=== PATIENT | male | born 1965 | race Caucasian/White ===

== ENCOUNTER 2019-12-25 00:55 | Emergency (ER) | payer SELFPAY ==
--- NOTE | ~2019-12-25 | CT_ITS ---
EXAMINATION: CT chest abdomen pelvis w con DATE: 12/25/2019 01:32 INDICATION: Fall with shortness of breath and left flank pain TECHNIQUE: Computed tomography (CT) of the chest, abdomen, and pelvis was performed with 100 mL Omnip aque-350 intravenous contrast. Automated exposure control and iterative reconstruction technique were employed. The dose-length product was 640.22 mGy-cm. COMPARISON: None FINDINGS: CHEST CT: Fractures of the posterolateral left 10th and 11th ribs, the former with 1 rib widths displacement an d the latter nondisplaced. Chronic but likely still healing fractures with callus formation extending from anterior to posterior from the right eighth to the 12th ribs. Additional older healed right fir st rib fracture. Paraseptal emphysema at both lungs with most prominent bullous changes and parenchym al scarring at the bilateral apices. No pneumonia, pulmonary edema, pleural effusion or pneumothorax. Small calcified nodules in the right lower lobe consistent with old granulomatous disease. Heart siz e is normal. No pericardial effusion. Mildly prominent prevascular lymph node measuring up to 10 mm i n maximal short axis diameter. No other pathologically enlarged thoracic lymphadenopathy. ABDOMEN/PELVIS CT: Liver, gallbladder, spleen, pancreas and bilateral adrenal glands are normal. Bilateral subcentimeter low-attenuation renal cysts. 2 mm nonobstructing stone at a lower pole calyx of the left kidney. Nor mal appendix. Small contained gas and fluid collection in the left hemipelvis along a fistulous tract between the sigmoid colon and the ileum. There is some wall thickening and a few diverticula along t he adjacent sigmoid colon without adjacent inflammatory stranding to suggest acute diverticulitis. Bl adder is normal. No free intraperitoneal gas or fluid. No pathologically enlarged abdominal or pelvic lymphadenopathy. Severe disc height loss with degenerative endplate changes at L5-S1. No acute fract ures identified in the abdomen or pelvis. IMPRESSION: 1. Acute posterior left 10th and 11th rib fractures. No acute visceral organ injury in the chest, abd omen or pelvis. 2. Mild apical predominant paraseptal emphysema. 3. 2 mm nonobstructing left renal stone. 3. Sigmoid diverticulosis with ileocolic fistula likely sequela of prior diverticulitis. Reviewed, dictated and finalized at location A. IMPRESSION: 1. Acute posterior left 10th and 11th rib fractures. No acute visceral organ in jury in the chest, abdomen or pelvis. 2. Mild apical predominant paraseptal emphysema. 3. 2 mm nonobstructing left renal stone. 3. Sigmoid diverticulosis with ileocolic fistula likely sequela of prior divert iculitis.
--- NOTE | ~2019-12-25 | CT_ITS ---
EXAMINATION: CT brain wo con DATE: 12/25/2019 01:32 INDICATION: Intoxication with fall down stairs. TECHNIQUE: Computed tomography (CT) of the head was performed without intravenous contrast. Sagittal and coronal reconstructions were performed. The mA was adjusted according to patient size. Iterative reconstruction technique was employed. The dose-length product was 605.33 mGy-cm. COMPARISON: None FINDINGS: There is mild streak and motion artifact which mildly limits evaluation. No fracture. There are small old lacunar infarcts at the bilateral basal ganglia. No acute intracranial hemorrhage, acute infarct ion or abnormal extra axial fluid collection. Ventricles are normal and symmetric. No mass/mass effec t. The orbits, paranasal sinuses and mastoid air cells are normal. IMPRESSION: 1. No fracture or acute intracranial process. 2. Small old lacunar infarcts at the bilateral basal ganglia. Reviewed, dictated and finalized at location A.
[2019-12-25 00:56] VITALS: BP 167/118; PULSE 91; RESP 16; TEMP 36.4; O2SAT 97
--- NOTE | 2019-12-25 01:02 | ED.ABDPAIN ---
HPI - Abdominal Pain General Chief Complaint: Abdominal Pain Stated Complaint: L flank pain sp fall Source: RN notes reviewed History of Present Illness HPI narrative: Patient presents emergency department from home for left-sided pain. Patient states he fell down approximately 5 stairs approximately 4 hours ago. States severe pain in his left abdomen and lower chest with bruising noted over his left hip. He states that he does not believe he hit his head. Patient states he did drink 6 beers today. He denies shortness of breath nausea vomiting or any other symptoms. Related Data Allergies Allergy/AdvReac Type Severity Reaction Status Date / Time codeine Allergy Swelling Verified 12/25/19 01:02 Review of Systems Review of Systems: Narrative: Gen.: Denies fevers or chills Eyes: Denies eye pain or visual change ENT: Denies congestion Respiratory: Denies shortness of breath or cough CV: Denies chest pain or palpitations GI: Reports left-sided abdominal pain, denies nausea vomiting or diarrhea denies hematuria Musculoskeletal: Reports back pain Neuro: Denies numbness, tingling, weakness or focal weakness Skin: Denies rash Except as documented, all other systems reviewed and negative PMFSH Past Medical History Medical History (Updated 12/25/19 @ 03:43 by Jairon Varma DO) COPD (chronic obstructive pulmonary disease) Social History Social History (Updated 12/25/19 @ 01:03 by Jairon Varma DO) Smoking packs per day: 1 Smoking cigarettes per day: 20.0 Exam Narrative: Exam Narrative: APPEARANCE: Well appearing, no apparent distress, well-nourished. HEENT: normocephalic atraumtaic. TMs clear bilaterally. Oral mucosa moist. No facial tenderness EYES: PERRL NECK: Supple. No midline tenderness to palpation. Full range of motion without pain RESPIRATORY: No respiratory distress. Clear to auscultation bilaterally CARDIOVASCULAR: Regular rate and rhythm without murmurs rubs or gallops. ABDOMINAL: Soft, nondistended, tender palpation left upper quadrant left lower quadrant ecchymosis over the left lower abdomen and anterior pelvis MUSCULOSKELETAl: Moves all extremities. No tenderness to palpation of bilateral upper and lower extremities. No clubbing cyanosis or edema Back: No midline thoracic or lumbar tenderness to palpation tender palpation of left paravertebral muscles L2-5 Pelvis: Stable, nontender NEURO: Awake and alert ?3. Follows commands. Speech normal. No focal deficits. SKIN:: Warm, dry. Normal Color Course Course Emergency Course: I discussed with the patient the fistula. No history of diverticulitis or inflammatory bowel disease. He had had no bowel complaints prior to his fall this evening Called and discussed with Dr. shaffer the results. At this time recommends patient being started on Augmentin and Flagyl with follow-up as an outpatient Patient is ANO x3 able to get up and ambulate in the emergency department with no difficulty. Patient's brother is present and will be taking the patient home. Patient states he is ready for discharge. Discussed with patient the results of the work-up. I discussed CT scan showing fistula and need for follow-up and in agreement at this time Discussed with patient results of workup and diagnosis. Discussed need for follow-up with primary care, proper use of medication, and reasons to return to the emergency department. Patient understands and agrees to current treatment plan Vital Signs Vital signs: Vital Signs Temperature 97.5 F L 12/25/19 00:56 Pulse Rate 91 12/25/19 00:56 Respiratory Rate 16 12/25/19 00:56 Blood Pressure 167/118 H 12/25/19 00:56 Pulse Oximetry 97 12/25/19 00:56 Temperature 97.5 F L 12/25/19 00:56 Pulse Rate 92 12/25/19 02:50 Respiratory Rate 20 12/25/19 02:50 Blood Pressure 132/91 H 12/25/19 02:50 Pulse Oximetry 98 12/25/19 02:50 MDM - Abdominal Pain Lab Data Result diagrams: 12/25/19 01:04
[2019-12-25 01:12] LABS: Basophils Absolute Auto 0.1 K/mm3 (0.0-0.1); Eosinophils Absolute Auto 0.1 K/mm3 (0-0.3); Hematocrit 42.5 % (42.0-52.0); Hemoglobin 14.8 g/dL (14.0-18.0); Immature Granulocyte Absolute 0.01 K/mm3 (0.00-0.031); Immature Granulocyte Percent A 0.2 % (0-0.5); Lymphocytes Absolute Auto 1.74 K/mm3 (0.9-3.2); Lymphocytes Percent Auto 34.9 % (18.3-44.2); Mean Corpuscular HGB Conc 34.8 g/dl (32-36); Mean Corpuscular Hemoglobin 35.6 pg (26-34); Mean Corpuscular Volume 102.2 fl (80-100); Mean Platelet Volume 10.6 fl (7.4-10.4); Monocytes Absolute Auto 0.6 K/mm3 (0.1-0.6); Monocytes Percent Auto 11.2 % (2.6-8.5); Neutrophils Absolute Auto 2.5 K/mm3 (1.3-6.7); Neutrophils Percent Auto 50.7 % (45.5-73.1); Platelet Count Result 126 k/mm3 (150-375); Red Blood Count 4.16 M/mm3 (4.6-6.20); Red Cell Distribution Width 11.3 % (11.5-14.5)
[2019-12-25 01:20] LABS: INR 0.9; Partial Thromboplastin Time 27.9 SECONDS (22.3-36.8); Prothrombin Time 12.2 Seconds (11.1-14.7)
[2019-12-25 01:21] LABS: Estimated Glomerular Filt Rate 52
[2019-12-25 01:23] LABS: Alanine Aminotransferase 171 U/L (4-50); Albumin Level 4.7 g/dL (3.5-5.1); Alkaline Phosphatase 101 U/L (38-126); Aspartate Amino Transferase 221 U/L (17-59); Bilirubin,Total 0.4 mg/dL (0.2-1.3); Blood Urea Nitrogen 8 mg/dL (9-20); Calcium 9.1 mg/dL (8.4-10.2); Carbon Dioxide 30 mmol/L (22-30); Chloride 103 mmol/L (98-107); Estimated Glomerular Filt Rate > 60; Glucose 107 mg/dL (75-110); Potassium 4.4 mmol/L (3.4-5.0); Sodium 145 mmol/L (137-145)
[2019-12-25] MEDS: MORPHINE SULFATE 4 MG/ML INJ IV PUSH (01:35)
[2019-12-25 01:39] VITALS: BP 154/94; PULSE 110; RESP 20; O2SAT 100
[2019-12-25 01:45] LABS: Ethanol 495 mg/dL (<10)
[2019-12-25 02:50] VITALS: BP 132/91; PULSE 92; RESP 20; O2SAT 98
[2019-12-25] MEDS: AMOXICILLIN/CLAVULANATE K 875-125 MG TAB 1 TABLET PO (03:55)
[2019-12-25] MEDS: metroNIDAZOLE 250 MG TABLET 500 MG PO (03:55)
[2019-12-25 04:00] VITALS: BP 138/90; PULSE 80; RESP 20; O2SAT 98
== END 2019-12-25 04:04 | disposition home or self-care (01) ==
PROVIDERS: Emergency Provider Emergency Medicine
DX: S22.42XA Multiple fractures of ribs, left side, initial encounter for closed fracture (principal); K63.2 Fistula of intestine; F10.129 Alcohol abuse with intoxication, unspecified; Y90.0 Blood alcohol level of less than 20 mg/100 ml; F17.210 Nicotine dependence, cigarettes, uncomplicated; J44.9 Chronic obstructive pulmonary disease, unspecified; W10.9XXA Fall (on) (from) unspecified stairs and steps, initial encounter
CPT/HCPCS: 36415; 70450; 71260; 74177; 80053; 80307; 85025; 85055; 85610; 85730; 96365; 96375; 99284; A9270; J0131; J2270; Q9967

== ENCOUNTER 2020-10-21 16:08 | Inpatient (IN) | payer MEDICARE, MEDICAID, SELFPAY ==
--- NOTE | ~2020-10-21 | CT_ITS ---
EXAMINATION: CT abdomen pelvis wo con DATE: 10/21/2020 17:27 INDICATION: Left flank pain and left lower quadrant abdominal pain. TECHNIQUE: Computed tomography (CT) of the abdomen and pelvis was performed without intravenous contr ast. Automated exposure control and iterative reconstruction technique were employed. The dose-length product was 236.53 mGy-cm. COMPARISON: 12/25/2019 FINDINGS: Mild paraseptal emphysema at the right lung base. Heart size is normal. No pericardial or pleural eff usion. Diffuse hepatic steatosis. Gallbladder, spleen and bilateral adrenal glands are normal. Small calcification at the tail the pancreas could represent sequela of chronic pancreatitis. Right kidney and bilateral ureters are normal without evidence stones. There is a 3 mm nonobstructing stone at the lower pole of the left kidney. There are a few sigmoid diverticula. Again seen is a small amount of extraluminal gas along a tract of soft tissue density likely representing an enterocolic fistula exte nding between the proximal sigmoid colon and a loop of small bowel in the central abdomen. Bowels are otherwise unremarkable with no obstruction and with normal appendix. 7 mm diverticulum at the right posterior bladder.. No free intraperitoneal gas or fluid. No pathologically enlarged abdominal or pel mitchel lymphadenopathy. Severe lumbosacral spondylosis. Otherwise mild scattered degenerative skeletal c hanges. A few old left lower rib fractures. IMPRESSION: 1. 3 mm nonobstructing left renal stone. 2. Mild sigmoid diverticulosis with a small amount of gas along a chronic enterocolic fistula with li milli sequela of chronic diverticulitis. 3. Diffuse hepatic steatosis. Reviewed, dictated and finalized at location A. IMPRESSION: 1. 3 mm nonobstructing left renal stone. 2. Mild sigmoid diverticulosis with a small amount of gas along a chronic enter ocolic fistula with likely sequela of chronic diverticulitis. 3. Diffuse hepatic steatosis.
[2020-10-21 16:10] VITALS: BP 156/91; PULSE 78; RESP 18; TEMP 36.2; O2SAT 100
[2020-10-21 16:32] LABS: Basophils Absolute Auto 0.1 K/mm3 (0.0-0.1); Basophils Percent Auto 0.9 % (0.2-1.2); Eosinophils Percent Auto 0.4 % (0-4.4); Hematocrit 40.5 % (42.0-52.0); Hemoglobin 14.2 g/dL (14.0-18.0); Immature Granulocyte Absolute 0.02 K/mm3 (0.00-0.031); Immature Granulocyte Percent A 0.4 % (0-0.5); Immature Platelet Fraction Pct 8.2 % (0.9-11.2); Lymphocytes Absolute Auto 1.43 K/mm3 (0.9-3.2); Lymphocytes Percent Auto 25.3 % (18.3-44.2); Mean Corpuscular HGB Conc 35.1 g/dl (32-36); Mean Corpuscular Hemoglobin 37.3 pg (26-34); Mean Corpuscular Volume 106.3 fl (80-100); Mean Platelet Volume 10.3 fl (7.4-10.4); Monocytes Absolute Auto 0.8 K/mm3 (0.1-0.6); Monocytes Percent Auto 14.7 % (2.6-8.5); Neutrophils Absolute Auto 3.3 K/mm3 (1.3-6.7); Neutrophils Percent Auto 58.3 % (45.5-73.1); Platelet Count Result 135 k/mm3 (150-375); Red Blood Count 3.81 M/mm3 (4.6-6.20); Red Cell Distribution Width 11.3 % (11.5-14.5); White Blood Count 5.7 K/mm3 (4.5-10.0)
[2020-10-21 16:32] LABS: Add Urine Microscopic? NO; Appearance Urine Clear (Clear); Bilirubin Urine Negative (Negative); Blood Urine Negative (Negative); Color Urine Straw (Yellow); Glucose Urine UA Negative (Negative); Ketones Urine Negative (Negative); Leukocyte Esterase Ur Negative LEU/UL (Negative); Nitrate Urine Negative (Negative); Protein Urine Negative (Negative); Urobilinogen Urine Negative mg/dL (<2.0)
[2020-10-21 16:36] LABS: Specific Grav Ur 1.003 (1.001-1.035)
[2020-10-21 16:42] LABS: Alanine Aminotransferase 101 U/L (4-50); Albumin Level 4.5 g/dL (3.5-5.1); Alkaline Phosphatase 81 U/L (38-126); Anion Gap 9 mmol/L (8-16); Aspartate Amino Transferase 227 U/L (17-59); Bilirubin,Total 0.6 mg/dL (0.2-1.3); Blood Urea Nitrogen 4 mg/dL (9-20); Calcium 9.1 mg/dL (8.4-10.2); Carbon Dioxide 30 mmol/L (22-30); Chloride 101 mmol/L (98-107); Estimated CRCL calculation 99 ml/min; Estimated Glomerular Filt Rate > 60; Glucose 83 mg/dL (75-110); Lipase 180 U/L (23-300); Sodium 140 mmol/L (137-145)
[2020-10-21 17:29] LABS: Ethanol 298 mg/dL (<10)
[2020-10-21] MEDS: CIPROFLOXACIN 400 MG/D5W 200ML 200 ML 200 MG IVPB (19:39)
--- NOTE | 2020-10-21 19:44 | ED.ABDPAIN ---
HPI - Abdominal Pain General Chief Complaint: Abdominal Pain Stated Complaint: abd pain Time Seen by Provider: 10/21/20 16:52 Source: patient Mode of arrival: ambulatory Limitations: no limitations History of Present Illness HPI narrative: 55-year-old with a history of left inguinal hernia repaired several years ago here with complaints of left lower abdominal pain radiating to his back for last 3 days. He also states that he is feeling extremely weak and tired. He denies any fever or chills. No history of nausea or vomiting. Denies any blood in the stool. No previous history of diverticulitis or diverticulosis. MD elicited complaint: abdominal pain Pertinent past history: none Onset (ago): day(s) (3) Pain Consistency: constant Location: LLQ Severity: moderate Quality: aching Radiation: LLQ Migration to: L flank Exacerbating factors: nothing Relieving factors: nothing Associated symptoms: denies other symptoms Related Data Allergies Allergy/AdvReac Type Severity Reaction Status Date / Time codeine Allergy Swelling Verified 12/25/19 01:02 Review of Systems Review of Systems: All systems reviewed & are unremarkable except as noted in HPI and below Constitutional: Constitutional: Reports no additional constitutional complaints Eyes: Eyes: Reports no additional eye complaints ENT: Reports system reviewed and no additional complaints, except as documented Cardiovascular: Cardiovascular: Reports no additional cardiovascular complaints Respiratory: Respiratory: Reports no additional respiratory complaints Gastrointestinal: Gastrointestinal: Reports as per HPI Musculoskeletal: Musculoskeletal: Reports no additional musculoskeletal complaints Neurologic: Reports system reviewed and no additional complaints, except as documented Psychiatric: Psychiatric: Reports no additional psychiatric complaints [facility] Past Medical History Medical History COPD (chronic obstructive pulmonary disease) Social History Social History Smoking packs per day: 1 Smoking cigarettes per day: 20.0 Gender identity (if verbalized by the patient): Male Exam Narrative: Exam Narrative: GENERAL: Well-appearing, well-nourished, and in no acute distress. Strong smell of alcohol HEAD: Normocephalic, atraumatic. EYES: PERRLA and EOMI. NECK: Supple. CHEST: Clear to auscultation. No respiratory distress. HEART: Regular rate and rhythm. No murmur heard. Normal peripheral pulses. ABDOMEN: Soft, tender in the left lower quadrant area, nondistended, normal active bowel sounds. EXTREMITIES: Normal range of motion. No edema. SKIN: Warm, dry, no rash. NEURO: No focal deficits. Alert and oriented x3. PSYCH: Normal mood and affect. Course Course Emergency Course: Inform patient about his lab work, CT findings. I discussed with Dr. Artis recommended to admit patient under the hospitalist marilou Henriquez and Davey. We will see the patient in consult. Discussed with Nyasia agreed to admit the patient. Vital Signs Vital signs: Vital Signs Temperature 36.2 C L 10/21/20 16:10 Pulse Rate 78 10/21/20 16:10 Respiratory Rate 18 10/21/20 16:10 Blood Pressure 156/91 H 10/21/20 16:10 Pulse Oximetry 100 10/21/20 16:10 Temperature 36.2 C L 10/21/20 16:10 Pulse Rate 78 10/21/20 16:10 Respiratory Rate 18 10/21/20 16:10 Blood Pressure 156/91 H 10/21/20 16:10 Pulse Oximetry 100 10/21/20 16:10 MDM - Abdominal Pain Lab Data Result diagrams: 10/21/20 16:19 10/21/20 16:19 Labs: Lab Results 10/21/20 10/21/20 10/21/20 Range/Units 16:19 16:19 16:19 WBC 5.7 (4.5-10.0) K/mm3 RBC 3.81 L (4.6-6.20) M/mm3 Hgb 14.2 (14.0-18.0) g/dL Hct 40.5 L (42.0-52.0) % MCV 106.3 H (80-100) fl MCH 37.3 H (26-34) pg MCHC 35.1 (32-36) g/dl RDW 11.3 L (11.5-14.5) %
[2020-10-21] MEDS: metroNIDAZOLE 500 MG/ISO 100ML 500 MG/100 ML BAG 100 MG IVPB (20:35)
[2020-10-21 21:09] VITALS: BP 147/79; PULSE 74; RESP 18; O2SAT 96
[2020-10-21] MEDS: NICOTINE (*PBKC) 21 MG PATCH 1 PATCH TRANSDERM (21:10)
--- NOTE | 2020-10-21 21:10 | ADMGEN ---
This patient, Juan Jose Martinez, was admitted to Medical Room 253-01. Patient/family oriented to hospital policies and general routines including ID bracelet, bed and alarms, visiting hours, pain management, procedures, bathroom and other care routines, personal items, smoking policy, room service/diet, and visiting hours. Information on how to activate the Rapid Response Team has been discussed. Patient/Family are encouraged to report perceived risks to care and to ask questions if they do not understand what they are told or what they should do.
[2020-10-21] MEDS: SODIUM CHLORIDE 0.9% IV 1,000 ML 125 ML IV CONT (21:23)
[2020-10-21 21:39] VITALS: BP 161/88; PULSE 79; RESP 16; TEMP 36.1; O2SAT 100; BMI 20.2
[2020-10-22] VITALS (9 sets, daily range): BP systolic 139–169; BP diastolic 79–85; PULSE 59–84; RESP 16–18; TEMP 35.9–37.1; O2SAT 96–100
[2020-10-22] MEDS: metroNIDAZOLE 500 MG/ISO 100ML 500 MG/100 ML BAG 100 MG IVPB ×5 (00:55→23:33)
[2020-10-22] MEDS: MORPHINE SULFATE (*CRX) 4 MG/ML INJ IV PUSH ×4 (01:03→21:23)
--- NOTE | 2020-10-22 01:55 | PM.IMHP ---
H&P: HPI History of Present Illness Date/Time: 10/22/20 01:55 Chief Complaint: Left abdominal pain Narrative: 55-year-old male with past medical history of ulcers, COPD and chronic alcohol abuse who presented to the ER due to left lower abdominal pain. The patient had been evaluated in the ER December 2019 for similar symptoms. At that time he was noted to have 2 mm nonobstructing left renal stone, acute posterior rib fractures and sigmoid diverticulosis with ileal colic fistula likely sequelae of prior diverticulitis. He reported that he has had intermittent left lower abdominal pain since then. He was directed to follow-up with surgery as outpatient at that time and had been discharged on antibiotic therapy but he failed to follow-up with the surgeon. He reports that his pain is occasionally worse with eating. When his pain is worse he does not eat as much. At other times is appetite is fine. He reports several years of intermittently mucousy stools and intermittent blood-streaked stools. He has noticed some leakage of stool for quite some time. Leakage of stool has been ongoing even before his ER visit in December. He has never had a colonoscopy. He reports frequent symptoms of heartburn and reflux into his esophagus. He has frequent difficulty with swallowing meats. He reports that every morning when he wakes up he has severe nausea and will occasionally vomit. He denies any hematemesis or coffee-ground emesis he does have a distant history of gastric ulcers. He denies taking NSAIDs. He denies any fevers or chills. He reports that he came to the ER this time because his pain acutely worsened over the last 24 hours. He reports that his worst his pain is a 9/10 in intensity in after morphine his pain is down to a 4/10 in intensity. He reports that he has chronic pain in his leg and back due to prior trauma. He subsequently drinks at least 6 beers a day to help deal with his pain. He denies any history a of liver disease. However, his LFTs back in December were elevated similar to the levels today. He has chronic shortness of breath that is unchanged from baseline. He has not been having any cough congestion or recent ill contacts. He has and I albuterol inhaler and a albuterol nebulizer from [place] quite sometime ago that he still uses as needed for shortness of breath. He has not seen a primary care physician in at least several years. He has not received a COVID vaccine and is not interested in receiving a vaccine. Review of Systems Review of Systems: Narrative: 12 systems were reviewed with pertinent positives and negatives per HPI. Except as documented in the HPI, all other systems were reviewed and are negative. 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 Kidney stones Right inguinal hernia Patient refuses surgical correction Status post open reduction with internal fixation of fracture Stomach ulcer Surgical History Surgical History (Updated 10/22/20 @ 05:21 by Kusum Casillas DO) History of left inguinal hernia repair X2 History of pneumonectomy Left lower lobe pneumonectomy 2017 due to pneumothorax History of tonsillectomy and adenoidectomy Status post right foot surgery (~1990) For sequential surgeries for ORIF right foot due to trauma from alcohol use with the last surgical procedure also involving bone harvesting from his right hip Family History Family History Father Acute myocardial infarction Mother Breast cancer Cerebrovascular accident Social History Social History (Updated 10/22/20 @ 05:24 by Kusum Casillas DO) Social History: He lives in [place] with his of 1 year. 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 He has smoked up t
[2020-10-22] MEDS: FOLIC ACID 1 MG/0.2 ML INJ IV PUSH (02:19)
[2020-10-22] MEDS: THIAMINE HCL 200 MG/2 ML VIAL 100 MG IV PUSH (02:19)
[2020-10-22 05:20] LABS: Basophils Percent Auto 1.1 % (0.2-1.2); Eosinophils Absolute Auto 0.1 K/mm3 (0-0.3); Eosinophils Percent Auto 1.9 % (0-4.4); Hematocrit 37.9 % (42.0-52.0); Hemoglobin 13.2 g/dL (14.0-18.0); Immature Granulocyte Absolute 0.01 K/mm3 (0.00-0.031); Immature Granulocyte Percent A 0.3 % (0-0.5); Lymphocytes Absolute Auto 1.46 K/mm3 (0.9-3.2); Mean Corpuscular HGB Conc 34.8 g/dl (32-36); Mean Corpuscular Volume 106.2 fl (80-100); Mean Platelet Volume 10.5 fl (7.4-10.4); Monocytes Absolute Auto 0.5 K/mm3 (0.1-0.6); Monocytes Percent Auto 12.3 % (2.6-8.5); Neutrophils Absolute Auto 1.6 K/mm3 (1.3-6.7); Neutrophils Percent Auto 44.4 % (45.5-73.1); Platelet Count Result 104 k/mm3 (150-375); Red Blood Count 3.57 M/mm3 (4.6-6.20); Red Cell Distribution Width 11.3 % (11.5-14.5); White Blood Count 3.7 K/mm3 (4.5-10.0)
[2020-10-22 06:01] LABS: Anion Gap 5 mmol/L (8-16); Blood Urea Nitrogen 3 mg/dL (9-20); Calcium 8.3 mg/dL (8.4-10.2); Carbon Dioxide 30 mmol/L (22-30); Chloride 106 mmol/L (98-107); Estimated CRCL calculation 88 ml/min; Estimated Glomerular Filt Rate > 60; Glucose 73 mg/dL (75-110); Magnesium 1.4 mg/dL (1.6-2.3); Phosphorus 3.2 mg/dL (2.5-4.5); Sodium 141 mmol/L (137-145)
[2020-10-22] MEDS: SODIUM CHLORIDE 0.9% IV 1,000 ML 125 ML IV CONT (07:24)
[2020-10-22 07:56] LABS: Folic Acid > 20.0 ng/mL (2.76->20)
[2020-10-22] MEDS: CIPROFLOXACIN 400 MG/D5W 200ML 200 ML 200 MG IVPB (09:00)
[2020-10-22] MEDS: TAMSULOSIN HCL 0.4 MG CAPSULE PO (09:04)
[2020-10-22] MEDS: PANTOPRAZOLE SODIUM IV 40 MG VIAL IV PUSH (09:07)
[2020-10-22 10:30] LABS: Glucose Point of Care 90 (65-105)
[2020-10-22] MEDS: ONDANSETRON INJ 4 MG/2 ML VIAL IV PUSH (10:43)
[2020-10-22] MEDS: LORazepam INJ (*CRX) 2 MG/ML VIAL 1 MG IV PUSH (10:44)
--- NOTE | 2020-10-22 10:47 | PM.IMPN ---
Progress Note: A&P Assessment and Plan (1) Entero-colic fistula: Code(s): K63.2 - Fistula of intestine Status: Acute Assessment and Plan: -The patient has intra colic fistula that appears to be somewhat chronic. His brother had surgery for the same thing. This could be sequelae of chronic diverticulitis however given patient's report of mucousy stools and intermittent bloody stools as well as is upper GI symptoms, consider IBD -Patient has been started on empiric antibiotic therapy with Cipro and Flagyl. Will remind the patient if he goes home on Flagyl he cannot drink alcohol with this. -General surgery has been consulted, await their recommendations -GI also has been consulted due to reflux, emesis and dysphagia. (2) Alcohol abuse: Code(s): F10.10 - Alcohol abuse, uncomplicated Status: Acute Assessment and Plan: Chronic alcohol abuse with chronic transaminitis and CT evidence of hepatic steatosis. I suspect the patient has cirrhosis. -The patient states that he is not interested in quitting drinking alcohol -I had a discussion with the patient that his liver destruction alcohol can cause -continue thiamine and folic acid -The patient has evidence of bone marrow suppression with leukopenia, macrocytosis and thrombocytopenia, likely due to the alcoholism (3) Continuous tobacco abuse: Code(s): Z72.0 - Tobacco use Status: Acute Assessment and Plan: He is not interested in quitting smoking. A nicotine patch has been provided. (4) GERD (gastroesophageal reflux disease): Code(s): K21.9 - Gastro-esophageal reflux disease without esophagitis Status: Acute Assessment and Plan: Continue Protonix -GI consult (5) Dysphagia: Code(s): R13.10 - Dysphagia, unspecified Status: Acute Assessment and Plan: Will consult GI (6) Megaloblastic anemia due to alcoholism: Code(s): D53.1 - Other megaloblastic anemias, not elsewhere classified Status: Acute Assessment and Plan: Hemoglobin stable -B12 and folate within normal limits (7) Elevated blood pressure reading: Code(s): R03.0 - Elevated blood-pressure reading, without diagnosis of hypertension Status: Acute Assessment and Plan: Could be due to pain vs previously undiagnosed essential hypertension - Will monitor blood pressures trends, if the patient's pain improved and he still has elevated blood pressure readings, consider starting antihypertensive medication -add hydralazine for significantly elevated blood pressure readings (8) Transaminitis: Code(s): R74.01 - Elevation of levels of liver transaminase levels Status: Acute Assessment and Plan: -Pattern looks consistent with ETOH abuse but will order hepatitis panel for the morning -CT shows difuse hepatic steatosis Time Spent With Patient Time with patient: 25 - 35 minutes Subjective Date/time seen: 10/22/20 10:47 Interval history: Pt is a 55 year old male here for significant abdominal fistula. Patient was seen today and states his pain is still a 7/10 in the left lower quadrant. He vomited this morning regular bile (no blood). He felt a little shaky during this time but has since felt better. His glucose was 90. He says he drinks about 6 beers a day. He denies hallucinations or anxiety at this time. He states he had a bowel movement yesterday which was normal for him and has been having gas today. He denies chest pain, acute shortness of breath, leg swelling, or cough. He does not think he has any history of hepatitis but is unsure. Review of Systems Review of Systems: All systems reviewed & are unremarkable except as noted in HPI and below Exam Narrative: Exam Narrative: General: Well developed well nourished patient in NAD HEENT: normocephalic Neck: supple Neuro: Alert and oriented x4. No tremors on exam. CV:RRR Res
--- NOTE | 2020-10-22 11:06 | PM.CNGS ---
Assessment and Plan Assessment and plan (1) Diverticulitis: Code(s): K57.92 - Diverticulitis of intestine, part unspecified, without perforation or abscess without bleeding Status: Acute Assessment and Plan: CT scan from this hospitalization and from December of 2019 reviewed and discussed with the patient in detail. He has evidence of chronic diverticulitis and likely is dealing with an acute component at this time. CT also suggests an enterocolic fistula from the sigmoid colon to a loop of small bowel. WBC normal and he is afebrile. No peritoneal signs. We would recommend continuing antibiotics, analgesics, and we will start advancing his diet as tolerated. No indication for urgent surgical intervention at this time. We would recommend a colonoscopy to rule out malignancy prior to planning any outpatient surgery. GI has been consulted and will await their recommendations. Would plan to have the patient eventually see Dr. Artis as an outpatient to further discuss surgical options after being evaluated by GI. Thank you for allowing us to see the patient in consultation and we will continue to follow along with you. 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 See plan above. (3) COPD (chronic obstructive pulmonary disease): Code(s): J44.9 - Chronic obstructive pulmonary disease, unspecified Status: Acute (4) Alcohol abuse: Code(s): F10.10 - Alcohol abuse, uncomplicated Status: Acute Assessment and Plan: Discussed and strongly encouraged cessation, especially when considering surgery. Patient not interested at this time even considering the harmful effects of his alcohol abuse. (5) Continuous tobacco abuse: Code(s): Z72.0 - Tobacco use Status: Acute Assessment and Plan: Encouraged cessation. (6) Transaminitis: Code(s): R74.01 - Elevation of levels of liver transaminase levels Status: Acute Additional Plan I have discussed the patient's case and plan of care with Dr. Artis. History of Present Illness Consult details Consult date: 10/22/20 Reason for consult: other (Chronic diverticulitis with enterocolic fistula found on CT) Requesting physician: Yonis Davis MD Narrative: This is a 55-year-old male with a history of alcohol abuse, COPD, and tobacco abuse, who presented to the ER with complaints of abdominal pain. He was seen in the ER last December of 2019 for abdominal and chest pain following a fall while intoxicated. CT scan of the chest, abdomen and pelvis at that time showed sigmoid diverticulosis with ileocolic fistula likely sequela of prior diverticulitis and acute rib fractures. The ER documentation suggests that he was sent home with oral antibiotic scripts, although he patient states he never was sent home with antibiotics and did not take any following the ER stay. He was instructed to follow-up with our office as an outpatient. He states that he did not call the office because he did not have insurance at the time. Since then, he has intermittent abdominal pain mostly on the left side. He reports feeling this pain multiple times a week and worse with movement. He had had poor appetite and nausea with episodes of vomiting regularly as well. He reports vomiting most mornings, but able to tolerate some diet throughout the rest of the day. He reports changes in his bowel habits with bloody, mucous-like stools intermittently for the past year. No fever or chills. He reports that his abdominal pain got worse over the past 24 hours prior to coming into the ER and felt this was the worst pain he has experienced. Due to the pain, he came in for evaluation. CT scan of the abdomen and pelvis showed mild sigmoid diverticulosis with a small amount of gas along a chronic enterocolic fistula with likely sequela of chronic diverticulitis. Labs showed a normal white blood cell
[2020-10-22] MEDS: MAGNESIUM OXIDE 400 MG TABLET PO (11:28)
--- NOTE | 2020-10-22 15:26 | WPDGICN ---
Assessment and Plan Assessment and plan (1) Diverticulitis: Code(s): K57.92 - Diverticulitis of intestine, part unspecified, without perforation or abscess without bleeding Status: Acute Assessment and Plan: started on iv antibiotics, also entero-colic fistula at least since last year complete course of antibiotics and probably in 5-6 weeks we will do a colonoscopy as outpatient after infection is clear, we need to rule out malignancy. 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 - Fistula of intestine Status: Acute Assessment and Plan: finding discussed with patient (3) COPD (chronic obstructive pulmonary disease): Code(s): J44.9 - Chronic obstructive pulmonary disease, unspecified Status: Acute (4) LLQ pain: Code(s): R10.32 - Left lower quadrant pain Status: Acute Assessment and Plan: from diverticulitis (5) Alcohol abuse: Code(s): F10.10 - Alcohol abuse, uncomplicated Status: Acute (6) Transaminitis: Code(s): R74.01 - Elevation of levels of liver transaminase levels Status: Acute Assessment and Plan: could be from acute infection but also he is a drinker needs to quit etoh supportive care will get hepatitis panel CT scan showed fatty liver GI Consult Note Consult date/time: 10/22/20 15:26 HPI: Juan Jose Martinez is a 55 year old male with history of COPD and chronic alcohol abuse (at least 6 beers daily) here after worsening pain of left lower abdominal. He came to ER December 2019 for abdominal and chest pain following a fall while intoxicated. CT scan of the chest, abdomen and pelvis at that time showed sigmoid diverticulosis with ileocolic fistula likely sequela of prior diverticulitis and acute rib fractures, discharged on oral antibiotics and told to see surgery but he did not follow recommendations, he says that did not have insurance at that time. He has been having intermittent discomfort in LLQ, also intermittent mucus in stool and intermittent blood-streaked stools. Day of admission had severe pain and also nausea with vomiting. CT scan reviewed, showed mild sigmoid diverticulosis with a small amount of gas along a chronic enterocolic fistula with likely sequela of chronic diverticulitis. Admitted to hospital, started on iv antibiotics and given pain control. He never had a colonoscopy. He says that brother had colon surgery for diverticulitis. Review of Systems Constitutional: Constitutional: Denies headache(s) and Denies weakness Eyes: Eyes: Denies blurry vision ENT: Reports Normal hearing present, Denies headache(s) and Denies neck pain Cardiovascular: Cardiovascular: Denies chest pain and Denies dyspnea Respiratory: Respiratory: Denies dyspnea Gastrointestinal: Gastrointestinal: Reports no additional gastrointestinal complaints Genitourinary: Genitourinary: Denies dysuria Musculoskeletal: Musculoskeletal: Denies neck pain Integumentary/Breasts: Skin/Breast: Denies dry skin Neurologic: Reports Normal hearing present, Denies headache(s) and Denies weakness Psychiatric: Psychiatric: Denies anxiety Endocrine: Endocrine: Denies change in body appearance Hematologic/Lymphatic: Hematologic/Lymphatic: Denies easy bleeding Allergic/Immunologic: Allergic/Immunologic: Denies urticaria PMFSH Past Medical History Medical History (Updated 10/22/20 @ 15:41 by Tony Hoffman MD) Alcoholism Continuous tobacco abuse COPD (chronic obstructive pulmonary disease) Entero-colic fistula Initially noted on CT from 12/2019 Kidney stones LLQ pain Right inguinal hernia Patient refuses surgical correction Status post open reduction with internal fixation of fracture Stomach ulcer Surgical History Surgical History History of left inguinal hernia repair X2 History of pneumonectomy Left lower lobe pneumonectomy 2018 due to pneumothorax History of tonsi
[2020-10-22] MEDS: CIPROFLOXACIN 400 MG/D5W 200ML 200 ML 150 MG IVPB (20:36)
[2020-10-22] MEDS: NICOTINE (*PBKC) 21 MG PATCH 1 PATCH TRANSDERM (20:36)
[2020-10-22] MEDS: SODIUM CHLORIDE 0.9% IV 1,000 ML 75 ML IV CONT (23:33)
[2020-10-23] VITALS (7 sets, daily range): BP systolic 154–167; BP diastolic 81–92; PULSE 60–77; RESP 14–20; TEMP 36.1–36.7; O2SAT 96–100
[2020-10-23 05:46] LABS: Hematocrit 34.9 % (42.0-52.0); Hemoglobin 12.2 g/dL (14.0-18.0); Immature Platelet Fraction Pct 9.8 % (0.9-11.2); Mean Corpuscular Hemoglobin 36.1 pg (26-34); Mean Corpuscular Volume 103.3 fl (80-100); Platelet Count Result 88 k/mm3 (150-375); Red Blood Count 3.38 M/mm3 (4.6-6.20); Red Cell Distribution Width 10.8 % (11.5-14.5); White Blood Count 4.2 K/mm3 (4.5-10.0)
[2020-10-23 06:24] LABS: Alanine Aminotransferase 66 U/L (4-50); Albumin Level 3.7 g/dL (3.5-5.1); Alkaline Phosphatase 65 U/L (38-126); Anion Gap 4 mmol/L (8-16); Aspartate Amino Transferase 102 U/L (17-59); Bilirubin,Total 1.1 mg/dL (0.2-1.3); Blood Urea Nitrogen 5 mg/dL (9-20); Calcium 8.5 mg/dL (8.4-10.2); Carbon Dioxide 29 mmol/L (22-30); Chloride 100 mmol/L (98-107); Estimated CRCL calculation 88 ml/min; Estimated Glomerular Filt Rate > 60; Glucose 86 mg/dL (75-110); Magnesium 1.2 mg/dL (1.6-2.3); Potassium 3.7 mmol/L (3.4-5.0); Sodium 133 mmol/L (137-145)
[2020-10-23] MEDS: metroNIDAZOLE 500 MG/ISO 100ML 500 MG/100 ML BAG 100 MG IVPB ×4 (06:31→23:59)
--- NOTE | 2020-10-23 09:00 | PM.IMPN ---
Progress Note: A&P Assessment and Plan (1) Entero-colic fistula: Code(s): K63.2 - Fistula of intestine Status: Acute Assessment and Plan: -The patient has intra colic fistula that appears to be somewhat chronic. His brother had surgery for the same thing. This could be sequelae of chronic diverticulitis however given patient's report of mucousy stools and intermittent bloody stools as well as is upper GI symptoms, consider IBD -Patient has been started on empiric antibiotic therapy with Cipro and Flagyl and will continue with that. Will remind the patient if he goes home on Flagyl he cannot drink alcohol with this. -General surgery has been consulted and their recommendations are noted. -GI also has been consulted and plan to do an outpt colonoscopy (2) Alcohol abuse: Code(s): F10.10 - Alcohol abuse, uncomplicated Status: Acute Assessment and Plan: Chronic alcohol abuse with chronic transaminitis and CT evidence of hepatic steatosis. I suspect the patient has cirrhosis. -The patient states that he is not interested in quitting drinking alcohol -I had a discussion with the patient that his liver destruction alcohol can cause -continue thiamine and folic acid -The patient has evidence of bone marrow suppression with leukopenia, macrocytosis and thrombocytopenia, likely due to the alcoholism (3) Continuous tobacco abuse: Code(s): Z72.0 - Tobacco use Status: Acute Assessment and Plan: He is not interested in quitting smoking. A nicotine patch has been provided. (4) GERD (gastroesophageal reflux disease): Code(s): K21.9 - Gastro-esophageal reflux disease without esophagitis Status: Acute Assessment and Plan: Continue Protonix -GI onboard (5) Dysphagia: Code(s): R13.10 - Dysphagia, unspecified Status: Acute Assessment and Plan: Consider EGD with colonoscopy outpt (6) Megaloblastic anemia due to alcoholism: Code(s): D53.1 - Other megaloblastic anemias, not elsewhere classified Status: Acute Assessment and Plan: Hemoglobin stable -B12 and folate within normal limits (7) Elevated blood pressure reading: Code(s): R03.0 - Elevated blood-pressure reading, without diagnosis of hypertension Status: Acute Assessment and Plan: Could be due to pain vs previously undiagnosed essential hypertension - Will monitor blood pressures trends, if the patient's pain improves and he still has elevated blood pressure readings, consider starting antihypertensive medication -continue hydralazine for significantly elevated blood pressure readings (8) Transaminitis: Code(s): R74.01 - Elevation of levels of liver transaminase levels Status: Acute Assessment and Plan: -Pattern looks consistent with ETOH abuse. Await hepatitis panel -CT shows difuse hepatic steatosis Subjective Date/time seen: 10/23/20 09:00 Interval history: Pt is a 55 year old male here for significant abdominal fistula. Patient was seen today and states his pain is still a 6/10 in the left lower quadrant. He has not had any more vomiting but has felt nauseated throughout the day. He still feels a little shaky and thinks it's because he hasn't had a cigarette. He is not having any hallucinations or anxiety. He says he drinks about 6 beers a day. He has not had a bowel movement yet but is passing gas. He denies chest pain, acute shortness of breath, leg swelling, or cough. He does not think he has any history of hepatitis but is unsure. Exam Narrative: Exam Narrative: General: Well developed well nourished patient in NAD HEENT: normocephalic Neck: supple Neuro: Alert and oriented x4. No tremors on exam. CV:RRR Resp: Shallow breaths, mild crackles at the right base Abd: Soft, non distended. Pain to palpation to the left lower quadrant, not out of proportion to exam. He has no
[2020-10-23] MEDS: MAGNESIUM SULF 2 GM/WATER 50ML 2 GM/50 ML BAG IVPB (09:21)
[2020-10-23] MEDS: PANTOPRAZOLE SODIUM IV 40 MG VIAL IV PUSH (09:47)
[2020-10-23] MEDS: THIAMINE HCL 200 MG/2 ML VIAL 100 MG IV PUSH (09:47)
[2020-10-23] MEDS: FOLIC ACID 1 MG/0.2 ML INJ IV PUSH (09:49)
[2020-10-23] MEDS: MAGNESIUM OXIDE 400 MG TABLET PO (09:49)
[2020-10-23] MEDS: TAMSULOSIN HCL 0.4 MG CAPSULE PO (09:49)
--- NOTE | 2020-10-23 09:58 | PM.PNGS ---
Progress Note: A&P Assessment and Plan (1) Diverticulitis: Code(s): K57.92 - Diverticulitis of intestine, part unspecified, without perforation or abscess without bleeding Status: Acute Assessment and Plan: Clinically improving. Advanced to a regular diet. Stop IV fluids. Continue antibiotics per primary team. GI recommendations appreciated. Will plan to have patient follow-up with Dr. Artis as an outpatient after colonoscopy to discuss surgical options. 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 Additional Plan I have discussed the plan of care with Dr. Artis. Subjective Subjective Date/Time Seen: 10/23/20 09:58 Patient reports: no new complaints, feels better, pain is less, tolerating a regular diet, flatus, bowel movement and vomiting (yesterday) Interval history: Patient seen today and abd pain is slightly better. Reports difficulty tolerating much food at a time, so he is eating small frequent meals and doing well with this. Reports BM this morning and normal, no blood or mucous. Reports some intermittent nausea, vomiting once yesterday, but feeling better today with no more vomiting. Review of Systems Constitutional: Constitutional: Denies chills and Denies fever(s) Gastrointestinal: Gastrointestinal: Reports as per HPI and Reports no additional gastrointestinal complaints Exam Const: General: comfortable and no acute distress GI: Inspection: other (mildly distended) GI Palp: Yes Soft to palpation, Yes Tenderness to palpation present (GI) (improving tenderness, still more tender on left side), No Guarding due to palpation present (GI), No Hernia present and No Rebound tenderness present Auscultation: normal bowel sounds Neuro: General: moves all extremities and no focal motor deficits Psych: Mental Status: mental status grossly normal Insight: Good insight present (Psych) Judgement: Good judgement present (Psych) Objective Data Vital Signs Vital Signs: Vital Signs - 24 hr 10/22/20 12:00 10/22/20 14:00 10/22/20 16:00 Temperature 98.8 F 98.7 F 98.7 F Pulse Rate 84 76 74 Respiratory Rate 18 18 18 Blood Pressure 159/80 H 163/82 H 162/80 H Pulse Oximetry 98 99 98 10/22/20 20:00 10/23/20 00:00 10/23/20 04:00 Temperature 98.8 F 97.7 F 98.1 F Pulse Rate 74 61 63 Respiratory Rate 16 18 16 Blood Pressure 139/85 167/83 H 157/87 H Pulse Oximetry 100 96 98 10/23/20 09:17 Temperature 96.9 F L Pulse Rate 63 Respiratory Rate 14 Blood Pressure 167/85 H Pulse Oximetry 98 Intake/Output Intake/Output: Intake & Output 10/20/20 10/21/20 10/22/20 10/23/20 23:59 23:59 23:59 23:59 Intake Total 300 3710 420 Output Total 1525 400 Balance 300 2185 20 Meds/Results Medications: Active Medications Generic Name Dose Route Start Last Admin Trade Name Freq PRN Reason Stop Dose Admin Acetaminophen 650 mg 10/23/20 08:43 Acetaminophen 325 Mg Tablet PO Q6H PRN Mild Pain (1-3) or Fever Hydrocodone Bitart/Acetaminophen 1 tab 10/23/20 08:43 Hydrocodone/Acetaminophen (*Crx) 5-325 Mg Tablet PO Q4H PRN Pain Rated 4-6 Hydrocodone Bitart/Acetaminophen 1 tab 10/23/20 08:43 Hydrocodone/Acetaminophen (*Crx) 10-325 Mg Tablet PO Q6H PRN Pain Rated 7-10 Folic Acid 1 mg 10/23/20 06:00 Folic Acid 1 Mg/0.2 Ml Inj IV PUSH QAM KAIT Hydralazine HCl 10 mg 10/22/20 11:06 Hydralazine Hcl 20 Mg/Ml Vial IV PUSH Q8H PRN Blood Pressure - High Sodium Chloride 1,000 mls @ 75 mls/hr 10/21/20 19:40 10/22/20 23:33 Normal Saline Iv IV CONT 75 mls/hr .[id number] KATI Administration Metronidazole 500 mg in 100 mls @ 100 mls/hr 10/22/20 00:00 10/23/20 06:31 Flagyl 500 Mg/Iso Soln 100 Ml IVPB 100 mls/hr Q6HR KATI Administration Ciprofloxacin/Dextrose 200 mls @ 200 mls/hr 10/22/20 09:00 10/22/20 22:00 Cipro 400 Mg/D5w 200
[2020-10-23 10:26] LABS: Hepatitis B Surface Antigen Negative (Negative)
[2020-10-23 10:32] LABS: HAV RESULT Negative (Negative); Hepatitis B Core IgM Result Negative (Negative)
[2020-10-23 10:44] LABS: Hepatitis C Virus Antibody Negative (Negative)
[2020-10-23] MEDS: MAGNESIUM SULF 1 GM/D5W 100 ML 1 GM/100 ML BAG IVPB (11:01)
[2020-10-23 11:13] LABS: Glucose Point of Care 113 (65-105)
[2020-10-23] MEDS: CIPROFLOXACIN 400 MG/D5W 200ML 200 ML 200 MG IVPB ×2 (12:32→20:30)
--- NOTE | 2020-10-23 13:14 | WPDGIPROGNO ---
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 - Fistula of intestine Status: Acute Assessment and Plan: after colonoscopy then will need follow-up again with surgery (3) Transaminitis: Code(s): R74.01 - Elevation of levels of liver transaminase levels Status: Acute Assessment and Plan: trending down, he should not drink any more alcohol (discussed with patient) hepatitis panel negative (4) Megaloblastic anemia due to alcoholism: Code(s): D53.1 - Other megaloblastic anemias, not elsewhere classified Status: Acute (5) Alcohol abuse: Code(s): F10.10 - Alcohol abuse, uncomplicated Status: Acute Subjective Date/time seen: 10/23/20 13:14 Interval history: less pain, tolerating diet and overall feeling better Review of Systems Review of Systems: All systems reviewed & are unremarkable except as noted in HPI and below Exam Const: General: comfortable and no acute distress HENMT: General nose exam: Normal nares present Eyes: General: appearance normal, both eyes and all related structures Neck: Neck: supple Resp: Auscultation: clear to auscultation bilaterally Cardio: Rate: regular rate GI: Inspection: other (mildly distended) GI Palp: Yes Soft to palpation, Yes Tenderness to palpation present (GI) (improving tenderness, still more tender on left side), No Guarding due to palpation present (GI), No Hernia present and No Rebound tenderness present Auscultation: normal bowel sounds Skin: General skin exam: normal color Neuro: General: moves all extremities and no focal motor deficits Speech: normal speech Motor exam (neuro): Normal motor muscle tone present throughout Extrem: General: normal to inspection Psych: Mental Status: mental status grossly normal Insight: Good insight present (Psych) Judgement: Good judgement present (Psych) Objective Data Vital Signs Vital Signs: Vital Signs - 24 hr 10/22/20 14:00 10/22/20 16:00 10/22/20 20:00 Temperature 98.7 F 98.7 F 98.8 F Pulse Rate 76 74 74 Respiratory Rate 18 18 16 Blood Pressure 163/82 H 162/80 H 139/85 Pulse Oximetry 99 98 100 10/23/20 00:00 10/23/20 04:00 10/23/20 09:17 Temperature 97.7 F 98.1 F 96.9 F L Pulse Rate 61 63 63 Respiratory Rate 18 16 14 Blood Pressure 167/83 H 157/87 H 167/85 H Pulse Oximetry 96 98 98 Intake/Output Intake/Output: Intake & Output 10/20/20 10/21/20 10/22/20 10/23/20 23:59 23:59 23:59 23:59 Intake Total 300 3710 720 Output Total 1525 400 Balance 300 2185 320 Meds/Results Medications: Active Medications Generic Name Dose Route Start Last Admin Trade Name Freq PRN Reason Stop Dose Admin Acetaminophen 650 mg 10/23/20 08:43 Acetaminophen 325 Mg Tablet PO Q6H PRN Mild Pain (1-3) or Fever Hydrocodone Bitart/Acetaminophen 1 tab 10/23/20 08:43 Hydrocodone/Acetaminophen (*Crx) 5-325 Mg Tablet PO Q4H PRN Pain Rated 4-6 Hydrocodone Bitart/Acetaminophen 1 tab 10/23/20 08:43 Hydrocodone/Acetaminophen (*Crx) 10-325 Mg Tablet PO Q6H PRN Pain Rated 7-10 Folic Acid 1 mg 10/23/20 06:00 10/23/20 09:49 Folic Acid 1 Mg/0.2 Ml Inj IV PUSH 1 mg QAM KATI Administration Hydralazine HCl 10 mg 10/22/20 11:06 Hydralazine Hcl 20 Mg/Ml Vial IV PUSH Q8H PRN Blood Pressure - High Metronidazole 500 mg in 100 mls @ 100 mls/hr 10/22/20 00:00 10/23/20 07:30 Flagyl 500 Mg/Iso Soln 100 Ml IVPB Infused Q6HR KATI Infusion Ciprofloxacin/Dextrose 200 mls @ 200 mls/hr 10/22/20 09:00
--- NOTE | 2020-10-23 15:20 | PCNSR ---
On 10/23/20, the student,Hilda Strong, provided care and completed [facility] documentation on this patient. I have reviewed the student's documentation and agree with the findings.
[2020-10-23] MEDS: HYDROcodone/acetaminophen (*CRX) 5-325 MG TABLET 1 TAB PO (16:31)
[2020-10-23] MEDS: NICOTINE (*PBKC) 21 MG PATCH 1 PATCH TRANSDERM (20:30)
[2020-10-24] VITALS: BP 185/88; PULSE 56; RESP 18; TEMP 36.4; O2SAT 97
[2020-10-24] MEDS: hydrALAZINE HCL 20 MG/ML VIAL 10 MG IV PUSH (00:32)
[2020-10-24 01:14] VITALS: BP 135/73
[2020-10-24 04:00] VITALS: BP 135/73; BP 138/80; PULSE 89; RESP 20; TEMP 36.8; O2SAT 99
[2020-10-24] MEDS: ONDANSETRON INJ 4 MG/2 ML VIAL IV PUSH (04:22)
[2020-10-24 05:17] LABS: Hemoglobin 13.6 g/dL (14.0-18.0); Immature Platelet Fraction Pct 9.8 % (0.9-11.2); Mean Corpuscular HGB Conc 35.8 g/dl (32-36); Mean Corpuscular Hemoglobin 37.3 pg (26-34); Mean Corpuscular Volume 104.1 fl (80-100); Mean Platelet Volume 11.3 fl (7.4-10.4); Platelet Count Result 91 k/mm3 (150-375); Red Blood Count 3.65 M/mm3 (4.6-6.20); Red Cell Distribution Width 10.7 % (11.5-14.5); White Blood Count 4.9 K/mm3 (4.5-10.0)
[2020-10-24 05:31] LABS: Potassium 3.1 mmol/L (3.4-5.0)
[2020-10-24 05:45] LABS: Alanine Aminotransferase 60 U/L (4-50); Albumin Level 3.9 g/dL (3.5-5.1); Alkaline Phosphatase 79 U/L (38-126); Anion Gap 8 mmol/L (8-16); Aspartate Amino Transferase 109 U/L (17-59); Bilirubin,Total 1.2 mg/dL (0.2-1.3); Blood Urea Nitrogen 5 mg/dL (9-20); Carbon Dioxide 26 mmol/L (22-30); Chloride 101 mmol/L (98-107); Estimated CRCL calculation 88 ml/min; Estimated Glomerular Filt Rate > 60; Glucose 109 mg/dL (75-110); Magnesium 1.6 mg/dL (1.6-2.3); Sodium 135 mmol/L (137-145)
--- NOTE | 2020-10-24 07:49 | PM.DS ---
DS: Admitting Diagnosis Admitting Diagnosis Admitting Diagnosis: left lower abdominal pain worse with eating. mucousy stools and intermittent blood-streaked stools. leakage of stool Dysphagia - difficulty with swallowing meats. GERD - severe nausea and will occasionally vomit. alcohol abuse DS: Discharge Diagnosis Discharge Diagnosis (1) Entero-colic fistula: Code(s): K63.2 - Fistula of intestine Status: Acute Assessment and Plan: -The patient has intra colic fistula that appears to be somewhat chronic. His brother had surgery for the same thing. This could be sequelae of chronic diverticulitis however given patient's report of mucousy stools and intermittent bloody stools as well as is upper GI symptoms -Patient has been started on empiric antibiotic therapy with Cipro and Flagyl and will continue with that. Informed and reminded the patient if he goes home on Flagyl he cannot drink alcohol with this. -General surgery has been consulted and their recommendations are noted. -GI also has been consulted and plan to do an outpt colonoscopy - after colonoscopy then will need follow-up again with surgery (2) Alcohol abuse: Code(s): F10.10 - Alcohol abuse, uncomplicated Status: Acute Assessment and Plan: Chronic alcohol abuse with chronic transaminitis and CT evidence of hepatic steatosis. I suspect the patient has cirrhosis. -The patient states that he IS now interested in quitting drinking alcohol -I had a discussion with the patient that his liver destruction alcohol can cause -continue thiamine and folic acid while inpatient, encouraged multivitamin after discharge. -The patient has evidence of bone marrow suppression with leukopenia, macrocytosis and thrombocytopenia, likely due to the alcoholism (3) Continuous tobacco abuse: Code(s): Z72.0 - Tobacco use Status: Acute Assessment and Plan: He is not interested in quitting smoking. A nicotine patch has been provided. (4) GERD (gastroesophageal reflux disease): Code(s): K21.9 - Gastro-esophageal reflux disease without esophagitis Status: Acute Assessment and Plan: Continue Protonix -GI onboard (5) Dysphagia: Code(s): R13.10 - Dysphagia, unspecified Status: Acute Assessment and Plan: Consider EGD with colonoscopy outpatient Seems to have improved, eating and drinking without concern now also tolerating PO medications no N/V today (6) Megaloblastic anemia due to alcoholism: Code(s): D53.1 - Other megaloblastic anemias, not elsewhere classified Status: Acute Assessment and Plan: Hemoglobin stable -B12 and folate within normal limits encouraged alcohol cessation and daily multivitamin (7) Elevated blood pressure reading: Code(s): R03.0 - Elevated blood-pressure reading, without diagnosis of hypertension Status: Acute Assessment and Plan: RESOLVED Vital signs today: 36.8, HR 89, RR 20, BP 138/80, 99% on room air. Could have been due to pain vs previously undiagnosed essential hypertension - Will monitor blood pressures trends, if the patient's pain improves and he still has elevated blood pressure readings, consider starting antihypertensive medication -continue tamsulosin for BPH , BPs no longer elevated (8) Transaminitis: Code(s): R74.01 - Elevation of levels of liver transaminase levels Status: Acute Assessment and Plan: -Pattern looks consistent with ETOH abuse. hepatitis panel negative. -CT shows diffuse hepatic steatosis - informed and discussed with patient. trending down, he should not drink any more alcohol (discussed with patient) AST 109, ALT 60 (9) Diverticulitis: Code(s): K57.92 - Diverticulitis of intestine, part unspecified, without perforation or abscess without bleeding Status: Acute Assessment and Plan: recevied IV cipro and Flagyl. GI ok to Discharge patient on o
[2020-10-24] MEDS: MAGNESIUM OXIDE 400 MG TABLET PO (08:33)
[2020-10-24] MEDS: PANTOPRAZOLE SODIUM IV 40 MG VIAL IV PUSH (08:33)
[2020-10-24] MEDS: TAMSULOSIN HCL 0.4 MG CAPSULE PO (08:33)
[2020-10-24] MEDS: CIPROFLOXACIN 400 MG/D5W 200ML 200 ML 200 MG IVPB (08:34)
[2020-10-24] MEDS: THIAMINE HCL 200 MG/2 ML VIAL 100 MG IV PUSH (08:34)
[2020-10-24] MEDS: ACETAMINOPHEN 325 MG TABLET 650 MG PO (08:49)
[2020-10-24 08:52] VITALS: RESP 20; O2SAT 99
[2020-10-24] MEDS: FOLIC ACID 1 MG/0.2 ML INJ IV PUSH (08:59)
[2020-10-24 10:00] VITALS: BP 143/83; PULSE 71; RESP 20; TEMP 37; O2SAT 97
[2020-10-24] MEDS: POTASSIUM CHLORIDE 20 MEQ TABLET 40 MEQ PO (11:11)
[2020-10-24] MEDS: metroNIDAZOLE 250 MG TABLET 500 MG PO (11:11)
--- NOTE | 2020-10-24 15:54 | WPDGIPROGNO ---
Progress Note: A&P Assessment and Plan (1) Diverticulitis: Code(s): K57.92 - Diverticulitis of intestine, part unspecified, without perforation or abscess without bleeding Status: Acute Assessment and Plan: complete 7 more days of oral antibiotics and then I can do a colonoscopy in 6 weeks as outpatient (my office will contact patient) he can go home today 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 - Fistula of intestine Status: Acute Assessment and Plan: after colonoscopy then will need follow-up again with surgery (3) Transaminitis: Code(s): R74.01 - Elevation of levels of liver transaminase levels Status: Acute Assessment and Plan: trending down stop drinking alcohol hepatitis panel negative (4) Megaloblastic anemia due to alcoholism: Code(s): D53.1 - Other megaloblastic anemias, not elsewhere classified Status: Acute (5) Alcohol abuse: Code(s): F10.10 - Alcohol abuse, uncomplicated Status: Acute Subjective Date/time seen: 10/24/20 14:00 Interval history: doing better, tolerating diet Review of Systems Review of Systems: All systems reviewed & are unremarkable except as noted in HPI and below Exam Const: General: comfortable and no acute distress HENMT: General nose exam: Normal nares present Eyes: General: appearance normal, both eyes and all related structures Neck: Neck: supple Resp: Auscultation: clear to auscultation bilaterally Cardio: Rate: regular rate GI: GI Palp: Yes Soft to palpation, Yes Tenderness to palpation present (GI) (less tender, improving), No Guarding due to palpation present (GI), No Hernia present and No Rebound tenderness present Auscultation: normal bowel sounds Skin: General skin exam: normal color Neuro: General: moves all extremities and no focal motor deficits Speech: normal speech Motor exam (neuro): Normal motor muscle tone present throughout Extrem: General: normal to inspection Psych: Mental Status: mental status grossly normal Insight: Good insight present (Psych) Judgement: Good judgement present (Psych) Objective Data Vital Signs Vital Signs: Vital Signs - 24 hr 10/23/20 18:00 10/23/20 20:00 10/23/20 20:04 Temperature 97.7 F 97.8 F 97.8 F Pulse Rate 77 60 60 Respiratory Rate 20 20 20 Blood Pressure 157/87 H 154/81 H 154/81 H Pulse Oximetry 100 100 100 10/24/20 00:00 10/24/20 01:14 10/24/20 04:00 Temperature 97.6 F 98.2 F Pulse Rate 56 L 89 Respiratory Rate 18 20 Blood Pressure 185/88 H 135/73 138/80 Pulse Oximetry 97 99 10/24/20 08:52 10/24/20 10:00 Temperature 98.6 F Pulse Rate 71 Respiratory Rate 20 20 Blood Pressure 143/83 H Pulse Oximetry 99 97 Intake/Output Intake/Output: Intake & Output 10/21/20 10/22/20 10/23/20 10/24/20 23:59 23:59 23:59 23:59 Intake Total 300 3775 2910 1510 Output Total 1525 900 900 Balance 300 2250 2009 610 Meds/Results Radiology Results: ITS Impressions Abdomen/Pelvis CT 10/21/20 17:56 IMPRESSION: 1. 3 mm nonobstructing left renal stone. 2. Mild sigmoid diverticulosis with a small amount of gas along a chronic enterocolic fistula with likely sequela of chronic diverticulitis. 3. Diffuse hepatic steatosis. Labs Labs: Laboratory Results - last 24 hr 10/24/20 10/24/20 05:07 05:07 WBC 4.9 RBC 3.65 L Hgb 13.6 L Hct 38.0 L MCV 104.1 H MCH 37.3 H MCHC 35.8 RDW 10.7 L Plt Count 91 L MPV 11.3 H % Immature Plt Fraction 9.8 Sodium 135 L Potassium 3.1 L Chloride 101 Carbon Dioxide 26 Anion Gap 8 BUN 5 L Creatinine 0.70 Estim Creat Clear Calc 88 Estimated GFR > 60 Glucose 109 Calcium 9.0 Magnesium 1.6 Total Bilirubin 1.2 Direct Bilirubin 0.0 AST 109 H ALT 60 H Alkaline Phosphatase 79 Total Protein 7.0 Albumin 3.9
== END 2020-10-24 15:40 | disposition home or self-care (01) | DRG 394 ==
LOC: ANHED 19:48 → ANH2MED 10-22 06:40
PROVIDERS: Emergency Medicine; Internal Medicine; Internal Medicine Gastroenterology; Physician Assistant; Admitting Provider Internal Medicine; Emergency Provider Family Medicine; Visit Provider Nurse Practitioner
DX: K63.2 Fistula of intestine (principal); K57.92 Diverticulitis of intestine, part unspecified, without perforation or abscess without bleeding; N20.1 Calculus of ureter; K76.0 Fatty (change of) liver, not elsewhere classified; R74.01 Elevation of levels of liver transaminase levels; F10.10 Alcohol abuse, uncomplicated; F17.210 Nicotine dependence, cigarettes, uncomplicated; R13.10 Dysphagia, unspecified; K21.9 Gastro-esophageal reflux disease without esophagitis; D53.1 Other megaloblastic anemias, not elsewhere classified; R03.0 Elevated blood-pressure reading, without diagnosis of hypertension; J43.9 Emphysema, unspecified; Z87.11 Personal history of peptic ulcer disease; Z79.899 Other long term (current) drug therapy
CPT/HCPCS: 36415; 74176; 80048; 80053; 80074; 80076; 80307; 81003; 82607; 82746; 82948; 83690; 83735; 84100; 85025; 85027; 85055; 87040; 96365; 99285; A9270; C9113; J0131; J0360; J0744; J2060; J2270; J2405; J3411; J3475; J7030

== ENCOUNTER 2022-05-02 03:14 | Inpatient (IN) | payer MEDICARE, MEDICAID, SELFPAY ==
[2022-05-02] VITALS (30 sets, daily range): BP systolic 126–166; BP diastolic 65–110; PULSE 64–130; RESP 10–22; TEMP 36.3–36.7; O2SAT 98–100; BMI 19.2
--- NOTE | ~2022-05-02 | XR_ITS ---
EXAMINATION: XR abdomen/kub 1V DATE: 05/10/2022 06:11 INDICATION: Postoperative ileus TECHNIQUE: A supine view of the abdomen on 2 radiographs was obtained. COMPARISON: Studies dated 05/05/2022 FINDINGS: Percutaneous gastrostomy tube in expected position at the left upper quadrant. Surgical drain in the pelvis and several surgical clips along the midline of the lower abdomen. Likely right lower quadrant ostomy. Small amount of residual oral contrast material scattered throughout the colon. Single short segment of dilated gas-filled small bowel in the right upper quadrant. No other dilated gas-filled b owel in the abdomen or pelvis. IMPRESSION: 1. Single short segment of dilated small bowel in the right upper quadrant more likely ileus than sma ll bowel obstruction given the absence of additional dilated loops of bowel. 2. Postoperative changes with new percutaneous gastrostomy tube, surgical drain in the pelvis and rig ht lower quadrant ostomy. Reviewed, dictated and finalized at location A. CONDUCTOR IMPRESSION: 1. Single short segment of dilated small bowel in the right upper quadrant more likely ileus than small bowel obstruction given the absence of additional dila miguel loops of bowel. 2. Postoperative changes with new percutaneous gastrostomy tube, surgical drain in the pelvis and right lower quadrant ostomy.
--- NOTE | ~2022-05-02 | XR_ITS ---
EXAMINATION: XR abdomen NG/feed tube insert INDICATION: Nasogastric tube placement TECHNIQUE: Portable AP KUB-NG at 2142 hours COMPARISON: 0558 hours FINDINGS: The nasogastric tube is in the stomach. There are persistently dilated loops of small bowel without significant change. No free intraperitoneal gas is identified. The visualized lung bases are clear. IMPRESSION: 1. Nasogastric tube in the stomach. 2. Small bowel obstruction. Reviewed, dictated and finalized at location A. S ESTIMATOR
--- NOTE | ~2022-05-02 | XR_ITS ---
EXAMINATION: XR abdomen/kub 1V INDICATION: Small bowel obstruction TECHNIQUE: Supine view the abdomen is obtained. COMPARISON: 05/03/2022 FINDINGS: The nasogastric tube is in the stomach. There are persistently dilated loops of small bowel . A gastrostomy tube is noted. No free intraperitoneal gas is identified. IMPRESSION: 1. Small bowel obstruction. Reviewed, dictated and finalized at location A. ICAL MANAGER IMPRESSION: 1. Small bowel obstruction.
--- NOTE | ~2022-05-02 | XR_ITS ---
XR abdomen/kub 1V 05/14/2022 11:02 Indication: Abdominal pain. Postoperative ileus. Procedure: KUB Comparison: 05/10/2022 Findings: There is dilated small bowel. Small amount of gas noted in the colon. There is laparotomy s taple line. No abnormal calcifications. No acute osseous abnormality. There is an ostomy site in the right pelvis. Impression: 1: Dilated small bowel, most likely postoperative ileus. Reviewed, dictated and finalized at location A. E PRESSER Impression: 1: Dilated small bowel, most likely postoperative ileus.
--- NOTE | ~2022-05-02 | XR_ITS ---
EXAMINATION: XR abdomen NG/feed tube insert INDICATION: Nasogastric tube placement TECHNIQUE: Portable AP KUB-NG at 0757 hours COMPARISON: None available FINDINGS: A nasogastric tube is in the stomach. The lung bases are clear. Contrast from earlier CT pa rtially opacifies the urinary tract. IMPRESSION: 1. Nasogastric tube in the stomach. Reviewed, dictated and finalized at location B. OR OF NATUROPATHIC MEDICINE
--- NOTE | ~2022-05-02 | XR_ITS ---
EXAMINATION: XR abdomen obstructive series DATE: 05/03/2022 06:14 INDICATION: Small bowel obstruction TECHNIQUE: Upright and supine views of the abdomen were obtained. COMPARISON: 05/02/2022 FINDINGS: There are multiple persistently dilated loops of small bowel. Enteric contrast material fro m yesterday's small bowel series persist throughout multiple loops of small bowel. No definite contra st is identified in the large bowel. A gastrostomy is noted. There is a nasogastric tube in the stoma ch. The visualized lung bases are clear. No definite free intraperitoneal gas is seen. IMPRESSION: 1. Small bowel obstruction. Reviewed, dictated and finalized at location A. CONTROLLER IMPRESSION: 1. Small bowel obstruction.
--- NOTE | ~2022-05-02 | XR_ITS ---
EXAMINATION: XR small bowel follow through DATE: 05/02/2022 18:21 INDICATION: Small bowel obstruction. TECHNIQUE: Oral contrast was administered, and a time course of radiographs of the abdomen was obtain ed. Fluoroscopy of the small bowel was not performed. Fluoroscopy exposure time was 0 minutes. The to yoel number of images was 14. COMPARISON: CT abdomen and pelvis 05/02/2022 FINDINGS: The nasogastric tube tip is in the stomach. There is a gastrostomy tube in expected position. There a re multiple dilated loops of small bowel. After 6 hours, there is contrast in the stomach and in dila miguel small bowel. The colon is decompressed. IMPRESSION: 1. Small bowel obstruction. Reviewed, dictated and finalized at location A. WASH OPERATOR IMPRESSION: 1. Small bowel obstruction.
--- NOTE | ~2022-05-02 | XR_ITS ---
EXAMINATION: XR abdomen NG/feed tube rechec DATE: 05/05/2022 23:51 INDICATION: Nasogastric tube replacement. TECHNIQUE: An upright view of the abdomen was obtained. COMPARISON: CT abdomen and pelvis 05/02/2022 FINDINGS: The lower abdomen is excluded. There is contrast in the colon. There are dilated loops of s mall bowel. The nasogastric tube tip is in the stomach. IMPRESSION: 1. Nasogastric tube tip in the stomach. 2. Dilated small bowel bowel, consistent with small bowel obstruction. Reviewed, dictated and finalized at location A. TUNER
--- NOTE | ~2022-05-02 | CT_ITS ---
EXAMINATION: CT abdomen pelvis w con INDICATION: Left lower quadrant pain and vomiting TECHNIQUE: Computed tomographic images of the abdomen and pelvis were obtained after the administrati on of 100 cc of Omnipaque 350 intravenous contrast. The dose-length product (DLP) was 243.51 mGy-cm. Automated exposure control and iterative reconstruction technique were employed. COMPARISON: 10/21/2020 FINDINGS: There are minimal airspace opacities of the right lower lobe. The heart size is normal. The liver, spleen, pancreas, gallbladder, and adrenal glands are normal. A percutaneous gastrostomy is n oted. Cysts of the kidneys measure up to 11 mm on the left. There is a 5 mm nonobstructing stone of t he left kidney. There are multiple dilated loops of small bowel with an apparent transition at the si te of an ileocolic fistula in the left pelvis. There is a small volume of ascites and mesenteric aissatou a. No free intraperitoneal gas is identified. Gas in the urinary bladder may reflect recent catheteri zation. No pathologically enlarged abdominal or pelvic lymph nodes are identified. There is moderate lumbar spondylosis. IMPRESSION: 1. Small bowel obstruction with transition point at the site of an ileocolic fistula and the left low er quadrant. 2. Nonobstructing left nephrolithiasis. 3. Minimal airspace opacities of the right lower lobe, consistent with infection/inflammation. Reviewed, dictated and finalized at location B. WELDER APPRENTICE IMPRESSION: 1. Small bowel obstruction with transition point at the site of an ileocolic fi stula and the left lower quadrant. 2. Nonobstructing left nephrolithiasis. 3. Minimal airspace opacities of the right lower lobe, consistent with infectio n/inflammation.
--- NOTE | ~2022-05-02 | XR_ITS ---
XR enema water soluble DATE: 05/05/2022 14:30 INDICATION: Possible colonic enteric fistula TECHNIQUE: Single contrast Hypaque water-soluble contrast material radiographic adenoma including flu oroscopy, spot and overhead radiographs COMPARISON: 05/02/2022 CT abdomen pelvis FINDINGS: There is a left lower abdominal fistulous tract from the proximal sigmoid colon to an appro ximately 9 x 14 mm cavity, with a fistulous tract from this cavity to distal ileum.. Multiple sigmoid colon diverticula are noted. No stricture or mucosal ulceration or intraluminal mass lesion of the colon is evident. Normal coloni c haustral pattern. There is reflux into the normal-appearing terminal ileum. NG tube in proximal stomach, the proximal side-port situated just beyond the diaphragmatic hiatus. 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 Reviewed, dictated and finalized at [facility] 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
--- NOTE | 2022-05-02 03:24 | ED.ABDPAIN ---
HPI - Abdominal Pain General Chief Complaint: Abdominal Pain Stated Complaint: N/V/D, LLQ PAIN Time Seen by Provider: 05/02/22 03:14 History of Present Illness HPI narrative: 57-year-old male presenting to the emergency department for evaluation of left lower quadrant pain with associated nausea and vomiting. Patient had a stroke approximately 3 weeks ago and has been at [facility]. Patient was recently discharged approximately 3 days ago to a care facility. Patient does have a PEG tube in place that has been functioning normally. Patient reports a previous surgical history of left-sided pneumothorax repair and left inguinal hernia repair Related Data Allergies Allergy/AdvReac Type Severity Reaction Status Date / Time codeine Allergy Severe Swelling Verified 05/02/22 03:15 Review of Systems Review of Systems: CONSTITUTIONAL: Denies fever, chills, or sweats. EYES: Denies visual changes, redness, or discharge. ENT: Denies rhinorrhea, congestion, sore throat, or otalgia. CARDIOVASCULAR: Denies chest pain, palpitations, or edema. RESPIRATORY: Denies cough or dyspnea. GASTROINTESTINAL: See HPI GENITOURINARY: Denies dysuria or hematuria. SKIN: Denies rash or itching. MUSCULOSKELETAL: Denies back pain, joint pain, or myalgia. NEUROLOGIC: Denies headache, numbness, or weakness. [facility] Past Medical History Medical History (Updated 05/02/22 @ 06:37 by Danielito Day MD) Alcoholism Continuous tobacco abuse COPD (chronic obstructive pulmonary disease) Entero-colic fistula Initially noted on CT from 12/2019 Kidney stones LLQ pain Right inguinal hernia Patient refuses surgical correction Stomach ulcer Surgical History Surgical History History of left inguinal hernia repair X2 History of pneumonectomy Left lower lobe pneumonectomy 2018 due to pneumothorax History of tonsillectomy and adenoidectomy Status post open reduction with internal fixation of fracture Status post right foot surgery (~1990) For sequential surgeries for ORIF right foot due to trauma from alcohol use with the last surgical procedure also involving bone harvesting from his right hip Family History Family History Father Acute myocardial infarction Mother Breast cancer Cerebrovascular accident Social History Social History Social History: He lives in [place] with his of 1 year. 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 He has smoked up to a pack of cigarettes per day and started smoking around age 14. He is now down to 1/3 pack of cigarettes per day. He drinks at least 6 beers a day. He denies a history of alcohol withdrawal and is went up to 8 days without drinking without withdrawal symptoms. He denies illicit substance use. He does not have a primary care physician. Smoking packs per day: 0.5 Smoking cigarettes per day: 10.0 Years smoked: 40 Smoking pack-years: 20.00 Smoking status: Current every day smoker Tobacco type: cigarettes Alcohol intake: current Drinks per week: 42 Substance use: never Gender identity (if verbalized by the patient): Male Spiritual care concerns: No Exam Narrative: APPEARANCE: Well appearing, no pain, no distress, well-nourished. HEAD: normocephalic, atraumatic. EYES: PERRLA/EOMI, conjunctivae clear. NOSE: Normal no drainage EARS:TMS clear with good light reflex. THROAT: Pharynx clear, no exudate. NECK: Supple. No adenopathy, no masses. RESPIRATORY: Airway patent, respirations nonlabored. Clear to auscultation bilaterally, no rales, rhonchi, wheezing. CARDIOVASCULAR: Regular rate and rhythm without murmurs rubs or gallops. ABDOMINAL: Soft, normal bowel sounds, left lower quadrant to palpation. Well-appearing G-tube site. MUSCULOSKELETAL: Moves all extremities. Strength/ROM in
[2022-05-02] MEDS: HYDROmorphone HCL INJ (*CRX) 1 MG/ML SYR 0.5 MG IV PUSH ×2 (03:35→10:42)
[2022-05-02 03:36] LABS: Hematocrit 36.1 % (42.0-52.0); Hemoglobin 11.9 g/dL (14.0-18.0); Mean Corpuscular Hemoglobin 37.2 pg (26-34); Mean Corpuscular Volume 112.8 fl (80-100); Mean Platelet Volume 10.7 fl (7.4-10.4); Platelet Count Result 370 k/mm3 (150-375); Red Cell Distribution Width 12.5 % (11.5-14.5); White Blood Count 15.4 K/mm3 (4.5-10.0)
[2022-05-02] MEDS: ONDANSETRON INJ 4 MG/2 ML VIAL IV PUSH (03:36)
[2022-05-02] MEDS: SODIUM CHLORIDE 0.9% IV 1,000 ML 999 ML IV CONT ×2 (03:36→04:29)
[2022-05-02 03:45] LABS: Alanine Aminotransferase 69 U/L (6-50); Albumin Level 4.4 g/dL (3.5-5.1); Alkaline Phosphatase 101 U/L (38-126); Anion Gap 15 mmol/L (8-16); Aspartate Amino Transferase 84 U/L (17-59); Bilirubin,Total 0.6 mg/dL (0.2-1.3); Blood Urea Nitrogen 15 mg/dL (9-20); Calcium 10.5 mg/dL (8.4-10.2); Carbon Dioxide 29 mmol/L (22-30); Chloride 94 mmol/L (98-107); Estimated CRCL calculation 54 ml/min; Estimated Glomerular Filt Rate > 60; Glucose 144 mg/dL (65-110); Lipase 278 U/L (23-300); Potassium 5.4 mmol/L (3.4-5.0); Sodium 138 mmol/L (137-145)
[2022-05-02 04:08] LABS: Band Neutrophils Percent 4 % (0-6); Lymphocytes Absolute Manual 0.92 K/mm3 (1.1-4.5); Monocytes Absolute Manual 0.61 K/mm3 (0.1-0.90); Monocytes Percent Manual 4 % (3-9); Neutrophils Absolute Manual 13.86 K/mm3 (1.3-6.7); Neutrophils Percent Manual 86 % (46-73); Platelet Estimate Adequate (Adequate); Total Cells Counted 100
[2022-05-02 04:10] LABS: Schistocytes None Seen (NORMAL); Stomatocytes 1+ (NORMAL)
[2022-05-02 04:25] LABS: Appearance Urine Clear (Clear); Bilirubin Urine 1+ (Negative); Blood Urine Negative (Negative); Color Urine Yellow (Yellow); Glucose Urine UA Negative (Negative); Ketones Urine Trace mg/dL (Negative); Leukocyte Esterase Ur 2+ LEU/UL (Negative); Nitrate Urine Negative (Negative); Protein Urine 1+ mg/dL (Negative); Specific Grav Ur 1.025 (1.001-1.035); Urobilinogen Urine 0.2 mg/dL (<2.0); pH Urine 5.5 (5.0-9.0)
[2022-05-02] MEDS: SODIUM ZIRCONIUM CYCLOSILICATE 10 GM POWD.PACK PO (04:29)
[2022-05-02 04:38] LABS: Bacteria Urine 3+ /hpf; Mucus Urine Heavy /lpf; WBC Urine >75 /hpf
[2022-05-02 04:39] LABS: Add Urine Microscopic? YES
[2022-05-02 07:22] LABS: Reflex Lactic Acid Yes or No Add Lactic
[2022-05-02 08:19] LABS: Lactic Acid 2.4 mmol/L (0.7-2.0)
--- NOTE | 2022-05-02 10:05 | ADMGEN ---
This patient, Juan Jose Martinez, was admitted to Medical Room 247-. Patient/family oriented to hospital policies and general routines including ID bracelet, bed and alarms, visiting hours, pain management, procedures, bathroom and other care routines, personal items, smoking policy, room service/diet, and visiting hours. Information on how to activate the Rapid Response Team has been discussed. Patient/Family are encouraged to report perceived risks to care and to ask questions if they do not understand what they are told or what they should do.
[2022-05-02 10:31] LABS: Anion Gap 15 mmol/L (8-16); Blood Urea Nitrogen 13 mg/dL (9-20); Calcium 9.6 mg/dL (8.4-10.2); Carbon Dioxide 25 mmol/L (22-30); Chloride 99 mmol/L (98-107); Estimated CRCL calculation 65 ml/min; Estimated Glomerular Filt Rate > 60; Glucose 113 mg/dL (65-110); Magnesium 1.6 mg/dL (1.6-2.3); Potassium 4.3 mmol/L (3.4-5.0); Sodium 139 mmol/L (137-145)
--- NOTE | 2022-05-02 10:31 | PM.CNGS ---
Assessment and Plan Assessment and plan (1) SBO (small bowel obstruction): Code(s): K56.609 - Unspecified intestinal obstruction, unspecified as to partial versus complete obstruction Status: Acute Assessment and Plan: exam largely benign, will cont conservative mgmt c bowel rest, NG decompression, will get SBS for further eval 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 - Fistula of intestine Status: Acute Assessment and Plan: known complication from diverticular dz, further eval c SBS (3) Acute UTI: Code(s): N39.0 - Urinary tract infection, site not specified Status: Acute Assessment and Plan: cont abx per primary team History of Present Illness Consult details Consult date: 05/02/22 Reason for consult: abdominal pain Requesting physician: Kusum Casillas DO Narrative: Pt is a 57 y/o M c multiple med issues including recent CVA s/p PEG presenting from ECF c increasing abd pain, N/V. 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 Pt reports pain worsening over last 2-3 days. Pt has had N/V over the same time period. Workup, including imaging, significant for SBO. Pt c NG placed and reports pain better at this point. No further N/V. Review of Systems Constitutional: Constitutional: Reports as per HPI, Reports anorexia, Reports body ache(s), Denies chills, Reports fatigue, Reports lethargy, Reports malaise, Reports poor appetite, Reports weakness, Denies weight gain and Denies weight loss Eyes: Eyes: Reports no additional eye complaints ENT: Reports system reviewed and no additional complaints, except as documented Cardiovascular: Cardiovascular: Reports no additional cardiovascular complaints Respiratory: Respiratory: Reports no additional respiratory complaints Gastrointestinal: Gastrointestinal: Reports as per HPI, Reports abdominal pain, Reports bloating, Reports constipation, Reports GI cramping, Reports nausea and Reports vomiting Genitourinary: Genitourinary: Reports no additional male genitourinary complaints Musculoskeletal: Musculoskeletal: Reports no additional musculoskeletal complaints Integumentary/Breasts: Skin/Breast: Reports system reviewed and no additional complaints, except as docu Neurologic: Reports system reviewed and no additional complaints, except as documented Psychiatric: Psychiatric: Reports no additional psychiatric complaints Endocrine: Endocrine: Reports no additional endocrine complaints Hematologic/Lymphatic: Hematologic/Lymphatic: Reports no additional hematologic/lymphatic complaints Allergic/Immunologic: Allergic/Immunologic: Reports no additional allergic/immunologic complaints [facility] Past Medical History Medical History Alcoholism Continuous tobacco abuse COPD (chronic obstructive pulmonary disease) Entero-colic fistula Initially noted on CT from 12/2019 Kidney stones LLQ pain Right inguinal hernia Patient refuses surgical correction Stomach ulcer Surgical History Surgical History History of left inguinal hernia repair X2 History of pneumonectomy Left lower lobe pneumonectomy 2017 due to pneumothorax History of tonsillectomy and adenoidectomy Status post open reduction with internal fixation of fracture Status post right foot surgery (~1990) For sequential surgeries for ORIF right foot due to trauma from alcohol use with the last surgical procedure also involving bone harvesting from his right hip Family History Family History Father Acute myocardial infarction Mother Breast cancer Cerebrovascular accident Social History Social History Social History: He lives in [place] with his of 1 year. 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 He has smo
[2022-05-02] MEDS: SODIUM CHLORIDE 0.9% IV 1,000 ML 75 ML IV CONT ×2 (10:42→15:38)
--- NOTE | 2022-05-02 11:45 | PC.NURSE ---
Addendum entered by Mary Jo Mendez RN 05/02/22 13:10: Attempted to reach SNF again, no answer or call back Original Note: Patient not aware of the medications he takes, also appears to be confusion regarding his PEG tube. RN left message w/ Jonnie Chung for clarifications and awaiting call back
--- NOTE | 2022-05-02 17:00 | PM.IMHP ---
H&P: HPI History of Present Illness Date/Time: 05/02/22 17:00 Chief Complaint: abdominal pain nausea or vomit Narrative: ED-HPI narrative: 57-year-old male presenting to the emergency department for evaluation of left lower quadrant pain with associated nausea and vomiting.? Patient had a stroke approximately 3 weeks ago and has been at [facility].? Patient was recently discharged approximately 3 days ago to a care facility.? Patient does have a PEG tube in place that has been functioning normally. patient with history of chronic abdominal pain and constipation, Pt has known coloenteric fistula from diverticular disease.? patient states this is the 1st time he has experienced such a pain and nausea and vomiting, he denies any passing any gas, further evaluate patient had a CT scan of the abdomen, showed small bowel obstruction with transition point at the site of an ileocolic fistula and the left lower quadrant, started the patient on Zosyn, NG tube was placed in emergency depart currently on intermittent suction, and by General surgery recommended continue present management, will give patient anti emetic and pain medication as needed, surgery has ordered a small-bowel follow-through, will follow-up and will monitor patient admitted as inpatient with small-bowel obstruction will stay in the hospital 2 midnights Review of Systems Constitutional: Constitutional: Reports as per HPI, Reports anorexia, Reports body ache(s), Denies chills, Reports fatigue, Reports lethargy, Reports malaise, Reports poor appetite, Reports weakness, Denies weight gain and Denies weight loss [facility] Past Medical History Medical History Alcoholism Continuous tobacco abuse COPD (chronic obstructive pulmonary disease) Entero-colic fistula Initially noted on CT from 12/2019 Kidney stones LLQ pain Right inguinal hernia Patient refuses surgical correction Stomach ulcer Surgical History Surgical History History of left inguinal hernia repair X2 History of pneumonectomy Left lower lobe pneumonectomy 2018 due to pneumothorax History of tonsillectomy and adenoidectomy Status post open reduction with internal fixation of fracture Status post right foot surgery (~1990) For sequential surgeries for ORIF right foot due to trauma from alcohol use with the last surgical procedure also involving bone harvesting from his right hip Family History Family History Father Acute myocardial infarction Mother Breast cancer Cerebrovascular accident Social History Social History Social History: He lives in [place] with his of 1 year. 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 He has smoked up to a pack of cigarettes per day and started smoking around age 14. He is now down to 1/3 pack of cigarettes per day. He drinks at least 6 beers a day. He denies a history of alcohol withdrawal and is went up to 8 days without drinking without withdrawal symptoms. He denies illicit substance use. He does not have a primary care physician. Smoking packs per day: 0.5 Smoking cigarettes per day: 10.0 Years smoked: 40 Smoking pack-years: 20.00 Smoking status: Current every day smoker Tobacco type: cigarettes Alcohol intake: current Drinks per week: 70 Substance use: never Substance use type: does not use Lack of Transportation: No Lack of Food: Never True Current Housing: I Have Housing Concerned About Future Housing: No Difficulty Paying Gas/Electric Bills: No Difficulty Paying for Meds: No Currently Unemployed: No Education: Don't Know Difficulty w/ Childcare or Family Care: No Gender identity (if verbalized by the patient): Male Spiritual care concerns: No Meds Home Medic
[2022-05-02] MEDS: METOPROLOL TARTRATE 12.5 MG TABLET PO (20:20)
[2022-05-03] VITALS (16 sets, daily range): BP systolic 124–164; BP diastolic 83–100; PULSE 98–160; RESP 16–18; TEMP 36.5–37.3; O2SAT 95–100
[2022-05-03] MEDS: ONDANSETRON INJ 4 MG/2 ML VIAL IV PUSH (01:01)
[2022-05-03] MEDS: HYDROmorphone HCL INJ (*CRX) 1 MG/ML SYR 0.5 MG IV PUSH ×3 (02:54→19:49)
[2022-05-03 06:26] LABS: Hemoglobin 11.2 g/dL (14.0-18.0); Mean Corpuscular HGB Conc 32.9 g/dl (32-36); Mean Corpuscular Volume 115.3 fl (80-100); Platelet Count Result 316 k/mm3 (150-375); Red Blood Count 2.95 M/mm3 (4.6-6.20); Red Cell Distribution Width 12.9 % (11.5-14.5); White Blood Count 10.6 K/mm3 (4.5-10.0)
[2022-05-03 09:04] LABS: Alanine Aminotransferase 44 U/L (6-50); Albumin Level 3.8 g/dL (3.5-5.1); Alkaline Phosphatase 86 U/L (38-126); Anion Gap 15 mmol/L (8-16); Aspartate Amino Transferase 51 U/L (17-59); Bilirubin,Total 0.8 mg/dL (0.2-1.3); Blood Urea Nitrogen 13 mg/dL (9-20); Calcium 9.4 mg/dL (8.4-10.2); Carbon Dioxide 25 mmol/L (22-30); Chloride 102 mmol/L (98-107); Estimated CRCL calculation 54 ml/min; Estimated Glomerular Filt Rate > 60; Glucose 111 mg/dL (65-110); Magnesium 1.5 mg/dL (1.6-2.3); Potassium 4.1 mmol/L (3.4-5.0); Sodium 142 mmol/L (137-145)
[2022-05-03] MEDS: METOPROLOL TARTRATE INJ 5 MG/5 ML VIAL IV PUSH ×2 (09:18→17:14)
[2022-05-03] MEDS: SODIUM CHLORIDE 0.9% IV 1,000 ML 75 ML IV CONT (09:27)
[2022-05-03] MEDS: MAGNESIUM SULF 2 GM/WATER 50ML 2 GM/50 ML BAG IVPB (10:53)
--- NOTE | 2022-05-03 11:53 | PM.PNGS ---
Progress Note: A&P Assessment and Plan (1) SBO (small bowel obstruction): Code(s): K56.609 - Unspecified intestinal obstruction, unspecified as to partial versus complete obstruction Status: Acute Assessment and Plan: This is the main reason were seen the patient. His small-bowel follow-through yesterday afternoon we ended at around 6:30 p.m.. For 6 hours the dye minimally progressed through the small bowel and shows continued small bowel loops are dilated. I ordered a follow-up three view of the abdomen for this morning and the dye still has not made it to the colon. This would indicate near complete small bowel obstruction although patient may have a repeat episode of diverticulitis and he did have a bowel movement early this morning spontaneously. He is still having a good amount of NG output (800 cc overnight) his white count has come down with antibiotic treatment. There may be some chance that as inflammatory changes decrease with increased activity perhaps his bowel will on twist and allow resolution with conservative management. Therefore, I have discussed this thoroughly with him and he is willing to begin walking in the reyes with the NG clamped. Be more active and we will repeat a KUB tomorrow morning. I have discussed the possibility of surgical intervention which would be an open exploratory laparotomy of the lower abdomen. He knows that since he has the fistula outlined below that this surgery could be complicated and may require bowel resection of both small bowel and large bowel. I will try to give him some more time & check a lactic acid in the morning also to see if there is signs of ischemia but at this time he seems to be improving a little bit versus worsening. (2) Acute UTI: Code(s): N39.0 - Urinary tract infection, site not specified Status: Acute Assessment and Plan: On Zosyn for treatment. E coli growing from urine culture. 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 However, if he has a recurrence of diverticulitis this may be the area where there was inflammatory change and twisting of the small bowel to give him the obstruction. See plan above. Subjective Subjective Date/Time Seen: 05/03/22 11:53 Patient reports: still having pain ( mainly crampy abdominal pain), flatus and bowel movement ( small solid stool this a.m.) Review of Systems Review of Systems: All systems reviewed & are unremarkable except as noted in HPI and below Constitutional: Constitutional: Reports as per HPI, Denies chills and Denies fever(s) Cardiovascular: Cardiovascular: Denies chest pain and Denies dyspnea Respiratory: Respiratory: Reports no additional respiratory complaints and Denies dyspnea Gastrointestinal: Gastrointestinal: Reports as per HPI Musculoskeletal: Musculoskeletal: Reports no additional musculoskeletal complaints Neurologic: Denies memory loss Psychiatric: Psychiatric: Denies memory loss Exam Const: General: cooperative, alert and awake Orientation/consciousness: patient oriented x3 HENMT: Head: normal to inspection Eyes: Sclera: sclerae normal Pupils: Equal, round and reactive pupils present Neck: Neck: normal visual inspection and no JVD Chest: Chest palpation & inspection: normal inspection of the chest Resp: Effort & Inspection: normal respiratory effort Auscultation: clear to auscultation bilaterally Cardio: Jugular venous distension: no JVD Rate: regular rate GI: Inspection: distended and scar (Left groin from previous, distant, hernia surgery) GI Palp: Yes abdominal tenderness (No peritoneal signs) and Yes Firmness to palpation present (GI) Auscultation: Hypoactive bowel sounds present Other
--- NOTE | 2022-05-03 13:03 | PM.IMPN ---
Progress Note: A&P Assessment and Plan (1) SBO (small bowel obstruction): Code(s): K56.609 - Unspecified intestinal obstruction, unspecified as to partial versus complete obstruction Status: Acute Assessment and Plan: ED-HPI narrative: 57-year-old male presenting to the emergency department for evaluation of left lower quadrant pain with associated nausea and vomiting.? Patient had a stroke approximately 3 weeks ago and has been at [place].? Patient was recently discharged approximately 3 days ago to a care facility.? Patient does have a PEG tube in place that has been functioning normal. 05/03/2022 interval history: patient with history of chronic abdominal pain and constipation, Pt has known coloenteric fistula from diverticular disease.? patient states this is the 1st time he has experienced such a pain and nausea and vomiting, he denies any passing any gas, further evaluate patient had a CT scan of the abdomen, showed small bowel obstruction with transition point at the site of an ileocolic fistula and the left lower quadrant, started the patient on Zosyn, NG tube was placed in emergency depart currently on intermittent suction, and by General surgery recommended continue present management, patient had a small-bowel follow through it showed small bowel obstruction, today patient was seen by surgery service and discussed will continue to monitor with conservative management if there is no improvement patient may need surgical intervention,will give patient anti emetic and pain medication as needed, urine culture is growing E coli will continue Zosyn follow-up on sensitivity and further recommendation to follow, patient encouraged to ambulate as much as possible will continue to monitor (2) Acute UTI: Code(s): N39.0 - Urinary tract infection, site not specified Status: Acute Assessment and Plan: patient urine is suspicious for UTI patient being treated with Zosyn will follow-up on urine culture and sensitivity (3) Acute hyperkalemia: Code(s): E87.5 - Hyperkalemia Status: Acute Assessment and Plan: most likely secondary to dehydration will monitor (4) LLQ pain: Code(s): R10.32 - Left lower quadrant pain Status: Acute Assessment and Plan: patient with history of diverticulosis. Subjective Date/time seen: 05/03/22 13:03 ED-HPI narrative: 57-year-old male presenting to the emergency department for evaluation of left lower quadrant pain with associated nausea and vomiting.? Patient had a stroke approximately 3 weeks ago and has been at [place].? Patient was recently discharged approximately 3 days ago to a care facility.? Patient does have a PEG tube in place that has been functioning normally. 05/03/2022 interval history: patient with history of chronic abdominal pain and constipation, Pt has known coloenteric fistula from diverticular disease.? patient states this is the 1st time he has experienced such a pain and nausea and vomiting, he denies any passing any gas, further evaluate patient had a CT scan of the abdomen, showed small bowel obstruction with transition point at the site of an ileocolic fistula and the left lower quadrant, started the patient on Zosyn, NG tube was placed in emergency depart currently on intermittent suction, and by General surgery recommended continue present management, patient had a small-bowel follow through it showed small bowel obstruction, today patient was seen by surgery service and discussed will continue to monitor with conservative management if there is no improvement patient may need surgical intervention,will give patient anti emetic and pain medication as needed, urine culture is growing E coli will continue Zosyn follow-up on sensitivity and further recommendation to follow, patient encouraged to ambulate as much as possible will continue to monitor Exam Narrative: appears chronically ill Patient i
[2022-05-04] VITALS (16 sets, daily range): BP systolic 116–155; BP diastolic 78–96; PULSE 93–122; RESP 16–18; TEMP 36.6–36.8; O2SAT 95–100
[2022-05-04] MEDS: SODIUM CHLORIDE 0.9% IV 1,000 ML 75 ML IV CONT ×2 (00:59→15:11)
[2022-05-04] MEDS: HYDROmorphone HCL INJ (*CRX) 1 MG/ML SYR 0.5 MG IV PUSH ×3 (01:19→17:49)
[2022-05-04 05:34] LABS: Hematocrit 29.6 % (42.0-52.0); Hemoglobin 9.6 g/dL (14.0-18.0); Mean Corpuscular HGB Conc 32.4 g/dl (32-36); Mean Corpuscular Hemoglobin 36.9 pg (26-34); Mean Corpuscular Volume 113.8 fl (80-100); Mean Platelet Volume 10.7 fl (7.4-10.4); Platelet Count Result 220 k/mm3 (150-375); Red Cell Distribution Width 12.6 % (11.5-14.5); White Blood Count 10.8 K/mm3 (4.5-10.0)
[2022-05-04 05:45] LABS: Alanine Aminotransferase 39 U/L (6-50); Albumin Level 3.6 g/dL (3.5-5.1); Alkaline Phosphatase 82 U/L (38-126); Anion Gap 9 mmol/L (8-16); Aspartate Amino Transferase 55 U/L (17-59); Bilirubin,Total 0.6 mg/dL (0.2-1.3); Blood Urea Nitrogen 11 mg/dL (9-20); Calcium 9.2 mg/dL (8.4-10.2); Carbon Dioxide 25 mmol/L (22-30); Chloride 104 mmol/L (98-107); Estimated CRCL calculation 46 ml/min; Estimated Glomerular Filt Rate 57; Glucose 108 mg/dL (65-110); Magnesium 1.8 mg/dL (1.6-2.3); Potassium 3.9 mmol/L (3.4-5.0); Sodium 138 mmol/L (137-145)
[2022-05-04] MEDS: METOPROLOL TARTRATE INJ 5 MG/5 ML VIAL IV PUSH ×2 (10:52→17:37)
--- NOTE | 2022-05-04 11:20 | PM.IMPN ---
Progress Note: A&P Assessment and Plan (1) SBO (small bowel obstruction): Code(s): K56.609 - Unspecified intestinal obstruction, unspecified as to partial versus complete obstruction Status: Acute Assessment and Plan: ED-[facility] narrative: 57-year-old male presenting to the emergency department for evaluation of left lower quadrant pain with associated nausea and vomiting.? Patient had a stroke approximately 3 weeks ago and has been at [facility].? Patient was recently discharged approximately 3 days ago to a care facility.? Patient does have a PEG tube in place that has been functioning normal. 05/04/2022 interval history: patient with history of chronic abdominal pain and constipation, Pt has known coloenteric fistula from diverticular disease.? patient states this is the 1st time he has experienced such a pain and nausea and vomiting, he denies any passing any gas, further evaluate patient had a CT scan of the abdomen, showed small bowel obstruction with transition point at the site of an ileocolic fistula and the left lower quadrant, started the patient on Zosyn, NG tube was placed in emergency depart currently on intermittent suction, and seen by General surgery recommended continue present management, patient had a small-bowel follow through it showed small bowel obstruction, on 05/03 patient was seen by surgery service and discussed, Suspect patient may need surgical intervention and is no significant progress, will continue to monitor with conservative management if there is no improvement patient may need surgical intervention,will give patient anti emetic and pain medication as needed, urine culture is growing E coli sensitive to Zosyn will continue abx, blood culture no growth so far and further recommendation to follow, patient encouraged to ambulate as much as possible will continue to monitor (2) Acute UTI: Code(s): N39.0 - Urinary tract infection, site not specified Status: Acute Assessment and Plan: patient urine is suspicious for UTI patient being treated with Zosyn will follow-up on urine culture and sensitivity (3) Acute hyperkalemia: Code(s): E87.5 - Hyperkalemia Status: Acute Assessment and Plan: most likely secondary to dehydration will monitor (4) LLQ pain: Code(s): R10.32 - Left lower quadrant pain Status: Acute Assessment and Plan: patient with history of diverticulosis. Subjective Date/time seen: 05/04/22 11:20 05/04/2022 interval history: patient with history of chronic abdominal pain and constipation, Pt has known coloenteric fistula from diverticular disease.? patient states this is the 1st time he has experienced such a pain and nausea and vomiting, he denies any passing any gas, further evaluate patient had a CT scan of the abdomen, showed small bowel obstruction with transition point at the site of an ileocolic fistula and the left lower quadrant, started the patient on Zosyn, NG tube was placed in emergency depart currently on intermittent suction, and seen by General surgery recommended continue present management, patient had a small-bowel follow through it showed small bowel obstruction, on 05/03 patient was seen by surgery service and discussed, Suspect patient may need surgical intervention and is no significant progress, will continue to monitor with conservative management if there is no improvement patient may need surgical intervention,will give patient anti emetic and pain medication as needed, urine culture is growing E coli sensitive to Zosyn will continue abx, blood culture no growth so far and further recommendation to follow, patient encouraged to ambulate as much as possible will continue to monitor Exam Narrative: appears chronically ill Patient is comfortable, NAD HEENT: eyes are clear and none icteric, NG tube in place LUNGS:CTA HEART: RR S1S2 ABD: BS faint and diffusely tender Lower extremities: no
--- NOTE | 2022-05-04 18:33 | PM.PNGS ---
Progress Note: A&P Assessment and Plan (1) SBO (small bowel obstruction): Code(s): K56.609 - Unspecified intestinal obstruction, unspecified as to partial versus complete obstruction Status: Acute Assessment and Plan: This is the main reason we're seeing the patient. His small-bowel follow-through Thursday ended at around 6:30 p.m.. For 6 hours the dye minimally progressed through the small bowel and shows continued small bowel loops are dilated. I ordered a follow-up three view of the abdomen for Sat morning and the dye still has not made it to the colon. KUB this morning (Thursday ) also shows continued signs of small-bowel obstruction. However, his lactic acid was normal and his white count is okay. This would indicate near complete small bowel obstruction although patient may have a repeat episode of diverticulitis and he did have a bowel movement early Thursday morning spontaneously. he states today has not passed much gas but had another small loose stool. He is still having a good amount of NG output. Not much through the G-tube which is to gravity. His white count has come down with antibiotic treatment. There may be some chance that as inflammatory changes decrease with increased activity perhaps his bowel will un twist and allow resolution with conservative management. Also with further questioning today I a.m. suspicious that there may be some inflammatory change next to the dome of the bladder and that this is where the air seen on recent CT scan came from. ( this is in view of the fact the patient states he had some pneumaturia we back in February prior to his syncopal episode which took him to [place]). Therefore, if her going to operate we should probably involve Urology and consider a cystoscope with possible at least left ureteral stent to be able to securely identify the left ureter at the time of operation. Will repeat CBC lactate and electrolytes in a.m.. Therefore, I have discussed this thoroughly with him and he is willing to begin walking in the reyes with the NG clamped. Be more active and we will repeat a KUB tomorrow morning. I have discussed the possibility of surgical intervention which would be an open exploratory laparotomy of the lower abdomen. He knows that since he has the fistula outlined below that this surgery could be complicated and may require bowel resection of both small bowel and large bowel. I will try to give him some more time & check a lactic acid in the morning also to see if there is signs of ischemia but at this time he seems to be improving a little bit versus worsening. Patient no acute distress and vitals are stable therefore I felt it best to wait on any surgery until a week day when more resources are available. It may be that we could separate the fistula between the small bowel and colon and go ahead with a reanastomosis of the colon then use the site of the distal small bowel fistula as a diverting loop ileostomy and put the colon back together. I doubt in view of his small bowel obstruction at this could be done laparoscopically and the position of the PEG tube along with the distension caused by pneumoperitoneum may disrupt its seal because it is fairly freshly completed. Will discuss all these things with Dr. Artis in a.m. and make further plans. (2) Acute UTI: Code(s): N39.0 - Urinary tract infection, site not specified Status: Acute Assessment and Plan: On Zosyn for treatment. E coli growing from urine culture. CT reviewed carefully with Dr. Velazquez Thursday evening. Could not easily see any sign of diameter a change between the colon and the dome of the bladder on the current study. 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
[2022-05-04 21:22] LABS: Basophils Absolute Auto 0.1 K/mm3 (0.0-0.1); Basophils Percent Auto 0.6 % (0.2-1.2); Eosinophils Percent Auto 0.2 % (0-4.4); Hematocrit 32.4 % (42.0-52.0); Hemoglobin 10.4 g/dL (14.0-18.0); Immature Granulocyte Absolute 0.03 K/mm3 (0.00-0.031); Immature Granulocyte Percent A 0.3 % (0-0.5); Lymphocytes Absolute Auto 1.13 K/mm3 (0.9-3.2); Mean Corpuscular HGB Conc 32.1 g/dl (32-36); Mean Corpuscular Volume 115.3 fl (80-100); Mean Platelet Volume 10.5 fl (7.4-10.4); Monocytes Absolute Auto 1.6 K/mm3 (0.1-0.6); Monocytes Percent Auto 15.7 % (2.6-8.5); Neutrophils Absolute Auto 7.4 K/mm3 (1.3-6.7); Neutrophils Percent Auto 72.2 % (45.5-73.1); Platelet Count Result 215 k/mm3 (150-375); Red Blood Count 2.81 M/mm3 (4.6-6.20); Red Cell Distribution Width 12.4 % (11.5-14.5); White Blood Count 10.3 K/mm3 (4.5-10.0)
[2022-05-04 21:36] LABS: Macrocytosis 1+ (NORMAL); Platelet Estimate Adequate (Adequate); Schistocytes None Seen (NORMAL)
[2022-05-04 21:40] LABS: Anion Gap 14 mmol/L (8-16); Blood Urea Nitrogen 12 mg/dL (9-20); Calcium 9.4 mg/dL (8.4-10.2); Carbon Dioxide 26 mmol/L (22-30); Chloride 102 mmol/L (98-107); Estimated CRCL calculation 43 ml/min; Estimated Glomerular Filt Rate 52; Glucose 103 mg/dL (65-110); Sodium 142 mmol/L (137-145)
[2022-05-05] VITALS (11 sets, daily range): BP systolic 139–159; BP diastolic 85–104; PULSE 71–99; RESP 18–21; TEMP 36.6–37.1; O2SAT 98–100
[2022-05-05] MEDS: SODIUM CHLORIDE 0.9% IV 1,000 ML 75 ML IV CONT ×2 (05:42→22:30)
[2022-05-05 06:17] LABS: Hematocrit 26.1 % (42.0-52.0); Hemoglobin 8.5 g/dL (14.0-18.0); Mean Corpuscular HGB Conc 32.6 g/dl (32-36); Mean Corpuscular Hemoglobin 36.8 pg (26-34); Mean Platelet Volume 10.8 fl (7.4-10.4); Platelet Count Result 173 k/mm3 (150-375); Red Blood Count 2.31 M/mm3 (4.6-6.20); Red Cell Distribution Width 12.4 % (11.5-14.5); White Blood Count 8.2 K/mm3 (4.5-10.0)
[2022-05-05 06:45] LABS: Alanine Aminotransferase 32 U/L (6-50); Albumin Level 3.4 g/dL (3.5-5.1); Alkaline Phosphatase 68 U/L (38-126); Anion Gap 17 mmol/L (8-16); Aspartate Amino Transferase 50 U/L (17-59); Bilirubin,Total 0.6 mg/dL (0.2-1.3); Blood Urea Nitrogen 10 mg/dL (9-20); Calcium 9.1 mg/dL (8.4-10.2); Carbon Dioxide 25 mmol/L (22-30); Chloride 100 mmol/L (98-107); Estimated CRCL calculation 49 ml/min; Estimated Glomerular Filt Rate > 60; Glucose 203 mg/dL (65-110); Magnesium 1.7 mg/dL (1.6-2.3); Potassium 3.8 mmol/L (3.4-5.0); Sodium 142 mmol/L (137-145)
--- NOTE | 2022-05-05 11:29 | PM.PNGS ---
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 - Fistula of intestine Status: Acute Assessment and Plan: will further assess sigmoid colon c hypaque enema Subjective Subjective Date/Time Seen: 05/05/22 11:29 still c/o abd discomfort, distention Review of Systems Review of Systems: All systems reviewed & are unremarkable except as noted in HPI and below Exam Const: General: cooperative, no acute distress, ill appearing and malnourished Resp: Auscultation: clear to auscultation bilaterally Cardio: Rate: regular rate Rhythm: regular rhythm GI: Inspection: normal to inspection and distended GI Palp: Yes abdominal tenderness, Yes Soft to palpation, Yes Tenderness to palpation present (GI), No Guarding due to palpation present (GI) and No Rigid due to palpation Objective Data Vital Signs Vital Signs: Vital Signs - 24 hr 05/04/22 12:00 05/04/22 14:00 05/04/22 17:26 Temperature 36.7 C 36.7 C Pulse Rate 98 98 108 H Respiratory Rate 16 18 Blood Pressure 144/93 H 134/87 Pulse Oximetry 99 98 Oxygen Delivery 05/04/22 17:37 05/04/22 16:00 05/04/22 20:13 Temperature 36.7 C Pulse Rate 120 H 97 93 Respiratory Rate 17 Blood Pressure 116/78 Pulse Oximetry 100 Oxygen Delivery 05/04/22 20:00 05/04/22 23:28 05/05/22 00:00 Temperature 36.8 C Pulse Rate 101 H 98 90 Respiratory Rate 18 Blood Pressure 143/96 H Pulse Oximetry 97 Oxygen Delivery 05/05/22 03:36 05/05/22 04:00 05/05/22 08:20 Temperature 37.1 C 36.6 C Pulse Rate 90 79 81 Respiratory Rate 18 18 Blood Pressure 144/95 H 159/104 H Pulse Oximetry 98 99 Oxygen Delivery 05/05/22 08:00 05/05/22 08:00 Temperature Pulse Rate 91 Respiratory Rate Blood Pressure Pulse Oximetry Oxygen Delivery Room Air Intake/Output Intake/Output: Intake & Output 05/02/22 05/03/22 05/04/22 05/05/22 23:59 23:59 23:59 23:59 Intake Total 3050 2400 1200 1100 Output Total 50 1800 1800 300 Balance 3000 600 -600 800 Meds/Results Medications: Active Medications Generic Name Dose Route Start Last Admin Trade Name Freq PRN Reason Stop Dose Admin Benzocaine 1 lozenge 05/03/22 13:26 Benzocaine/Menthol (*Bkc) 18 Ea Lozenge PO PRN PRN Sore Throat Hydromorphone HCl 0.5 mg 05/02/22 06:58 05/04/22 17:49 Hydromorphone Hcl Inj (*Crx) 1 Mg/Ml Syr IV PUSH 0.5 mg Q4H PRN Administration Pain Rated 7-10 Sodium Chloride 1,000 mls @ 75 mls/hr 05/02/22 07:00 05/05/22 05:42 Normal Saline Iv IV CONT 75 mls/hr .[id number] KATI Administration Piperacillin/Tazobactam/Dextrose 3.375 gm in 50 mls @ 100 mls/hr 05/03/22 05:00 05/05/22 06:10 Zosyn 3.375 Gm/D5w 50ml Pm IVPB Infused Q6HR KATI Infusion Metoprolol Tartrate 12.5 mg 05/02/22 21:00 05/02/22 20:20 Metoprolol Tartrate 12.5 Mg Tablet PO 12.5 mg Q12HR KATI Administration Metoprolol Tartrate 5 mg 05/03/22 16:47 05/04/22 17:37 Metoprolol Tartrate Inj 5 Mg/5 Ml Vial IV PUSH 5 mg Q6HR PRN Administration HR above 100 or systolic BP 160 or greater Ondansetron HCl 4 mg 05/02/22 06:58 05/03/22 01:01 Ondansetron Inj 4 Mg/2 Ml Vial IV PUSH 4 mg Q4H PRN Administration Nausea Radiology Results: ITS Impressions Abdomen/Pelvis CT 05/02/22 08:45 IMPRESSION: 1. 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 2. Nonobstructing left nephrolithiasis. 3. Minimal airspace opacities of the right lower lobe, consistent with infection/inflammation. Upper GI and Small Hiro
--- NOTE | 2022-05-05 12:23 | PCNFU ---
Nutrition Follow-Up Complete: Inadequate energy intake related to NPO status as evidenced by diet order Goal:Meet estimated needs. Pt is not progressing towards goal. Pt current nutrition is NPO. Nutrition recommendation: use alternative nutrition support to meet needs Last recorded weight is 59 kg - stable at this time. Bowel Motility: no BM recorded Labs Reviewed: hgb:11.9, HCT:36.1, K:5.4, Glu:144 Meds Noted: zofran Skin: WNL Additional Notes: Pt is NPO, No use of PEG tube. Nursing reports discussion for TPN. Recommend to use TPN to meet needs, run at 70ml/hr to meet 85% of energy needs and 100% of protein needs. Will monitor for orders. Monitor for diet orders. Follow up every /Thursday.
[2022-05-05] MEDS: HYDROmorphone HCL INJ (*CRX) 1 MG/ML SYR 0.5 MG IV PUSH ×2 (13:01→21:13)
--- NOTE | 2022-05-05 14:07 | PM.IMPN ---
Progress Note: A&P Assessment and Plan (1) SBO (small bowel obstruction): Code(s): K56.609 - Unspecified intestinal obstruction, unspecified as to partial versus complete obstruction Status: Acute Assessment and Plan: ED-HPI narrative: 57-year-old male presenting to the emergency department for evaluation of left lower quadrant pain with associated nausea and vomiting.? Patient had a stroke approximately 3 weeks ago and has been at [facility].? Patient was recently discharged approximately 3 days ago to a care facility.? Patient does have a PEG tube in place that has been functioning normal. 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 patient states this is the 1st time he has experienced such a pain and nausea and vomiting, he denies any passing any gas, further evaluate patient had a CT scan of the abdomen, showed small bowel obstruction with transition point at the site of an ileocolic fistula and the left lower quadrant, started the patient on Zosyn, NG tube was placed in emergency depart currently on intermittent suction, and seen by General surgery recommended continue present management, patient had a small-bowel follow through it showed small bowel obstruction, on 05/03 patient was seen by surgery service and discussed, Suspect patient may need surgical intervention and as there is no significant progress, will continue to monitor with conservative management if there is no improvement patient may need surgical intervention,will give patient anti emetic and pain medication as needed, again today patient denies passing any gas or BM he he complains of more abdominal pain and nausea and vomiting, patient is seen by surgery service suspect patient will need surgical intervention soon, will start the patient on PPN, will continue to monitor, urine culture is growing E coli sensitive to Zosyn will continue abx, blood culture no growth so far and further recommendation to follow, patient encouraged to ambulate as much as possible will continue to monitor (2) Acute UTI: Code(s): N39.0 - Urinary tract infection, site not specified Status: Acute Assessment and Plan: patient urine is suspicious for UTI patient being treated with Zosyn will follow-up on urine culture and sensitivity (3) Acute hyperkalemia: Code(s): E87.5 - Hyperkalemia Status: Acute Assessment and Plan: most likely secondary to dehydration will monitor (4) LLQ pain: Code(s): R10.32 - Left lower quadrant pain Status: Acute Assessment and Plan: patient with history of diverticulosis. Subjective Date/time seen: 05/05/22 14:07 ED-HPI narrative: 57-year-old male presenting to the emergency department for evaluation of left lower quadrant pain with associated nausea and vomiting.? Patient had a stroke approximately 3 weeks ago and has been at [facility].? Patient was recently discharged approximately 3 days ago to a care facility.? Patient does have a PEG tube in place that has been functioning normal. 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 patient states this is the 1st time he has experienced such a pain and nausea and vomiting, he denies any passing any gas, further evaluate patient had a CT scan of the abdomen, showed small bowel obstruction with transition point at the site of an ileocolic fistula and the left lower quadrant, started the patient on Zosyn, NG tube was placed in emergency depart currently on intermittent suction, and seen by General surgery recommended continue present management, patient had a small-bowel follow through it showed small bowel obstruction, on 05/03 patient was seen by surgery service and discussed, Suspect patient may need surgical inte
--- NOTE | 2022-05-05 14:09 | WPDANESEPPF ---
Anes - Initial Pre Proc Eval Procedure: Operation Date: 05/06/22 15:00 Proposed Procedures p Exploratory Laparotomy, Possible Bowel Resection, Possible Ostomy - Fiona Artis MD <Jamaal Hassan MD - Last Filed: 05/08/22 14:55> Date/Time: 05/05/22 14:09 <Jamaal Hassan MD - Last Filed: 05/08/22 14:55> Surgeon: Kusum Casillas DO <Jamaal Hassan MD - Last Filed: 05/08/22 14:55> Pre Op Diagnosis: SBO/UTI <Jamaal Hassan MD - Last Filed: 05/08/22 14:55> Patient Data Age: 57 Gender: M Height: 1.75 m Weight: 59 kg <Jamaal Hassan MD - Last Filed: 05/08/22 14:55> Last Vital Signs Temp 36.7 C 05/05/22 10:00 Pulse 71 05/05/22 12:00 Resp 18 05/05/22 10:00 BP 142/92 H 05/05/22 10:00 Pulse Ox 98 05/05/22 10:00 O2 Del Method Room Air 05/05/22 08:00 <Jamaal Hassan MD - Last Filed: 05/08/22 14:55> Allergies Allergy/AdvReac Type Severity Reaction Status Date / Time codeine Allergy Severe Swelling Verified 05/02/22 10:23 <Jamaal Hassan MD - Last Filed: 05/08/22 14:55> Home Medications Medication Instructions Recorded Confirmed Type metoprolol succinate 25 mg 25 mg PO DAILY 05/02/22 05/02/22 History tablet,extended release 24 hr (Toprol XL) <Jamaal Hassan MD - Last Filed: 05/08/22 14:55> Laboratory Tests 05/04/22 05/04/22 05/05/22 21:16 21:16 06:04 WBC 10.3 K/mm3 H K/mm3 8.2 K/mm3 K/mm3 (4.5-10.0) (4.5-10.0) RBC 2.81 M/mm3 L M/mm3 2.31 M/mm3 L M/mm3 (4.6-6.20) (4.6-6.20) Hgb 10.4 g/dL L g/dL 8.5 g/dL L g/dL (14.0-18.0) (14.0-18.0) Hct 32.4 % L % 26.1 % L % (42.0-52.0) (42.0-52.0) MCV 115.3 fl H fl 113.0 fl H fl (80-100) (80-100) MCH 37.0 pg H pg 36.8 pg H pg (26-34) (26-34) MCHC 32.1 g/dl g/dl 32.6 g/dl g/dl (32-36) (32-36) RDW 12.4 % % 12.4 % % (11.5-14.5) (11.5-14.5) Plt Count 215 k/mm3 k/mm3 173 k/mm3 k/mm3 (150-375) (150-375) MPV 10.5 fl H fl 10.8 fl H fl (7.4-10.4) (7.4-10.4) Immature Gran % (Auto) 0.3 % % (0-0.5) Neut % (Auto) 72.2 % % (45.5-73.1) Lymph % (Auto) 11.0 % L % (18.3-44.2) [place] % (Auto) 15.7 % H % (2.6-8.5) Eos % (Auto) 0.2 % % (0-4.4) Baso % (Auto) 0.6 % % (0.2-1.2) Lymph # (Auto) 1.13 K/mm3 K/mm3 (0.9-3.2) [place] # (Auto) 1.6 K/mm3 H K/mm3 (0.1-0.6) Eos # (Auto) 0.0 K/mm3 K/mm3 (0-0.3) Baso # (Auto) 0.1 K/mm3 K/mm3 (0.0-0.1) Abs Immat Gran (auto) 0.03 K/mm3 K/mm3 (0.00-0.031) Absolute Neuts (auto) 7.4 K/mm3 H K/mm3 (1.3-6.7) Absolute Nucleated RBC 0.0 K/mm3 K/mm3 (0.0-0.012) Nucleated RBC % 0.0 % % (0.0-0.2) Platelet Estimate Adequate (Adequate) Macrocytosis 1+ (NORMAL) Schistocytes None seen (NORMAL) Sodium 142 mmol/L mmol/L (137-145) Potassium 4.0 mmol/L mmol/L (3.4-5.0) Chloride 102 mmol/L mmol/L (98-107) Carbon Dioxide 26 mmol/L mmol/L (22-30) Anion Gap 14 mmol/L mmol/L (8-16) BUN 12 mg/dL mg/dL (9-20) Creatinine 1.40 mg/dL H mg/dL (0.7-1.3) Estim Creat Clear Calc 43 ml/min ml/min Estimated GFR 52 L (59 - ) Glucose 103 mg/dL mg/dL (65-110) Lactic Acid Calcium 9.4 mg/dL mg/dL (8.4-10.2) Magnesium Total Bilirubin AST ALT Alkaline Phosphatase Total Protein Albumin 05/05/22 05/05/22 06:04 06:04 WBC RBC Hgb Hct MCV MCH MCHC RDW Plt Count MPV Immature Gran % (Auto) Neut % (Auto) Lymph % (Auto) [place] % (Auto)
[2022-05-05] MEDS: AMINO ACIDS 4.25%/D5W/LYTES/CA 2,000 ML 80 ML IV CONT (15:23)
[2022-05-05] MEDS: FAT EMULSIONS IV 20% 250 ML 20.83 ML IVPB (15:23)
[2022-05-05 19:14] LABS: Glucose Point of Care 104 mg/dl (65-105)
[2022-05-06] VITALS (20 sets, daily range): BP systolic 138–168; BP diastolic 63–98; PULSE 43–108; RESP 12–20; TEMP 36.1–37.4; O2SAT 95–100
--- NOTE | 2022-05-06 01:18 | PC.NURSE ---
pt partially removed NG tube and advanced back in place, xray taken and confirms correct placement, low intermittent suction continued at this time.
[2022-05-06 01:54] LABS: Glucose Point of Care 104 mg/dl (65-105)
[2022-05-06 05:55] LABS: Glucose Point of Care 110 mg/dl (65-105)
[2022-05-06 06:06] LABS: Alanine Aminotransferase 28 U/L (6-50); Albumin Level 3.1 g/dL (3.5-5.1); Alkaline Phosphatase 55 U/L (38-126); Anion Gap 10 mmol/L (8-16); Aspartate Amino Transferase 37 U/L (17-59); Bilirubin,Total 0.5 mg/dL (0.2-1.3); Blood Urea Nitrogen 12 mg/dL (9-20); Calcium 8.9 mg/dL (8.4-10.2); Carbon Dioxide 27 mmol/L (22-30); Chloride 104 mmol/L (98-107); Estimated CRCL calculation 65 ml/min; Estimated Glomerular Filt Rate > 60; Glucose 124 mg/dL (65-110); Magnesium 1.6 mg/dL (1.6-2.3); Phosphorus 3.9 mg/dL (2.5-4.5); Sodium 141 mmol/L (137-145); Triglycerides 113 mg/dL (<150)
[2022-05-06 06:23] LABS: Hemoglobin 9.2 g/dL (14.0-18.0); Mean Corpuscular HGB Conc 32.9 g/dl (32-36); Mean Corpuscular Hemoglobin 36.4 pg (26-34); Mean Corpuscular Volume 110.7 fl (80-100); Mean Platelet Volume 10.9 fl (7.4-10.4); Platelet Count Result 167 k/mm3 (150-375); Red Blood Count 2.53 M/mm3 (4.6-6.20); Red Cell Distribution Width 12.1 % (11.5-14.5); White Blood Count 8.5 K/mm3 (4.5-10.0)
[2022-05-06] MEDS: POTASSIUM CHLORIDE INJ 40 MEQ in SODIUM CHLORIDE 0.9% IV 500 ML 130 MEQ IVPB (09:32)
--- NOTE | 2022-05-06 11:54 | PM.IMPN ---
Progress Note: A&P Assessment and Plan (1) SBO (small bowel obstruction): Code(s): K56.609 - Unspecified intestinal obstruction, unspecified as to partial versus complete obstruction Status: Acute Assessment and Plan: ED-HPI narrative: 57-year-old male presenting to the emergency department for evaluation of left lower quadrant pain with associated nausea and vomiting.? Patient had a stroke approximately 3 weeks ago and has been at [facility].? Patient was recently discharged approximately 3 days ago to a care facility.? Patient does have a PEG tube in place that has been functioning normal. 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 patient states this is the 1st time he has experienced such a pain and nausea and vomiting, he denies any passing any gas, further evaluate patient had a CT scan of the abdomen, showed small bowel obstruction with transition point at the site of an ileocolic fistula and the left lower quadrant, started the patient on Zosyn, NG tube was placed in emergency depart currently on intermittent suction, and seen by General surgery recommended continue present management, patient had a small-bowel follow through it showed small bowel obstruction, on 05/03 patient was seen by surgery service and discussed, Suspect patient may need surgical intervention and as there is no significant progress, will continue to monitor with conservative management if there is no improvement patient may need surgical intervention,will give patient anti emetic and pain medication as needed, again on 05/05 patient denied passing any gas or BM he he complains of more abdominal pain and nausea and vomiting, patient was seen by surgery service suspect patient will need surgical intervention soon, and recommended to start the patient on PPN, today patient states is passing gas and had a small bowel movement, patient be seen by surgery service and further recommendation to follow, urine culture is growing E coli sensitive to Zosyn will continue abx, blood culture no growth so far and further recommendation to follow, patient encouraged to ambulate as much as possible will continue to monitor (2) Acute UTI: Code(s): N39.0 - Urinary tract infection, site not specified Status: Acute Assessment and Plan: patient urine is suspicious for UTI patient being treated with Zosyn will follow-up on urine culture and sensitivity (3) Acute hyperkalemia: Code(s): E87.5 - Hyperkalemia Status: Acute Assessment and Plan: most likely secondary to dehydration will monitor (4) LLQ pain: Code(s): R10.32 - Left lower quadrant pain Status: Acute Assessment and Plan: patient with history of diverticulosis. 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 patient states this is the 1st time he has experienced such a pain and nausea and vomiting, he denies any passing any gas, further evaluate patient had a CT scan of the abdomen, showed small bowel obstruction with transition point at the site of an ileocolic fistula and the left lower quadrant, started the patient on Zosyn, NG tube was placed in emergency depart currently on intermittent suction, and seen by General surgery recommended continue present management, patient had a small-bowel follow through it showed small bowel obstruction, on 05/03 patient was seen by surgery service and discussed, Suspect patient may need surgical intervention and as there is no significant progress, will continue to monitor with conservative management if there is no improvement patient may need surgical intervention,will give patient anti emetic and pain medication as needed, again on 05/05 gil
--- NOTE | 2022-05-06 12:20 | PCNFU ---
Nutrition Follow-Up Complete: Inadequate energy intake related to NPO status as evidenced by diet order Goal: Meet estimated needs Patient is progressing towards goal. We will continue current goal. Pt current nutrition is PPN Nutrition recommendation: TPN at at 60 ml/hr Last recorded weight is 63 kg,up from 59 kg on admit. Bowel Motility: +Bm reported 05/06- Labs Reviewed: Glu 124, K 3.0,Alb 3.1 Meds Noted:Zofran, Zosyn, Clinimix E 4.25/5 at 40 ml/hr with 250 ml of 20% Lipid Emulsion. Skin: WNL Additional Notes: Patient current with NGT to suction. Plans for Exploratory Lap this afternoon. PPN at 40 ml/hr providing 1153 kcals and 82 gms protein. Recommend changing to TPN at 60 ml/hr providing 1522 kcals and 72 gms protein to better meet caloric needs. Monitoring: every Thursday and Thursday.
[2022-05-06 12:32] LABS: Glucose Point of Care 117 mg/dl (65-105)
--- NOTE | 2022-05-06 14:00 | WPDHPUPDATE1 ---
History and Physical Update Update Date/Time: 05/06/22 14:00 History and Physical has been reviewed, including an updated exam of the patient. There are NO changes in the patient's condition. Risks, benefits, and alternatives have been discussed and questions answered. Patient agrees to proceed with procedure.
[2022-05-06] MEDS: LACTATED RINGERS 1,000 ML 30 ML IV CONT (14:09)
--- NOTE | 2022-05-06 14:38 | PCPTNOTE ---
Attempted PT eval, pt in surgery at this time. Will follow.
--- NOTE | 2022-05-06 15:23 | PCOTNOTE ---
Occupational Therapy evaluation not attempted at this time as pt in surgery. Will follow.
--- NOTE | 2022-05-06 16:34 | W.PM.PROC2 ---
Procedure Note - Detailed Date of Procedure 05/06/22 Pre-op Diagnosis small-bowel obstruction, colo-entero fistula Post-op Diagnosis Same Procedure Performed exploratory laparotomy, extensive lysis of adhesions of approximately 45 minutes, takedown of colo-entero fistula, small-bowel resection, creation of loop ileostomy Surgeon Fiona Artis MD Nurses Director Dr. Franko Resendiz MD Anesthesia General Indications 57-year-old male presenting with high-grade small bowel obstruction. Extensive workup, including imaging, significant for small bowel obstruction at site of known colo entero fistula. Patient initially treated with conservative management that failed and now will need urgent surgical intervention Findings complete small bowel obstruction at site colo entero fistula Description of Procedure The patient was taken to the operating room placed in the supine position. After adequate induction of general anesthesia, the patient was prepped and draped in the normal sterile fashion. A time-out was then done to verify the patient's identity, as well as procedure being performed. Please note that Dr. Franko Resendiz was present and assisted through the entirety of the case including lysis of adhesions, takedown of fistula, small-bowel resection, creation of ileostomy. We began by making a midline incision favoring the lower midline. Once access was gained into the peritoneal cavity, a large amount of ascites was noted. This was suctioned and approximately 1 L was evacuated. The small bowel was then noted to be very dilated and we ran the entirety of the small bowel to the proximal ileum. At the level of the proximal ileum, there was noted to be an abrupt transition from dilated small intestine to decompressed distal ileum. The site of obstruction was noted to be tethered down in the left pelvis and to the sigmoid colon. I then freed this portion of the sigmoid colon by taking down the lateral attachments. I was then able to further bring this area up. This was noted to be the site of the colo entero fistula. I then carefully freed the small intestine from the sigmoid colon favoring the small intestine side. This lysis of adhesions took approximately 45 minutes. Once the fistula was taken down, I examined the colon and no obvious colotomy was noted. I then oversewed the colon with 3-0 Vicryl suture. We then did a small bowel resection in the proximal taking approximately 10 cm of small intestine including the fistula site. This was done with EDWARD stapler x2 and using the LigaSure to take down the mesenteric attachments. We then performed a [id number] functional end-to-end anastomosis between the 2 ends of proximal ileum using a 55 EDWARD stapler followed by Tx 60 stapler. The staple line was oversewn with 3-0 silk sutures in interrupted fashion. The mesenteric defect was closed with a running 3-0 silk suture. The anastomosis was noted to be widely patent and tension-free. We then left a 19 Chinese round drain in the pelvis favoring the area of the sigmoid colon where we had oversewed. The sigmoid colon was noted to be moderately inflamed. This drain came out of it an incision in the left lower quadrant. The decision was then made to do a loop ileostomy to protect the sigmoid colon. A loop of ileum distal to our anastomosis and approximately 10 cm proximal to the ileocecal valve was chosen for the loop. A small circular incision was made in the right lower quadrant and carried down to the level of the fascia. The disc of skin and subcutaneous tissue was removed and the fascia was incised in a crucifx fashion. The rectus was split in the direction of its fibers and the posterior fascia was opened to allow 2 finger breaths. I then brought the loop of ileum through this incision. I then copiously irrigated the abdomen. No other pathology was noted. I then closed the fascia of the midline incision using a looped PDS suture x2. The skin was closed wit
[2022-05-06] MEDS: fentaNYL CITRATE INJ (*CRX) 100 MCG/2 ML VIAL 25 MCG IV PUSH ×6 (17:00→17:46)
[2022-05-06 17:13] LABS: Glucose Point of Care 107 mg/dl (65-105)
[2022-05-06] MEDS: AMINO ACIDS 4.25%/D5W/LYTES/CA 2,000 ML 80 ML IV CONT (18:14)
[2022-05-06] MEDS: FAT EMULSIONS IV 20% 250 ML 20.83 ML IVPB (18:15)
[2022-05-06] MEDS: SODIUM CHLORIDE 0.9% IV 1,000 ML 75 ML IV CONT (18:38)
[2022-05-06 18:42] LABS: Glucose Point of Care 123 mg/dl (65-105)
[2022-05-06] MEDS: METOPROLOL TARTRATE INJ 5 MG/5 ML VIAL IV PUSH (22:25)
[2022-05-06] MEDS: HYDROmorphone HCL INJ (*CRX) 1 MG/ML SYR 0.5 MG IV PUSH (22:25)
[2022-05-07] VITALS (18 sets, daily range): BP systolic 137–170; BP diastolic 79–100; PULSE 82–97; RESP 16–18; TEMP 36.4–37.3; O2SAT 97–100
[2022-05-07] MEDS: hydrALAZINE HCL 20 MG/ML VIAL 10 MG IV PUSH (01:26)
[2022-05-07] MEDS: HYDROmorphone HCL INJ (*CRX) 1 MG/ML SYR 0.5 MG IV PUSH ×5 (03:40→21:03)
[2022-05-07 03:52] LABS: Glucose Point of Care 151 mg/dl (65-105)
[2022-05-07 05:10] LABS: Hematocrit 28.8 % (42.0-52.0); Hemoglobin 9.6 g/dL (14.0-18.0); Mean Corpuscular HGB Conc 33.3 g/dl (32-36); Mean Corpuscular Hemoglobin 37.6 pg (26-34); Mean Corpuscular Volume 112.9 fl (80-100); Mean Platelet Volume 10.7 fl (7.4-10.4); Platelet Count Result 157 k/mm3 (150-375); Red Blood Count 2.55 M/mm3 (4.6-6.20); Red Cell Distribution Width 12.3 % (11.5-14.5); White Blood Count 14.5 K/mm3 (4.5-10.0)
[2022-05-07 05:23] LABS: Alanine Aminotransferase 19 U/L (6-50); Albumin Level 2.8 g/dL (3.5-5.1); Alkaline Phosphatase 41 U/L (38-126); Anion Gap 11 mmol/L (8-16); Aspartate Amino Transferase 28 U/L (17-59); Bilirubin,Total 0.4 mg/dL (0.2-1.3); Blood Urea Nitrogen 16 mg/dL (9-20); Calcium 8.4 mg/dL (8.4-10.2); Carbon Dioxide 24 mmol/L (22-30); Chloride 103 mmol/L (98-107); Estimated CRCL calculation 77 ml/min; Estimated Glomerular Filt Rate > 60; Glucose 134 mg/dL (65-110); Magnesium 1.5 mg/dL (1.6-2.3); Potassium 3.5 mmol/L (3.4-5.0); Sodium 138 mmol/L (137-145)
[2022-05-07 06:24] LABS: Glucose Point of Care 142 mg/dl (65-105)
--- NOTE | 2022-05-07 08:37 | PCPTNOTE ---
Attempted PT evaluation, pt refused stating not today. Pt reports surgeon told him he does not have to get out of bed today. RN aware. Will Follow.
--- NOTE | 2022-05-07 09:13 | PCOTNOTE ---
Attempted OT evaluation, pt has refused to work with therapy services today. Pt reports surgeon told him he does not have to get out of bed today. RN aware and acknowledged . Will Follow.
[2022-05-07] MEDS: SODIUM CHLORIDE 0.9% IV 1,000 ML 75 ML IV CONT (09:29)
[2022-05-07] MEDS: ONDANSETRON INJ 4 MG/2 ML VIAL IV PUSH (11:11)
--- NOTE | 2022-05-07 11:52 | PM.IMPN ---
Progress Note: A&P Assessment and Plan (1) SBO (small bowel obstruction): Code(s): K56.609 - Unspecified intestinal obstruction, unspecified as to partial versus complete obstruction Status: Acute Assessment and Plan: Status post lysis of adhesions. NG tube in place to suction. Continue antibiotics. Per surgery. (2) Acute UTI: Code(s): N39.0 - Urinary tract infection, site not specified Status: Acute Assessment and Plan: patient urine is suspicious for UTI patient being treated with Zosyn will follow-up on urine culture and sensitivity (3) Acute hyperkalemia: Code(s): E87.5 - Hyperkalemia Status: Acute Assessment and Plan: most likely secondary to dehydration will monitor (4) LLQ pain: Code(s): R10.32 - Left lower quadrant pain Status: Acute Assessment and Plan: patient with history of diverticulosis. Subjective Date/time seen: 05/07/22 11:52 Patient has no complaints except for some abdominal cramping and pain. NG tube is in place. Exam Narrative: appears chronically ill Patient is comfortable, NAD HEENT: eyes are clear and none icteric, NG tube in place LUNGS:CTA HEART: RR S1S2 ABD: BS faint and diffusely tender Lower extremities: no edema SKIN: nonjaundiced Neuro: grossly intact. Objective Data Vital Signs Vital Signs: Vital Signs - 24 hr 05/06/22 12:00 05/06/22 13:30 05/06/22 13:50 Temperature 99.4 F 98.6 F Pulse Rate 75 76 43 L Respiratory Rate 16 20 Blood Pressure 159/83 H 165/94 H Pulse Oximetry 99 100 Oxygen Delivery Room Air Oxygen Flow Rate 05/06/22 16:39 05/06/22 16:55 05/06/22 17:10 Temperature 98.0 F Pulse Rate 88 85 92 Respiratory Rate 20 16 14 Blood Pressure 139/97 H 156/97 H 163/88 H Pulse Oximetry 100 100 99 Oxygen Delivery Simple Face Mask Simple Face Mask Room Air Oxygen Flow Rate 10 10 05/06/22 17:25 05/06/22 17:40 05/06/22 17:56 Temperature Pulse Rate 94 97 94 Respiratory Rate 14 12 12 Blood Pressure 156/97 H 152/97 H 151/91 H Pulse Oximetry 95 96 97 Oxygen Delivery Room Air Room Air Room Air Oxygen Flow Rate 05/06/22 18:15 05/06/22 18:15 05/06/22 18:30 Temperature 97.8 F 97.8 F Pulse Rate 100 105 H Respiratory Rate 12 12 Blood Pressure 138/82 154/89 H Pulse Oximetry 99 100 Oxygen Delivery Room Air Oxygen Flow Rate 05/06/22 19:00 05/06/22 21:09 05/06/22 22:25 Temperature 97.5 F L 97.6 F Pulse Rate 91 100 108 H Respiratory Rate 18 18 Blood Pressure 168/88 H 167/98 H Pulse Oximetry 99 100 Oxygen Delivery Oxygen Flow Rate 05/06/22 22:26 05/07/22 00:12 05/06/22 20:00 Temperature 99.1 F Pulse Rate 108 H 89 90 Respiratory Rate 18 Blood Pressure 168/88 H 170/100 H Pulse Oximetry 100 Oxygen Delivery Oxygen Flow Rate 05/07/22 03:30 05/07/22 04:19 05/07/22 00:00 Temperature 97.9 F Pulse Rate 97 83 Respiratory Rate 18 Blood Pressure 143/88 H 137/79 Pulse Oximetry 98 Oxygen Delivery Oxygen Flow Rate 05/07/22 04:00 05/07/22 09:59 05/07/22 08:00 Temperature Pulse Rate 97 93 Respiratory Rate Blood Pressure Pulse Oximetry 98 Oxygen Delivery Room Air Oxygen Flow Rate 05/07/22 11:31 Temperature 97.6 F Pulse Rate 86 Respiratory Rate 18 Blood Pressure 167/91 H Pulse Oximetry 100 Oxygen Delivery Oxygen Flow Rate Intake/Output Intake/Output: Intake & Output 05/04/22 05/05/22 05/06/22 05/07/22 23:59 23:59 23:59 23:59 Intake Total 1200 2200 4170 1350 Output Total 1800 1200 1675 1175 Balance -600 1000 2495 175 Meds/Results Medications: Active Medications Generic Name Dose Route Start Last Admin Trade Name Freq PRN Reason Stop Dose Admin Benzocaine 1 lozenge 05/03/22 13:26 Benzocaine/Menthol (*Bkc) 18 Ea Lozenge PO PRN PRN Sore Throat Hydromorphone HCl 0.5 mg 05/02/22 06:58 05/07/22 08:09 Hydromorphone Hcl Inj
[2022-05-07 12:20] LABS: Glucose Point of Care 116 mg/dl (65-105)
[2022-05-07 12:39] LABS: Glucose Point of Care 133 mg/dl (65-105)
--- NOTE | 2022-05-07 12:42 | WPDANESPN ---
Anes - Prog Note Post-Op Date/Time: 05/07/22 12:42 Cardiovascular status: normal Respiratory status: normal Airway patency: baseline Mental status: baseline Post-Op hydration status: other (NG to suction in place) Vital Signs: Last Vital Signs Temp 36.4 C 05/07/22 11:31 Pulse 86 05/07/22 11:31 Resp 18 05/07/22 11:31 BP 158/88 H 05/07/22 12:23 Pulse Ox 100 05/07/22 11:31 O2 Del Method Room Air 05/07/22 09:59 O2 Flow Rate 10 05/06/22 16:55 Pain Score (VAS): 3 I/O: Intake & Output 05/06/22 05/07/22 05/07/22 23:59 07:59 15:59 Intake Total 2250 1350 Output Total 175 1160 15 Balance 2075 190 -15 Laboratory Tests 05/07/22 04:42 05/07/22 04:42 05/06/22 05/06/22 05/07/22 17:11 18:38 03:49 WBC RBC Hgb Hct MCV MCH MCHC RDW Plt Count MPV Sodium Potassium Chloride Carbon Dioxide Anion Gap BUN Creatinine Estim Creat Clear Calc Estimated GFR Glucose POC Capillary Glucose 107 H 123 H 151 H Calcium Phosphorus Magnesium Total Bilirubin AST ALT Alkaline Phosphatase Total Protein Albumin 05/07/22 05/07/22 05/07/22 04:42 04:42 06:22 WBC 14.5 H RBC 2.55 L Hgb 9.6 L Hct 28.8 L MCV 112.9 H MCH 37.6 H MCHC 33.3 RDW 12.3 Plt Count 157 MPV 10.7 H Sodium 138 Potassium 3.5 Chloride 103 Carbon Dioxide 24 Anion Gap 11 BUN 16 Creatinine 0.80 Estim Creat Clear Calc 77 Estimated GFR > 60 Glucose 134 H POC Capillary Glucose 142 H Calcium 8.4 Phosphorus 4.0 Magnesium 1.5 L Total Bilirubin 0.4 AST 28 ALT 19 Alkaline Phosphatase 41 Total Protein 6.0 L Albumin 2.8 L 05/07/22 05/07/22 12:18 12:35 WBC RBC Hgb Hct MCV MCH MCHC RDW Plt Count MPV Sodium Potassium Chloride Carbon Dioxide Anion Gap BUN Creatinine Estim Creat Clear Calc Estimated GFR Glucose POC Capillary Glucose 116 H 133 H Calcium Phosphorus Magnesium Total Bilirubin AST ALT Alkaline Phosphatase Total Protein Albumin Post-procedural complaints: none Patient Feedback: Patient satisfied with anesthetic care.
[2022-05-07] MEDS: METOPROLOL TARTRATE INJ 5 MG/5 ML VIAL IV PUSH (14:08)
--- NOTE | 2022-05-07 15:08 | PC.NURSE ---
On 05/07/22, the student, [Barb Basilio], provided care and completed [facility] documentation on this patient. I have reviewed the student's documentation and agree with the findings.
[2022-05-07] MEDS: AMINO ACIDS 4.25%/D5W/LYTES/CA 2,000 ML 80 ML IV CONT (16:11)
[2022-05-07] MEDS: FAT EMULSIONS IV 20% 250 ML 20.8 ML IVPB (16:11)
[2022-05-07 17:57] LABS: Glucose Point of Care 119 mg/dl (65-105)
[2022-05-08] VITALS (10 sets, daily range): BP systolic 152–167; BP diastolic 80–92; PULSE 81–95; RESP 16–18; TEMP 36.6–37.4; O2SAT 93–98
[2022-05-08] MEDS: SODIUM CHLORIDE 0.9% IV 1,000 ML 75 ML IV CONT (00:07)
[2022-05-08 00:10] LABS: Glucose Point of Care 116 mg/dl (65-105)
[2022-05-08] MEDS: HYDROmorphone HCL INJ (*CRX) 1 MG/ML SYR 0.5 MG IV PUSH ×3 (04:06→23:50)
[2022-05-08 05:27] LABS: Glucose Point of Care 119 mg/dl (65-105)
[2022-05-08 06:47] LABS: Basophils Percent Auto 0.2 % (0.2-1.2); Eosinophils Percent Auto 0.4 % (0-4.4); Hematocrit 23.4 % (42.0-52.0); Hemoglobin 7.7 g/dL (14.0-18.0); Immature Granulocyte Absolute 0.07 K/mm3 (0.00-0.031); Immature Granulocyte Percent A 0.6 % (0-0.5); Lymphocytes Absolute Auto 1.25 K/mm3 (0.9-3.2); Lymphocytes Percent Auto 11.3 % (18.3-44.2); Mean Corpuscular HGB Conc 32.9 g/dl (32-36); Mean Corpuscular Hemoglobin 36.7 pg (26-34); Mean Corpuscular Volume 111.4 fl (80-100); Mean Platelet Volume 11.5 fl (7.4-10.4); Monocytes Absolute Auto 0.9 K/mm3 (0.1-0.6); Monocytes Percent Auto 8.5 % (2.6-8.5); Neutrophils Absolute Auto 8.8 K/mm3 (1.3-6.7); Platelet Count Result 114 k/mm3 (150-375); Red Cell Distribution Width 12.4 % (11.5-14.5); White Blood Count 11.1 K/mm3 (4.5-10.0)
[2022-05-08 07:06] LABS: Alanine Aminotransferase 15 U/L (6-50); Albumin Level 2.5 g/dL (3.5-5.1); Alkaline Phosphatase 39 U/L (38-126); Anion Gap 11 mmol/L (8-16); Aspartate Amino Transferase 23 U/L (17-59); Bilirubin,Total 0.4 mg/dL (0.2-1.3); Blood Urea Nitrogen 14 mg/dL (9-20); Calcium 8.4 mg/dL (8.4-10.2); Carbon Dioxide 24 mmol/L (22-30); Chloride 101 mmol/L (98-107); Estimated CRCL calculation 80 ml/min; Estimated Glomerular Filt Rate > 60; Glucose 107 mg/dL (65-110); Magnesium 1.5 mg/dL (1.6-2.3); Phosphorus 3.1 mg/dL (2.5-4.5); Sodium 136 mmol/L (137-145)
[2022-05-08] MEDS: POTASSIUM CHLORIDE INJ 40 MEQ in SODIUM CHLORIDE 0.9% IV 500 ML 130 MEQ IVPB (09:41)
--- NOTE | 2022-05-08 10:27 | PM.IMPN ---
Progress Note: A&P Assessment and Plan (1) SBO (small bowel obstruction): Code(s): K56.609 - Unspecified intestinal obstruction, unspecified as to partial versus complete obstruction Status: Acute Assessment and Plan: Status post lysis of adhesions. NG tube in place to suction. Continue antibiotics. Per surgery. (2) Acute UTI: Code(s): N39.0 - Urinary tract infection, site not specified Status: Acute Assessment and Plan: patient urine is suspicious for UTI patient being treated with Zosyn will follow-up on urine culture and sensitivity (3) Acute hyperkalemia: Code(s): E87.5 - Hyperkalemia Status: Acute Assessment and Plan: most likely secondary to dehydration will monitor (4) LLQ pain: Code(s): R10.32 - Left lower quadrant pain Status: Acute Assessment and Plan: patient with history of diverticulosis. Subjective Date/time seen: 05/08/22 10:27 No complaints Exam Narrative: appears chronically ill Patient is comfortable, NAD HEENT: eyes are clear and none icteric, NG tube in place LUNGS:CTA HEART: RR S1S2 ABD: BS faint and diffusely tender Lower extremities: no edema SKIN: nonjaundiced Neuro: grossly intact. Objective Data Vital Signs Vital Signs: Vital Signs - 24 hr 05/07/22 11:31 05/07/22 12:23 05/07/22 12:00 Temperature 97.6 F Pulse Rate 86 82 Respiratory Rate 18 Blood Pressure 167/91 H 158/88 H Pulse Oximetry 100 Oxygen Delivery 05/07/22 13:59 05/07/22 14:08 05/07/22 14:00 Temperature 97.9 F 97.9 F Pulse Rate 96 96 96 Respiratory Rate 16 16 Blood Pressure 163/90 H 163/90 H Pulse Oximetry 97 97 Oxygen Delivery 05/07/22 16:22 05/07/22 16:00 05/07/22 19:45 Temperature 98.7 F Pulse Rate 89 92 Respiratory Rate 16 Blood Pressure 150/88 H 163/87 H Pulse Oximetry 97 Oxygen Delivery 05/07/22 20:05 05/07/22 20:00 05/08/22 00:00 Temperature 98.4 F 98 F Pulse Rate 94 89 93 Respiratory Rate 16 16 Blood Pressure 159/81 H 152/85 H Pulse Oximetry 99 97 Oxygen Delivery 05/08/22 00:00 05/08/22 04:23 05/08/22 04:00 Temperature 99.4 F Pulse Rate 95 95 92 Respiratory Rate 16 Blood Pressure 165/80 H Pulse Oximetry 96 Oxygen Delivery 05/08/22 08:00 05/08/22 08:00 Temperature Pulse Rate 81 Respiratory Rate Blood Pressure Pulse Oximetry Oxygen Delivery Room Air Intake/Output Intake/Output: Intake & Output 05/05/22 05/06/22 05/07/22 05/08/22 23:59 23:59 23:59 23:59 Intake Total 2200 4170 4450 50 Output Total 1200 1675 2345 1230 Balance 1000 2495 2105 -1180 Meds/Results Medications: Active Medications Generic Name Dose Route Start Last Admin Trade Name Freq PRN Reason Stop Dose Admin Benzocaine 1 lozenge 05/03/22 13:26 Benzocaine/Menthol (*Bkc) 18 Ea Lozenge PO PRN PRN Sore Throat Hydromorphone HCl 0.5 mg 05/02/22 06:58 05/08/22 09:37 Hydromorphone Hcl Inj (*Crx) 1 Mg/Ml Syr IV PUSH 0.5 mg Q4H PRN Administration Pain Rated 7-10 Sodium Chloride 1,000 mls @ 75 mls/hr 05/02/22 07:00 05/08/22 00:07 Normal Saline Iv IV CONT 75 mls/hr .[id number] KATI Administration Piperacillin/Tazobactam/Dextrose 3.375 gm in 50 mls @ 100 mls/hr 05/03/22 05:00 05/08/22 06:33 Zosyn 3.375 Gm/D5w 50ml Pm IVPB 100 mls/hr Q6HR KATI Administration Dextrose 1,000 mls @ 50 mls/hr 05/05/22 14:13 Dextrose 10% IV CONT .Q20H PRN if PN is interrupted Amino Acids/Electrolytes/Dextrose 2,000 mls @ 80 mls/hr 05/05/22 15:00 05/07/22 16:11 Clinimix E 4.25%/5% Solution IV CONT 80 mls/hr .Q24H KATI Administration Protocol Fat Emulsion Intravenous 250 mls @ 20.833 mls/hr 05/05/22 15:00 05/07/22 16:11 Lipids 20% IVPB 20.8 mls/hr Q24H KATI Administration Potassium Chloride 40 meq/ 520 mls @ 130 mls/hr 05/08/22 07:53 05/08/22 09:41 Sodium Chloride IVPB
--- NOTE | 2022-05-08 11:04 | PM.PNGS ---
Progress Note: A&P Assessment and Plan (1) SBO (small bowel obstruction): Code(s): K56.609 - Unspecified intestinal obstruction, unspecified as to partial versus complete obstruction Status: Acute Assessment and Plan: + ostomy output, will dc NG, start sips of clears Subjective Subjective Date/Time Seen: 05/08/22 11:04 feels better today, still sore Review of Systems Review of Systems: All systems reviewed & are unremarkable except as noted in HPI and below Exam Const: General: cooperative, comfortable, no acute distress and ill appearing Resp: Auscultation: diminished lung sounds Cardio: Rate: regular rate Rhythm: regular rhythm GI: Inspection: normal to inspection, distended and incision GI Palp: Yes abdominal tenderness, Yes Soft to palpation, Yes Tenderness to palpation present (GI), No Guarding due to palpation present (GI) and No Rigid due to palpation Objective Data Vital Signs Vital Signs: Vital Signs - 24 hr 05/07/22 11:31 05/07/22 12:23 05/07/22 12:00 Temperature 36.4 C Pulse Rate 86 82 Respiratory Rate 18 Blood Pressure 167/91 H 158/88 H Pulse Oximetry 100 Oxygen Delivery 05/07/22 13:59 05/07/22 14:08 05/07/22 14:00 Temperature 36.6 C 36.6 C Pulse Rate 96 96 96 Respiratory Rate 16 16 Blood Pressure 163/90 H 163/90 H Pulse Oximetry 97 97 Oxygen Delivery 05/07/22 16:22 05/07/22 16:00 05/07/22 19:45 Temperature 37.1 C Pulse Rate 89 92 Respiratory Rate 16 Blood Pressure 150/88 H 163/87 H Pulse Oximetry 97 Oxygen Delivery 05/07/22 20:05 05/07/22 20:00 05/08/22 00:00 Temperature 36.9 C 36.6 C Pulse Rate 94 89 93 Respiratory Rate 16 16 Blood Pressure 159/81 H 152/85 H Pulse Oximetry 99 97 Oxygen Delivery 05/08/22 00:00 05/08/22 04:23 05/08/22 04:00 Temperature 37.4 C Pulse Rate 95 95 92 Respiratory Rate 16 Blood Pressure 165/80 H Pulse Oximetry 96 Oxygen Delivery 05/08/22 08:00 05/08/22 08:00 Temperature Pulse Rate 81 Respiratory Rate Blood Pressure Pulse Oximetry Oxygen Delivery Room Air Intake/Output Intake/Output: Intake & Output 05/05/22 05/06/22 05/07/22 05/08/22 23:59 23:59 23:59 23:59 Intake Total 2200 4170 4450 50 Output Total 1200 1675 2345 1230 Balance 1000 2495 2105 -1180 Meds/Results Medications: Active Medications Generic Name Dose Route Start Last Admin Trade Name Freq PRN Reason Stop Dose Admin Benzocaine 1 lozenge 05/03/22 13:26 Benzocaine/Menthol (*Bkc) 18 Ea Lozenge PO PRN PRN Sore Throat Hydromorphone HCl 0.5 mg 05/02/22 06:58 05/08/22 09:37 Hydromorphone Hcl Inj (*Crx) 1 Mg/Ml Syr IV PUSH 0.5 mg Q4H PRN Administration Pain Rated 7-10 Sodium Chloride 1,000 mls @ 75 mls/hr 05/02/22 07:00 05/08/22 00:07 Normal Saline Iv IV CONT 75 mls/hr .[id number] KATI Administration Piperacillin/Tazobactam/Dextrose 3.375 gm in 50 mls @ 100 mls/hr 05/03/22 05:00 05/08/22 06:33 Zosyn 3.375 Gm/D5w 50ml Pm IVPB 100 mls/hr Q6HR KATI Administration Dextrose 1,000 mls @ 50 mls/hr 05/05/22 14:13 Dextrose 10% IV CONT .Q20H PRN if PN is interrupted Amino Acids/Electrolytes/Dextrose 2,000 mls @ 80 mls/hr 05/05/22 15:00 05/07/22 16:11 Clinimix E 4.25%/5% Solution IV CONT 80 mls/hr .Q24H KATI Administration Protocol Fat Emulsion Intravenous 250 mls @ 20.833 mls/hr 05/05/22 15:00 05/07/22 16:11 Lipids 20% IVPB 20.8 mls/hr Q24H KATI Administration Potassium Chloride 40 meq/ 520 mls @ 130 mls/hr 05/08/22 07:53 05/08/22 09:41 Sodium Chloride IVPB 05/08/22 11:52 130 mls/hr ONCE ONE Administration Metoprolol Tartrate 12.5 mg 05/02/22 21:00 05/02/22 20:20 Metoprolol Tartrate 12.5 Mg Tablet PO 12.5 mg Q12HR KATI Administration Metoprolol Tartrate 5 mg 05/03/22 16:47 05/07/22 14:08 Metoprolol Tartrate Inj 5 Mg/5 Ml Vial IV PUSH 5 mg Q6HR PRN Administrati
[2022-05-08 12:35] LABS: Glucose Point of Care 113 mg/dl (65-105)
[2022-05-08 15:08] LABS: Triglycerides 84 mg/dL (<150)
[2022-05-08] MEDS: AMINO ACIDS 4.25%/D5W/LYTES/CA 2,000 ML 80 ML IV CONT (16:42)
[2022-05-08] MEDS: FAT EMULSIONS IV 20% 250 ML 20.8 ML IVPB (16:43)
[2022-05-08 19:07] LABS: Glucose Point of Care 120 mg/dl (65-105)
--- NOTE | 2022-05-08 19:42 | PC.NURSE ---
Pt. found this AM to have 500cc of gastric output from NG overnight. Hospitalist notified of concern of non-active upper quadrant bowel sounds when provider came to bedside for rounding. Surgeon came to bedside around 11am and requested the NG tube to be removed. Primary RN notified him that he has had 400cc out from the start of shift until 11am and has non-active bowel sounds in the upper quadrants. He wanted to continue with the plan of removing the NG tube. He then stated that if he started to have issues, we may place his PEG tube to suction. Around 1pm, the patient started vomiting and had approx 500cc of emesis out. Care plan discussed with charge nurse and PEG was placed to low intermittent suction. Emesis had improved but pt. still c/o of nausea. Due to concern of continued nausea by patient, the stock house worker was asked to come to the bedside to assess the patient.
[2022-05-08] MEDS: ONDANSETRON INJ 4 MG/2 ML VIAL IV PUSH (23:49)
[2022-05-09] VITALS (9 sets, daily range): BP systolic 148–176; BP diastolic 79–82; PULSE 69–83; RESP 16–18; TEMP 36.8–37.2; O2SAT 92–98
[2022-05-09 05:56] LABS: Alanine Aminotransferase 13 U/L (6-50); Albumin Level 2.5 g/dL (3.5-5.1); Alkaline Phosphatase 42 U/L (38-126); Anion Gap 10 mmol/L (8-16); Aspartate Amino Transferase 21 U/L (17-59); Bilirubin,Total 0.4 mg/dL (0.2-1.3); Blood Urea Nitrogen 12 mg/dL (9-20); Calcium 8.7 mg/dL (8.4-10.2); Carbon Dioxide 27 mmol/L (22-30); Chloride 100 mmol/L (98-107); Estimated CRCL calculation 90 ml/min; Estimated Glomerular Filt Rate > 60; Glucose 106 mg/dL (65-110); Magnesium 1.7 mg/dL (1.6-2.3); Phosphorus 3.5 mg/dL (2.5-4.5); Sodium 137 mmol/L (137-145)
[2022-05-09 06:24] LABS: Hematocrit 21.6 % (42.0-52.0); Hemoglobin 7.3 g/dL (14.0-18.0); Immature Platelet Fraction Pct 7.5 % (0.9-11.2); Mean Corpuscular HGB Conc 33.8 g/dl (32-36); Mean Corpuscular Hemoglobin 35.8 pg (26-34); Mean Corpuscular Volume 105.9 fl (80-100); Mean Platelet Volume 11.7 fl (7.4-10.4); Platelet Count Result 122 k/mm3 (150-375); Red Blood Count 2.04 M/mm3 (4.6-6.20); White Blood Count 12.1 K/mm3 (4.5-10.0)
[2022-05-09] MEDS: POTASSIUM CHLORIDE INJ 40 MEQ in SODIUM CHLORIDE 0.9% IV 500 ML 130 MEQ IVPB (09:35)
--- NOTE | 2022-05-09 11:19 | PM.IMPN ---
Progress Note: A&P Assessment and Plan (1) SBO (small bowel obstruction): Code(s): K56.609 - Unspecified intestinal obstruction, unspecified as to partial versus complete obstruction Status: Acute Assessment and Plan: Status post lysis of adhesions. improving Continue antibiotics. Per surgery. (2) Acute UTI: Code(s): N39.0 - Urinary tract infection, site not specified Status: Acute Assessment and Plan: patient urine is suspicious for UTI patient being treated with Zosyn cultures noted (3) LLQ pain: Code(s): R10.32 - Left lower quadrant pain Status: Acute Assessment and Plan: patient with history of diverticulosis. Subjective Date/time seen: 05/09/22 11:19 Feeling better, NG tube DC Exam Narrative: appears chronically ill Patient is comfortable, NAD HEENT: eyes are clear and none icteric, NG tube in place LUNGS:CTA HEART: RR S1S2 ABD: BS faint and diffusely tender Lower extremities: no edema SKIN: nonjaundiced Neuro: grossly intact. Objective Data Vital Signs Vital Signs: Vital Signs - 24 hr 05/08/22 14:32 05/08/22 12:00 05/08/22 16:00 Temperature 98.1 F Pulse Rate 86 86 95 Respiratory Rate 18 Blood Pressure 167/90 H Pulse Oximetry 98 Oxygen Delivery 05/08/22 19:56 05/08/22 21:50 05/08/22 23:44 Temperature 98.6 F 98.0 F Pulse Rate 81 85 Respiratory Rate 18 18 Blood Pressure 152/82 H 161/92 H Pulse Oximetry 96 93 Oxygen Delivery Room Air 05/08/22 20:00 05/09/22 00:00 05/09/22 05:18 Temperature 98.3 F Pulse Rate 88 81 83 Respiratory Rate 18 Blood Pressure 148/79 H Pulse Oximetry 92 Oxygen Delivery 05/09/22 04:00 Temperature Pulse Rate 75 Respiratory Rate Blood Pressure Pulse Oximetry Oxygen Delivery Intake/Output Intake/Output: Intake & Output 05/06/22 05/07/22 05/08/22 05/09/22 23:59 23:59 23:59 23:59 Intake Total 4170 4450 2970 50 Output Total 1675 2345 2740 600 Balance 2495 2105 230 -550 Meds/Results Medications: Active Medications Generic Name Dose Route Start Last Admin Trade Name Freq PRN Reason Stop Dose Admin Benzocaine 1 lozenge 05/03/22 13:26 Benzocaine/Menthol (*Bkc) 18 Ea Lozenge PO PRN PRN Sore Throat Hydromorphone HCl 0.5 mg 05/02/22 06:58 05/08/22 23:50 Hydromorphone Hcl Inj (*Crx) 1 Mg/Ml Syr IV PUSH 0.5 mg Q4H PRN Administration Pain Rated 7-10 Sodium Chloride 1,000 mls @ 75 mls/hr 05/02/22 07:00 05/08/22 00:07 Normal Saline Iv IV CONT 75 mls/hr .[id number] KATI Administration Piperacillin/Tazobactam/Dextrose 3.375 gm in 50 mls @ 100 mls/hr 05/03/22 05:00 05/09/22 06:53 Zosyn 3.375 Gm/D5w 50ml Pm IVPB 100 mls/hr Q6HR KATI Administration Dextrose 1,000 mls @ 50 mls/hr 05/05/22 14:13 Dextrose 10% IV CONT .Q20H PRN if PN is interrupted Amino Acids/Electrolytes/Dextrose 2,000 mls @ 80 mls/hr 05/05/22 15:00 05/08/22 16:42 Clinimix E 4.25%/5% Solution IV CONT 80 mls/hr .Q24H KATI Administration Protocol Fat Emulsion Intravenous 250 mls @ 20.833 mls/hr 05/05/22 15:00 05/08/22 16:43 Lipids 20% IVPB 20.8 mls/hr Q24H KATI Administration Potassium Chloride 40 meq/ 520 mls @ 130 mls/hr 05/09/22 08:00 05/09/22 09:35 Sodium Chloride IVPB 05/09/22 11:59 130 mls/hr ONCE ONE Administration Metoprolol Tartrate 12.5 mg 05/02/22 21:00 05/02/22 20:20 Metoprolol Tartrate 12.5 Mg Tablet PO 12.5 mg Q12HR KATI Administration Metoprolol Tartrate 5 mg 05/03/22 16:47 05/07/22 14:08 Metoprolol Tartrate Inj 5 Mg/5 Ml Vial IV PUSH 5 mg Q6HR PRN Administration HR above 100 or systolic BP 160 or greater Ondansetron HCl 4 mg 05/02/22 06:58 05/08/22 23:49 Ondansetron Inj 4 Mg/2 Ml Vial IV PUSH 4 mg Q4H PRN Administration Nausea Radiology Results: ITS Impressions Abdomen/Pelvis CT 05/02/22 08:45 IMPRESSION:
--- NOTE | 2022-05-09 11:33 | PCPTNOTE ---
Patient refused treatment this session. Patient reported he wanted to nap till 1 o'clock and did not want to do therapy. Attempted to encourage patient to participate, patient continued to refuse.
[2022-05-09 12:47] LABS: Glucose Point of Care 114 mg/dl (65-105)
--- NOTE | 2022-05-09 12:58 | PC.NURSE ---
On 05/09/22, the student, [Ping Anders], provided care and completed [facility] documentation on this patient. I have reviewed the student's documentation and agree with the findings.
--- NOTE | 2022-05-09 13:33 | PCNFU ---
Nutrition Follow-Up Complete: Inadequate energy intake related to NPO status as evidenced by diet order goal: Meet estimated needs Patient has limited progress towards goal. We will continue current goal. Pt current nutrition is PPN. Last recorded weight is 65.2 kg. Bowel Motility:+ostomy output Labs Reviewed:Alb 2.5,K 3.0, Hgb 7.3,Hct 21.6 Meds Noted:Clinimix E 4.25/5, 250 ml of 20% Lipid Emulsion, Zosyn Skin: WNL Additional Notes: NGT out. PEG to suction. Patient had some nausea/emesis yesterday, nursing states that has subsided today. +bowel sounds. PPN continues at this time at 80 ml/hr providing 1153 kcals/82 gms protein. If diet order does not advance recommend changing parenteral nutrition to TPN at 60 ml/hr providing 1522 kcals and 72 gms protein to better meet caloric needs. Monitor for diet orders every Thursday and Thursday.
[2022-05-09] MEDS: ONDANSETRON INJ 4 MG/2 ML VIAL IV PUSH (14:29)
[2022-05-09] MEDS: HYDROmorphone HCL INJ (*CRX) 1 MG/ML SYR 0.5 MG IV PUSH ×2 (14:29→23:08)
--- NOTE | 2022-05-09 15:06 | PM.PNGS ---
Progress Note: A&P Assessment and Plan (1) SBO (small bowel obstruction): Code(s): K56.609 - Unspecified intestinal obstruction, unspecified as to partial versus complete obstruction Status: Acute Assessment and Plan: having some nausea and vomiting and not much output from ileostomy yet. Continue TPN. Await return of bowel function. Will get KUB in AM. (2) Acute UTI: Code(s): N39.0 - Urinary tract infection, site not specified Status: Acute Assessment and Plan: Continue Zosyn Subjective Subjective Date/Time Seen: 05/09/22 15:06 Interval history: Patient vomited overnight. G-tube now to suction. Not having much output from ileostomy yet. Exam GI: Inspection: distended and incision (intact and dry) Other: ileostomy pink with mostly serous output. LLQ THONY drain serosanguinous. Objective Data Vital Signs Vital Signs: Vital Signs - 24 hr 05/08/22 16:00 05/08/22 19:56 05/08/22 21:50 Temperature 37.0 C Pulse Rate 95 81 Respiratory Rate 18 Blood Pressure 152/82 H Pulse Oximetry 96 Oxygen Delivery Room Air 05/08/22 23:44 05/08/22 20:00 05/09/22 00:00 Temperature 36.7 C Pulse Rate 85 88 81 Respiratory Rate 18 Blood Pressure 161/92 H Pulse Oximetry 93 Oxygen Delivery 05/09/22 05:18 05/09/22 04:00 05/09/22 08:00 Temperature 36.8 C Pulse Rate 83 75 74 Respiratory Rate 18 Blood Pressure 148/79 H Pulse Oximetry 92 Oxygen Delivery 05/09/22 08:00 05/09/22 08:40 05/09/22 12:00 Temperature Pulse Rate 73 Respiratory Rate Blood Pressure Pulse Oximetry Oxygen Delivery Room Air Room Air 05/09/22 14:00 Temperature 37.2 C Pulse Rate 74 Respiratory Rate 18 Blood Pressure 162/82 H Pulse Oximetry 98 Oxygen Delivery Intake/Output Intake/Output: Intake & Output 05/06/22 05/07/22 05/08/22 05/09/22 23:59 23:59 23:59 23:59 Intake Total 4170 4450 2970 100 Output Total 1675 2345 2740 700 Balance 2495 2105 230 -600 Meds/Results Medications: Active Medications Generic Name Dose Route Start Last Admin Trade Name Freq PRN Reason Stop Dose Admin Benzocaine 1 lozenge 05/03/22 13:26 Benzocaine/Menthol (*Bkc) 18 Ea Lozenge PO PRN PRN Sore Throat Hydromorphone HCl 0.5 mg 05/02/22 06:58 05/09/22 14:29 Hydromorphone Hcl Inj (*Crx) 1 Mg/Ml Syr IV PUSH 0.5 mg Q4H PRN Administration Pain Rated 7-10 Sodium Chloride 1,000 mls @ 75 mls/hr 05/02/22 07:00 05/09/22 13:02 Normal Saline Iv IV CONT Not Given .[id number] KATI Piperacillin/Tazobactam/Dextrose 3.375 gm in 50 mls @ 100 mls/hr 05/03/22 05:00 05/09/22 12:57 Zosyn 3.375 Gm/D5w 50ml Pm IVPB 100 mls/hr Q6HR KATI Administration Dextrose 1,000 mls @ 50 mls/hr 05/05/22 14:13 Dextrose 10% IV CONT .Q20H PRN if PN is interrupted Amino Acids/Electrolytes/Dextrose 2,000 mls @ 80 mls/hr 05/05/22 15:00 05/08/22 16:42 Clinimix E 4.25%/5% Solution IV CONT 80 mls/hr .Q24H KATI Administration Protocol Fat Emulsion Intravenous 250 mls @ 20.833 mls/hr 05/05/22 15:00 05/08/22 16:43 Lipids 20% IVPB 20.8 mls/hr Q24H KATI Administration Metoprolol Tartrate 12.5 mg 05/02/22 21:00 05/02/22 20:20 Metoprolol Tartrate 12.5 Mg Tablet PO 12.5 mg Q12HR KATI Administration Metoprolol Tartrate 5 mg 05/03/22 16:47 05/07/22 14:08 Metoprolol Tartrate Inj 5 Mg/5 Ml Vial IV PUSH 5 mg Q6HR PRN Administration HR above 100 or systolic BP 160 or greater Ondansetron HCl 4 mg 05/02/22 06:58 05/09/22 14:29 Ondansetron Inj 4 Mg/2 Ml Vial IV PUSH 4 mg Q4H PRN Administration Nausea Radiology Results: ITS Impressions Abdomen/Pelvis CT 05/02/22 08:45 IMPRESSION: 1. 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 2. Nonobstructing left nephrolithiasis. 3. Minimal airspace opacities of the righ
[2022-05-09] MEDS: FAT EMULSIONS IV 20% 250 ML 20.8 ML IVPB (16:33)
[2022-05-09] MEDS: AMINO ACIDS 4.25%/D5W/LYTES/CA 2,000 ML 80 ML IV CONT (16:33)
[2022-05-09] MEDS: SODIUM CHLORIDE 0.9% IV 1,000 ML 75 ML IV CONT (16:34)
[2022-05-09 17:56] LABS: Glucose Point of Care 109 mg/dl (65-105)
[2022-05-09] MEDS: PANTOPRAZOLE SODIUM IV 40 MG VIAL IV PUSH (19:04)
[2022-05-10] VITALS (8 sets, daily range): BP systolic 131–150; BP diastolic 66–82; PULSE 71–86; RESP 18–20; TEMP 36.5–37.2; O2SAT 95–99
[2022-05-10] MEDS: HYDROmorphone HCL INJ (*CRX) 1 MG/ML SYR 0.5 MG IV PUSH ×3 (04:10→17:05)
[2022-05-10] MEDS: SODIUM CHLORIDE 0.9% IV 1,000 ML 75 ML IV CONT (05:29)
[2022-05-10 06:04] LABS: Alanine Aminotransferase 16 U/L (6-50); Albumin Level 2.5 g/dL (3.5-5.1); Alkaline Phosphatase 48 U/L (38-126); Anion Gap 6 mmol/L (8-16); Aspartate Amino Transferase 26 U/L (17-59); Bilirubin,Total 0.6 mg/dL (0.2-1.3); Blood Urea Nitrogen 14 mg/dL (9-20); Calcium 8.4 mg/dL (8.4-10.2); Carbon Dioxide 25 mmol/L (22-30); Chloride 104 mmol/L (98-107); Estimated CRCL calculation 90 ml/min; Estimated Glomerular Filt Rate > 60; Glucose 104 mg/dL (65-110); Magnesium 1.6 mg/dL (1.6-2.3); Potassium 3.4 mmol/L (3.4-5.0); Sodium 135 mmol/L (137-145)
[2022-05-10 06:07] LABS: Hematocrit 21.6 % (42.0-52.0); Hemoglobin 7.2 g/dL (14.0-18.0); Immature Platelet Fraction Pct 6.8 % (0.9-11.2); Mean Corpuscular HGB Conc 33.3 g/dl (32-36); Mean Corpuscular Hemoglobin 36.9 pg (26-34); Mean Corpuscular Volume 110.8 fl (80-100); Mean Platelet Volume 11.4 fl (7.4-10.4); Platelet Count Result 150 k/mm3 (150-375); Red Blood Count 1.95 M/mm3 (4.6-6.20); Red Cell Distribution Width 12.1 % (11.5-14.5); White Blood Count 10.1 K/mm3 (4.5-10.0)
[2022-05-10] MEDS: KCL 20 MEQ/SW 100 ML 100 ML 50 MEQ IVPB (10:32)
[2022-05-10] MEDS: PANTOPRAZOLE SODIUM IV 40 MG VIAL IV PUSH (10:37)
--- NOTE | 2022-05-10 10:46 | PM.PNGS ---
Progress Note: A&P Assessment and Plan (1) SBO (small bowel obstruction): Code(s): K56.609 - Unspecified intestinal obstruction, unspecified as to partial versus complete obstruction Status: Acute Assessment and Plan: ostomy output slightly improved and abdominal x-ray improving start clear liquids today continue TPN tolerating full liquid (2) Acute UTI: Code(s): N39.0 - Urinary tract infection, site not specified Status: Acute Assessment and Plan: Continue Zosyn Subjective Subjective Date/Time Seen: 05/10/22 10:46 Interval history: ileostomy output improving. No more nausea or vomiting. No fevers. Exam GI: Inspection: distended and other ( Ileostomy pink with some liquid stool output, THONY drain serosanguineous) GI Palp: Yes Soft to palpation, Yes Tenderness to palpation present (GI) ( incisional) and No Guarding due to palpation present (GI) Auscultation: normal bowel sounds Other: distention improved Objective Data Vital Signs Vital Signs: Vital Signs - 24 hr 05/09/22 12:00 05/09/22 14:00 05/09/22 16:00 Temperature 37.2 C Pulse Rate 73 74 69 Respiratory Rate 18 Blood Pressure 162/82 H Pulse Oximetry 98 Oxygen Delivery 05/09/22 21:53 05/09/22 20:00 05/09/22 20:00 Temperature 37.1 C Pulse Rate 76 72 Respiratory Rate 16 Blood Pressure 176/81 H Pulse Oximetry 94 Oxygen Delivery Room Air 05/10/22 00:00 05/10/22 04:00 05/10/22 06:00 Temperature 36.5 C Pulse Rate 72 71 76 Respiratory Rate 18 Blood Pressure 131/66 Pulse Oximetry 95 Oxygen Delivery Intake/Output Intake/Output: Intake & Output 05/07/22 05/08/22 05/09/22 05/10/22 23:59 23:59 23:59 23:59 Intake Total 4450 3970 3093 1050 Output Total 2345 2740 2330 950 Balance 2105 1230 763 100 Meds/Results Medications: Active Medications Generic Name Dose Route Start Last Admin Trade Name Freq PRN Reason Stop Dose Admin Benzocaine 1 lozenge 05/03/22 13:26 Benzocaine/Menthol (*Bkc) 18 Ea Lozenge PO PRN PRN Sore Throat Hydromorphone HCl 0.5 mg 05/02/22 06:58 05/10/22 09:27 Hydromorphone Hcl Inj (*Crx) 1 Mg/Ml Syr IV PUSH 0.5 mg Q4H PRN Administration Pain Rated 7-10 Sodium Chloride 1,000 mls @ 75 mls/hr 05/02/22 07:00 05/10/22 05:29 Normal Saline Iv IV CONT 75 mls/hr .[id number] KATI Administration Piperacillin/Tazobactam/Dextrose 3.375 gm in 50 mls @ 100 mls/hr 05/03/22 05:00 05/10/22 05:24 Zosyn 3.375 Gm/D5w 50ml Pm IVPB 100 mls/hr Q6HR KATI Administration Dextrose 1,000 mls @ 50 mls/hr 05/05/22 14:13 Dextrose 10% IV CONT .Q20H PRN if PN is interrupted Amino Acids/Electrolytes/Dextrose 2,000 mls @ 80 mls/hr 05/05/22 15:00 05/09/22 16:33 Clinimix E 4.25%/5% Solution IV CONT 80 mls/hr .Q24H KATI Administration Protocol Fat Emulsion Intravenous 250 mls @ 20.833 mls/hr 05/05/22 15:00 05/09/22 16:33 Lipids 20% IVPB 20.8 mls/hr Q24H KATI Administration Potassium Chloride 100 mls @ 50 mls/hr 05/10/22 09:00 05/10/22 10:32 Kcl 20 Meq/Sw 100 Ml IVPB 05/10/22 10:59 50 mls/hr ONCE ONE Administration Metoprolol Tartrate 12.5 mg 05/02/22 21:00 05/02/22 20:20 Metoprolol Tartrate 12.5 Mg Tablet PO 12.5 mg Q12HR KATI Administration Metoprolol Tartrate 5 mg 05/03/22 16:47 05/07/22 14:08 Metoprolol Tartrate Inj 5 Mg/5 Ml Vial IV PUSH 5 mg Q6HR PRN Administration HR above 100 or systolic BP 160 or greater Miscellaneous Information 0 each 05/09/22 23:35 Tpn- Order Will Need To Be Renewed Or It Will And Discontinue For The 05/11 Dose. XX 06/08/22 23:34 CLARIFY KATI Ondansetron HCl 4 mg 05/02/22 06:58 05/09/22 14:29 Ondansetron Inj 4 Mg/2 Ml Vial IV PUSH 4 mg Q4H PRN Administration Nausea Pantoprazole Sodium 40 mg 05/09/22 18:25 05/10/22 10:37 Pantoprazole Sodium Iv 40 Mg Vial IV PUSH 40 mg Q
--- NOTE | 2022-05-10 10:47 | P.PNIM_ITS ---
Progress Note: A&P Assessment and Plan (1) SBO (small bowel obstruction): Code(s): K56.609 - Unspecified intestinal obstruction, unspecified as to partial versus complete obstruction Status: Acute Assessment and Plan: Status post lysis of adhesions. improving Continue antibiotics. Per surgery. (2) Acute UTI: Code(s): N39.0 - Urinary tract infection, site not specified Status: Acute Assessment and Plan: patient urine is suspicious for UTI patient being treated with Zosyn cultures noted (3) LLQ pain: Code(s): R10.32 - Left lower quadrant pain Status: Acute Assessment and Plan: patient with history of diverticulosis. Subjective Date/time seen: 05/10/22 10:47 No new complaints Exam Narrative: appears chronically ill Patient is comfortable, NAD HEENT: eyes are clear and none icteric, NG tube in place LUNGS:CTA HEART: RR S1S2 ABD: BS faint and diffusely tender Lower extremities: no edema SKIN: nonjaundiced Neuro: grossly intact. Objective Data Vital Signs Vital Signs: Vital Signs - 24 hr 05/09/22 12:00 05/09/22 14:00 05/09/22 16:00 Temperature 99.0 F Pulse Rate 73 74 69 Respiratory Rate 18 Blood Pressure 162/82 H Pulse Oximetry 98 Oxygen Delivery 05/09/22 21:53 05/09/22 20:00 05/09/22 20:00 Temperature 98.8 F Pulse Rate 76 72 Respiratory Rate 16 Blood Pressure 176/81 H Pulse Oximetry 94 Oxygen Delivery Room Air 05/10/22 00:00 05/10/22 04:00 05/10/22 06:00 Temperature 97.7 F Pulse Rate 72 71 76 Respiratory Rate 18 Blood Pressure 131/66 Pulse Oximetry 95 Oxygen Delivery Intake/Output Intake/Output: Intake & Output 05/07/22 05/08/22 05/09/22 05/10/22 23:59 23:59 23:59 23:59 Intake Total 4450 3970 3093 1050 Output Total 2345 2740 2330 950 Balance 2105 1230 763 100 Meds/Results Medications: Active Medications Generic Name Dose Route Start Last Admin Trade Name Freq PRN Reason Stop Dose Admin Benzocaine 1 lozenge 05/03/22 13:26 Benzocaine/Menthol (*Bkc) 18 Ea Lozenge PO PRN PRN Sore Throat Hydromorphone HCl 0.5 mg 05/02/22 06:58 05/10/22 09:27 Hydromorphone Hcl Inj (*Crx) 1 Mg/Ml Syr IV PUSH 0.5 mg Q4H PRN Administration Pain Rated 7-10 Piperacillin/Tazobactam/Dextrose 3.375 gm in 50 mls @ 100 mls/hr 05/03/22 05:00 05/10/22 05:24 Zosyn 3.375 Gm/D5w 50ml Pm IVPB 100 mls/hr Q6HR KATI Administration Dextrose 1,000 mls @ 50 mls/hr 05/05/22 14:13 Dextrose 10% IV CONT .Q20H PRN if PN is interrupted Amino Acids/Electrolytes/Dextrose 2,000 mls @ 80 mls/hr 05/05/22 15:00 05/09/22 16:33 Clinimix E 4.25%/5% Solution IV CONT 80 mls/hr .Q24H KATI Administration Protocol Fat Emulsion Intravenous 250 mls @ 20.833 mls/hr 05/05/22 15:00 05/09/22 16:33 Lipids 20% IVPB 20.8 mls/hr Q24H KATI Administration Potassium Chloride 100 mls @ 5
[2022-05-10 12:18] LABS: Glucose Point of Care 102 mg/dl (65-105)
[2022-05-10 12:43] LABS: Triglycerides 125 mg/dL (<150)
[2022-05-10] MEDS: AMINO ACIDS 4.25%/D5W/LYTES/CA 2,000 ML 80 ML IV CONT (16:50)
[2022-05-10] MEDS: FAT EMULSIONS IV 20% 250 ML 20.8 ML IVPB (17:02)
[2022-05-10 18:01] LABS: Glucose Point of Care 116 mg/dl (65-105)
[2022-05-11] VITALS (8 sets, daily range): BP systolic 133–154; BP diastolic 65–86; PULSE 81–95; RESP 14–21; TEMP 36.2–36.8; O2SAT 97–100
[2022-05-11] MEDS: NICOTINE (*PBKC) 21 MG PATCH 1 PATCH TRANSDERM ×2 (00:29→13:09)
[2022-05-11] MEDS: HYDROmorphone HCL INJ (*CRX) 1 MG/ML SYR 0.5 MG IV PUSH ×6 (00:30→21:22)
[2022-05-11 04:53] LABS: Hematocrit 21.7 % (42.0-52.0); Hemoglobin 7.5 g/dL (14.0-18.0); Mean Corpuscular HGB Conc 34.6 g/dl (32-36); Mean Corpuscular Hemoglobin 36.4 pg (26-34); Mean Corpuscular Volume 105.3 fl (80-100); Platelet Count Result 159 k/mm3 (150-375); Red Blood Count 2.06 M/mm3 (4.6-6.20); White Blood Count 7.6 K/mm3 (4.5-10.0)
[2022-05-11 05:05] LABS: Alanine Aminotransferase 15 U/L (6-50); Albumin Level 2.5 g/dL (3.5-5.1); Alkaline Phosphatase 53 U/L (38-126); Anion Gap 6 mmol/L (8-16); Aspartate Amino Transferase 25 U/L (17-59); Bilirubin,Total 0.4 mg/dL (0.2-1.3); Blood Urea Nitrogen 14 mg/dL (9-20); Calcium 8.4 mg/dL (8.4-10.2); Carbon Dioxide 22 mmol/L (22-30); Chloride 104 mmol/L (98-107); Estimated CRCL calculation 88 ml/min; Estimated Glomerular Filt Rate > 60; Glucose 107 mg/dL (65-110); Magnesium 1.5 mg/dL (1.6-2.3); Phosphorus 3.8 mg/dL (2.5-4.5); Potassium 3.6 mmol/L (3.4-5.0); Sodium 132 mmol/L (137-145)
[2022-05-11] MEDS: PANTOPRAZOLE SODIUM IV 40 MG VIAL IV PUSH (08:07)
[2022-05-11 08:11] LABS: Glucose Point of Care 112 mg/dl (65-105)
--- NOTE | 2022-05-11 10:12 | PM.PNGS ---
Progress Note: A&P Assessment and Plan (1) SBO (small bowel obstruction): Code(s): K56.609 - Unspecified intestinal obstruction, unspecified as to partial versus complete obstruction Status: Acute Assessment and Plan: Advance to full liquids today, clamp G-tube. Stop TPN tomorrow if tolerating full liquids. Continue PT/OT (2) Acute UTI: Code(s): N39.0 - Urinary tract infection, site not specified Status: Acute Assessment and Plan: Continue Zosyn Subjective Subjective Date/Time Seen: 05/11/22 10:12 Interval history: Tolerating clear liquids. For some reason, G-tube is still on intermittent suction. Ostomy output increasing. Exam GI: Inspection: non-distended and other ( Ileostomy pink with liquid stool output, THONY drain serosanguineous) GI Palp: Yes Soft to palpation, Yes Tenderness to palpation present (GI) ( incisional) and No Guarding due to palpation present (GI) Auscultation: normal bowel sounds Objective Data Vital Signs Vital Signs: Vital Signs - 24 hr 05/10/22 14:00 05/10/22 15:54 05/10/22 22:54 Temperature 36.8 C 37.2 C Pulse Rate 86 82 82 Respiratory Rate 18 20 Blood Pressure 146/82 H 150/82 H Pulse Oximetry 97 99 Oxygen Delivery 05/10/22 20:00 05/10/22 20:00 05/11/22 04:00 Temperature Pulse Rate 79 83 Respiratory Rate Blood Pressure Pulse Oximetry Oxygen Delivery Room Air 05/11/22 06:00 05/11/22 08:00 05/11/22 08:00 Temperature 36.2 C L Pulse Rate 81 83 Respiratory Rate 21 H Blood Pressure 150/86 H Pulse Oximetry 100 Oxygen Delivery Room Air Intake/Output Intake/Output: Intake & Output 05/08/22 05/09/22 05/10/22 05/11/22 23:59 23:59 23:59 23:59 Intake Total 3970 3093 4270 1100 Output Total 2740 2330 3490 1640 Balance 1230 763 780 -540 Meds/Results Medications: Active Medications Generic Name Dose Route Start Last Admin Trade Name Freq PRN Reason Stop Dose Admin Benzocaine 1 lozenge 05/03/22 13:26 Benzocaine/Menthol (*Bkc) 18 Ea Lozenge PO PRN PRN Sore Throat Hydromorphone HCl 0.5 mg 05/02/22 06:58 05/11/22 09:02 Hydromorphone Hcl Inj (*Crx) 1 Mg/Ml Syr IV PUSH 0.5 mg Q4H PRN Administration Pain Rated 7-10 Piperacillin/Tazobactam/Dextrose 3.375 gm in 50 mls @ 100 mls/hr 05/03/22 05:00 05/11/22 07:55 Zosyn 3.375 Gm/D5w 50ml Pm IVPB Infused Q6HR KATI Infusion Dextrose 1,000 mls @ 50 mls/hr 05/05/22 14:13 Dextrose 10% IV CONT .Q20H PRN if PN is interrupted Amino Acids/Electrolytes/Dextrose 2,000 mls @ 80 mls/hr 05/05/22 15:00 05/10/22 16:50 Clinimix E 4.25%/5% Solution IV CONT 80 mls/hr .Q24H KATI Administration Protocol Fat Emulsion Intravenous 250 mls @ 20.833 mls/hr 05/05/22 15:00 05/10/22 17:02 Lipids 20% IVPB 20.8 mls/hr Q24H KATI Administration Metoprolol Tartrate 12.5 mg 05/02/22 21:00 05/02/22 20:20 Metoprolol Tartrate 12.5 Mg Tablet PO 12.5 mg Q12HR KATI Administration Metoprolol Tartrate 5 mg 05/03/22 16:47 05/07/22 14:08 Metoprolol Tartrate Inj 5 Mg/5 Ml Vial IV PUSH 5 mg Q6HR PRN Administration HR above 100 or systolic BP 160 or greater Miscellaneous Information 0 each 05/09/22 23:35 Tpn- Order Will Need To Be Renewed Or It Will And Discontinue For The 05/11 Dose. XX 06/08/22 23:34 CLARIFY KATI Miscellaneous Information 0 each 05/11/22 07:00 Dilaudid Order Set To . Please Renew Today 05/11, Or The Order Will Discontinue From XX 06/10/22 06:59 CLARIFY KATI Nicotine 1 patch 05/11/22 12:00 Nicotine (*Pbkc) 21 Mg Patch TRANSDERM QAM KATI Ondansetron HCl 4 mg 05/02/22 06:58 05/09/22 14:29 Ondansetron Inj 4 Mg/2 Ml Vial IV PUSH 4 mg Q4H PRN Administration Nausea Pantoprazole Sodium 40 mg 05/09/22 18:25 05/11/22 08:07 Pantoprazole Sodium Iv 40 Mg Vial IV PUSH 40 mg QAM KATI Administration Radi
--- NOTE | 2022-05-11 10:22 | PM.IMPN ---
Progress Note: A&P Assessment and Plan (1) SBO (small bowel obstruction): Code(s): K56.609 - Unspecified intestinal obstruction, unspecified as to partial versus complete obstruction Status: Acute Assessment and Plan: Status post lysis of adhesions. improving Continue antibiotics. Per surgery. (2) Acute UTI: Code(s): N39.0 - Urinary tract infection, site not specified Status: Acute Assessment and Plan: patient urine is suspicious for UTI patient being treated with Zosyn cultures noted (3) LLQ pain: Code(s): R10.32 - Left lower quadrant pain Status: Acute Assessment and Plan: patient with history of diverticulosis. Subjective Date/time seen: 05/11/22 10:22 No complaints Exam Narrative: appears chronically ill Patient is comfortable, NAD HEENT: eyes are clear and none icteric, NG tube in place LUNGS:CTA HEART: RR S1S2 ABD: BS faint and diffusely tender Lower extremities: no edema SKIN: nonjaundiced Neuro: grossly intact. Objective Data Vital Signs Vital Signs: Vital Signs - 24 hr 05/10/22 14:00 05/10/22 15:54 05/10/22 22:54 Temperature 98.2 F 98.9 F Pulse Rate 86 82 82 Respiratory Rate 18 20 Blood Pressure 146/82 H 150/82 H Pulse Oximetry 97 99 Oxygen Delivery 05/10/22 20:00 05/10/22 20:00 05/11/22 04:00 Temperature Pulse Rate 79 83 Respiratory Rate Blood Pressure Pulse Oximetry Oxygen Delivery Room Air 05/11/22 06:00 05/11/22 08:00 05/11/22 08:00 Temperature 97.1 F L Pulse Rate 81 83 Respiratory Rate 21 H Blood Pressure 150/86 H Pulse Oximetry 100 Oxygen Delivery Room Air Intake/Output Intake/Output: Intake & Output 05/08/22 05/09/22 05/10/22 05/11/22 23:59 23:59 23:59 23:59 Intake Total 3970 3093 4270 1100 Output Total 2740 2330 3490 1640 Balance 1230 763 780 -540 Meds/Results Medications: Active Medications Generic Name Dose Route Start Last Admin Trade Name Freq PRN Reason Stop Dose Admin Benzocaine 1 lozenge 05/03/22 13:26 Benzocaine/Menthol (*Bkc) 18 Ea Lozenge PO PRN PRN Sore Throat Hydromorphone HCl 0.5 mg 05/02/22 06:58 05/11/22 09:02 Hydromorphone Hcl Inj (*Crx) 1 Mg/Ml Syr IV PUSH 0.5 mg Q4H PRN Administration Pain Rated 7-10 Piperacillin/Tazobactam/Dextrose 3.375 gm in 50 mls @ 100 mls/hr 05/03/22 05:00 05/11/22 07:55 Zosyn 3.375 Gm/D5w 50ml Pm IVPB Infused Q6HR KATI Infusion Dextrose 1,000 mls @ 50 mls/hr 05/05/22 14:13 Dextrose 10% IV CONT .Q20H PRN if PN is interrupted Amino Acids/Electrolytes/Dextrose 2,000 mls @ 80 mls/hr 05/05/22 15:00 05/10/22 16:50 Clinimix E 4.25%/5% Solution IV CONT 80 mls/hr .Q24H KATI Administration Protocol Fat Emulsion Intravenous 250 mls @ 20.833 mls/hr 05/05/22 15:00 05/10/22 17:02 Lipids 20% IVPB 20.8 mls/hr Q24H KATI Administration Metoprolol Tartrate 12.5 mg 05/02/22 21:00 05/02/22 20:20 Metoprolol Tartrate 12.5 Mg Tablet PO 12.5 mg Q12HR KATI Administration Metoprolol Tartrate 5 mg 05/03/22 16:47 05/07/22 14:08 Metoprolol Tartrate Inj 5 Mg/5 Ml Vial IV PUSH 5 mg Q6HR PRN Administration HR above 100 or systolic BP 160 or greater Miscellaneous Information 0 each 05/09/22 23:35 Tpn- Order Will Need To Be Renewed Or It Will And Discontinue For The 05/11 Dose. XX 06/08/22 23:34 CLARIFY KATI Miscellaneous Information 0 each 05/11/22 07:00 Dilaudid Order Set To . Please Renew Today 05/11, Or The Order Will Discontinue From XX 06/10/22 06:59 CLARIFY KATI Nicotine 1 patch 05/11/22 12:00 Nicotine (*Pbkc) 21 Mg Patch TRANSDERM QAM KATI Ondansetron HCl 4 mg 05/02/22 06:58 05/09/22 14:29 Ondansetron Inj 4 Mg/2 Ml Vial IV PUSH 4 mg Q4H PRN Administration Nausea Pantoprazole Sodium 40 mg 05/09/22 18:25 05/11/22 08:07 Pantoprazole Sodium Iv 40
[2022-05-11 12:32] LABS: Glucose Point of Care 117 mg/dl (65-105)
[2022-05-11] MEDS: AMINO ACIDS 4.25%/D5W/LYTES/CA 2,000 ML 80 ML IV CONT (15:10)
[2022-05-11] MEDS: FAT EMULSIONS IV 20% 250 ML 20.8 ML IVPB (15:13)
[2022-05-11 16:49] LABS: Glucose Point of Care 119 mg/dl (65-105)
[2022-05-12] VITALS (9 sets, daily range): BP systolic 114–138; BP diastolic 71–78; PULSE 77–101; RESP 18–20; TEMP 36.5–36.6; O2SAT 98–99
[2022-05-12 01:25] LABS: Glucose Point of Care 103 mg/dl (65-105)
[2022-05-12] MEDS: HYDROmorphone HCL INJ (*CRX) 1 MG/ML SYR 0.5 MG IV PUSH (02:48)
[2022-05-12 05:20] LABS: Glucose Point of Care 108 mg/dl (65-105)
[2022-05-12 05:22] LABS: Basophils Percent Auto 0.2 % (0.2-1.2); Eosinophils Absolute Auto 0.2 K/mm3 (0-0.3); Hematocrit 22.8 % (42.0-52.0); Hemoglobin 7.7 g/dL (14.0-18.0); Immature Granulocyte Absolute 0.03 K/mm3 (0.00-0.031); Immature Granulocyte Percent A 0.4 % (0-0.5); Lymphocytes Absolute Auto 1.41 K/mm3 (0.9-3.2); Lymphocytes Percent Auto 17.6 % (18.3-44.2); Mean Corpuscular HGB Conc 33.8 g/dl (32-36); Mean Corpuscular Hemoglobin 35.5 pg (26-34); Mean Corpuscular Volume 105.1 fl (80-100); Mean Platelet Volume 11.5 fl (7.4-10.4); Monocytes Absolute Auto 1.2 K/mm3 (0.1-0.6); Monocytes Percent Auto 15.1 % (2.6-8.5); Neutrophils Absolute Auto 5.1 K/mm3 (1.3-6.7); Neutrophils Percent Auto 63.7 % (45.5-73.1); Platelet Count Result 174 k/mm3 (150-375); Red Blood Count 2.17 M/mm3 (4.6-6.20); Red Cell Distribution Width 12.4 % (11.5-14.5)
[2022-05-12 05:36] LABS: Alanine Aminotransferase 16 U/L (6-50); Albumin Level 2.7 g/dL (3.5-5.1); Alkaline Phosphatase 58 U/L (38-126); Anion Gap 5 mmol/L (8-16); Aspartate Amino Transferase 30 U/L (17-59); Bilirubin,Total 0.5 mg/dL (0.2-1.3); Blood Urea Nitrogen 14 mg/dL (9-20); Calcium 8.7 mg/dL (8.4-10.2); Carbon Dioxide 25 mmol/L (22-30); Chloride 101 mmol/L (98-107); Estimated CRCL calculation 87 ml/min; Estimated Glomerular Filt Rate > 60; Glucose 106 mg/dL (65-110); INR 1.2; Magnesium 1.6 mg/dL (1.6-2.3); Phosphorus 4.3 mg/dL (2.5-4.5); Potassium 3.7 mmol/L (3.4-5.0); Sodium 131 mmol/L (137-145)
[2022-05-12 05:37] LABS: Partial Thromboplastin Time 36.7 SECONDS (22.3-36.8)
[2022-05-12 05:43] LABS: Transferrin 131 mg/dL (206-381)
[2022-05-12] MEDS: NICOTINE (*PBKC) 21 MG PATCH 1 PATCH TRANSDERM (09:00)
[2022-05-12] MEDS: PANTOPRAZOLE SODIUM IV 40 MG VIAL IV PUSH (09:00)
--- NOTE | 2022-05-12 09:21 | PM.IMPN ---
Progress Note: A&P Assessment and Plan (1) SBO (small bowel obstruction): Code(s): K56.609 - Unspecified intestinal obstruction, unspecified as to partial versus complete obstruction Status: Acute Assessment and Plan: Status post lysis of adhesions. improving Continue antibiotics. Per surgery. (2) Acute UTI: Code(s): N39.0 - Urinary tract infection, site not specified Status: Acute Assessment and Plan: patient urine is suspicious for UTI patient being treated with Zosyn cultures noted (3) LLQ pain: Code(s): R10.32 - Left lower quadrant pain Status: Acute Assessment and Plan: patient with history of diverticulosis. Subjective Date/time seen: 05/12/22 09:21 tolerating liquids Exam Narrative: appears chronically ill Patient is comfortable, NAD HEENT: eyes are clear and none icteric, NG tube in place LUNGS:CTA HEART: RR S1S2 ABD: BS faint and diffusely tender Lower extremities: no edema SKIN: nonjaundiced Neuro: grossly intact. Objective Data Vital Signs Vital Signs: Vital Signs - 24 hr 05/11/22 12:00 05/11/22 15:30 05/11/22 16:01 Temperature 98.0 F Pulse Rate 85 94 95 Respiratory Rate 14 Blood Pressure 133/78 Pulse Oximetry 100 Oxygen Delivery 05/11/22 21:25 05/11/22 20:00 05/11/22 20:00 Temperature 98.2 F Pulse Rate 90 83 90 Respiratory Rate 18 18 Blood Pressure 154/65 H Pulse Oximetry 97 97 Oxygen Delivery Room Air 05/12/22 00:00 05/12/22 04:00 05/12/22 05:29 Temperature 97.9 F Pulse Rate 87 77 81 Respiratory Rate 18 Blood Pressure 126/76 Pulse Oximetry 98 Oxygen Delivery Intake/Output Intake/Output: Intake & Output 05/09/22 05/10/22 05/11/22 05/12/22 23:59 23:59 23:59 23:59 Intake Total 3093 4270 3444 470 Output Total 2330 3490 3065 2580 Balance 763 435 843 -2144 Meds/Results Medications: Active Medications Generic Name Dose Route Start Last Admin Trade Name Freq PRN Reason Stop Dose Admin Benzocaine 1 lozenge 05/03/22 13:26 Benzocaine/Menthol (*Bkc) 18 Ea Lozenge PO PRN PRN Sore Throat Hydromorphone HCl 0.5 mg 05/02/22 06:58 05/12/22 02:48 Hydromorphone Hcl Inj (*Crx) 1 Mg/Ml Syr IV PUSH 0.5 mg Q4H PRN Administration Pain Rated 7-10 Piperacillin/Tazobactam/Dextrose 3.375 gm in 50 mls @ 100 mls/hr 05/03/22 05:00 05/12/22 05:47 Zosyn 3.375 Gm/D5w 50ml Pm IVPB Infused Q6HR KATI Infusion Dextrose 1,000 mls @ 50 mls/hr 05/05/22 14:13 Dextrose 10% IV CONT .Q20H PRN if PN is interrupted Amino Acids/Electrolytes/Dextrose 2,000 mls @ 80 mls/hr 05/05/22 15:00 05/11/22 15:10 Clinimix E 4.25%/5% Solution IV CONT 80 mls/hr .Q24H KATI Administration Protocol Fat Emulsion Intravenous 250 mls @ 20.833 mls/hr 05/05/22 15:00 05/12/22 03:15 Lipids 20% IVPB Infused Q24H KATI Infusion Metoprolol Tartrate 12.5 mg 05/02/22 21:00 05/02/22 20:20 Metoprolol Tartrate 12.5 Mg Tablet PO 12.5 mg Q12HR KATI Administration Metoprolol Tartrate 5 mg 05/03/22 16:47 05/07/22 14:08 Metoprolol Tartrate Inj 5 Mg/5 Ml Vial IV PUSH 5 mg Q6HR PRN Administration HR above 100 or systolic BP 160 or greater Nicotine 1 patch 05/11/22 12:00 05/12/22 09:00 Nicotine (*Pbkc) 21 Mg Patch TRANSDERM 1 patch QAM KATI Administration Ondansetron HCl 4 mg 05/02/22 06:58 05/09/22 14:29 Ondansetron Inj 4 Mg/2 Ml Vial IV PUSH 4 mg Q4H PRN Administration Nausea Pantoprazole Sodium 40 mg 05/09/22 18:25 05/12/22 09:00 Pantoprazole Sodium Iv 40 Mg Vial IV PUSH 40 mg QAM KATI Administration Radiology Results: ITS Impressions Abdomen/Pelvis CT 05/02/22 08:45 IMPRESSION: 1. 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 2. Nonobstructing left nephrolithiasis. 3. Minimal airspace opacities of the
--- NOTE | 2022-05-12 10:02 | PM.PNGS ---
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 Status: Acute Assessment and Plan: see above, will remove THONY prior to dc Subjective Subjective Date/Time Seen: 05/12/22 10:02 feels ok, reports some difficulty sleeping last night, incisional soreness slowly improving Review of Systems Review of Systems: All systems reviewed & are unremarkable except as noted in HPI and below Exam Const: General: cooperative, comfortable, no acute distress and ill appearing Resp: Auscultation: clear to auscultation bilaterally Cardio: Rate: regular rate Rhythm: regular rhythm GI: Inspection: normal to inspection, non-distended and incision GI Palp: Yes abdominal tenderness, Yes Soft to palpation, Yes Tenderness to palpation present (GI), No Guarding due to palpation present (GI) and No Rigid due to palpation Other: ostomy - +fxn, THONY c minimal s/s drainage Objective Data Vital Signs Vital Signs: Vital Signs - 24 hr 05/11/22 12:00 05/11/22 15:30 05/11/22 16:01 Temperature 36.7 C Pulse Rate 85 94 95 Respiratory Rate 14 Blood Pressure 133/78 Pulse Oximetry 100 Oxygen Delivery 05/11/22 21:25 05/11/22 20:00 05/11/22 20:00 Temperature 36.8 C Pulse Rate 90 83 90 Respiratory Rate 18 18 Blood Pressure 154/65 H Pulse Oximetry 97 97 Oxygen Delivery Room Air 05/12/22 00:00 05/12/22 04:00 05/12/22 05:29 Temperature 36.6 C Pulse Rate 87 77 81 Respiratory Rate 18 Blood Pressure 126/76 Pulse Oximetry 98 Oxygen Delivery Intake/Output Intake/Output: Intake & Output 05/09/22 05/10/22 05/11/22 05/12/22 23:59 23:59 23:59 23:59 Intake Total 3093 4270 3444 470 Output Total 2330 3490 3065 2580 Balance 763 254 233 -6914 Meds/Results Medications: Active Medications Generic Name Dose Route Start Last Admin Trade Name Freq PRN Reason Stop Dose Admin Benzocaine 1 lozenge 05/03/22 13:26 Benzocaine/Menthol (*Bkc) 18 Ea Lozenge PO PRN PRN Sore Throat Hydromorphone HCl 0.5 mg 05/02/22 06:58 05/12/22 02:48 Hydromorphone Hcl Inj (*Crx) 1 Mg/Ml Syr IV PUSH 0.5 mg Q4H PRN Administration Pain Rated 7-10 Piperacillin/Tazobactam/Dextrose 3.375 gm in 50 mls @ 100 mls/hr 05/03/22 05:00 05/12/22 05:47 Zosyn 3.375 Gm/D5w 50ml Pm IVPB Infused Q6HR KATI Infusion Dextrose 1,000 mls @ 50 mls/hr 05/05/22 14:13 Dextrose 10% IV CONT .Q20H PRN if PN is interrupted Amino Acids/Electrolytes/Dextrose 2,000 mls @ 80 mls/hr 05/05/22 15:00 05/11/22 15:10 Clinimix E 4.25%/5% Solution IV CONT 80 mls/hr .Q24H KATI Administration Protocol Fat Emulsion Intravenous 250 mls @ 20.833 mls/hr 05/05/22 15:00 05/12/22 03:15 Lipids 20% IVPB Infused Q24H KATI Infusion Metoprolol Tartrate 12.5 mg 05/02/22 21:00 05/02/22 20:20 Metoprolol Tartrate 12.5 Mg Tablet PO 12.5 mg Q12HR KATI Administration Metoprolol Tartrate 5 mg 05/03/22 16:47 05/07/22 14:08 Metoprolol Tartrate Inj 5 Mg/5 Ml Vial IV PUSH 5 mg Q6HR PRN Administration HR above 100 or systolic BP 160 or greater Nicotine 1 patch 05/11/22 12:00 05/12/22 09:00 Nicotine (*Pbkc) 21 Mg Patch TRANSDERM 1 patch QAM KATI Administration Ondansetron HCl 4 mg 05/02/22 06:58 05/09/22 14:29 Ondansetron Inj 4 Mg/2 Ml Vial IV PUSH 4 mg Q4H PRN Administration Nausea Pantoprazole Sodium 40 mg 05/09/22 18:25 05/12/22 09:00 Pantoprazole Sodium Iv 40 Mg Vial IV PUSH 40 mg QAM KATI Administration Radiology Results: ITS Impressions Abdomen/Pelv
[2022-05-12] MEDS: HYDROcodone/acetaminophen (*CRX) 10-325 MG TABLET 1 TAB PO (11:49)
[2022-05-12 12:10] LABS: Glucose Point of Care 138 mg/dl (65-105)
[2022-05-12 14:26] LABS: Triglycerides 100 mg/dL (<150)
[2022-05-12 18:06] LABS: Glucose Point of Care 132 mg/dl (65-105)
[2022-05-13] VITALS (7 sets, daily range): BP systolic 129–134; BP diastolic 78–85; PULSE 90–105; RESP 16–18; TEMP 36.3–36.6; O2SAT 98–100
[2022-05-13 05:28] LABS: Hematocrit 25.5 % (42.0-52.0); Hemoglobin 8.6 g/dL (14.0-18.0); Mean Corpuscular HGB Conc 33.7 g/dl (32-36); Mean Corpuscular Hemoglobin 36.4 pg (26-34); Mean Corpuscular Volume 108.1 fl (80-100); Mean Platelet Volume 11.3 fl (7.4-10.4); Platelet Count Result 227 k/mm3 (150-375); Red Blood Count 2.36 M/mm3 (4.6-6.20); Red Cell Distribution Width 12.9 % (11.5-14.5); White Blood Count 9.9 K/mm3 (4.5-10.0)
[2022-05-13 05:44] LABS: Alanine Aminotransferase 16 U/L (6-50); Albumin Level 3.1 g/dL (3.5-5.1); Alkaline Phosphatase 66 U/L (38-126); Anion Gap 9 mmol/L (8-16); Aspartate Amino Transferase 31 U/L (17-59); Bilirubin,Total 0.6 mg/dL (0.2-1.3); Blood Urea Nitrogen 15 mg/dL (9-20); Calcium 9.1 mg/dL (8.4-10.2); Carbon Dioxide 24 mmol/L (22-30); Chloride 100 mmol/L (98-107); Estimated CRCL calculation 66 ml/min; Estimated Glomerular Filt Rate > 60; Glucose 96 mg/dL (65-110); Magnesium 1.6 mg/dL (1.6-2.3); Potassium 3.9 mmol/L (3.4-5.0); Sodium 133 mmol/L (137-145)
[2022-05-13] MEDS: NICOTINE (*PBKC) 21 MG PATCH 1 PATCH TRANSDERM (08:43)
[2022-05-13] MEDS: PANTOPRAZOLE SODIUM IV 40 MG VIAL IV PUSH (08:43)
--- NOTE | 2022-05-13 09:42 | PCNFU ---
Nutrition Follow-Up Complete: Inadequate energy intake related to NPO status as evidenced by diet order goal: Meet estimated needs Patient is progressing towards goal. We will continue current goal. Pt current nutrition is Regular with Ensure Compact BID. Last recorded weight is 60.4 kg, up from 59 kg on admit. Bowel Motility:+ostomy output Labs Reviewed:Na 133, Alb 3.1,Hgb 8.6, Hct 25.5 Meds Noted:Zosyn Skin: WNL Additional Notes: Nutrition follow up. Patient seen today, just received breakfast tray. Patient states to tolerating regular diet. He is also receiving Ensure compact BID providing an additional 220 kcals and 9 gms protein. Agree with diet orders. Monitor for diet orders. Follow up in 7 days.
--- NOTE | 2022-05-13 10:48 | PM.IMPN ---
Progress Note: A&P Assessment and Plan (1) SBO (small bowel obstruction): Code(s): K56.609 - Unspecified intestinal obstruction, unspecified as to partial versus complete obstruction Status: Acute Assessment and Plan: Status post lysis of adhesions. improving Per surgery. THONY drain in place (2) Acute UTI: Code(s): N39.0 - Urinary tract infection, site not specified Status: Acute Assessment and Plan: status post treatment Zosyn. DC antibiotics (3) LLQ pain: Code(s): R10.32 - Left lower quadrant pain Status: Acute Assessment and Plan: patient with history of diverticulosis. Plan will need to be discharged back to skilled facility Subjective Date/time seen: 05/13/22 10:48 abdominal pain is improved. Having stool output from ostomy bag. Exam Narrative: appears chronically ill Patient is comfortable, NAD HEENT: eyes are clear and none icteric, NG tube in place LUNGS:CTA HEART: RR S1S2 ABD: BS faint and diffusely tender Lower extremities: no edema SKIN: nonjaundiced Neuro: grossly intact. Objective Data Vital Signs Vital Signs: Vital Signs - 24 hr 05/12/22 12:04 05/12/22 14:00 05/12/22 16:01 Temperature 97.7 F Pulse Rate 101 H 91 85 Respiratory Rate 20 Blood Pressure 114/71 Pulse Oximetry 99 Oxygen Delivery 05/12/22 19:40 05/12/22 20:00 05/12/22 20:00 Temperature 97.9 F Pulse Rate 96 96 95 Respiratory Rate 18 18 Blood Pressure 138/78 Pulse Oximetry 99 99 Oxygen Delivery Room Air 05/13/22 00:00 05/13/22 04:09 05/13/22 04:00 Temperature 97.4 F L Pulse Rate 105 H 97 90 Respiratory Rate 18 Blood Pressure 129/78 Pulse Oximetry 98 Oxygen Delivery Intake/Output Intake/Output: Intake & Output 05/10/22 05/11/22 05/12/22 05/13/22 23:59 23:59 23:59 23:59 Intake Total 4270 3444 3478 490 Output Total 3490 3065 4069 660 Balance 780 609 -408 -527 Meds/Results Medications: Active Medications Generic Name Dose Route Start Last Admin Trade Name Freq PRN Reason Stop Dose Admin Acetaminophen 650 mg 05/12/22 10:12 Acetaminophen 325 Mg Tablet PO Q4H PRN Mild Pain (1-3) or Fever Hydrocodone Bitart/Acetaminophen 1 tab 05/12/22 10:27 05/12/22 11:49 Hydrocodone/Acetaminophen (*Crx) 10-325 Mg Tablet PO 1 tab Q4H PRN Administration Pain Rated 7-10 Hydrocodone Bitart/Acetaminophen 1 tab 05/12/22 10:27 Hydrocodone/Acetaminophen (*Crx) 5-325 Mg Tablet PO Q4H PRN Pain Rated 4-6 Benzocaine 1 lozenge 05/03/22 13:26 Benzocaine/Menthol (*Bkc) 18 Ea Lozenge PO PRN PRN Sore Throat Hydromorphone HCl 0.5 mg 05/02/22 06:58 05/12/22 02:48 Hydromorphone Hcl Inj (*Crx) 1 Mg/Ml Syr IV PUSH 0.5 mg Q4H PRN Administration Pain Rated 7-10 Metoprolol Tartrate 12.5 mg 05/02/22 21:00 05/02/22 20:20 Metoprolol Tartrate 12.5 Mg Tablet PO 12.5 mg Q12HR KATI Administration Metoprolol Tartrate 5 mg 05/03/22 16:47 05/07/22 14:08 Metoprolol Tartrate Inj 5 Mg/5 Ml Vial IV PUSH 5 mg Q6HR PRN Administration HR above 100 or systolic BP 160 or greater Nicotine 1 patch 05/11/22 12:00 05/13/22 08:43 Nicotine (*Pbkc) 21 Mg Patch TRANSDERM 1 patch QAM KATI Administration Ondansetron HCl 4 mg 05/02/22 06:58 05/09/22 14:29 Ondansetron Inj 4 Mg/2 Ml Vial IV PUSH 4 mg Q4H PRN Administration Nausea Pantoprazole Sodium 40 mg 05/09/22 18:25 05/13/22 08:43 Pantoprazole Sodium Iv 40 Mg Vial IV PUSH 40 mg QAM KATI Administration Radiology Results: ITS Impressions Abdomen/Pelvis CT 05/02/22 08:45 IMPRESSION: 1. 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 2. Nonobstructing left nephrolithiasis. 3. Minimal airspace opacities of the right lower lobe, consistent with infection/inflammation. Upper GI and Smal
--- NOTE | 2022-05-13 10:53 | PM.PNGS ---
Progress Note: A&P Assessment and Plan (1) SBO (small bowel obstruction): Code(s): K56.609 - Unspecified intestinal obstruction, unspecified as to partial versus complete obstruction Status: Acute Assessment and Plan: Resolved. Tolerating a regular diet and eating more yesterday and today. TPN stopped yesterday. Continue PT/OT. CC working on discharge planning to SNF. Will plan to remove THONY drain on discharge. 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 See plan above. Plan I have discussed the patient's case and plan of care with Dr. Artis. Subjective Subjective Date/Time Seen: 05/13/22 10:53 Post Op day: 7 Patient reports: tolerating a regular diet and afebrile Interval history: Chart reviewed. Patient reports feeling tired this morning but otherwise no new complaints. He did not sleep well last night. He is not having any pain. Denies nausea or vomiting. He is eating much better and ate more than 50% of his meals yesterday with dinner at 100%. Review of Systems Review of Systems: All systems reviewed & are unremarkable except as noted in HPI and below Exam Const: General: comfortable, no acute distress and awake Orientation/consciousness: patient oriented x3 GI: Inspection: non-distended, incision (dry and roberto intact) and other ( Ileostomy pink with liquid stool output, THONY drain serosanguineous) GI Palp: Yes Soft to palpation, No Tenderness to palpation present (GI) and No Guarding due to palpation present (GI) Auscultation: normal bowel sounds Other: G-tube clamped Objective Data Vital Signs Vital Signs: Vital Signs - 24 hr 05/12/22 12:04 05/12/22 14:00 05/12/22 16:01 Temperature 97.7 F Pulse Rate 101 H 91 85 Respiratory Rate 20 Blood Pressure 114/71 Pulse Oximetry 99 Oxygen Delivery 05/12/22 19:40 05/12/22 20:00 05/12/22 20:00 Temperature 97.9 F Pulse Rate 96 96 95 Respiratory Rate 18 18 Blood Pressure 138/78 Pulse Oximetry 99 99 Oxygen Delivery Room Air 05/13/22 00:00 05/13/22 04:09 05/13/22 04:00 Temperature 97.4 F L Pulse Rate 105 H 97 90 Respiratory Rate 18 Blood Pressure 129/78 Pulse Oximetry 98 Oxygen Delivery Intake/Output Intake/Output: Intake & Output 05/10/22 05/11/22 05/12/22 05/13/22 23:59 23:59 23:59 23:59 Intake Total 4270 3444 3478 490 Output Total 3490 3065 4065 1010 Balance 780 085 -194 -926 Meds/Results Medications: Active Medications Generic Name Dose Route Start Last Admin Trade Name Freq PRN Reason Stop Dose Admin Acetaminophen 650 mg 05/12/22 10:12 Acetaminophen 325 Mg Tablet PO Q4H PRN Mild Pain (1-3) or Fever Hydrocodone Bitart/Acetaminophen 1 tab 05/12/22 10:27 05/12/22 11:49 Hydrocodone/Acetaminophen (*Crx) 10-325 Mg Tablet PO 1 tab Q4H PRN Administration Pain Rated 7-10 Hydrocodone Bitart/Acetaminophen 1 tab 05/12/22 10:27 Hydrocodone/Acetaminophen (*Crx) 5-325 Mg Tablet PO Q4H PRN Pain Rated 4-6 Benzocaine 1 lozenge 05/03/22 13:26 Benzocaine/Menthol (*Bkc) 18 Ea Lozenge PO PRN PRN Sore Throat Hydromorphone HCl 0.5 mg 05/02/22 06:58 05/12/22 02:48 Hydromorphone Hcl Inj (*Crx) 1 Mg/Ml Syr IV PUSH 0.5 mg Q4H PRN Administration Pain Rated 7-10 Metoprolol Tartrate 12.5 mg 05/02/22 21:00 05/02/22 20:20 Metoprolol Tartrate 12.5 Mg Tablet PO 12.5 mg Q12HR KATI Administration Metoprolol Tartrate 5 mg 05/03/22 16:47 05/07/22 14:08 Metoprolol Tartrate Inj 5 Mg/5 Ml Vial IV PUSH 5 mg Q6HR PRN Administration HR above 100 or systolic BP 160 or greater Nicotine 1 patch 05/11/22 12:00 05/13/22 08:43 Nicotine (*Pbkc) 21 Mg Patch TRANSDERM 1 patch QAM KATI Administration Ondansetron HCl 4 mg 05/02/22 06:58 05/09/22 14:29 Ondansetron Inj 4 Mg/2 Ml Vial IV PUS
--- NOTE | 2022-05-13 11:28 | PM.PNGS ---
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 - Fistula of intestine Status: Acute Assessment and Plan: ok to dc abx, will remove drain prior to dc, will get hypaque enema in 4-6 wks to reeval prior to ileostomy takedown Subjective Subjective Date/Time Seen: 05/13/22 11:28 feels ok, still c incisional soreness, no N/V, concha diet Review of Systems Review of Systems: All systems reviewed & are unremarkable except as noted in HPI and below Exam Const: General: cooperative, no acute distress and ill appearing Resp: Auscultation: clear to auscultation bilaterally Cardio: Rate: regular rate Rhythm: regular rhythm GI: Inspection: normal to inspection, non-distended and incision GI Palp: Yes abdominal tenderness, Yes Soft to palpation, Yes Tenderness to palpation present (GI), No Guarding due to palpation present (GI) and No Rigid due to palpation Other: ostomy - +fxn, pink/viable Objective Data Vital Signs Vital Signs: Vital Signs - 24 hr 05/12/22 12:04 05/12/22 14:00 05/12/22 16:01 Temperature 36.5 C Pulse Rate 101 H 91 85 Respiratory Rate 20 Blood Pressure 114/71 Pulse Oximetry 99 Oxygen Delivery 05/12/22 19:40 05/12/22 20:00 05/12/22 20:00 Temperature 36.6 C Pulse Rate 96 96 95 Respiratory Rate 18 18 Blood Pressure 138/78 Pulse Oximetry 99 99 Oxygen Delivery Room Air 05/13/22 00:00 05/13/22 04:09 05/13/22 04:00 Temperature 36.3 C L Pulse Rate 105 H 97 90 Respiratory Rate 18 Blood Pressure 129/78 Pulse Oximetry 98 Oxygen Delivery 05/13/22 08:45 05/13/22 08:00 Temperature Pulse Rate 91 Respiratory Rate Blood Pressure Pulse Oximetry Oxygen Delivery Room Air Intake/Output Intake/Output: Intake & Output 05/10/22 05/11/22 05/12/2222 23:59 23:59 23:59 23:59 Intake Total 4270 3443 3473 490 Output Total 0436 6920 9166 1013 Balance 780 866 -470 -585 Meds/Results Medications: Active Medications Generic Name Dose Route Start Last Admin Trade Name Freq PRN Reason Stop Dose Admin Acetaminophen 650 mg 05/12/22 10:12 Acetaminophen 325 Mg Tablet PO Q4H PRN Mild Pain (1-3) or Fever Hydrocodone Bitart/Acetaminophen 1 tab 05/12/22 10:27 05/12/22 11:49 Hydrocodone/Acetaminophen (*Crx) 10-325 Mg Tablet PO 1 tab Q4H PRN Administration Pain Rated 7-10 Hydrocodone Bitart/Acetaminophen 1 tab 05/12/22 10:27 Hydrocodone/Acetaminophen (*Crx) 5-325 Mg Tablet PO Q4H PRN Pain Rated 4-6 Benzocaine 1 lozenge 05/03/22 13:26 Benzocaine/Menthol (*Bkc) 18 Ea Lozenge PO PRN PRN Sore Throat Metoprolol Tartrate 12.5 mg 05/02/22 21:00 05/02/22 20:20 Metoprolol Tartrate 12.5 Mg Tablet PO 12.5 mg Q12HR KATI Administration Metoprolol Tartrate 5 mg 05/03/22 16:47 05/07/22 14:08 Metoprolol Tartrate Inj 5 Mg/5 Ml Vial IV PUSH 5 mg Q6HR PRN Administration HR above 100 or systolic BP 160 or greater Nicotine 1 patch 05/11/22 12:00 05/13/22 08:43 Nicotine (*Pbkc) 21 Mg Patch TRANSDERM 1 patch QAM KATI Administration Ondansetron HCl 4 mg 05/02/22 06:58 05/09/22 14:29 Ondansetron Inj 4 Mg/2 Ml Vial IV PUSH 4 mg Q4H PRN Administration Nausea Pantoprazole Sodium 40 mg 05/09/22 18:25 05/13/22 08:43 Pantoprazole Sodium Iv 40 Mg Vial IV PUSH 40 mg QAM KATI Administration Radiology Results: ITS Impressions Abdomen/Pelvis CT 05/02/22 08:45 IMPRESSION: 1. 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 2. Nonobstructing left nephrolithiasis. 3. Minimal airspace op
[2022-05-13] MEDS: HYDROcodone/acetaminophen (*CRX) 10-325 MG TABLET 1 TAB PO ×3 (14:24→22:34)
[2022-05-13] MEDS: BENZOCAINE/MENTHOL (*BKC) 18 EA LOZENGE 1 LOZENGE PO (21:45)
[2022-05-14] MEDS: HYDROcodone/acetaminophen (*CRX) 10-325 MG TABLET 1 TAB PO ×3 (02:27→11:53)
[2022-05-14 03:16] VITALS: BP 112/66; PULSE 79; RESP 18; TEMP 35.9; O2SAT 100
[2022-05-14 05:48] LABS: Hematocrit 24.5 % (42.0-52.0); Hemoglobin 8.3 g/dL (14.0-18.0); Mean Corpuscular HGB Conc 33.9 g/dl (32-36); Mean Corpuscular Hemoglobin 36.6 pg (26-34); Mean Corpuscular Volume 107.9 fl (80-100); Mean Platelet Volume 11.3 fl (7.4-10.4); Platelet Count Result 256 k/mm3 (150-375); Red Blood Count 2.27 M/mm3 (4.6-6.20); Red Cell Distribution Width 12.5 % (11.5-14.5); White Blood Count 9.4 K/mm3 (4.5-10.0)
[2022-05-14] MEDS: BENZOCAINE/MENTHOL (*BKC) 18 EA LOZENGE 1 LOZENGE PO (05:57)
[2022-05-14 06:08] LABS: Alanine Aminotransferase 16 U/L (6-50); Albumin Level 3.1 g/dL (3.5-5.1); Alkaline Phosphatase 68 U/L (38-126); Anion Gap 4 mmol/L (8-16); Aspartate Amino Transferase 40 U/L (17-59); Bilirubin,Total 0.8 mg/dL (0.2-1.3); Blood Urea Nitrogen 14 mg/dL (9-20); Calcium 8.9 mg/dL (8.4-10.2); Carbon Dioxide 25 mmol/L (22-30); Chloride 99 mmol/L (98-107); Estimated CRCL calculation 74 ml/min; Estimated Glomerular Filt Rate > 60; Glucose 87 mg/dL (65-110); Magnesium 1.6 mg/dL (1.6-2.3); Potassium 3.8 mmol/L (3.4-5.0); Sodium 128 mmol/L (137-145)
[2022-05-14] MEDS: NICOTINE (*PBKC) 21 MG PATCH 1 PATCH TRANSDERM (09:41)
[2022-05-14] MEDS: SODIUM CHLORIDE 0.9% IV 250 ML 100 ML IV CONT (09:46)
[2022-05-14 09:54] VITALS: RESP 18; O2SAT 100
--- NOTE | 2022-05-14 11:30 | PM.PNGS ---
Progress Note: A&P Assessment and Plan (1) SBO (small bowel obstruction): Code(s): K56.609 - Unspecified intestinal obstruction, unspecified as to partial versus complete obstruction Status: Acute Assessment and Plan: Still having some abdominal pain, but this seems to be mostly surgical and controlled with oral analgesics. KUB ordered due to his complaints of pain and showed some dilated small bowel, which is not surprising. His ileostomy is functioning well and he is tolerating a solid diet. Okay from our standpoint to discharge the patient to SNF when okay with primary service. Will follow-up in the office for staple removal in a week. 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 THONY drain removed. Plan I have discussed the patient's case and plan of care with Dr. Artis. Subjective Subjective Date/Time Seen: 05/14/22 11:30 Patient reports: still having pain and afebrile Interval history: Patient seen and examined. Reports feeling like he is having some more shooting abdominal pain today compared to the last two days but this comes and goes. He points to his midline near incision and to the RLQ at the ostomy site. He is tolerating food well without any nausea, vomiting, or bloating. He states he isn't eating well every meal, but this is due to him not liking the taste of the food. Not because of appetite or nausea. He is worried about going to the SNF today and feels he is not ready because he is worried about something going wrong. He is working well with therapy. Review of Systems Review of Systems: All systems reviewed & are unremarkable except as noted in HPI and below Exam Const: General: comfortable, no acute distress and awake Orientation/consciousness: patient oriented x3 GI: Inspection: non-distended, incision (dry and roberto intact, no erythema) and other ( Ileostomy pink with liquid stool output) GI Palp: Yes Soft to palpation, Yes Tenderness to palpation present (GI) (incisional), No Guarding due to palpation present (GI) and No Rebound tenderness present Auscultation: normal bowel sounds Other: LLQ THONY drain removed, now with dry gauze dressing in place Extrem: General: normal to inspection Objective Data Vital Signs Vital Signs: Vital Signs - 24 hr 05/13/22 12:04 05/13/22 14:20 05/13/22 19:47 Temperature 97.9 F 97.3 F L Pulse Rate 97 95 92 Respiratory Rate 16 18 Blood Pressure 134/81 130/85 Pulse Oximetry 98 100 Oxygen Delivery 05/14/22 03:16 05/14/22 09:54 Temperature 96.6 F L Pulse Rate 79 Respiratory Rate 18 18 Blood Pressure 112/66 Pulse Oximetry 100 100 Oxygen Delivery Room Air Intake/Output Intake/Output: Intake & Output 05/11/22 05/12/22 05/13/22 05/14/22 23:59 23:59 23:59 23:59 Intake Total 3444 3476 1330 770 Output Total 3062 3061 2155 250 Balance 623 -791 -[phone] Meds/Results Medications: Active Medications Generic Name Dose Route Start Last Admin Trade Name Freq PRN Reason Stop Dose Admin Acetaminophen 650 mg 05/12/22 10:12 Acetaminophen 325 Mg Tablet PO Q4H PRN Mild Pain (1-3) or Fever Hydrocodone Bitart/Acetaminophen 1 tab 05/12/22 10:27 05/14/22 06:22 Hydrocodone/Acetaminophen (*Crx) 10-325 Mg Tablet PO 1 tab Q4H PRN Administration Pain Rated 7-10 Hydrocodone Bitart/Acetaminophen 1 tab 05/12/22 10:27 Hydrocodone/Acetaminophen (*Crx) 5-325 Mg Tablet PO Q4H PRN Pain Rated 4-6 Benzocaine 1 lozenge 05/03/22 13:26 05/14/22 05:57 Benzocaine/Menthol (*Bkc) 18 Ea Lozenge PO 1 lozenge PRN PRN Administration Sore Throat Sodium Chloride 250 mls @ 100 mls/hr 05/14/22 09:36 05/14/22 09:46 Normal Saline Iv IV CONT 05/14/22 12:05 100 mls/hr .Q2H30M ONE Administration Metoprolol Tartrate 12.5 mg 05/02/22 21:0
--- NOTE | 2022-05-14 12:32 | PM.DS ---
DS: Admitting Diagnosis Discharge Date 05/14/2022 Admitting Diagnosis Small-bowel obstruction DS: Summary Hospital Course Hospital Course: 57-year-old male presenting to the emergency department for evaluation of left lower quadrant pain with associated nausea and vomiting.? Patient had a stroke approximately 3 weeks ago and has been at [facility].? Patient was recently discharged approximately 3 days ago to a care facility.? Patient does have a PEG tube in place that has been functioning normally. 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 patient states this is the 1st time he has experienced such a pain and nausea and vomiting, he denies any passing any gas, further evaluate patient had a CT scan of the abdomen,? showed?small bowel obstruction with transition point at the site of an ileocolic fistula and the left lower quadrant, ? started the patient on Zosyn, NG tube was placed in emergency depart currently on intermittent suction, and by General surgery recommended continue present management, will give patient anti emetic and pain medication as needed,? surgery has ordered a small-bowel follow-through. Patient underwent exploratory laparotomy, extensive lysis of adhesions of approximately 45 minutes, takedown of colo-entero fistula, small-bowel resection, creation of loop ileostomy. His ileostomy is working fine. This morning he was complaining of some abdominal pain so we obtain x-ray KUB which showed some postoperative ileus. No further plans from surgery at this point. They will take the stitches out next week and follow-up with him in 4-6 weeks. Patient is clinically stable and being discharged to rehab. Because of his ileus I would recommend he not take any opioids and take Tylenol for pain control. Time Spent with Patient Time attestation: Total time spent providing and/or coordinating discharge services: Exam Const: General: comfortable, no acute distress and awake Orientation/consciousness: patient oriented x3 GI: Inspection: non-distended, incision (dry and roberto intact, no erythema) and other ( Ileostomy pink with liquid stool output) GI Palp: Yes Soft to palpation, Yes Tenderness to palpation present (GI) (incisional), No Guarding due to palpation present (GI) and No Rebound tenderness present Auscultation: normal bowel sounds Other: LLQ THONY drain removed, now with dry gauze dressing in place Extrem: General: normal to inspection DS: Data Data Completed and Pending Completed studies during hospitalization: Pending at discharge 05/06/22 15:43 Surgical [PTH] Routine Labs on day of discharge: Labs from last 24 hours 05/14/22 05/14/22 05:10 05:10 WBC 9.4 RBC 2.27 L Hgb 8.3 L Hct 24.5 L MCV 107.9 H MCH 36.6 H MCHC 33.9 RDW 12.5 Plt Count 256 MPV 11.3 H Sodium 128 L Potassium 3.8 Chloride 99 Carbon Dioxide 25 Anion Gap 4 L BUN 14 Creatinine 0.80 Estim Creat Clear Calc 74 Estimated GFR > 60 Glucose 87 Calcium 8.9 Magnesium 1.6 Total Bilirubin 0.8 AST 40 ALT 16 Alkaline Phosphatase 68 Total Protein 7.0 Albumin 3.1 L Discharge Plan Discharge Consulting providers: Fiona Artis Discharging Clinician: Steve Ng Anticipated Discharge Date/Time: 05/14/22 10:09 Patient Disposition: SNF Activity: october shower Diet: heart healthy Stand Alone Forms: General Discharge Information Follow-up/Referrals: Fiona Artis MD [Physician] - Discharge Medications: New acetaminophen [Mapap (acetaminophen)] 325 mg Tablet 650 mg PO Q4H PRN (Reason: Mild Pain (1-3) Or Fever) Qty: 30 0RF Continued metoprolol succinate [Toprol XL] 25 mg tablet extended release 24 hr 25 mg PO DAILY Date of admission: 05/02/22 12:09 Primary Care Provider: Giorgio Pierre Admitting Provider: Kusum Casillas Attending tee
[2022-05-14 12:49] LABS: Triglycerides 111 mg/dL (<150)
[2022-05-14 14:30] VITALS: BP 138/80; PULSE 87; RESP 18; TEMP 36.8; O2SAT 100
--- NOTE | 2022-06-17 14:40 | PCWOUND ---
WOCN NOTE Patient with follow up appointment in Dr Artis office. educated patient on ostomy change process, applied new appliance. will set up as an outpatient in the wound center to teach how to clear of maceration to peristomal skin.
== END 2022-05-14 15:40 | DRG 330 ==
LOC: ANHED 06:37 → ANH2MED 08:22
PROVIDERS: Family Medicine; Surgery; Admitting Provider Internal Medicine; Emergency Provider Emergency Medicine; PCP Internal Medicine; Visit Provider Hospitalist
PROC: 0DB80ZZ Excision of Small Intestine, Open Approach (ICD-10-PCS; CPT 49000; principal; 2022-05-06 15:00)
DX: K56.52 Intestinal adhesions [bands] with complete obstruction (principal); K63.2 Fistula of intestine; N39.0 Urinary tract infection, site not specified; J44.9 Chronic obstructive pulmonary disease, unspecified; K56.7 Ileus, unspecified; F17.210 Nicotine dependence, cigarettes, uncomplicated; F10.20 Alcohol dependence, uncomplicated; Z93.1 Gastrostomy status; E87.5 Hyperkalemia; E86.0 Dehydration; B96.20 Unspecified Escherichia coli [E. coli] as the cause of diseases classified elsewhere; Z82.49 Family history of ischemic heart disease and other diseases of the circulatory system; Z86.73 Personal history of transient ischemic attack (TIA), and cerebral infarction without residual deficits; Z79.899 Other long term (current) drug therapy; Z88.5 Allergy status to narcotic agent
CPT/HCPCS: 36415; 74018; 74019; 74177; 74250; 74270; 80048; 80053; 81001; 82948; 83605; 83690; 83735; 84100; 84466; 84478; 85025; 85027; 85055; 85610; 85730; 87040; 87077; 87086; 87088; 87186; 88305; 96361; 96365; 96375; 97110; 97161; 97166; 97530; 97535; 99285; A9270; C9113; G0378; J0330; J0360; J0696; J1100; J1170; J2250; J2405; J2543; J2704; J3010; J3475; J3480; J7030; J7040; J7050; J7120; Q9967

== ENCOUNTER 2022-06-04 08:34 | Outpatient (CLI) | payer MEDICARE, MEDICAID, SELFPAY ==
--- NOTE | ~2022-06-04 | XR_ITS ---
EXAMINATION: XR enema water soluble DATE: 06/04/2022 09:47 INDICATION: Coloenteric fistula. TECHNIQUE: A livestock agent radiograph was obtained. A catheter was inserted into the patient's rectum. Contra st was infused by gravity. Fluoroscopic spot images and conventional radiographs were obtained. Fluor oscopy exposure time was 0.5 minutes. The total number of images was 25. COMPARISON: CT abdomen and pelvis 05/02/2022 FINDINGS: There is extraluminal leakage of contrast from the sigmoid colon that opacifies fistulas. D efinite communication with the small bowel is not identified. Contrast passes the colon and distal il eum and ileostomy bag. IMPRESSION: 1. Contrast opacification of fistulas from the sigmoid colon without definite communication with smal l bowel. Reviewed, dictated and finalized at location A. NESS SERVICES VICE PRESIDENT IMPRESSION: 1. Contrast opacification of fistulas from the sigmoid colon without definite c ommunication with small bowel.
== END 2022-06-04 08:35 | disposition home or self-care (01) ==
LOC: ANHIMG 08:37
PROVIDERS: PCP Internal Medicine; Visit Provider Surgery
DX: K63.2 Fistula of intestine (principal)
CPT/HCPCS: 74270

== ENCOUNTER 2022-06-12 08:24 | Outpatient (CLI) | payer MEDICARE, MEDICAID, SELFPAY ==
--- NOTE | ~2022-06-12 | CT_ITS ---
CT Abdomen and Pelvis with contrast. History: Colonic fistula. Spiral CT of the abdomen and pelvis was performed after the administration of intravenous contrast. 1 00 cc of Omnipaque 350 was administered intravenously without complication. Dose reduction technique was used on this scan by utilizing automated exposure control and iterative reconstruction technique. The dose-length product (DLP) was 204.24 mGy-cm. COMPARISON: 05/02/2022 Findings: Scans through the lung bases demonstrate mild atelectatic change. The liver, spleen, pancreas, gallbladder, adrenals and right kidney are within normal limits. Stable small nonobstructing left renal stone noted. No evidence of aortic aneurysm. No lymphadenopathy is s een. No bowel obstruction present. There is an apparent double barreled diverting ileostomy in the right l ower quadrant. Additional small bowel small bowel anastomosis noted in the pelvis. Oral contrast is p resent in large bowel. Persistent ileocolic fistula again identified, similar to prior exam (coronal images 57-62).. Images through the pelvis were performed. Urinary bladder unremarkable. Prostate gland and seminal ve sicles are unremarkable. No ascites is seen. 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 Double barrel diverting ileostomy. Stable small nonobstructing left renal stone. Reviewed, dictated and finalized at location . 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 Double barrel diverting ileostomy. Stable small nonobstructing left renal stone.
== END 2022-06-12 08:25 | disposition home or self-care (01) ==
PROVIDERS: PCP Internal Medicine; Visit Provider Surgery
DX: K63.2 Fistula of intestine (principal)
CPT/HCPCS: 74177; Q9967

== ENCOUNTER 2022-06-25 12:00 | Outpatient (RCR) | payer MEDICARE, MEDICAID, SELFPAY ==
[2022-06-25 12:15] VITALS: BMI 17.7
== END 2022-09-08 13:29 | disposition home or self-care (01) ==
LOC: ANHWOC 12:00
PROVIDERS: PCP Internal Medicine; Visit Provider Surgery
DX: B37.2 Candidiasis of skin and nail (principal)
CPT/HCPCS: 99214; G0463

== ENCOUNTER 2022-07-17 07:51 | Outpatient (CLI) | payer MEDICARE, MEDICAID, SELFPAY ==
--- NOTE | ~2022-07-17 | XR_ITS ---
EXAMINATION: XR enema water soluble DATE: 07/17/2022 08:35 INDICATION: Fistula of intestine. TECHNIQUE: A hockey scout radiograph was obtained. A catheter was inserted into the patient's rectum. Contra st was infused by gravity. Fluoroscopic spot images and conventional radiographs were obtained. Fluor oscopy exposure time was 0.3 minutes. The total number of images was 15. COMPARISON: Contrast enema 06/04/2022, CT abdomen and pelvis 06/12/2022 FINDINGS: Again seen is extraluminal leakage of contrast in the sigmoid colon that opacifies fistulas . Definite communication with the small bowel is not identified. IMPRESSION: 1. Contrast opacification of fistulas from the sigmoid colon without definite communication with smal l bowel, similar to the prior exam on 06/04/2022. Reviewed, dictated and finalized at location A. METRIST/PRACTICE OWNER IMPRESSION: 1. Contrast opacification of fistulas from the sigmoid colon without definite c ommunication with small bowel, similar to the prior exam on 06/04/2022.
== END 2022-07-17 07:52 | disposition home or self-care (01) ==
LOC: ANHIMG 07:53
PROVIDERS: PCP Internal Medicine; Visit Provider Surgery
DX: K63.2 Fistula of intestine (principal)
CPT/HCPCS: 74270

== ENCOUNTER 2022-12-09 12:49 | Inpatient (IN) | payer MEDICARE, MEDICAID, SELFPAY ==
[2022-12-09] VITALS (19 sets, daily range): BP systolic 121–140; BP diastolic 64–85; PULSE 69–106; RESP 12–22; TEMP 36.6–37.1; O2SAT 100; BMI 17.7
--- NOTE | ~2022-12-09 | XR_ITS ---
Portable chest x-ray Comparison: 12/09/2022 Clinical History: Shortness of breath Findings: There is extensive hazy airspace disease, predominantly in the perihilar regions and right upper lobe. Minimal right pleural effusion present. Cardiomediastinal silhouette is stable. Bones a nd soft tissues are unremarkable. Impression: Extensive hazy pulmonary disease, as above. Findings suggest moderate pulmonary edema. Correlate clin ically for pneumonia. Minimal right pleural effusion. Reviewed, dictated and finalized at location . Impression: Extensive hazy pulmonary disease, as above. Findings suggest moderate pulmonary edema. Correlate clinically for pneumonia. Minimal right pleural effusion.
--- NOTE | ~2022-12-09 | US_ITS ---
EXAMINATION: US biopsy renal DATE: 12/17/2022 12:59 INDICATION: Acute renal insufficiency of indeterminate etiology TECHNIQUE: The procedure including the risks, benefits, and alternatives was discussed with the patie nt. Risks discussed included bleeding and infection. The patient understood the risks and agreed to p roceed. A timeout was performed to verify the patient's name, date of , and procedure to be p erformed. The skin overlying the left kidney was prepped and draped in usual sterile fashion. Anest hetic was administered with 1% lidocaine subcutaneously. An 18 gauge core biopsy needle was then use d to obtain 4 core biopsy specimens under continuous sonographic guidance. The entry site was cleaned and dressed. There were no immediate complications. FINDINGS: Ultrasound images demonstrate the needle in the kidney. IMPRESSION: 1. Ultrasound-guided random left kidney core needle biopsy. Reviewed, dictated and finalized at location A.
--- NOTE | ~2022-12-09 | CT_ITS ---
EXAMINATION: CT abdomen pelvis wo con DATE: 12/09/2022 15:27 INDICATION: LLQ pain, +colostomy bag, +gtube TECHNIQUE: Computed tomography (CT) of the abdomen and pelvis was performed without intravenous contr ast. Automated exposure control and iterative reconstruction technique were employed. The dose-length product was 200.26 mGy-cm. COMPARISON: 06/12/2022. FINDINGS: Lower thorax: Unremarkable Liver: Steatosis. Biliary/Gallbladder: Gallbladder contains dependent hyperdensity may represent stones or sludge. No b ile duct dilation. Pancreas: Stable 5 mm pancreatic head cyst. No duct dilation. Spleen: Normal. Adrenals:No mass. Kidneys: Bilateral renal calcifications measuring up to 5 mm in the left inferior pole. Mild bilatera l perinephric stranding. No suspicious mass, obstructing stone, or hydronephrosis. GI tract: No small or large bowel dilation. Uncomplicated small bowel anastomosis in the lower midabd omen. Normal appendix. Mild diverticulosis without diverticulitis. Mesentery/Peritoneum: No ascites, mass, or free air. Stable, mildly enlarged calcified lymph node at the rocael hepatis. 2.3 x 1.5 cm fluid and gas collection in the lower midline abdominal mesentery, be tween loops of small bowel and the sigmoid colon. Retroperitoneum: No mass. Atherosclerotic abdominal aortic and/or arterial calcifications. Pelvis: Partially distended urinary bladder, with wall thickening and a small right posterior diverti culum. Mild prostatomegaly with calcifications. Soft Tissues: Uncomplicated G-tube. Uncomplicated right lower quadrant ostomy. Bones: No acute osseous finding. IMPRESSION: 1. 5 mm pancreatic head cyst, recommend follow-up MR or CT of the pancreas with contrast in one year to begin to assess stability. 2. Persistent ileocolic fistula. 3. Bladder wall thickening, may be secondary to inadequate distention or cystitis. 4. Stable mesenteric lymphadenopathy. Reviewed, dictated and finalized at location K. IMPRESSION: 1. 5 mm pancreatic head cyst, recommend follow-up MR or CT of the pancreas with contrast in one year to begin to assess stability. 2. Persistent ileocolic fistula. 3. Bladder wall thickening, may be secondary to inadequate distention or cystit is. 4. Stable mesenteric lymphadenopathy.
--- NOTE | ~2022-12-09 | US_ITS ---
EXAMINATION: US venous doppler [facility] DATE: 12/15/2022 10:23 INDICATION: Lower limb pain with positive Homans sign. TECHNIQUE: Grayscale ultrasound images without and with compression and Doppler ultrasound images of the bilateral lower extremity veins were obtained. COMPARISON: None. FINDINGS: The visualized portions of right common femoral vein, profunda (deep) femoral vein, femoral vein, pop liteal vein, posterior tibial veins, peroneal veins, gastrocnemius vein and greater saphenous vein ou tflow are patent. The visualized portions of left common femoral vein, profunda femoral vein, femoral vein, popliteal v ein, posterior tibial veins, peroneal veins, gastrocnemius vein and greater saphenous vein outflow ar e patent. IMPRESSION: 1. No deep venous thrombosis in either lower limb. Reviewed, dictated and finalized at location A.
--- NOTE | ~2022-12-09 | US_ITS ---
EXAMINATION: US renal BI DATE: 12/19/2022 21:06 INDICATION: Difficulty voiding TECHNIQUE: Multiple grayscale and Doppler ultrasound images of the kidneys were obtained. COMPARISON: 11/20/2022 FINDINGS: The right kidney measures 10.5 x 4.6 x 5.8 cm. The left kidney measures 10.2 x 6.0 x 4.7 cm . The kidneys demonstrate normal parenchymal echogenicity. There is no hydronephrosis. The bladder is incompletely distended but unremarkable in appearance. There are bilateral pleural effusions. IMPRESSION: 1. Normal kidneys without hydronephrosis. 2. Bilateral pleural effusions. Reviewed, dictated and finalized at location A.
--- NOTE | ~2022-12-09 | US_ITS ---
US renal BI 12/10/2022 09:46 Procedure: Realtime transabdominal ultrasound of the kidneys and bladder. Indication: Acute renal failure Comparison: No prior studies for comparison. Findings: Renal echotexture is normal bilaterally without hydronephrosis, contour deforming mass or r enal calculus. The right kidney measures 10.1 cm and left kidney measures 10.1 cm. Bladder within no rmal limits. Impression: 1: Unremarkable renal ultrasound. No stones, masses or hydronephrosis. Reviewed, dictated and finalized at location [] Impression: 1: Unremarkable renal ultrasound. No stones, masses or hydronephrosis.
--- NOTE | ~2022-12-09 | XR_ITS ---
EXAMINATION: XR chest 1V portable INDICATION: Shortness of breath TECHNIQUE: Portable AP chest at 0513 hours COMPARISON: 12/19/2022 FINDINGS: Bilateral perihilar and right upper lobe airspace opacities demonstrate interval worsening. There are small pleural effusions. No pneumothorax is identified. The cardiomediastinal silhouette i s normal. IMPRESSION: 1. Bilateral perihilar and right upper lobe airspace opacities with interval worsening, consistent wi th pulmonary edema and/or pneumonia. 2. Small pleural effusions. Reviewed, dictated and finalized at location A. IMPRESSION: 1. Bilateral perihilar and right upper lobe airspace opacities with interval wo rsening, consistent with pulmonary edema and/or pneumonia. 2. Small pleural effusions.
--- NOTE | ~2022-12-09 | MR_ITS ---
EXAMINATION: MR MRCP wo/w con/w 3D wo ind DATE: 12/10/2022 09:29 INDICATION: Pancreatitis with pancreatic mass TECHNIQUE: Magnetic resonance imaging (MRI) of the abdomen was performed without and with 10 mL Multi sylvie intravenous contrast. Sequences included coronal T2-weighted SS-FSE, coronal T2-weighted FS SS- FSE, coronal T2-weighted FS FIESTA, axial T2-weighted FS FIESTA, axial T2-weighted FIESTA, sagittal T 2-weighted SS-FSE, axial T1-weighted dual-echo FSPGR, axial T2-weighted SS-FSE, axial T1-weighted LAV A, axial T2-weighted STIR FSE. Thick-slab T2-weighted FRFSE-XL images were obtained for magnetic reso nance cholangiopancreatography (MRCP). Rotating maximum intensity projection 3-D reconstructions of t he volumetric data were created by the technologist. Postcontrast sequences included a time course of axial T1-weighted LAVA. COMPARISON: None. FINDINGS: ABDOMEN MRI: Heart size is normal. No pericardial or pleural effusion. Percutaneous gastrostomy tube in the body o f the stomach. Mild diffuse hepatic steatosis. There are several tiny gallstones in the dependent asp ect of the otherwise normal-appearing gallbladder. There are three separate 5 mm simple appearing cys tic lesions at the head, body and tail of the pancreas. No abnormal solid pancreatic parenchymal mass es appreciated. Spleen and bilateral adrenal glands are normal. Several bilateral T2 hyperintense non enhancing renal cysts, the largest measuring 1.2 cm at the upper pole of the left kidney. Right lower quadrant diverting loop ileostomy. Remainder the visualized bowels are unremarkable with no obstruct ion. There is mild mucosal trabeculation of the bladder on the coronal images. No free intraperitonea l fluid. No pathologically enlarged abdominal or pelvic lymphadenopathy. Moderate lower lumbar spondy losis. ABDOMEN MRCP: No intrahepatic biliary ductal dilation. The common bile duct appears normal measuring up to 4 mm in maximal diameter. No obstructing choledocholithiasis, strictures or obstructing masses. Main pancreat ic duct is normal in caliber. IMPRESSION: 1. Three, 5 mm simple appearing nonenhancing cystic lesions in the head, body and tail the pancreas w ithout evident abnormal dancing soft tissue component. The differential diagnosis includes pseudocyst or dilated pancreatic ductal side branches related to chronic pancreatitis or less likely intraducta l papillary mucinous neoplasm (IPMN), mucinous cystic neoplasm (MCN), and the less common serous cyst adenoma and neuroendocrine tumor. Correlate for history of pancreatitis and consider 1 year follow-up pre and postcontrast MRI. 2. Cholelithiasis. Reviewed, dictated and finalized at location A. IMPRESSION: 1. Three, 5 mm simple appearing nonenhancing cystic lesions in the head, body a nd tail the pancreas without evident abnormal dancing soft tissue component. Th e differential diagnosis includes pseudocyst or dilated pancreatic ductal side branches related to chronic pancreatitis or less likely intraductal papillary m ucinous neoplasm (IPMN), mucinous cystic neoplasm (MCN), and the less common se jd cystadenoma and neuroendocrine tumor. Correlate for history of pancreatiti s and consider 1 year follow-up pre and postcontrast MRI. 2. Cholelithiasis.
--- NOTE | ~2022-12-09 | XR_ITS ---
EXAMINATION: XR chest 1V portable Exam Date/Time: 12/09/2022 15:20 CDT HISTORY: SOB Comparison: CT CAP 12/25/2019. RESULT: Lines, tubes, and devices: Gastrostomy tube. Staple line in the left upper lung. Lungs and pleura: Biapical pleural scarring. Likely postpneumonectomy change in the left upper lung. Minimal bibasilar scar/atelectasis. Cardiomediastinal silhouette: Stable. Other: No acute osseous or upper abdominal finding. IMPRESSION: No acute cardiopulmonary process. Reviewed, dictated and finalized at location K.
--- NOTE | ~2022-12-09 | CT_ITS ---
EXAMINATION: CT abdomen pelvis wo con DATE: 12/20/2022 11:47 INDICATION: Abdominal pain TECHNIQUE: Computed tomography (CT) of the abdomen and pelvis was performed without intravenous contr ast. The dose-length product (DLP) was 340.25 mGy-cm. Automated exposure control and iterative recons truction technique were employed. COMPARISON: 12/09/2022 FINDINGS: Iwtyo-cf-cstskluf size pleural effusions and developed. There is associated passive depende nt atelectasis. Patchy airspace opacities have developed in the visualized lung bases. The heart size is normal. The liver, spleen, pancreas, gallbladder, and adrenal glands are normal. There is a 4 mm nonobstructing stone of the left kidney lower pole. The right kidney is unremarkable. There is diffus e wall thickening of the urinary bladder. No pathologically enlarged abdominal or pelvic lymph nodes are identified. There are no dilated loops of bowel. A bowel surgical anastomosis is noted in the pel vis. Again seen is an unchanged fistula between the distal ileum and sigmoid colon. There is a right lower quadrant ostomy. The gastrostomy tube has been removed. There is severe lumbar spondylosis at L 5-S1. There is new hyperdense thickening at the lateral aspect of the perirenal fascia on the left, l ikely small hematoma related to recent renal biopsy. IMPRESSION: 1. 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 2. New small to moderate-sized pleural effusions. 3. Minimal airspace opacities of the lower lobes, consistent with pneumonia. 4. Hyperdense thickening of the lateral aspect of the left perirenal fascia, likely hematoma related to recent left kidney biopsy. 5. Nonobstructing left nephrolithiasis. Reviewed, dictated and finalized at location A. IMPRESSION: 1. 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 2. New small to moderate-sized pleural effusions. 3. Minimal airspace opacities of the lower lobes, consistent with pneumonia. 4. Hyperdense thickening of the lateral aspect of the left perirenal fascia, li milli hematoma related to recent left kidney biopsy. 5. Nonobstructing left nephrolithiasis.
--- NOTE | 2022-12-09 14:08 | ECG_ITS ---
Measurements Intervals [place] Rate: 65 P: 70 ID: [id number] QRS: 81 QRSD: 84 T: 75 QT: 432 QTc: 450 Interpretive Statements SINUS RHYTHM SEPTAL MYOCARDIAL INFARCTION , OF INDETERMINATE AGE [40+ ms Q WAVE IN V1/V2] NO PREVIOUS ECG AVAILABLE FOR COMPARISON Electronically Signed On 12-09-2022 16:21:27 CDT by Katy Barboza M.D.
[2022-12-09 14:12] LABS: Basophils Percent Auto 0.7 % (0.2-1.2); Eosinophils Absolute Auto 0.1 K/mm3 (0-0.3); Eosinophils Percent Auto 1.8 % (0-4.4); Hematocrit 24.2 % (42.0-52.0); Hemoglobin 8.7 g/dL (14.0-18.0); Immature Granulocyte Absolute 0.03 K/mm3 (0.00-0.031); Immature Granulocyte Percent A 0.5 % (0-0.5); Lymphocytes Absolute Auto 0.88 K/mm3 (0.9-3.2); Lymphocytes Percent Auto 15.6 % (18.3-44.2); Mean Corpuscular Hemoglobin 37.7 pg (26-34); Mean Corpuscular Volume 104.8 fl (80-100); Mean Platelet Volume 10.8 fl (7.4-10.4); Monocytes Absolute Auto 0.8 K/mm3 (0.1-0.6); Monocytes Percent Auto 14.7 % (2.6-8.5); Neutrophils Absolute Auto 3.8 K/mm3 (1.3-6.7); Neutrophils Percent Auto 66.7 % (45.5-73.1); Platelet Count Result 134 k/mm3 (150-375); Red Blood Count 2.31 M/mm3 (4.6-6.20); White Blood Count 5.6 K/mm3 (4.5-10.0)
[2022-12-09 14:28] LABS: Appearance Urine Clear (Clear); Bacteria Urine None Seen /hpf; Bilirubin Urine Negative (Negative); Blood Urine Negative (Negative); Color Urine Yellow (Yellow); Glucose Urine UA Negative (Negative); Ketones Urine Negative (Negative); Leukocyte Esterase Ur Negative LEU/UL (Negative); Nitrate Urine Negative (Negative); Non Pathogenic Casts 0-2; Protein Urine 1+ mg/dL (Negative); RBC Urine 0-2 /hpf (0-2); Specific Grav Ur 1.013 (1.001-1.035); Squamous Epithelial Cell Urine None seen /hpf (Few); Urobilinogen Urine 0.2 mg/dL (<2.0); WBC Urine 0-5 /hpf; pH Urine 5.5 (5.0-9.0)
[2022-12-09 14:36] LABS: Add Urine Microscopic? YES
[2022-12-09 15:11] LABS: Alanine Aminotransferase 75 U/L (6-50); Albumin Level 4.5 g/dL (3.5-5.1); Alkaline Phosphatase 60 U/L (38-126); Anion Gap 19 mmol/L (8-16); Aspartate Amino Transferase 106 U/L (17-59); Bilirubin,Total 0.8 mg/dL (0.2-1.3); Calcium 9.3 mg/dL (8.4-10.2); Carbon Dioxide 27 mmol/L (22-30); Chloride 82 mmol/L (98-107); Estimated CRCL calculation 6 ml/min; Estimated Glomerular Filt Rate 6; Glucose 91 mg/dL (65-110); Potassium 3.1 mmol/L (3.4-5.0); Sodium 128 mmol/L (137-145)
--- NOTE | 2022-12-09 15:31 | ED.GENADULT ---
HPI - General Adult General Chief complaint: Unspecified Stated complaint: weakness, failure to thrive Time Seen by Provider: 12/09/22 13:59 History of Present Illness HPI narrative: Patient is a 57-year-old male with a history of hypertension, SBO status post colostomy and G-tube presenting with failure to thrive. Patient states that for many weeks he has had decreased appetite and has been unable to tolerate much p.o. intake. States that he wants to get his colostomy reversed but his blood pressure has been poorly controlled so his surgeons will not do it. States he is concerned that his G-tube is infected. Complains of diffuse pain as well as positional lightheadedness. Related Data Home Medications Medication Instructions Recorded Confirmed amlodipine 5 mg tablet 5 mg PO DAILY 12/09/22 12/13/22 Allergies Allergy/AdvReac Type Severity Reaction Status Date / Time codeine Allergy Severe Swelling Verified 12/09/22 18:57 Review of Systems Review of Systems: All systems reviewed & are unremarkable except as noted in HPI and below PMFSH Past Medical History Medical History Alcoholism Continuous tobacco abuse COPD (chronic obstructive pulmonary disease) CVA (cerebral vascular accident) Entero-colic fistula Initially noted on CT from 12/2019 Kidney stones LLQ pain Right inguinal hernia Patient refuses surgical correction Stomach ulcer Tobacco abuse Surgical History Surgical History History of left inguinal hernia repair X2 History of pneumonectomy Left lower lobe pneumonectomy 2018 due to pneumothorax History of tonsillectomy and adenoidectomy S/P laparotomy exploratory laparotomy, extensive lysis of adhesions of approximately 45 minutes, takedown of colo-entero fistula, small-bowel resection, creation of loop ileostomy on 05/02/22 Status post open reduction with internal fixation of fracture Status post right foot surgery (~1990) For sequential surgeries for ORIF right foot due to trauma from alcohol use with the last surgical procedure also involving bone harvesting from his right hip Family History Family History Father Acute myocardial infarction Mother Breast cancer Cerebrovascular accident Social History Social History Social History: The patient is . 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 He has smoked up to a pack of cigarettes per day and started smoking around age 14. He is now down to 1/2 pack of cigarettes per day. He drinks at least 1 mixed drink a day.. He denies a history of alcohol withdrawal and is went up to 8 days without drinking without withdrawal symptoms. He denies illicit substance use. Code status full code Smoking packs per day: 0.5 Smoking cigarettes per day: 10.0 Years smoked: 40 Smoking pack-years: 20.00 Smoking status: Current every day smoker Alcohol intake: current Drinks per week: 7 Substance use: never Substance use type: does not use Lack of Transportation: No Lack of Food: Never True Current Housing: I Have Housing Concerned About Future Housing: No Difficulty Paying Gas/Electric Bills: No Difficulty Paying for Meds: No Currently Unemployed: No Education: Don't Know Difficulty w/ Childcare or Family Care: No Gender identity (if verbalized by the patient): Male Spiritual care concerns: No Exam Narrative: GENERAL: Chronically ill-appearing, in no acute distress HEAD: Normocephalic, atraumatic. EYES: PERRLA and EOMI. ENT: Nares clear, no rhinorrhea or epistaxis. Mucous membranes dry NECK: Supple. CHEST: Diminished bilaterally, no respiratory distress HEART: Regular rate and rhythm. No murmur heard. Normal peripheral pulses. ABDOMEN
[2022-12-09] MEDS: SODIUM CHLORIDE 0.9% IV 1,000 ML 999 ML IV CONT ×2 (15:36)
[2022-12-09 15:37] LABS: Magnesium 1.6 mg/dL (1.6-2.3)
[2022-12-09] MEDS: ONDANSETRON INJ 4 MG/2 ML VIAL IV PUSH (15:37)
[2022-12-09] MEDS: HYDROmorphone HCL INJ (*CRX) 1 MG/ML SYR 0.5 MG IV PUSH ×2 (15:38→18:03)
[2022-12-09 15:43] LABS: Troponin I < 0.012 ng/mL (0.000-0.034)
[2022-12-09 15:50] LABS: INR 0.9; Prothrombin Time 12.9 Seconds (11.1-14.7)
[2022-12-09 15:51] LABS: Partial Thromboplastin Time 28.1 SECONDS (22.3-36.8)
[2022-12-09 16:04] LABS: Blood Urea Nitrogen 146 mg/dL (9-20); Creatine Kinase 23 U/L (55-170); Lipase 2015 U/L (23-300)
[2022-12-09 16:16] LABS: Influenza A QL RT-PCR Negative (Negative); Influenza B QL RT-PCR Negative (Negative); SARS-CoV-2 RNA PCR Negative (Negative)
[2022-12-09] MEDS: KCL 20 MEQ/SW 100 ML 100 ML 50 MEQ IVPB (17:24)
[2022-12-09 17:35] LABS: Troponin I < 0.012 ng/mL (0.000-0.034)
[2022-12-09] MEDS: SODIUM CHLORIDE 0.9% IV 250 ML 60 ML (18:08)
--- NOTE | 2022-12-09 21:44 | PM.IMHP ---
H&P: HPI History of Present Illness Date/Time: 12/09/22 21:44 Chief Complaint: Weakness and failure to thrive Narrative: This is a 57-year-old male patient who has a history of small-bowel obstruction status post colostomy. The patient has a colostomy and G-tube for failure to thrive. The patient stated that he is never use the G-tube. There was blood noted in his G-tube today. The patient has had decreased appetite and has been unable to tolerate p.o. fluids. The patient stated that at 1 point he was told that he was going to have his colostomy reversed. The patient has been complaining of severe pain to his abdomen. Abdominal pelvis CT was read as the following. 5 mm pancreatic head cyst, recommend follow-up MR or CT of the pancreas with contrast in one year to begin to assess stability. 2. Persistent ileocolic fistula. 3. Bladder wall thickening, may be secondary to inadequate distention or cystitis. 4. Stable mesenteric lymphadenopathy. Chest x-ray was read as no acute cardiopulmonary process. The patient was given IV fluid bolus, Zofran, potassium and Dilaudid. Patient's initial H&H was 8.7 and 24.2 but is down to 7.5 and 21.2. Sodium is 128. Potassium 3.1. Chloride 8.2. BUN 146 creatinine 8.9. Cardiac enzymes negative x2. Lipase is 2015 the patient is being admitted to inpatient status on the date of service of 12/09/2022. Review of Systems Review of Systems: All systems reviewed & are unremarkable except as noted in HPI and below Constitutional: Constitutional: Reports as per HPI and Reports no additional constitutional complaints Eyes: Eyes: Reports as per HPI and Reports no additional eye complaints ENT: Reports system reviewed and no additional complaints, except as documented and Reports Normal hearing present Cardiovascular: Cardiovascular: Reports no additional cardiovascular complaints Respiratory: Respiratory: Reports no additional respiratory complaints and Reports no additional respiratory complaints Gastrointestinal: Gastrointestinal: Reports as per HPI and Reports no additional gastrointestinal complaints Musculoskeletal: Musculoskeletal: Reports no additional musculoskeletal complaints Integumentary/Breasts: Skin/Breast: Reports system reviewed and no additional complaints, except as docu and Reports as per HPI Neurologic: Reports system reviewed and no additional complaints, except as documented, Reports as per HPI and Reports Normal hearing present Psychiatric: Psychiatric: Reports no additional psychiatric complaints and Reports as per HPI Endocrine: Endocrine: Reports no additional endocrine complaints Hematologic/Lymphatic: Hematologic/Lymphatic: Reports no additional hematologic/lymphatic complaints Allergic/Immunologic: Allergic/Immunologic: Reports no additional allergic/immunologic complaints [facility] Past Medical History Medical History (Updated 12/10/22 @ 02:29 by Wen Suarez NP) Alcoholism Continuous tobacco abuse COPD (chronic obstructive pulmonary disease) CVA (cerebral vascular accident) Entero-colic fistula Initially noted on CT from 12/2019 Kidney stones LLQ pain Right inguinal hernia Patient refuses surgical correction Stomach ulcer Tobacco abuse Surgical History Surgical History History of left inguinal hernia repair X2 History of pneumonectomy Left lower lobe pneumonectomy 2018 due to pneumothorax History of tonsillectomy and adenoidectomy S/P laparotomy exploratory laparotomy, extensive lysis of adhesions of approximately 45 minutes, takedown of colo-entero fistula, small-bowel resection, creation of loop ileostomy on 05/02/22 Status post open reduction with internal fixation of fracture Status post right foot surgery (~1990) For sequential surgeries for ORIF right foot due to trauma from alcohol use with the last surgical procedure also involving bone harvesting from his right hip Family History Anel
[2022-12-10] VITALS (8 sets, daily range): BP systolic 112–121; BP diastolic 60–64; PULSE 59–72; RESP 16; TEMP 36.6–36.7; O2SAT 99–100; BMI 17.7
[2022-12-10] MEDS: HYDROmorphone HCL INJ (*CRX) 1 MG/ML SYR 0.5 MG IV PUSH ×5 (00:08→21:59)
[2022-12-10 00:35] LABS: Hematocrit 21.2 % (42.0-52.0); Hemoglobin 7.5 g/dL (14.0-18.0)
[2022-12-10] MEDS: SODIUM CHLORIDE 0.9% IV 1,000 ML 100 ML IV CONT ×2 (02:59→19:17)
[2022-12-10 04:09] LABS: Basophils Percent Auto 0.4 % (0.2-1.2); Eosinophils Absolute Auto 0.1 K/mm3 (0-0.3); Eosinophils Percent Auto 2.9 % (0-4.4); Hemoglobin 7.2 g/dL (14.0-18.0); Immature Granulocyte Absolute 0.02 K/mm3 (0.00-0.031); Immature Granulocyte Percent A 0.4 % (0-0.5); Lymphocytes Absolute Auto 1.13 K/mm3 (0.9-3.2); Lymphocytes Percent Auto 24.8 % (18.3-44.2); Mean Corpuscular Hemoglobin 37.9 pg (26-34); Mean Corpuscular Volume 108.4 fl (80-100); Monocytes Absolute Auto 0.7 K/mm3 (0.1-0.6); Monocytes Percent Auto 14.3 % (2.6-8.5); Neutrophils Absolute Auto 2.6 K/mm3 (1.3-6.7); Neutrophils Percent Auto 57.2 % (45.5-73.1); Platelet Count Result 118 k/mm3 (150-375); Red Cell Distribution Width 11.2 % (11.5-14.5); White Blood Count 4.6 K/mm3 (4.5-10.0)
[2022-12-10 04:21] LABS: Lactic Acid Reflex 0.7 mmol/L (0.7-2.0)
[2022-12-10 04:55] LABS: Anion Gap 21 mmol/L (8-16); Calcium 8.4 mg/dL (8.4-10.2); Carbon Dioxide 18 mmol/L (22-30); Chloride 94 mmol/L (98-107); Cholesterol 91 mg/dL (0-200); Estimated CRCL calculation 7 ml/min; Estimated Glomerular Filt Rate 7; Glucose 67 mg/dL (65-110); HDL Direct 53 mg/dL; Lipase 1524 U/L (23-300); Magnesium 1.5 mg/dL (1.6-2.3); Potassium 3.1 mmol/L (3.4-5.0); Sodium 133 mmol/L (137-145); Triglycerides 54 mg/dL (<150)
[2022-12-10 04:59] LABS: Hematocrit 20.6 % (42.0-52.0)
[2022-12-10 05:01] LABS: Potassium Urine Random 20.4 meq/L; Sodium Urine Random 21 meq/L
[2022-12-10 05:48] LABS: Blood Urea Nitrogen 122 mg/dL (9-20); LDL Cholesterol Direct < 30 mg/dL
--- NOTE | 2022-12-10 07:35 | PM.IMPN ---
Progress Note: A&P Assessment and Plan (1) Pancreatitis: Code(s): K85.90 - Acute pancreatitis without necrosis or infection, unspecified Status: Acute Assessment and Plan: Patient's lipase is 2015. CT scan showing stable 5mm pancreatic head cyst but no ductal dilatation. he does have possibel sludge or stones in GB. GI consulted. TG 54. Probably related to alcohol use. Stared on clear liquid diet. Lipase down to 1524 Continue with IV fluids and current diet. MRCP ordered. (2) RADHA (acute kidney injury): Code(s): N17.9 - Acute kidney failure, unspecified Status: Acute Assessment and Plan: BUN 146 creatinine 8.9. GFR 6. Renal ultrasound has been ordered. Started on IV fluids. He has poor oral intake. He states his GTube has never been used for nutrition. BUN 122 and Cr 8.2. He mentions that he sees a fine grader as an outpatient but BUN/Cr normal in April 2022. Most likely prerenal azotemia due to dehydration and poor oral intake. Nephrology has been consulted. He also having metabolic acidosis. Continue with IV fluids and add bicarb. (3) GI bleed: Code(s): K92.2 - Gastrointestinal hemorrhage, unspecified Status: Acute Assessment and Plan: Patient having red blood from GTube and from ostomy. Saray had a takedown of colo-entero fistula, SB resection and creation of a loop ileostomy on 05/06/22. He is followed at [facility] with plans for reversal at some point. GI has been consulted. The patient is not on any NSAIDs. Continue with Protonix IV. (4) Anemia: Code(s): D64.9 - Anemia, unspecified Status: Acute Assessment and Plan: Hgb 8.7 on admission and has dropped to 7.2 possibly related to IV fluids. Serial HH ordered. Was anemic at discharge in April but unclear if he had improvement in the interim. Suspect related to GI blood loss at least partially. Check iron studies and B12. Low plt could be related to B12 deficiency but could also related to alcholism. Follow. (5) Failure to thrive: Status: Acute Assessment and Plan: The patient has poor oral intake. The patient does have a G-tube but he stated that he has not had any tube feedings through it. He would like to have his G-tube removed and was also like his colostomy bag reversed and is followed at [facility] with plans to have this down. Continue IVF. Continue liquid diet for pancreatitis. Advance diet as toelrated. Supplements ordered (6) Hypokalemia: Code(s): E87.6 - Hypokalemia Status: Acute Assessment and Plan: Potassium low at 3.1. Replace as necessary. (7) Alcohol abuse: Code(s): F10.10 - Alcohol abuse, uncomplicated Status: Acute Assessment and Plan: Patient was educated about the benefits of stopping alcohol use. Continue thiamine and trended. He has been started on CIWA protocol. (8) Tobacco abuse: Code(s): Z72.0 - Tobacco use Status: Acute Assessment and Plan: The patient was offered a nicotine patch. Smoking cessation was discussed but patient refused to quit (9) Severe malnutrition: Code(s): E43 - Unspecified severe protein-calorie malnutrition Status: Acute Assessment and Plan: Patient has been evaluated by dietary. Patient has severe malnutrition as related to inadequate protein energy intake with increased protein energy needs in the setting of a chronic disease and his underlying medical condition with fistula and colostomy. He has minimal oral intake for the last 1-2 months with significant weight loss of 20% over the past 8 months. Will add supplements. Subjective Date/time seen: 12/10/22 07:35 Interval history: 57yo male with hx of CVA, COPD and entero-colonic fistula here for weakness and found to have RADHA. Assuming care. Chart reviewed. Patient feels tired. his urine is clear but is voiding small volumes. Does complain of dysuria. He has n
[2022-12-10] MEDS: NICOTINE (*PBKC) 14 MG PATCH 1 PATCH TRANSDERM (08:15)
[2022-12-10] MEDS: FOLIC ACID 1 MG/0.2 ML INJ IV PUSH (08:17)
[2022-12-10] MEDS: THIAMINE HCL 200 MG/2 ML VIAL 100 MG IV PUSH (08:19)
[2022-12-10] MEDS: PANTOPRAZOLE SODIUM IV 40 MG VIAL IV PUSH ×2 (08:22→20:14)
[2022-12-10 08:35] LABS: Glucose Point of Care 65 mg/dl (65-105)
[2022-12-10] MEDS: SODIUM BICARBONATE TAB 650 MG TABLET PO ×2 (10:26→17:44)
[2022-12-10] MEDS: POTASSIUM CHLORIDE 10 MEQ ER TABLET PO (10:26)
[2022-12-10] MEDS: MAGNESIUM SULF 1 GM/D5W 100 ML 1 GM/100 ML BAG IVPB (10:26)
[2022-12-10 11:35] LABS: Hematocrit 21.4 % (42.0-52.0); Hemoglobin 7.4 g/dL (14.0-18.0)
[2022-12-10 11:57] LABS: Glucose Point of Care 182 mg/dl (65-105)
[2022-12-10 12:40] LABS: Iron 114 ug/dL (49-181)
[2022-12-10 12:49] LABS: Percent Iron Saturation 46 % (20-50)
[2022-12-10 12:50] LABS: IFOB Positive Control Positive; Immunochemical Fecal Occult Bl Positive (N)
[2022-12-10 13:51] LABS: Folic Acid > 20.0 ng/mL (2.76->20)
--- NOTE | 2022-12-10 15:10 | P.CONNP_ITS ---
Assessment and Plan Assessment and plan (1) RADHA (acute kidney injury): Code(s): N17.9 - Acute kidney failure, unspecified Status: Acute Assessment and Plan: * normal renal function in 2021 * however, in August 2022 -- creatinine was 4.12mg/dl * then in September 2022 (after pushing oral fluids), creatinine was 3.52mg/dl * history would suggest volume depletion/dehydration * unclear if this alone would explain his severe RADHA/ARF * follow-up on urine electrolytes/studies and renal ultrasound * given the severity of his presumed RADHA, will pursue serological evaluation * continue with IVFs and agree with addtion of bicarb (given metabolic acidosis) * follow trend of repeat labs and UOP (2) Pancreatitis: Code(s): K85.90 - Acute pancreatitis without necrosis or infection, unspecified Status: Acute Assessment and Plan: * as noted by admission lipase * CT abdomen imaging noted -- 5mm pacreatic head cyst with questionable sludge/stones in gallbladder * follow trend of lipase (trending down) * MRCP to be done for further evaluation * Gastroenterology consulted * continue IVFs and advance diet as tolerated (3) Hypokalemia: Code(s): E87.6 - Hypokalemia Status: Acute Assessment and Plan: * repeat cautiously given RADHA/ARF * follow trend (4) GI bleed: Code(s): K92.2 - Gastrointestinal hemorrhage, unspecified Status: Acute Assessment and Plan: * reported blood at G-tube site and tubing as well as ostomy * follow trend of H/H * on PPI * Gastroenterology consulted (5) Anemia: Code(s): D64.9 - Anemia, unspecified Status: Acute Assessment and Plan: * as noted by admission * however, chronic component based on labs in April 2022 * suspect some dilutional effects form IVF resuscitation * suspect RADHA, acute illness, possible GI loss (see #4), alcoholism, and possible nutritional issues * follow-up on iron studies * PRBC transfusion per protocol * follow trend of H/H (6) Severe malnutrition: Code(s): E43 - Unspecified severe protein-calorie malnutrition Status: Acute Assessment and Plan: * dietary evaluation noted * poor protein intake worsened by increased protein needs secondary to chronic medical issues (fistula and colostomy, poor oral intake, alcoholism...etc) * noted significant weight loss as well * this has likely led to his failure to thrive * supplements added * continue supportive therapy I will continue to follow the patient with you while he remains hospitalized make further recommendations throughout his hospital course Thank you for allowing me to participate in the care this patient. History of Present Illness Reason for Consult Consult date: 12/14/22 Reason for consult: acute renal failure Chief Complaint Chief complaint: Acute Renal Failure History of Present Illness Narrative: The patient is a 57-year-old male with a past medical history as outlined below who presented to [facility] Emergency room for further evaluation of generalized weakness. The patient states that for the last several weeks if not months he has been having ongoing progressive fatigue and weakness. Associated with these symptoms has been decreased/poor appetite as well as poor oral intake/hydration. This is further complicated by the fact that he seems to have significant output up from his colostomy as well as issues/ problems with nausea and vomiting. Unfortunately, despite his suboptimal oral intake, he continues t
--- NOTE | 2022-12-10 15:10 | PM.CNNEP ---
Assessment and Plan Assessment and plan (1) RADHA (acute kidney injury): Code(s): N17.9 - Acute kidney failure, unspecified Status: Acute Assessment and Plan: normal renal function in 2021 however, in August 2022 -- creatinine was 4.12mg/dl then in September 2022 (after pushing oral fluids), creatinine was 3.52mg/dl history would suggest volume depletion/dehydration unclear if this alone would explain his severe RADHA/ARF follow-up on urine electrolytes/studies and renal ultrasound given the severity of his presumed RADHA, will pursue serological evaluation continue with IVFs and agree with addtion of bicarb (given metabolic acidosis) follow trend of repeat labs and UOP (2) Pancreatitis: Code(s): K85.90 - Acute pancreatitis without necrosis or infection, unspecified Status: Acute Assessment and Plan: as noted by admission lipase CT abdomen imaging noted -- 5mm pacreatic head cyst with questionable sludge/stones in gallbladder follow trend of lipase (trending down) MRCP to be done for further evaluation Gastroenterology consulted continue IVFs and advance diet as tolerated (3) Hypokalemia: Code(s): E87.6 - Hypokalemia Status: Acute Assessment and Plan: repeat cautiously given RADHA/ARF follow trend (4) GI bleed: Code(s): K92.2 - Gastrointestinal hemorrhage, unspecified Status: Acute Assessment and Plan: reported blood at G-tube site and tubing as well as ostomy follow trend of H/H on PPI Gastroenterology consulted (5) Anemia: Code(s): D64.9 - Anemia, unspecified Status: Acute Assessment and Plan: as noted by admission however, chronic component based on labs in April 2022 suspect some dilutional effects form IVF resuscitation suspect RADHA, acute illness, possible GI loss (see #4), alcoholism, and possible nutritional issues follow-up on iron studies PRBC transfusion per protocol follow trend of H/H (6) Severe malnutrition: Code(s): E43 - Unspecified severe protein-calorie malnutrition Status: Acute Assessment and Plan: dietary evaluation noted poor protein intake worsened by increased protein needs secondary to chronic medical issues (fistula and colostomy, poor oral intake, alcoholism...etc) noted significant weight loss as well this has likely led to his failure to thrive supplements added continue supportive therapy I will continue to follow the patient with you while he remains hospitalized make further recommendations throughout his hospital course Thank you for allowing me to participate in the care this patient. History of Present Illness Reason for Consult Consult date: 12/14/22 Reason for consult: acute renal failure Chief Complaint Chief complaint: Acute Renal Failure History of Present Illness Narrative: The patient is a 57-year-old male with a past medical history as outlined below who presented to [facility] Emergency room for further evaluation of generalized weakness. The patient states that for the last several weeks if not months he has been having ongoing progressive fatigue and weakness. Associated with these symptoms has been decreased/poor appetite as well as poor oral intake/hydration. This is further complicated by the fact that he seems to have significant output up from his colostomy as well as issues/ problems with nausea and vomiting. Unfortunately, despite his suboptimal oral intake, he continues to smoke and drink significant amounts of alcohol. As the symptoms have been progressively getting worse and worse, he presented to the emergency room for further assessment. Workup and evaluation in the emergency room demonstrated the patient to be hemodynamically stable although he did report some symptoms of orthostasis. Routine blood test demonstrated a significant decline in his renal function with his creatinine up to 8.
--- NOTE | 2022-12-10 15:56 | WPDGICN ---
Assessment and Plan Assessment and plan (1) Pancreatitis: Code(s): K85.90 - Acute pancreatitis without necrosis or infection, unspecified Status: Acute (2) Cyclical vomiting with nausea: Code(s): R11.15 - Cyclical vomiting syndrome unrelated to migraine Status: Acute Assessment and Plan: He will have nausea with vomiting spells ago on for couple of days every so often. He has never had this investigated with endoscopy. CT scan was rather unremarkable. (3) Severe malnutrition: Code(s): E43 - Unspecified severe protein-calorie malnutrition Status: Acute Assessment and Plan: he has lost about 30 lb in the past year (4) Anemia: Code(s): D64.9 - Anemia, unspecified Status: Acute Assessment and Plan: hemoglobin today 7.2 with hematocrit 20.6. MCV is elevated suggesting that it is nutritional, and not due to blood loss. He has however seen a small amount of blood in his NG tube today (5) Megaloblastic anemia due to alcoholism: Code(s): D53.1 - Other megaloblastic anemias, not elsewhere classified Status: Acute Assessment and Plan: he admits to drinking alcohol but not to excess. Plan I will schedule him for EGD to be done tomorrow per id as he wishes I will remove his indwelling G-tube at that time. He would like to try regular diet tonight. GI Consult Note Consult date/time: 12/10/22 15:56 HPI: Juan Jose Martinez is a 57 year old male admitted because of persistent recurrent nausea and vomiting. He states that for the past 8 or 9 months, basically since he had a colostomy and adhesiolysis that he has episodes of intense nausea and vomiting lasting for couple days. Will then subside for few days or week or 2 and come back. He has been losing weight, about 30 lb in the past year. He states that prior to his surgery he had had a stroke and apparently at that time his G-tube was inserted. He states that he has never used his G-tube. He does use a syringe to evacuate his stomach from time to time and has noticed some blood in his G-tube lately. Or last few days he has had pain in his mid abdomen and upper abdomen. A CT scan did not show any acute changes except there was a tiny cyst in the head of the pancreas. His lipase is elevated. He denies chronic use of NSAIDs and of drinking daily. He thinks that he may have had an ulcer at some point time. He is not on any medications other than amlodipine. Review of Systems Review of Systems: All systems reviewed & are unremarkable except as noted in HPI and below PMFSH Past Medical History Medical History Alcoholism Continuous tobacco abuse COPD (chronic obstructive pulmonary disease) CVA (cerebral vascular accident) Entero-colic fistula Initially noted on CT from 12/2019 Kidney stones LLQ pain Right inguinal hernia Patient refuses surgical correction Stomach ulcer Tobacco abuse Surgical History Surgical History History of left inguinal hernia repair X2 History of pneumonectomy Left lower lobe pneumonectomy 2018 due to pneumothorax History of tonsillectomy and adenoidectomy S/P laparotomy exploratory laparotomy, extensive lysis of adhesions of approximately 45 minutes, takedown of colo-entero fistula, small-bowel resection, creation of loop ileostomy on 05/02/22 Status post open reduction with internal fixation of fracture Status post right foot surgery (~1990) For sequential surgeries for ORIF right foot due to trauma from alcohol use with the last surgical procedure also involving bone harvesting from his right hip Family History Family History Father Acute myocardial infarction Mother Breast cancer Cerebrovascular accident Social History Social History S
[2022-12-10 17:08] LABS: Glucose Point of Care 93 mg/dl (65-105)
[2022-12-10 17:42] LABS: Hematocrit 22.7 % (42.0-52.0); Hemoglobin 7.8 g/dL (14.0-18.0)
[2022-12-11] VITALS (13 sets, daily range): BP systolic 116–150; BP diastolic 61–82; PULSE 53–98; RESP 14–28; TEMP 36.4–36.6; O2SAT 99–100
[2022-12-11] MEDS: HYDROmorphone HCL INJ (*CRX) 1 MG/ML SYR 0.5 MG IV PUSH ×5 (03:16→22:58)
[2022-12-11 03:53] LABS: Creatinine Urine 88.5 mg/dL; Total Protein Urine Random 31 mg/dL; Ur Ttl Prot Creatinine Ratio 0.35 mg/mg (0-0.20)
[2022-12-11 03:58] LABS: Sodium Urine Random 33 meq/L; Urea Random Urine 556 MG/DL
[2022-12-11 04:19] LABS: Eosinophil Urine None Seen % (None Seen); Urine Eos QC 2nd Tech Confirmed
[2022-12-11 05:28] LABS: Glucose Point of Care 105 mg/dl (65-105)
[2022-12-11 05:34] LABS: Basophils Percent Auto 0.5 % (0.2-1.2); Eosinophils Absolute Auto 0.1 K/mm3 (0-0.3); Hemoglobin 7.1 g/dL (14.0-18.0); Immature Granulocyte Absolute 0.01 K/mm3 (0.00-0.031); Immature Granulocyte Percent A 0.2 % (0-0.5); Lymphocytes Absolute Auto 1.04 K/mm3 (0.9-3.2); Lymphocytes Percent Auto 24.4 % (18.3-44.2); Mean Corpuscular HGB Conc 34.1 g/dl (32-36); Mean Corpuscular Hemoglobin 37.8 pg (26-34); Mean Corpuscular Volume 110.6 fl (80-100); Monocytes Absolute Auto 0.5 K/mm3 (0.1-0.6); Monocytes Percent Auto 11.2 % (2.6-8.5); Neutrophils Absolute Auto 2.6 K/mm3 (1.3-6.7); Neutrophils Percent Auto 60.7 % (45.5-73.1); Platelet Count Result 117 k/mm3 (150-375); Red Blood Count 1.88 M/mm3 (4.6-6.20); White Blood Count 4.3 K/mm3 (4.5-10.0)
[2022-12-11 05:36] LABS: Hematocrit 20.8 % (42.0-52.0)
[2022-12-11 05:38] LABS: Partial Thromboplastin Time 32.2 SECONDS (22.3-36.8); Prothrombin Time 13.8 Seconds (11.1-14.7)
[2022-12-11] MEDS: SODIUM CHLORIDE 0.9% IV 1,000 ML 100 ML IV CONT ×2 (05:44→17:58)
[2022-12-11 05:48] LABS: Creatine Kinase 34 U/L (55-170)
[2022-12-11 05:55] LABS: Complement C3 68 mg/dL (88-165)
[2022-12-11 06:02] LABS: Alanine Aminotransferase 37 U/L (6-50); Albumin Level 3.4 g/dL (3.5-5.1); Alkaline Phosphatase 55 U/L (38-126); Anion Gap 9 mmol/L (8-16); Aspartate Amino Transferase 36 U/L (17-59); Bilirubin,Total 0.5 mg/dL (0.2-1.3); Blood Urea Nitrogen 101 mg/dL (9-20); Calcium 8.4 mg/dL (8.4-10.2); Carbon Dioxide 23 mmol/L (22-30); Chloride 100 mmol/L (98-107); Estimated CRCL calculation 8 ml/min; Estimated Glomerular Filt Rate 8; Glucose 100 mg/dL (65-110); Lipase 1438 U/L (23-300); Magnesium 1.6 mg/dL (1.6-2.3); Phosphorus 4.7 mg/dL (2.5-4.5); Potassium 3.4 mmol/L (3.4-5.0); Sodium 132 mmol/L (137-145)
[2022-12-11 06:10] LABS: Anisocytosis 1+ (NORMAL); Hypochromasia 1+ (NORMAL); Macrocytosis 1+ (NORMAL); Schistocytes None Seen (NORMAL)
[2022-12-11] MEDS: PANTOPRAZOLE SODIUM IV 40 MG VIAL IV PUSH ×2 (08:14→22:53)
[2022-12-11] MEDS: FOLIC ACID 1 MG/0.2 ML INJ IV PUSH (08:15)
[2022-12-11] MEDS: THIAMINE HCL 200 MG/2 ML VIAL 100 MG IV PUSH (08:15)
[2022-12-11] MEDS: LACTATED RINGERS 1,000 ML 150 ML IV CONT (11:15)
--- NOTE | 2022-12-11 11:30 | WPDANESEPPF ---
Anes - Initial Pre Proc Eval Procedure: Operation Date: 12/11/22 11:30 Proposed Procedures p Esophagogastroduodenoscopy - Parmjit Hernandez MD Date/Time: 12/11/22 11:30 Surgeon: Giorgio Gonzalez MD Pre Op Diagnosis: Acute Renal Failure Patient Data Age: 57 Gender: M Height: 1.75 m Weight: 54.5 kg Last Vital Signs Temp 97.6 F 12/11/22 11:12 Pulse 70 12/11/22 11:12 Resp 18 12/11/22 11:12 BP 132/61 12/11/22 11:12 Pulse Ox 100 12/11/22 11:12 O2 Del Method Room Air 12/11/22 11:12 Allergies Allergy/AdvReac Type Severity Reaction Status Date / Time codeine Allergy Severe Swelling Verified 12/09/22 18:57 Home Medications Medication Instructions Recorded Confirmed Type amlodipine 5 mg tablet 5 mg 12/09/22 History Laboratory Tests 12/10/22 12/10/22 12/10/22 11:27 11:53 12:25 WBC RBC Hgb 7.4 L g/dL (14.0-18.0) Hct 21.4 L % (42.0-52.0) MCV MCH MCHC RDW Plt Count MPV Immature Gran % (Auto) Neut % (Auto) Lymph % (Auto) [place] % (Auto) Eos % (Auto) Baso % (Auto) Lymph # (Auto) [place] # (Auto) Eos # (Auto) Baso # (Auto) Abs Immat Gran (auto) Absolute Neuts (auto) Absolute Nucleated RBC Nucleated RBC % Platelet Estimate Hypochromasia Anisocytosis Macrocytosis Schistocytes PT INR APTT Sodium Potassium Chloride Carbon Dioxide Anion Gap BUN Creatinine Estim Creat Clear Calc Estimated GFR Glucose POC Capillary Glucose 182 H mg/dl (65-105) Calcium Phosphorus Magnesium Iron 114 ug/dL (49-181) TIBC 248 L ug/dL (265-497) % Saturation 46 % (20-50) Ferritin 1410.00 H ng/mL (11.1-264) Total Bilirubin AST ALT Alkaline Phosphatase Total Creatine Kinase Total Protein Albumin Jyfny-5-Sfcfqkioe Jmxwa-0-Twavsaret Adox-8-Dfxcvlxr Uopx-4-Nwhglhjq Gamma Globulins Abnorm Protein Band 1 Abnorm Protein Band 3 PEP Interpretation Lipase Vitamin B12 703.0 pg/mL (239-931) Folate > 20.0 H ng/mL (2.76->20) Urine Eosinophils Ur Random Creatinine U Random Total Protein Ur Random Sodium Ur Random Chloride U Random Chloride/Creat Ur Random Urea Urine Creatinine Protein/Creatinin Ratio Protein/Creat Ratio 2 Urine Albumin U Rqwnj-1-Umipxotq U Mqshp-2-Fkjthpmu U Beta Globulin U Gamma Globulin U Abnormal Prot Band 1 U Abnormal Prot Band 2 U Abnormal Prot Band 3 Urine PEP Interpret Stl Occult Blood (IFOB) Positive H (N) Cryoglobulin % Cryoglobulin Qualit KO Screen ANCA Screen Anti-DNA Antibody Glomerular Base Memb Ab Complement C3 Complement C4 12/10/22 12/10/22 12/11/22 16:59 17:35 03:21 WBC RBC Hgb 7.8 L g/dL (14.0-18.0) Hct 22.7 L % (42.0-52.0) MCV MCH MCHC RDW Plt Count MPV Immature Gran % (Auto) Neut % (Auto
--- NOTE | 2022-12-11 13:47 | PM.IMPN ---
Progress Note: A&P Assessment and Plan (1) Pancreatitis: Code(s): K85.90 - Acute pancreatitis without necrosis or infection, unspecified Status: Acute Assessment and Plan: Patient's lipase was 2015. CT scan showing stable 5mm pancreatic head cyst but no ductal dilatation. He does have possible sludge or stones in GB. GI was consulted. TG 54. MRCP showing 3 small cysts and cholelithiasis. Probably related to alcohol use but can not exclude GS pancreatitis. Stared on clear liquid diet and diet advanced. Lipase down to 1438. Continue with IV fluids. General surgery consult for evaluation for possible cholecystectomy. (2) RADHA (acute kidney injury): Code(s): N17.9 - Acute kidney failure, unspecified Status: Acute Assessment and Plan: BUN 146 creatinine 8.9. GFR 6. Renal ultrasound is unremarkable. Started on IV fluids. He had poor oral intake. He states his GTube has never been used for nutrition. He mentions that he sees a craft worker as an outpatient but BUN/Cr normal in April 2022 but higher in August with Cr 4.12 (per nephrology note). UA showing 1+ protein o/w bland. No urine eos. Dipesh 21 with FENa 1.5%. Most likely prerenal azotemia with underlying acute renal process. Nephrology consulted and appreciate their input. Metabolic acidosis better with oral bicarb. With IV fluids, BUN 101 and Cr 7.1. Continue monitoring. (3) GI bleed: Code(s): K92.2 - Gastrointestinal hemorrhage, unspecified Status: Acute Assessment and Plan: Patient having red blood from GTube and from ostomy. He was guaiac positive. Patient had a takedown of colo-entero fistula, SB resection and creation of a loop ileostomy on 05/06/22. He is followed at [facility] with plans for reversal at some point. GI consulted and appreciate their input. EGD showing a few duodenal ulcers, duodenitis and reflux esophagitis. The patient is not on any NSAIDs. Continue with Protonix IV. (4) Anemia: Code(s): D64.9 - Anemia, unspecified Status: Acute Assessment and Plan: Hgb 8.7 on admission and has dropped to 7.2 possibly related to IV fluids. Serial HH ordered. Was anemic at discharge in April but unclear if he had improvement in the interim. Suspect related to GI blood loss at least partially. Iron studies and B12 levels normal. Low plt low but stable. Hgb stable in the 7 range. Follow. (5) Failure to thrive: Status: Acute Assessment and Plan: The patient has poor oral intake. The patient does have a G-tube but he stated that he has not had any tube feedings through it. He would like to have his G-tube removed which was done today by EGD. He also would like his colostomy bag reversed and is followed at [facility] with plans to have this down. Continue IVF. Supplements ordered (6) Hypokalemia: Code(s): E87.6 - Hypokalemia Status: Acute Assessment and Plan: Potassium low at 3.4. Replace as necessary. (7) Alcohol abuse: Code(s): F10.10 - Alcohol abuse, uncomplicated Status: Acute Assessment and Plan: Patient was educated about the benefits of stopping alcohol use. Continue thiamine and trended. Continue CIWA protocol. (8) Tobacco abuse: Code(s): Z72.0 - Tobacco use Status: Acute Assessment and Plan: The patient was offered a nicotine patch. Smoking cessation was discussed but patient refused to quit (9) Severe malnutrition: Code(s): E43 - Unspecified severe protein-calorie malnutrition Status: Acute Assessment and Plan: Patient has been evaluated by dietary. Patient has severe malnutrition as related to inadequate protein energy intake with increased protein energy needs in the setting of a chronic disease and his underlying medical condition with fistula and colostomy. He has minimal oral intake for the last 1-2 months with significant weight loss of 20% over the past 8 months. Continue s
[2022-12-11] MEDS: SODIUM BICARBONATE TAB 650 MG TABLET PO ×2 (13:53→17:57)
[2022-12-11] MEDS: NICOTINE (*PBKC) 14 MG PATCH 1 PATCH TRANSDERM (13:54)
[2022-12-11] MEDS: POTASSIUM CHLORIDE 10 MEQ ER TABLET PO (14:45)
--- NOTE | 2022-12-11 14:46 | PM.PNNEP ---
Progress Note: A&P Assessment and Plan (1) RADHA (acute kidney injury): Code(s): N17.9 - Acute kidney failure, unspecified Status: Acute Assessment and Plan: slow improvement noted normal renal function in 2021 however, in August 2022 -- creatinine was 4.12mg/dl then in September 2022 (after pushing oral fluids), creatinine was 3.52mg/dl history would suggest volume depletion/dehydration unclear if this alone would explain his severe RADHA/ARF evaluation to date: renal ultrasound without obstruction CPK normal urine electrolytes are pre-renal urine eosinophils negative serologies pending continue with IVFs and oral bicarb follow trend of repeat labs and UOP (2) Pancreatitis: Code(s): K85.90 - Acute pancreatitis without necrosis or infection, unspecified Status: Acute Assessment and Plan: as noted by admission lipase CT abdomen imaging noted -- 5mm pacreatic head cyst with questionable sludge/stones in gallbladder follow trend of lipase (trending down) MRCP to be done for further evaluation Gastroenterology recommendations noted continue IVFs and advance diet as tolerated (3) Hypokalemia: Code(s): E87.6 - Hypokalemia Status: Acute Assessment and Plan: repeat cautiously given RADHA/ARF follow trend (4) GI bleed: Code(s): K92.2 - Gastrointestinal hemorrhage, unspecified Status: Acute Assessment and Plan: reported blood at G-tube site and tubing as well as ostomy follow trend of H/H on PPI Gastroenterology following S/P EGD today: reflux esophagitis, duodenitis with a few superficial ulcers G-tube subsequently removed (5) Anemia: Code(s): D64.9 - Anemia, unspecified Status: Acute Assessment and Plan: as noted by admission however, chronic component based on labs in April 2022 suspect some dilutional effects form IVF resuscitation suspect RADHA, acute illness, possible GI loss (see #4), alcoholism, and possible nutritional issues anemia studies with adequate iron stores - consider empiric Epogen PRBC transfusion per protocol follow trend of H/H (6) Severe malnutrition: Code(s): E43 - Unspecified severe protein-calorie malnutrition Status: Acute Assessment and Plan: dietary evaluation noted poor protein intake worsened by increased protein needs secondary to chronic medical issues (fistula and colostomy, poor oral intake, alcoholism...etc) noted significant weight loss as well this has likely led to his failure to thrive supplements added continue supportive therapy Will continue to follow. Subjective Date/time seen: 12/11/22 14:46 Interval history: Follow-up for acute kidney injury/acute renal failure (on possible chronic kidney disease?). No apparent issues or problems voiced at the time of my visit other than some dysuria; no nausea or vomiting reported; lipase trending down and renal function appears to be slowly improving as well with IVFs; reasonable urine output noted as well; s/p EGD earlier today with findings noted -- tolerated this procedure reasonably well. Exam Narrative: General: WD/WN male in NAD Heart: normal S1 and S2; no rub Lungs: clear to auscultation Abdomen: soft, mild TTP, nondistended, positive bowel sounds; G-tube and colostomy noted Extremities: no cyanosis or clubbing; no edema Skin: warm and dry Objective Data Vital Signs Vital Signs: Vital Signs Temp Pulse Resp BP Pulse Ox O2 Del Method 12/11/22 14:30 97.6 F 72 16 150/71 H 99 12/11/22 08:00 60 12/11/22 12:30 66 17 123/71 100 Room Air 12/11/22 12:20 71 22 H 116/64 100 Room Air 12/11/22 12:10 98 28 H 132/82 100 Room Air 12/11/22 11:12 97.6 F 70 18 132/61 100 Room Air 12/11/22 08:15 Room Air 12/11/22 04:00 127/68 12/11/22 04:00 53 L 12/11/22 05:19 97.9 F 63 16 126/8
--- NOTE | 2022-12-11 14:46 | P.PNNP_ITS ---
Progress Note: A&P Assessment and Plan (1) RADHA (acute kidney injury): Code(s): N17.9 - Acute kidney failure, unspecified Status: Acute Assessment and Plan: * slow improvement noted * normal renal function in 2021 * however, in August 2022 -- creatinine was 4.12mg/dl * then in September 2022 (after pushing oral fluids), creatinine was 3.52mg/dl * history would suggest volume depletion/dehydration * unclear if this alone would explain his severe RADHA/ARF * evaluation to date: * renal ultrasound without obstruction * CPK normal * urine electrolytes are pre-renal * urine eosinophils negative * serologies pending * continue with IVFs and oral bicarb * follow trend of repeat labs and UOP (2) Pancreatitis: Code(s): K85.90 - Acute pancreatitis without necrosis or infection, unspecified Status: Acute Assessment and Plan: * as noted by admission lipase * CT abdomen imaging noted -- 5mm pacreatic head cyst with questionable sludge/stones in gallbladder * follow trend of lipase (trending down) * MRCP to be done for further evaluation * Gastroenterology recommendations noted * continue IVFs and advance diet as tolerated (3) Hypokalemia: Code(s): E87.6 - Hypokalemia Status: Acute Assessment and Plan: * repeat cautiously given RADHA/ARF * follow trend (4) GI bleed: Code(s): K92.2 - Gastrointestinal hemorrhage, unspecified Status: Acute Assessment and Plan: * reported blood at G-tube site and tubing as well as ostomy * follow trend of H/H * on PPI * Gastroenterology following * S/P EGD today: * reflux esophagitis, duodenitis with a few superficial ulcers * G-tube subsequently removed (5) Anemia: Code(s): D64.9 - Anemia, unspecified Status: Acute Assessment and Plan: * as noted by admission * however, chronic component based on labs in April 2022 * suspect some dilutional effects form IVF resuscitation * suspect RADHA, acute illness, possible GI loss (see #4), alcoholism, and possible nutritional issues * anemia studies with adequate iron stores - consider empiric Epogen * PRBC transfusion per protocol * follow trend of H/H (6) Severe malnutrition: Code(s): E43 - Unspecified severe protein-calorie malnutrition Status: Acute Assessment and Plan: * dietary evaluation noted * poor protein intake worsened by increased protein needs secondary to chronic medical issues (fistula and colostomy, poor oral intake, alcoholism...etc) * noted significant weight loss as well * this has likely led to his failure to thrive * supplements added * continue supportive therapy Will continue to follow. Subjective Date/time seen: 12/11/22 14:46 Interval history: Follow-up for acute kidney injury/acute renal failure (on possible chronic ki dney disease?). No apparent issues or problems voiced at the time of my visit other than some dysuria; no nausea or vomiting reported; lipase trending down and renal function appears to be slowly improving as well with IVFs; reasonable urine output noted as well; s/p EGD earlier today with findings noted -- tolerated this procedure reasonably well. Exam Narrative: General: WD/WN male in NAD Heart: normal S1 and S2; no rub Lungs: clear to auscultation Abdomen: soft, mild TTP, nondistended, positive bowel sounds; G-tube and colostomy noted Extremities: no cyanosis or clubbing; no edema Skin: warm and dry
[2022-12-11 20:07] LABS: Glucose Point of Care 116 mg/dl (65-105)
[2022-12-12] VITALS (13 sets, daily range): BP systolic 139–156; BP diastolic 72–83; PULSE 77–113; RESP 16–20; TEMP 36.6–37.4; O2SAT 100
[2022-12-12] MEDS: HYDROmorphone HCL INJ (*CRX) 1 MG/ML SYR 0.5 MG IV PUSH ×6 (02:42→22:54)
[2022-12-12] MEDS: SODIUM CHLORIDE 0.9% IV 1,000 ML 100 ML IV CONT ×2 (06:05→14:48)
[2022-12-12 06:28] LABS: Basophils Percent Auto 0.3 % (0.2-1.2); Eosinophils Absolute Auto 0.1 K/mm3 (0-0.3); Eosinophils Percent Auto 2.2 % (0-4.4); Immature Granulocyte Absolute 0.03 K/mm3 (0.00-0.031); Immature Granulocyte Percent A 0.5 % (0-0.5); Lymphocytes Absolute Auto 0.81 K/mm3 (0.9-3.2); Lymphocytes Percent Auto 13.9 % (18.3-44.2); Mean Corpuscular HGB Conc 33.5 g/dl (32-36); Mean Corpuscular Hemoglobin 37.1 pg (26-34); Mean Corpuscular Volume 110.8 fl (80-100); Mean Platelet Volume 11.1 fl (7.4-10.4); Monocytes Absolute Auto 0.5 K/mm3 (0.1-0.6); Monocytes Percent Auto 8.2 % (2.6-8.5); Neutrophils Absolute Auto 4.4 K/mm3 (1.3-6.7); Neutrophils Percent Auto 74.9 % (45.5-73.1); Platelet Count Result 124 k/mm3 (150-375); Red Blood Count 1.86 M/mm3 (4.6-6.20); Red Cell Distribution Width 10.8 % (11.5-14.5); White Blood Count 5.8 K/mm3 (4.5-10.0)
[2022-12-12 06:45] LABS: Hemoglobin 6.9 g/dL (14.0-18.0)
[2022-12-12 06:46] LABS: Hematocrit 20.6 % (42.0-52.0)
[2022-12-12 06:47] LABS: Alanine Aminotransferase 30 U/L (6-50); Alkaline Phosphatase 43 U/L (38-126); Anion Gap 9 mmol/L (8-16); Aspartate Amino Transferase 33 U/L (17-59); Bilirubin,Total 0.6 mg/dL (0.2-1.3); Blood Urea Nitrogen 82 mg/dL (9-20); Carbon Dioxide 22 mmol/L (22-30); Chloride 104 mmol/L (98-107); Estimated CRCL calculation 11 ml/min; Estimated Glomerular Filt Rate 11; Glucose 90 mg/dL (65-110); Magnesium 1.2 mg/dL (1.6-2.3); Potassium 3.3 mmol/L (3.4-5.0); Sodium 135 mmol/L (137-145)
--- NOTE | 2022-12-12 06:58 | WPDGIPROGNO ---
Progress Note: A&P Assessment and Plan (1) Pancreatitis: Code(s): K85.90 - Acute pancreatitis without necrosis or infection, unspecified Status: Acute Assessment and Plan: lipase is actually higher today.. I told Him that we could try him on a full liquid diet. MRCP shows cystic lesions in his pancreas. This is likely due to pancreatitis we will follow up with imaging in 6 weeks. (2) Cyclical vomiting with nausea: Code(s): R11.15 - Cyclical vomiting syndrome unrelated to migraine Status: Acute Assessment and Plan: He will have nausea with vomiting spells ago on for couple of days every so often. He has never had this investigated with endoscopy. CT scan was rather unremarkable. 12/12/2022 today he is hungry. He has had no further vomiting. I do not want to advance him to regular diet in I would like to see the lipase comes down 1st (3) Severe malnutrition: Code(s): E43 - Unspecified severe protein-calorie malnutrition Status: Acute Assessment and Plan: he has lost about 30 lb in the past year (4) Anemia: Code(s): D64.9 - Anemia, unspecified Status: Acute Assessment and Plan: hemoglobin today 7.2 with hematocrit 20.6. MCV is elevated suggesting that it is nutritional, and not due to blood loss. He has however seen a small amount of blood in his NG tube today Hemoglobin is stable (5) Megaloblastic anemia due to alcoholism: Code(s): D53.1 - Other megaloblastic anemias, not elsewhere classified Status: Acute Assessment and Plan: he admits to drinking alcohol but not to excess. Plan continue to rest his that except for full liquid diet until pain has resolved. I discuss pancreatitis with him again and told him he needs to get off alcohol not only because of that but because of other complications including his megaloblastic anemia. New onset of dysuria will probably need to be investigated by Urology. Subjective Date/time seen: 12/12/22 06:58 he states he slept Poorly. He is still having significant abdominal pain. He is also complaining this morning of dysuria. He has had a kidney stone in the past and believes that he had the symptoms with that. his G-tube gauze came off but he has had no leakage from that site. I explained him that because of the pancreatitis his abdomen will be sore for a few days and I told him that alcohol is almost certainly the etiology in his case. Exam Const: General: alert and thin Nutritional Appearance: thin Orientation/consciousness: patient oriented x3 Resp: Auscultation: clear to auscultation bilaterally Cardio: Rhythm: regular rhythm GI: Inspection: other ( G-tube Site is dry) GI Palp: Yes abdominal tenderness ( diffuse), Yes Guarding due to palpation present (GI), Yes No hepatosplenomegaly present and No Palpable mass present Auscultation: normal bowel sounds Neuro: General: patient oriented x3 Objective Data Vital Signs Vital Signs: Vital Signs - 24 hr 12/11/22 08:15 12/11/22 11:12 12/11/22 12:10 Temperature 36.4 C Pulse Rate 70 98 Respiratory Rate 18 28 H Blood Pressure 132/61 132/82 Pulse Oximetry 100 100 Oxygen Delivery Room Air Room Air Room Air 12/11/22 12:20 12/11/22 12:30 12/11/22 08:00 Temperature Pulse Rate 71 66 60 Respiratory Rate 22 H 17 Blood Pressure 116/64 123/71 Pulse Oximetry 100 100 Oxygen Delivery Room Air Room Air 12/11/22 14:30 12/11/22 20:00 12/11/22 20:00 Temperature 36.4 C Pulse Rate 72 72 Respiratory Rate 16 16 Blood Pressure 150/71 H 150/71 H Pulse Oximetry 99 99 Oxygen Delivery Room Air 12/11/22 20:24 12/12/22 00:00 12/12/22 04:00 Temperature 36.6 C Pulse Rate 74 Respiratory Rate 18 Blood Pressure 139/81 139/81 139/81 Pulse Oximetry 100 Oxygen Delivery 12/11/22 22:21 12/12/22 05:33 Temperature 36.7 C Pulse Rate 86 Respiratory Rate 17 Blood Pressure 150/79 H
[2022-12-12] MEDS: SODIUM CHLORIDE 0.9% IV 250 ML 30 ML IV CONT (07:26)
[2022-12-12] MEDS: NICOTINE (*PBKC) 14 MG PATCH 1 PATCH TRANSDERM (07:26)
[2022-12-12] MEDS: PANTOPRAZOLE SODIUM IV 40 MG VIAL IV PUSH ×2 (07:29→19:30)
[2022-12-12] MEDS: THIAMINE HCL 200 MG/2 ML VIAL 100 MG IV PUSH (07:44)
[2022-12-12] MEDS: SODIUM BICARBONATE TAB 650 MG TABLET PO ×2 (07:44→16:09)
[2022-12-12] MEDS: FOLIC ACID 1 MG/0.2 ML INJ IV PUSH (07:44)
[2022-12-12] MEDS: MAGNESIUM SULF 2 GM/WATER 50ML 2 GM/50 ML BAG IVPB (07:45)
[2022-12-12 07:49] LABS: Lipase 2843 U/L (23-300)
[2022-12-12 07:50] LABS: Glucose Point of Care 93 mg/dl (65-105)
--- NOTE | 2022-12-12 09:43 | WPDCN ---
Assessment and Plan Assessment and plan (1) Cholelithiasis: Code(s): K80.20 - Calculus of gallbladder without cholecystitis without obstruction Status: Acute Assessment and Plan: Patient has cholelithiasis noted on MRCP. He does not have any evidence of acute cholecystitis at this time. Has chronic abdominal pain likely due to chronic pancreatitis from his history of heavy alcohol use. He appears that he has a exacerbation of the pancreatitis now for which he is being admitted for. He is improving with supportive management in regards to his pancreatitis. I do not believe that proceeding with a cholecystectomy at this time is needed. There is no evidence that he has passed a gallstone into his bile duct causing the pancreatitis. Is much more likely his pancreatitis due to his chronic alcohol use. He has seen Dr. Cagle at [facility] for colorectal surgery evaluation. There is a plan to take down his enterocolonic fistula and then take down his diverting colostomy once hypertension is controlled by his primary care physician. From Dr. Cagle's notes it appears that he is going to perform an open procedure and so patient needs to have a cholecystectomy performed then it possibly be done at the same time as the colorectal surgery. For now I would just continue watching his gallbladder as there is no need for acute intervention. HPI Data of Consult Date/Time: 12/12/22 09:43 Requesting Physician: Giorgio Gonzalez MD Primary Care Provider: Giorgio Aguirre, Consult Narrative Reason for consult: Cholelithiasis Narrative: Juan Jose Martinez is a 57 year old male who has a history of alcohol abuse and was admitted to the hospital and found to have acute pancreatitis. MRI showed cholelithiasis but no evidence of acute cholecystitis. Acute pancreatitis is improving with supportive management. No evidence of common bile duct stone was seen. 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 Dr. Artis placed a diverting colostomy which he still has. Patient has seen Dr. Cagle at [facility] in [place] and there is a plan to perform takedown of the enterocolonic fistula and takedown of the colostomy. Patient has had controlled hypertension she has held up surgery for his fistula and colostomy. Review of Systems Review of Systems: The remainder of the review of systems to include constitutional, HEENT, cardiovascular, respiratory, GI, , integumentary, musculoskeletal, endocrine, immunologic, hematologic, psychiatric, and neurologic are all negative except for which is mentioned above in the HPI. FOR[facility]LY [facility] Past Medical History Medical History Alcoholism Continuous tobacco abuse COPD (chronic obstructive pulmonary disease) CVA (cerebral vascular accident) Entero-colic fistula Initially noted on CT from 12/2019 Kidney stones LLQ pain Right inguinal hernia Patient refuses surgical correction Stomach ulcer Tobacco abuse Surgical History Surgical History History of left inguinal hernia repair X2 History of pneumonectomy Left lower lobe pneumonectomy 2018 due to pneumothorax History of tonsillectomy and adenoidectomy S/P laparotomy exploratory laparotomy, extensive lysis of adhesions of approximately 45 minutes, takedown of colo-entero fistula, small-bowel resection, creation of loop ileostomy on 05/02/22 Status post open reduction with internal fixation of fracture Status post right foot surgery (~1990) For sequential surgeries for ORIF right foot due to trauma from alcohol use with the last surgical procedure also involving bone harvesting from his right hip Family History Family History Father Acute myocardial infarction Mother Breast cancer Cerebrovascular accident So
--- NOTE | 2022-12-12 10:04 | WPDANESPN ---
Anes - Prog Note Post-Op Date/Time: 12/12/22 10:04 Cardiovascular status: normal Respiratory status: normal Airway patency: baseline Mental status: baseline Post-Op hydration status: normal Vital Signs: Last Vital Signs Temp 37.1 C 12/12/22 09:55 Pulse 99 12/12/22 09:55 Resp 20 12/12/22 09:55 BP 156/72 H 12/12/22 09:55 Pulse Ox 100 12/12/22 09:55 O2 Del Method Room Air 12/12/22 08:00 Pain Score (VAS): 0 I/O: Intake & Output 12/11/22 12/12/22 12/12/22 23:59 07:59 15:59 Intake Total 250 1240 120 Output Total 500 600 550 Balance -250 640 -430 Laboratory Tests 12/12/22 06:00 12/12/22 06:00 12/10/22 12/11/22 12/12/22 03:51 20:05 06:00 WBC 5.8 RBC 1.86 L Hgb 6.9 L* Hct 20.6 L* MCV 110.8 H MCH 37.1 H MCHC 33.5 RDW 10.8 L Plt Count 124 L MPV 11.1 H Immature Gran % (Auto) 0.5 Neut % (Auto) 74.9 H Lymph % (Auto) 13.9 L [place] % (Auto) 8.2 Eos % (Auto) 2.2 Baso % (Auto) 0.3 Lymph # (Auto) 0.81 L [place] # (Auto) 0.5 Eos # (Auto) 0.1 Baso # (Auto) 0.0 Abs Immat Gran (auto) 0.03 Absolute Neuts (auto) 4.4 Absolute Nucleated RBC 0.0 Nucleated RBC % 0.0 Sodium 135 L Potassium 3.3 L Chloride 104 Carbon Dioxide 22 Anion Gap 9 BUN 82 H D Creatinine 5.20 H Estim Creat Clear Calc 11 Estimated GFR 11 L Glucose 90 POC Capillary Glucose 116 H Calcium 8.0 L Magnesium 1.2 L Total Bilirubin 0.6 AST 33 ALT 30 Alkaline Phosphatase 43 Total Protein 6.0 L Albumin 3.0 L Lipase Cancelled Blood Type O Positive Antibody Screen Negative Crossmatch See Detail 12/12/22 12/12/22 06:00 07:45 WBC RBC Hgb Hct MCV MCH MCHC RDW Plt Count MPV Immature Gran % (Auto) Neut % (Auto) Lymph % (Auto) [place] % (Auto) Eos % (Auto) Baso % (Auto) Lymph # (Auto) [place] # (Auto) Eos # (Auto) Baso # (Auto) Abs Immat Gran (auto) Absolute Neuts (auto) Absolute Nucleated RBC Nucleated RBC % Sodium Potassium Chloride Carbon Dioxide Anion Gap BUN Creatinine Estim Creat Clear Calc Estimated GFR Glucose POC Capillary Glucose 93 Calcium Magnesium Total Bilirubin AST ALT Alkaline Phosphatase Total Protein Albumin Lipase 2843 H Blood Type Antibody Screen Crossmatch Post-procedural complaints: none Patient Feedback: Patient satisfied with anesthetic care.
--- NOTE | 2022-12-12 11:55 | PCCCNOTE ---
On 12/12/22, the student, [Lisa Garcia], provided care and completed [facility] documentation on this patient. I have reviewed the student's documentation and agree with the findings.
[2022-12-12 11:59] LABS: Glucose Point of Care 82 mg/dl (65-105)
--- NOTE | 2022-12-12 12:13 | P.PNNP_ITS ---
Progress Note: A&P Assessment and Plan (1) RADHA (acute kidney injury): Code(s): N17.9 - Acute kidney failure, unspecified Status: Acute Assessment and Plan: * slow improvement noted * normal renal function in 2021 * however, in August 2022 -- creatinine was 4.12mg/dl * then in September 2022 (after pushing oral fluids), creatinine was 3.52mg/dl * history would suggest volume depletion/dehydration * unclear if this alone would explain his severe RADHA/ARF * evaluation to date: * renal ultrasound without obstruction * CPK normal * urine electrolytes are pre-renal * urine eosinophils negative * serologies pending * continue with IVFs and oral bicarb * follow trend of repeat labs and UOP (2) Pancreatitis: Code(s): K85.90 - Acute pancreatitis without necrosis or infection, unspecified Status: Acute Assessment and Plan: * as noted by admission lipase * CT abdomen imaging noted -- 5mm pacreatic head cyst with questionable sludge/stones in gallbladder * follow trend of lipase (trending down) * MRCP results noted * Gastroenterology and Surgery recommendations noted * continue IVFs and advance diet as tolerated (3) Hypokalemia: Code(s): E87.6 - Hypokalemia Status: Acute Assessment and Plan: * repeat cautiously given RADHA/ARF * follow trend (4) GI bleed: Code(s): K92.2 - Gastrointestinal hemorrhage, unspecified Status: Acute Assessment and Plan: * reported blood at G-tube site and tubing as well as ostomy * follow trend of H/H * on PPI * Gastroenterology following * S/P EGD: * reflux esophagitis, duodenitis with a few superficial ulcers * G-tube subsequently removed (5) Anemia: Code(s): D64.9 - Anemia, unspecified Status: Acute Assessment and Plan: * as noted by admission * however, chronic component based on labs in April 2022 * suspect some dilutional effects form IVF resuscitation * suspect RADHA, acute illness, possible GI loss (see #4), alcoholism, and possible nutritional issues * anemia studies with adequate iron stores - consider empiric Epogen * PRBC transfusion per protocol * follow trend of H/H (6) Severe malnutrition: Code(s): E43 - Unspecified severe protein-calorie malnutrition Status: Acute Assessment and Plan: * dietary evaluation noted * poor protein intake worsened by increased protein needs secondary to chronic medical issues (fistula and colostomy, poor oral intake, alcoholism...etc) * noted significant weight loss as well * this has likely led to his failure to thrive * supplements added * continue supportive therapy Will continue to follow. Subjective Date/time seen: 12/12/22 12:13 Interval history: Follow-up for acute kidney injury/acute renal failure (on possible chronic kidney disease?). Abdominal contines to improve each day; renal function continues to improve (albeit slowly) with ongoing IVF resuscitation; reasonable urine output and still reports on/off dyuria; no other issues/events overnight or earlier this morning. Exam Narrative: General: WD/WN male in NAD Heart: normal S1 and S2; no rub Lungs: clear to auscultation Abdomen: soft, mild TTP, nondistended, positive bowel sounds; colostomy noted Extremities: no cyanosis or clubbing; no edema Skin: warm and intact Objective Data Vital Signs Vital Signs:
--- NOTE | 2022-12-12 12:13 | PM.PNNEP ---
Progress Note: A&P Assessment and Plan (1) RADHA (acute kidney injury): Code(s): N17.9 - Acute kidney failure, unspecified Status: Acute Assessment and Plan: slow improvement noted normal renal function in 2021 however, in August 2022 -- creatinine was 4.12mg/dl then in September 2022 (after pushing oral fluids), creatinine was 3.52mg/dl history would suggest volume depletion/dehydration unclear if this alone would explain his severe RADHA/ARF evaluation to date: renal ultrasound without obstruction CPK normal urine electrolytes are pre-renal urine eosinophils negative serologies pending continue with IVFs and oral bicarb follow trend of repeat labs and UOP (2) Pancreatitis: Code(s): K85.90 - Acute pancreatitis without necrosis or infection, unspecified Status: Acute Assessment and Plan: as noted by admission lipase CT abdomen imaging noted -- 5mm pacreatic head cyst with questionable sludge/stones in gallbladder follow trend of lipase (trending down) MRCP results noted Gastroenterology and Surgery recommendations noted continue IVFs and advance diet as tolerated (3) Hypokalemia: Code(s): E87.6 - Hypokalemia Status: Acute Assessment and Plan: repeat cautiously given RADHA/ARF follow trend (4) GI bleed: Code(s): K92.2 - Gastrointestinal hemorrhage, unspecified Status: Acute Assessment and Plan: reported blood at G-tube site and tubing as well as ostomy follow trend of H/H on PPI Gastroenterology following S/P EGD: reflux esophagitis, duodenitis with a few superficial ulcers G-tube subsequently removed (5) Anemia: Code(s): D64.9 - Anemia, unspecified Status: Acute Assessment and Plan: as noted by admission however, chronic component based on labs in April 2022 suspect some dilutional effects form IVF resuscitation suspect RADHA, acute illness, possible GI loss (see #4), alcoholism, and possible nutritional issues anemia studies with adequate iron stores - consider empiric Epogen PRBC transfusion per protocol follow trend of H/H (6) Severe malnutrition: Code(s): E43 - Unspecified severe protein-calorie malnutrition Status: Acute Assessment and Plan: dietary evaluation noted poor protein intake worsened by increased protein needs secondary to chronic medical issues (fistula and colostomy, poor oral intake, alcoholism...etc) noted significant weight loss as well this has likely led to his failure to thrive supplements added continue supportive therapy Will continue to follow. Subjective Date/time seen: 12/12/22 12:13 Interval history: Follow-up for acute kidney injury/acute renal failure (on possible chronic kidney disease?). Abdominal contines to improve each day; renal function continues to improve (albeit slowly) with ongoing IVF resuscitation; reasonable urine output and still reports on/off dyuria; no other issues/events overnight or earlier this morning. Exam Narrative: General: WD/WN male in NAD Heart: normal S1 and S2; no rub Lungs: clear to auscultation Abdomen: soft, mild TTP, nondistended, positive bowel sounds; colostomy noted Extremities: no cyanosis or clubbing; no edema Skin: warm and intact Objective Data Vital Signs Vital Signs: Vital Signs Temp Pulse Resp BP Pulse Ox O2 Del Method 12/12/22 11:55 97.9 F 87 16 152/82 H 100 12/12/22 10:55 99.3 F 100 16 151/82 H 100 12/12/22 09:55 98.8 F 99 20 156/72 H 100 12/12/22 09:39 98.6 F 113 H 20 150/72 H 100 12/12/22 08:00 100 Room Air 12/12/22 05:33 98.0 F 86 17 150/79 H 100 12/11/22 22:21 99 Room Air 12/12/22 04:00 139/81 12/12/22 00:00 139/81 12/11/22 20:24 97.8 F 74 18 139/81 100 12/11/22 20:00 72 16 99 Room Air 12/11/22 20:00 150/71 H 12/11/22 14:30 97.6 F 72
--- NOTE | 2022-12-12 15:21 | PCPTNOTE ---
Received PT evaluation orders; talked with pt, he stated he does not need PT services. PT eval not performed.
--- NOTE | 2022-12-12 15:26 | PM.IMPN ---
Progress Note: A&P Assessment and Plan (1) Pancreatitis: Code(s): K85.90 - Acute pancreatitis without necrosis or infection, unspecified Status: Acute Assessment and Plan: Patient's lipase was 2015. CT scan showing stable 5mm pancreatic head cyst but no ductal dilatation. He does have possible sludge or stones in GB. GI was consulted. TG 54. MRCP showing 3 small pancreatic cysts and cholelithiasis. Probably related to alcohol use but can not exclude GS pancreatitis. Started on clear liquid diet and diet advanced to full. Lipase up to 2843. Unclear why lipase climbing. Clinically improving. Continue with IV fluids. General surgery consult for evaluation for possible cholecystectomy. This can be done when he has his reversal. Appreciate GenSurg and GI input. (2) RADHA (acute kidney injury): Code(s): N17.9 - Acute kidney failure, unspecified Status: Acute Assessment and Plan: BUN 146 creatinine 8.9. GFR 6. Renal ultrasound is unremarkable. Started on IV fluids. He had poor oral intake. He states his GTube has never been used for nutrition. He mentions that he sees a internal recruiter as an outpatient but BUN/Cr normal in April 2022 but higher in August with Cr 4.12 (per nephrology note). UA showing 1+ protein o/w bland. No urine eos. Dipesh 21 with FENa 1.5%. Most likely prerenal azotemia with underlying acute renal process. Metabolic acidosis better with oral bicarb. BUN 82 and Cr 5.2 now. UOP better at 1250mL yesterday Nephrology consulted and appreciate their input. Continue with IV fluids. Continue monitoring. Add pyridium (3) GI bleed: Code(s): K92.2 - Gastrointestinal hemorrhage, unspecified Status: Acute Assessment and Plan: Patient was having red blood from GTube and from ostomy. He was guaiac positive. Patient had a takedown of colo-entero fistula, SB resection and creation of a loop ileostomy on 05/06/22. He is followed at [facility] with plans for reversal at some point. GI consulted and appreciate their input. EGD 12/11 showing a few duodenal ulcers, duodenitis and reflux esophagitis; GTube removed. The patient is not on any NSAIDs. Continue with Protonix IV. (4) Anemia: Code(s): D64.9 - Anemia, unspecified Status: Acute Assessment and Plan: Hgb 8.7 on admission and has dropped related to IV fluids and GI bleed. Serial HH ordered. Was anemic at discharge in April but unclear if he had improvement in the interim. Suspect related to GI blood loss at least partially. Iron studies and B12 levels normal. Low plt low but stable. Hgb 6.9 now. Transfusion ordered. Follow. (5) Failure to thrive: Status: Acute Assessment and Plan: The patient has poor oral intake. The patient had a G-tube but he stated that he has not had any tube feedings through it. He wanted his G-tube removed which was done by EGD. He also would like his ostomy reversed and is followed at [facility] with plans to have this down. Continue IVF. Supplements ordered (6) Hypokalemia: Code(s): E87.6 - Hypokalemia Status: Acute Assessment and Plan: Potassium low at 3.3. Replace as necessary. (7) Alcohol abuse: Code(s): F10.10 - Alcohol abuse, uncomplicated Status: Acute Assessment and Plan: Patient was educated about the benefits of stopping alcohol use. Continue thiamine. Continue CIWA protocol. (8) Tobacco abuse: Code(s): Z72.0 - Tobacco use Status: Acute Assessment and Plan: The patient was offered a nicotine patch. Smoking cessation was discussed but patient refused to quit (9) Severe malnutrition: Code(s): E43 - Unspecified severe protein-calorie malnutrition Status: Acute Assessment and Plan: Patient has been evaluated by dietary. Patient has severe malnutrition as related to inadequate protein energy intake with increased protein energy needs in the setting of a chronic diseas
[2022-12-12] MEDS: PHENAZOPYRIDINE HCL 100 MG TABLET PO (16:09)
[2022-12-12 17:04] LABS: Glucose Point of Care 90 mg/dl (65-105)
[2022-12-12 19:49] LABS: Glucose Point of Care 117 mg/dl (65-105)
[2022-12-13] MEDS: SODIUM CHLORIDE 0.9% IV 1,000 ML 100 ML IV CONT ×3 (00:53→21:18)
[2022-12-13] MEDS: HYDROmorphone HCL INJ (*CRX) 1 MG/ML SYR 0.5 MG IV PUSH ×5 (01:59→15:47)
[2022-12-13 04:56] VITALS: BP 153/81; PULSE 89; RESP 20; TEMP 37; O2SAT 100
[2022-12-13 05:56] LABS: Lipase 1166 U/L (23-300)
[2022-12-13 07:00] LABS: Basophils Percent Auto 0.4 % (0.2-1.2); Eosinophils Absolute Auto 0.2 K/mm3 (0-0.3); Hematocrit 25.5 % (42.0-52.0); Hemoglobin 8.7 g/dL (14.0-18.0); Immature Granulocyte Absolute 0.03 K/mm3 (0.00-0.031); Immature Granulocyte Percent A 0.4 % (0-0.5); Lymphocytes Absolute Auto 1.09 K/mm3 (0.9-3.2); Lymphocytes Percent Auto 14.4 % (18.3-44.2); Mean Corpuscular HGB Conc 34.1 g/dl (32-36); Mean Corpuscular Hemoglobin 34.9 pg (26-34); Mean Corpuscular Volume 102.4 fl (80-100); Mean Platelet Volume 11.3 fl (7.4-10.4); Monocytes Absolute Auto 0.7 K/mm3 (0.1-0.6); Monocytes Percent Auto 9.3 % (2.6-8.5); Neutrophils Absolute Auto 5.6 K/mm3 (1.3-6.7); Neutrophils Percent Auto 73.5 % (45.5-73.1); Platelet Count Result 119 k/mm3 (150-375); Red Blood Count 2.49 M/mm3 (4.6-6.20); Red Cell Distribution Width 18.4 % (11.5-14.5); White Blood Count 7.6 K/mm3 (4.5-10.0)
[2022-12-13 07:14] LABS: Anion Gap 6 mmol/L (8-16); Blood Urea Nitrogen 59 mg/dL (9-20); Calcium 8.3 mg/dL (8.4-10.2); Carbon Dioxide 23 mmol/L (22-30); Chloride 107 mmol/L (98-107); Estimated CRCL calculation 13 ml/min; Estimated Glomerular Filt Rate 14; Glucose 91 mg/dL (65-110); Sodium 136 mmol/L (137-145)
--- NOTE | 2022-12-13 07:27 | WPDGIPROGNO ---
Progress Note: A&P Assessment and Plan (1) Pancreatitis: Code(s): K85.90 - Acute pancreatitis without necrosis or infection, unspecified Status: Acute Assessment and Plan: lipase is actually higher today.. I told Him that we could try him on a full liquid diet. MRCP shows cystic lesions in his pancreas. This is likely due to pancreatitis we will follow up with imaging in 6 weeks. imaging studies did show evidence of stones or sludge in the gallbladder. He will need a cholecystectomy in the near future. Is not possible to say whether the alcohol or stones produced his pancreatitis, but if it was gallstone pancreatitis, his lipase would have come down rather quickly. (2) Cyclical vomiting with nausea: Code(s): R11.15 - Cyclical vomiting syndrome unrelated to migraine Status: Acute Assessment and Plan: He will have nausea with vomiting spells ago on for couple of days every so often. He has never had this investigated with endoscopy. CT scan was rather unremarkable. 12/12/2022 today he is hungry. He has had no further vomiting. I do not want to advance him to regular diet in I would like to see the lipase comes down 1st (3) Severe malnutrition: Code(s): E43 - Unspecified severe protein-calorie malnutrition Status: Acute Assessment and Plan: he has lost about 30 lb in the past year His appetite has been very good and I will advance him to low-fat diet (4) Anemia: Code(s): D64.9 - Anemia, unspecified Status: Acute Assessment and Plan: hemoglobin today 7.2 with hematocrit 20.6. MCV is elevated suggesting that it is nutritional, and not due to blood loss. He has however seen a small amount of blood in his NG tube today Hemoglobin is stable (5) Megaloblastic anemia due to alcoholism: Code(s): D53.1 - Other megaloblastic anemias, not elsewhere classified Status: Acute Assessment and Plan: he admits to drinking alcohol but not to excess. (6) RADHA (acute kidney injury): Code(s): N17.9 - Acute kidney failure, unspecified Status: Acute Assessment and Plan: initial creatinine was 8.9. Has been coming down. 4.4 today Nephrology is following him. (7) Alcohol abuse: Code(s): F10.10 - Alcohol abuse, uncomplicated Status: Acute Assessment and Plan: again discussed his alcohol abuse. He states that he really had not been drinking that much recently. This raises the possibility that gallstones may have had something to do with his pancreatitis. He says he is definitely finished drinking alcohol. Hopefully he will be able to sustain that. He and I had a long discussion today about pancreatitis. I explained that it can be fatal. I told that is much easier to get a recurrence if 1 continues drinking. Plan continue to rest his that except for full liquid diet until pain has resolved. I discuss pancreatitis with him again and told him he needs to get off alcohol not only because of that but because of other complications including his megaloblastic anemia. New onset of dysuria will probably need to be investigated by Urology. Subjective Date/time seen: 12/13/22 07:27 he is feeling good. He states he is hungry. He added that he has not had any stomach problems since he got here. I told that we can start him on a low-fat diet he will be on this for several weeks. It main concern is that he has pain at his stoma in the right lower quadrant wants to be sure that he can go home on pain medication for that. He has no upper abdominal pain. He also still has dysuria. He thinks he may be passing a stone Exam Const: General: alert and thin Nutritional Appearance: thin Orientation/consciousness: patient oriented x3 Resp: Auscultation: clear to auscultation bilaterally Cardio: Rhythm: regular rhythm GI: Inspection: other ( G-tube Site is dry. Ostomy in RLQ) GI Palp: Yes abdom
[2022-12-13 08:26] LABS: Glucose Point of Care 84 mg/dl (65-105)
[2022-12-13] MEDS: THIAMINE HCL 200 MG/2 ML VIAL 100 MG IV PUSH (08:39)
[2022-12-13] MEDS: PANTOPRAZOLE SODIUM IV 40 MG VIAL IV PUSH ×2 (08:39→20:11)
[2022-12-13] MEDS: SODIUM BICARBONATE TAB 650 MG TABLET PO ×2 (08:39→17:28)
[2022-12-13] MEDS: FOLIC ACID 1 MG/0.2 ML INJ IV PUSH (08:40)
[2022-12-13] MEDS: LIPASE/AMYLASE/PROTEASE 12,000 UNITS CAP 2 CAP PO ×3 (08:40→17:28)
[2022-12-13] MEDS: NICOTINE (*PBKC) 14 MG PATCH 1 PATCH TRANSDERM (08:41)
[2022-12-13 12:00] LABS: Glucose Point of Care 91 mg/dl (65-105)
--- NOTE | 2022-12-13 12:49 | PM.PNNEP ---
Progress Note: A&P Assessment and Plan (1) RADHA (acute kidney injury): Code(s): N17.9 - Acute kidney failure, unspecified Status: Acute Assessment and Plan: slow improvement noted normal renal function in 2021 however, in August 2022 -- creatinine was 4.12mg/dl then in September 2022 (after pushing oral fluids), creatinine was 3.52mg/dl history would suggest volume depletion/dehydration unclear if this alone would explain his severe RADHA/ARF evaluation to date: renal ultrasound without obstruction CPK normal urine electrolytes are pre-renal urine eosinophils negative serological evaluation in progress continue with IVFs and oral bicarb follow trend of repeat labs and UOP (2) Pancreatitis: Code(s): K85.90 - Acute pancreatitis without necrosis or infection, unspecified Status: Acute Assessment and Plan: as noted by admission lipase CT abdomen imaging noted -- 5mm pacreatic head cyst with questionable sludge/stones in gallbladder follow trend of lipase (trending down) MRCP results noted Gastroenterology and Surgery recommendations noted continue IVFs and advance diet as tolerated (3) Hypokalemia: Code(s): E87.6 - Hypokalemia Status: Acute Assessment and Plan: repeat cautiously given RADHA/ARF follow trend (4) GI bleed: Code(s): K92.2 - Gastrointestinal hemorrhage, unspecified Status: Acute Assessment and Plan: reported blood at G-tube site and tubing as well as ostomy follow trend of H/H on PPI Gastroenterology following S/P EGD: reflux esophagitis, duodenitis with a few superficial ulcers noted G-tube subsequently removed (5) Anemia: Code(s): D64.9 - Anemia, unspecified Status: Acute Assessment and Plan: as noted by admission however, chronic component based on labs in April 2022 suspect some dilutional effects form IVF resuscitation suspect RADHA, acute illness, possible GI loss (see #4), alcoholism, and possible nutritional issues anemia studies with adequate iron stores - consider empiric Epogen PRBC transfusion per protocol follow trend of H/H (6) Severe malnutrition: Code(s): E43 - Unspecified severe protein-calorie malnutrition Status: Acute Assessment and Plan: dietary evaluation noted poor protein intake worsened by increased protein needs secondary to chronic medical issues (fistula and colostomy, poor oral intake, alcoholism...etc) noted significant weight loss as well this has likely led to his failure to thrive supplements added continue supportive therapy Will continue to follow. Subjective Date/time seen: 12/13/22 12:49 Interval history: Follow-up for acute kidney injury/acute renal failure (on possible chronic kidney disease?). Continues to make slow and steady improvement; tolerating oral intake without any nausea/vomiting. lipase as well as renal function continue to improve with reasonable urine output; dysuria seems better as well.. Exam Narrative: General: WD/WN male in NAD Heart: normal S1 and S2; no rub Lungs: clear to auscultation Abdomen: soft, mild TTP, nondistended, positive bowel sounds; colostomy noted Extremities: no cyanosis or clubbing; no edema Skin: no rash Objective Data Vital Signs Vital Signs: Vital Signs Temp Pulse Resp BP Pulse Ox O2 Del Method 12/13/22 12:47 97.1 F L 74 16 146/74 H 100 12/13/22 08:40 Room Air 12/13/22 04:56 98.6 F 89 20 153/81 H 100 12/12/22 20:00 81 20 100 Room Air 12/12/22 20:00 146/77 H 12/12/22 19:44 98.8 F 81 20 146/77 H 100 Intake/Output Intake/Output: Intake & Output 12/10/22 12/11/22 12/12/22 12/13/22 23:59 23:59 23:59 23:59 Intake Total 1930 2800 3210 3160 Output Total 1475 1550 1600 2200 Balance 455 1250 1610 960 Meds/Results Medications: Active Medications Generic Name Dose
--- NOTE | 2022-12-13 12:49 | P.PNNP_ITS ---
Progress Note: A&P Assessment and Plan (1) RADHA (acute kidney injury): Code(s): N17.9 - Acute kidney failure, unspecified Status: Acute Assessment and Plan: * slow improvement noted * normal renal function in 2021 * however, in August 2022 -- creatinine was 4.12mg/dl * then in September 2022 (after pushing oral fluids), creatinine was 3.52mg/dl * history would suggest volume depletion/dehydration * unclear if this alone would explain his severe RADHA/ARF * evaluation to date: * renal ultrasound without obstruction * CPK normal * urine electrolytes are pre-renal * urine eosinophils negative * serological evaluation in progress * continue with IVFs and oral bicarb * follow trend of repeat labs and UOP (2) Pancreatitis: Code(s): K85.90 - Acute pancreatitis without necrosis or infection, unspecified Status: Acute Assessment and Plan: * as noted by admission lipase * CT abdomen imaging noted -- 5mm pacreatic head cyst with questionable sludge/stones in gallbladder * follow trend of lipase (trending down) * MRCP results noted * Gastroenterology and Surgery recommendations noted * continue IVFs and advance diet as tolerated (3) Hypokalemia: Code(s): E87.6 - Hypokalemia Status: Acute Assessment and Plan: * repeat cautiously given RADHA/ARF * follow trend (4) GI bleed: Code(s): K92.2 - Gastrointestinal hemorrhage, unspecified Status: Acute Assessment and Plan: * reported blood at G-tube site and tubing as well as ostomy * follow trend of H/H * on PPI * Gastroenterology following * S/P EGD: * reflux esophagitis, duodenitis with a few superficial ulcers noted * G-tube subsequently removed (5) Anemia: Code(s): D64.9 - Anemia, unspecified Status: Acute Assessment and Plan: * as noted by admission * however, chronic component based on labs in April 2022 * suspect some dilutional effects form IVF resuscitation * suspect RADHA, acute illness, possible GI loss (see #4), alcoholism, and possible nutritional issues * anemia studies with adequate iron stores - consider empiric Epogen * PRBC transfusion per protocol * follow trend of H/H (6) Severe malnutrition: Code(s): E43 - Unspecified severe protein-calorie malnutrition Status: Acute Assessment and Plan: * dietary evaluation noted * poor protein intake worsened by increased protein needs secondary to chronic medical issues (fistula and colostomy, poor oral intake, alcoholism...etc) * noted significant weight loss as well * this has likely led to his failure to thrive * supplements added * continue supportive therapy Will continue to follow. Subjective Date/time seen: 12/13/22 12:49 Interval history: Follow-up for acute kidney injury/acute renal failure (on possible chronic kidney disease?). Continues to make slow and steady improvement; tolerating oral intake without any nausea/vomiting. lipase as well as renal function continue to improve with reasonable urine output; dysuria seems better as well.. Exam Narrative: General: WD/WN male in NAD Heart: normal S1 and S2; no rub Lungs: clear to auscultation Abdomen: soft, mild TTP, nondistended, positive bowel sounds; colostomy noted Extremities: no cyanosis or clubbing; no edema Skin: no rash Objective Data Vital Signs Vital Signs:
[2022-12-13 13:47] VITALS: BP 146/74; PULSE 74; RESP 16; TEMP 36.2; O2SAT 100
[2022-12-13 16:00] VITALS: BP 146/74
--- NOTE | 2022-12-13 16:02 | PM.IMPN ---
Progress Note: A&P Assessment and Plan (1) Pancreatitis: Code(s): K85.90 - Acute pancreatitis without necrosis or infection, unspecified Status: Acute Assessment and Plan: Patient's lipase was 2015. CT scan showing stable 5mm pancreatic head cyst but no ductal dilatation. He does have possible sludge or stones in GB. GI was consulted. TG 54. MRCP showing 3 small pancreatic cysts and cholelithiasis. Probably related to alcohol use but can not exclude GS pancreatitis. Started on clear liquid diet and diet advanced. Lipase up to 1166. Clinically improving. General surgery consulted for evaluation for possible cholecystectomy. This can be done when he has his reversal. Appreciate GenSurg and GI input. Wean off IV narcotics. (2) RADHA (acute kidney injury): Code(s): N17.9 - Acute kidney failure, unspecified Status: Acute Assessment and Plan: BUN 146 creatinine 8.9. GFR 6. Renal ultrasound is unremarkable. Started on IV fluids. He had poor oral intake. He states his GTube has never been used for nutrition. 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 UA showing 1+ protein o/w bland. No urine eos. Dipesh 21 with FENa 1.5%. Most likely prerenal azotemia with underlying acute renal process. Metabolic acidosis better with oral bicarb. BUN 59 and Cr 4.4 now. UOP 800mL yesterday Nephrology consulted and appreciate their input. Continue with IV fluids. Continue monitoring. (3) GI bleed: Code(s): K92.2 - Gastrointestinal hemorrhage, unspecified Status: Acute Assessment and Plan: Patient was having red blood from GTube and from ostomy. He was guaiac positive. Patient had a takedown of colo-entero fistula, SB resection and creation of a loop ileostomy on 05/06/22. He is followed at [facility] with plans for reversal at some point. GI consulted and appreciate their input. EGD 12/11 showing a few duodenal ulcers, duodenitis and reflux esophagitis; GTube removed. The patient is not on any NSAIDs. Continue with Protonix IV. (4) Anemia: Code(s): D64.9 - Anemia, unspecified Status: Acute Assessment and Plan: Hgb 8.7 on admission and has dropped related to IV fluids and GI bleed. Serial HH ordered. Was anemic at discharge in April but unclear if he had improvement in the interim. Suspect related to RADHA, GI blood loss. Iron studies and B12 levels normal. Low plt noted at 119K but stable. Hgb dropped to 6.9 on 12/12 and he received 1U PRBC. Hgb back up to 8 range. Epogen? Follow. (5) Failure to thrive: Status: Acute Assessment and Plan: The patient has poor oral intake. The patient had a G-tube but he stated that he has not had any tube feedings through it. He wanted his G-tube removed which was done by EGD. He also would like his ostomy reversed and is followed at [facility] with plans to have this down. Continue IVF. Supplements ordered (6) Hypokalemia: Code(s): E87.6 - Hypokalemia Status: Acute Assessment and Plan: Potassium normal. Replace as necessary. (7) Alcohol abuse: Code(s): F10.10 - Alcohol abuse, uncomplicated Status: Acute Assessment and Plan: Patient was educated about the benefits of stopping alcohol use. Continue thiamine and folate. (8) Tobacco abuse: Code(s): Z72.0 - Tobacco use Status: Acute Assessment and Plan: The patient was offered a nicotine patch. Smoking cessation was discussed but patient refused to quit (9) Severe malnutrition: Code(s): E43 - Unspecified severe protein-calorie malnutrition Status: Acute Assessment and Plan: Patient has been evaluated by dietary. Patient has severe malnutrition as related to inadequate protein energy intake with increased protein energy needs in the setting of a chronic disease and his underlying medical c
[2022-12-13 16:49] LABS: Glucose Point of Care 100 mg/dl (65-105)
[2022-12-13 19:55] VITALS: BP 163/84; PULSE 86; RESP 20; TEMP 37; O2SAT 97
[2022-12-13 20:00] VITALS: BP 163/84; PULSE 86; RESP 20; O2SAT 97
[2022-12-13] MEDS: HYDROcodone/acetaminophen (*CRX) 7.5-325 MG TABLET 1 TAB PO (20:11)
[2022-12-13 20:35] LABS: Osmolality, Urine 372 mOsm/kg (50-1200)
[2022-12-13 21:41] VITALS: O2SAT 97
[2022-12-13 21:46] LABS: Glucose Point of Care 109 mg/dl (65-105)
[2022-12-14] MEDS: HYDROcodone/acetaminophen (*CRX) 7.5-325 MG TABLET 1 TAB PO ×4 (01:59→21:07)
[2022-12-14 05:18] VITALS: BP 157/79; PULSE 78; RESP 20; TEMP 36.8; O2SAT 100
[2022-12-14 06:35] LABS: Basophils Percent Auto 0.4 % (0.2-1.2); Eosinophils Absolute Auto 0.2 K/mm3 (0-0.3); Eosinophils Percent Auto 1.6 % (0-4.4); Hematocrit 24.6 % (42.0-52.0); Hemoglobin 8.4 g/dL (14.0-18.0); Immature Granulocyte Absolute 0.05 K/mm3 (0.00-0.031); Immature Granulocyte Percent A 0.5 % (0-0.5); Lymphocytes Absolute Auto 1.22 K/mm3 (0.9-3.2); Lymphocytes Percent Auto 12.4 % (18.3-44.2); Mean Corpuscular HGB Conc 34.1 g/dl (32-36); Mean Corpuscular Hemoglobin 35.6 pg (26-34); Mean Corpuscular Volume 104.2 fl (80-100); Monocytes Absolute Auto 1.1 K/mm3 (0.1-0.6); Monocytes Percent Auto 11.4 % (2.6-8.5); Neutrophils Absolute Auto 7.3 K/mm3 (1.3-6.7); Neutrophils Percent Auto 73.7 % (45.5-73.1); Platelet Count Result 108 k/mm3 (150-375); Red Blood Count 2.36 M/mm3 (4.6-6.20); Red Cell Distribution Width 17.8 % (11.5-14.5); White Blood Count 9.9 K/mm3 (4.5-10.0)
[2022-12-14] MEDS: SODIUM CHLORIDE 0.9% IV 1,000 ML 100 ML IV CONT ×2 (06:42→17:19)
[2022-12-14 06:56] LABS: Alanine Aminotransferase 21 U/L (6-50); Alkaline Phosphatase 47 U/L (38-126); Anion Gap 6 mmol/L (8-16); Aspartate Amino Transferase 23 U/L (17-59); Bilirubin,Total 0.9 mg/dL (0.2-1.3); Blood Urea Nitrogen 47 mg/dL (9-20); Calcium 7.8 mg/dL (8.4-10.2); Carbon Dioxide 20 mmol/L (22-30); Chloride 107 mmol/L (98-107); Estimated CRCL calculation 15 ml/min; Estimated Glomerular Filt Rate 16; Glucose 79 mg/dL (65-110); Lipase 545 U/L (23-300); Phosphorus 2.8 mg/dL (2.5-4.5); Potassium 3.4 mmol/L (3.4-5.0); Sodium 133 mmol/L (137-145)
[2022-12-14 08:02] LABS: Glucose Point of Care 83 mg/dl (65-105)
[2022-12-14] MEDS: NICOTINE (*PBKC) 14 MG PATCH 1 PATCH TRANSDERM (08:13)
[2022-12-14] MEDS: SODIUM BICARBONATE TAB 650 MG TABLET PO ×2 (08:14→17:19)
[2022-12-14] MEDS: LIPASE/AMYLASE/PROTEASE 12,000 UNITS CAP 2 CAP PO ×3 (08:14→17:19)
[2022-12-14] MEDS: THIAMINE HCL 100 MG TABLET PO (08:15)
[2022-12-14] MEDS: MAGNESIUM SULFATE 3GM/D5W100ML 3 GM/100 ML BAG IVPB (08:15)
[2022-12-14] MEDS: POTASSIUM CHLORIDE 20 MEQ ER TABLET 40 MEQ PO (08:15)
[2022-12-14] MEDS: PANTOPRAZOLE 40 MG TABLET PO ×2 (08:15→21:07)
[2022-12-14] MEDS: FOLIC ACID 1 MG TABLET PO (08:16)
[2022-12-14 12:02] LABS: Glucose Point of Care 98 mg/dl (65-105)
--- NOTE | 2022-12-14 12:59 | P.PNNP_ITS ---
Progress Note: A&P Assessment and Plan (1) RADHA (acute kidney injury): Code(s): N17.9 - Acute kidney failure, unspecified Status: Acute Assessment and Plan: * slow improvement noted * normal renal function in 2021 * however, in August 2022 -- creatinine was 4.12mg/dl * then in September 2022 (after pushing oral fluids), creatinine was 3.52mg/dl * history would suggest volume depletion/dehydration * unclear if this alone would explain his severe RADHA/ARF * evaluation to date: * renal ultrasound without obstruction * CPK normal * urine electrolytes are pre-renal * urine eosinophils negative * serological evaluation in progress * continue with IVFs and oral bicarb * follow trend of repeat labs and UOP * consider renal biopsy if creatinine does not normalize(?) (2) Pancreatitis: Code(s): K85.90 - Acute pancreatitis without necrosis or infection, unspecified Status: Acute Assessment and Plan: * as noted by admission lipase * CT abdomen imaging noted -- 5mm pacreatic head cyst with questionable sludge/stones in gallbladder * follow trend of lipase (trending down) * MRCP results noted * Gastroenterology and Surgery recommendations noted * continue IVFs and advance diet as tolerated (3) Hypokalemia: Code(s): E87.6 - Hypokalemia Status: Acute Assessment and Plan: * repeat cautiously given RADHA/ARF * follow trend (4) GI bleed: Code(s): K92.2 - Gastrointestinal hemorrhage, unspecified Status: Acute Assessment and Plan: * reported blood at G-tube site and tubing as well as ostomy * follow trend of H/H * on PPI * Gastroenterology following * S/P EGD: * reflux esophagitis, duodenitis with a few superficial ulcers noted * G-tube subsequently removed (5) Anemia: Code(s): D64.9 - Anemia, unspecified Status: Acute Assessment and Plan: * as noted by admission * however, chronic component based on labs in April 2022 * suspect some dilutional effects form IVF resuscitation * suspect RADHA, acute illness, possible GI loss (see #4), alcoholism, and possible nutritional issues * anemia studies with adequate iron stores - consider empiric Epogen * PRBC transfusion per protocol * follow trend of H/H (6) Severe malnutrition: Code(s): E43 - Unspecified severe protein-calorie malnutrition Status: Acute Assessment and Plan: * dietary evaluation noted * poor protein intake worsened by increased protein needs secondary to chronic medical issues (fistula and colostomy, poor oral intake, alcoholism...etc) * noted significant weight loss as well * this has likely led to his failure to thrive * supplements added * continue supportive therapy Will continue to follow. Subjective Date/time seen: 12/14/22 12:59 Interval history: Follow-up for acute kidney injury/acute renal failure (on possible chronic kidney disease?). Eating and drinking reasonably well; reasonable urine output at this time; renal function continues to slowly improve but rate of decline in creatinine seems to be slowing down (approaching a new baseline?); no apparent distress voiced. Exam Narrative: General: WD/WN male in NAD Heart: normal S1 and S2; no rub Lungs: clear to auscultation Abdomen: soft, mild TTP, nondistended, positive bowel sounds; colostomy noted Extremities: no cyanosis or clubbing; no edema Skin: no nodules Objective Data Vital S
--- NOTE | 2022-12-14 12:59 | PM.PNNEP ---
Progress Note: A&P Assessment and Plan (1) RADHA (acute kidney injury): Code(s): N17.9 - Acute kidney failure, unspecified Status: Acute Assessment and Plan: slow improvement noted normal renal function in 2021 however, in August 2022 -- creatinine was 4.12mg/dl then in September 2022 (after pushing oral fluids), creatinine was 3.52mg/dl history would suggest volume depletion/dehydration unclear if this alone would explain his severe RADHA/ARF evaluation to date: renal ultrasound without obstruction CPK normal urine electrolytes are pre-renal urine eosinophils negative serological evaluation in progress continue with IVFs and oral bicarb follow trend of repeat labs and UOP consider renal biopsy if creatinine does not normalize(?) (2) Pancreatitis: Code(s): K85.90 - Acute pancreatitis without necrosis or infection, unspecified Status: Acute Assessment and Plan: as noted by admission lipase CT abdomen imaging noted -- 5mm pacreatic head cyst with questionable sludge/stones in gallbladder follow trend of lipase (trending down) MRCP results noted Gastroenterology and Surgery recommendations noted continue IVFs and advance diet as tolerated (3) Hypokalemia: Code(s): E87.6 - Hypokalemia Status: Acute Assessment and Plan: repeat cautiously given RADHA/ARF follow trend (4) GI bleed: Code(s): K92.2 - Gastrointestinal hemorrhage, unspecified Status: Acute Assessment and Plan: reported blood at G-tube site and tubing as well as ostomy follow trend of H/H on PPI Gastroenterology following S/P EGD: reflux esophagitis, duodenitis with a few superficial ulcers noted G-tube subsequently removed (5) Anemia: Code(s): D64.9 - Anemia, unspecified Status: Acute Assessment and Plan: as noted by admission however, chronic component based on labs in April 2022 suspect some dilutional effects form IVF resuscitation suspect RADHA, acute illness, possible GI loss (see #4), alcoholism, and possible nutritional issues anemia studies with adequate iron stores - consider empiric Epogen PRBC transfusion per protocol follow trend of H/H (6) Severe malnutrition: Code(s): E43 - Unspecified severe protein-calorie malnutrition Status: Acute Assessment and Plan: dietary evaluation noted poor protein intake worsened by increased protein needs secondary to chronic medical issues (fistula and colostomy, poor oral intake, alcoholism...etc) noted significant weight loss as well this has likely led to his failure to thrive supplements added continue supportive therapy Will continue to follow. Subjective Date/time seen: 12/14/22 12:59 Interval history: Follow-up for acute kidney injury/acute renal failure (on possible chronic kidney disease?). Eating and drinking reasonably well; reasonable urine output at this time; renal function continues to slowly improve but rate of decline in creatinine seems to be slowing down (approaching a new baseline?); no apparent distress voiced. Exam Narrative: General: WD/WN male in NAD Heart: normal S1 and S2; no rub Lungs: clear to auscultation Abdomen: soft, mild TTP, nondistended, positive bowel sounds; colostomy noted Extremities: no cyanosis or clubbing; no edema Skin: no nodules Objective Data Vital Signs Vital Signs: Vital Signs Temp Pulse Resp BP Pulse Ox O2 Del Method 12/14/22 12:20 98.2 F 81 16 142/77 H 100 12/14/22 08:15 Room Air 12/14/22 05:18 98.3 F 78 20 157/79 H 100 12/13/22 21:41 97 Room Air 12/13/22 20:00 86 20 97 Room Air 12/13/22 20:00 163/84 H 12/13/22 19:55 98.6 F 86 20 163/84 H 97 12/13/22 16:00 146/74 H Intake/Output Intake/Output: Intake & Output 12/11/22 12/12/22 12/13/22 12/14/22 23:59 23:59 23:59 23:59 Intake Total 8416
[2022-12-14 14:20] VITALS: BP 142/77; PULSE 81; RESP 16; TEMP 36.8; O2SAT 100
--- NOTE | 2022-12-14 15:01 | PM.IMPN ---
Progress Note: A&P Assessment and Plan (1) Pancreatitis: Code(s): K85.90 - Acute pancreatitis without necrosis or infection, unspecified Status: Acute Assessment and Plan: Patient's lipase was 2015. CT scan showing stable 5mm pancreatic head cyst but no ductal dilatation. He does have possible sludge or stones in GB. GI was consulted. TG 54. MRCP showing 3 small pancreatic cysts and cholelithiasis. Probably related to alcohol use but can not exclude GS pancreatitis. Started on clear liquid diet and diet advanced to low fat. Lipase down to 545. Clinically improving. General surgery consulted for evaluation for possible cholecystectomy. Cholecystectomy can be done when he has his reversal. Appreciate GenSurg and GI input. Wean off narcotics. (2) RADHA (acute kidney injury): Code(s): N17.9 - Acute kidney failure, unspecified Status: Acute Assessment and Plan: BUN 146 creatinine 8.9. GFR 6. Renal ultrasound was unremarkable. He was started on IV fluids. He had poor oral intake and has ostomy so consider sever dehydration. He states his GTube has never been used for nutrition. He mentions that he sees a patient safety tech as an outpatient but BUN/Cr normal in April 2022 but Cr higher in August at 4.12 (per nephrology note). UA here showing 1+ protein o/w bland. Urine eos negative. Dipesh 21 with FENa 1.5%. Most likely prerenal azotemia with underlying acute renal process from the pancreatitis. Metabolic acidosis better with oral bicarb. BUN 47 and Cr 3.8 now. UOP not accurate yesterday Nephrology consulted and appreciate their input. Continue with IV fluids. Continue monitoring. 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 Patient was having red blood from GTube and from ileostomy. He was guaiac positive. He is followed at [facility] with plans for reversal at some point. GI consulted and appreciate their input. EGD 12/11 showing a few duodenal ulcers, duodenitis and reflux esophagitis; GTube was removed. The patient is not on any NSAIDs. Continue with Protonix (4) Anemia: Code(s): D64.9 - Anemia, unspecified Status: Acute Assessment and Plan: Hgb 8.7 on admission and has dropped related to IV fluids and GI bleed. Serial HH ordered. Was anemic at discharge in April but unclear if he had improvement in the interim. Suspect related to RADHA, GI blood loss. Iron studies and B12 levels normal. Low plt noted at 108K but stable. Hgb dropped to 6.9 on 12/12 and he received 1U PRBC. Hgb back up to 8 range. Follow. (5) Failure to thrive: Status: Acute Assessment and Plan: The patient has poor oral intake. The patient had a G-tube but he stated that he has not had any tube feedings through it. He wanted his G-tube removed which was done by EGD 12/11. He also would like his ostomy reversed and is followed at [facility] with plans to have this down. Continue IVF. Supplements ordered (6) Hypokalemia: Code(s): E87.6 - Hypokalemia Status: Acute Assessment and Plan: Potassium low-normal. Replace as necessary. (7) Alcohol abuse: Code(s): F10.10 - Alcohol abuse, uncomplicated Status: Acute Assessment and Plan: Patient was educated about the benefits of stopping alcohol use. Continue thiamine and folate. (8) Tobacco abuse: Code(s): Z72.0 - Tobacco use Status: Acute Assessment and Plan: The patient was offered a nicotine patch. Smoking cessation was discussed but patient refused to quit (9) Severe malnutrition: Code(s): E43 - Unspecified severe protein-calorie malnutrition Status: Acute Assessment and Plan: Patient has been evaluated by dietary. Patient has severe malnutrition as related to inadequate protein
[2022-12-14 15:21] LABS: Albumin 3.2 g/dL (3.8-4.8); Alpha 1 Globulin 0.3 g/dL (0.2-0.3); Alpha 2 Globulin 0.7 g/dL (0.5-0.9); Beta 1 Globulin 0.4 g/dL (0.4-0.6)
[2022-12-14 17:25] LABS: Glucose Point of Care 129 mg/dl (65-105)
[2022-12-14 19:01] LABS: Anti Glomerular Basement Memb <1.0 AI (<1.0)
[2022-12-14 20:00] VITALS: BP 148/75; PULSE 79; RESP 20; O2SAT 100
[2022-12-14 20:06] VITALS: BP 148/75; PULSE 79; RESP 20; TEMP 36.7; O2SAT 100
[2022-12-14 20:40] LABS: Glucose Point of Care 133 mg/dl (65-105)
[2022-12-15] MEDS: HYDROcodone/acetaminophen (*CRX) 7.5-325 MG TABLET 1 TAB PO ×3 (02:58→22:05)
[2022-12-15] MEDS: SODIUM CHLORIDE 0.9% IV 1,000 ML 100 ML IV CONT ×2 (02:58→19:18)
[2022-12-15 04:58] VITALS: BP 150/80; PULSE 88; RESP 20; TEMP 37.1; O2SAT 99
[2022-12-15 05:28] LABS: Basophils Percent Auto 0.4 % (0.2-1.2); Eosinophils Absolute Auto 0.2 K/mm3 (0-0.3); Eosinophils Percent Auto 2.1 % (0-4.4); Hematocrit 23.3 % (42.0-52.0); Hemoglobin 7.9 g/dL (14.0-18.0); Immature Granulocyte Absolute 0.04 K/mm3 (0.00-0.031); Immature Granulocyte Percent A 0.5 % (0-0.5); Lymphocytes Absolute Auto 1.12 K/mm3 (0.9-3.2); Lymphocytes Percent Auto 13.3 % (18.3-44.2); Mean Corpuscular HGB Conc 33.9 g/dl (32-36); Mean Corpuscular Hemoglobin 34.8 pg (26-34); Mean Corpuscular Volume 102.6 fl (80-100); Mean Platelet Volume 10.6 fl (7.4-10.4); Monocytes Absolute Auto 1.3 K/mm3 (0.1-0.6); Monocytes Percent Auto 14.8 % (2.6-8.5); Neutrophils Absolute Auto 5.8 K/mm3 (1.3-6.7); Neutrophils Percent Auto 68.9 % (45.5-73.1); Platelet Count Result 106 k/mm3 (150-375); Red Blood Count 2.27 M/mm3 (4.6-6.20); Red Cell Distribution Width 17.5 % (11.5-14.5); White Blood Count 8.4 K/mm3 (4.5-10.0)
[2022-12-15 05:38] LABS: Albumin Level 2.7 g/dL (3.5-5.1); Anion Gap 5 mmol/L (8-16); Blood Urea Nitrogen 36 mg/dL (9-20); Carbon Dioxide 22 mmol/L (22-30); Chloride 107 mmol/L (98-107); Estimated CRCL calculation 16 ml/min; Estimated Glomerular Filt Rate 18; Glucose 86 mg/dL (65-110); Magnesium 1.5 mg/dL (1.6-2.3); Potassium 3.6 mmol/L (3.4-5.0); Sodium 134 mmol/L (137-145)
[2022-12-15] MEDS: MAGNESIUM SULF 2 GM/WATER 50ML 2 GM/50 ML BAG IVPB (07:00)
[2022-12-15 08:09] LABS: Glucose Point of Care 82 mg/dl (65-105)
[2022-12-15] MEDS: FOLIC ACID 1 MG TABLET PO (08:46)
[2022-12-15] MEDS: SODIUM BICARBONATE TAB 650 MG TABLET PO ×2 (08:46→17:02)
[2022-12-15] MEDS: LIPASE/AMYLASE/PROTEASE 12,000 UNITS CAP 2 CAP PO ×3 (08:47→16:10)
[2022-12-15] MEDS: POTASSIUM/PHOSPHORUS/SODIUM 1.5 GM PACKET 1 PACKET PO (08:47)
[2022-12-15] MEDS: THIAMINE HCL 100 MG TABLET PO (08:47)
[2022-12-15] MEDS: NICOTINE (*PBKC) 14 MG PATCH 1 PATCH TRANSDERM (08:49)
[2022-12-15] MEDS: PANTOPRAZOLE 40 MG TABLET PO ×2 (10:19→20:14)
[2022-12-15] MEDS: POTASSIUM CHLORIDE 20 MEQ ER TABLET PO (10:19)
--- NOTE | 2022-12-15 11:20 | PM.PNNEP ---
Progress Note: A&P Assessment and Plan (1) RADHA (acute kidney injury): Code(s): N17.9 - Acute kidney failure, unspecified Status: Acute Assessment and Plan: slow improvement noted normal renal function in 2021 however, in August 2022 -- creatinine was 4.12mg/dl then in September 2022 (after pushing oral fluids), creatinine was 3.52mg/dl history would suggest volume depletion/dehydration unclear if this alone would explain his severe RADHA/ARF evaluation to date: renal ultrasound without obstruction CPK normal urine electrolytes are pre-renal urine eosinophils negative serologies so far negative (some still pending) continue with IVFs and oral bicarb follow trend of repeat labs and UOP consider renal biopsy if creatinine does not normalize(?) (2) Pancreatitis: Code(s): K85.90 - Acute pancreatitis without necrosis or infection, unspecified Status: Acute Assessment and Plan: as noted by admission lipase CT abdomen imaging noted -- 5mm pacreatic head cyst with questionable sludge/stones in gallbladder follow trend of lipase (trending down) MRCP results noted Gastroenterology and Surgery recommendations noted continue IVFs and advance diet as tolerated (3) Hypokalemia: Code(s): E87.6 - Hypokalemia Status: Acute Assessment and Plan: repeat cautiously given RADHA/ARF follow trend (4) GI bleed: Code(s): K92.2 - Gastrointestinal hemorrhage, unspecified Status: Acute Assessment and Plan: reported blood at G-tube site and tubing as well as ostomy follow trend of H/H on PPI Gastroenterology following S/P EGD: reflux esophagitis, duodenitis with a few superficial ulcers noted G-tube subsequently removed (5) Anemia: Code(s): D64.9 - Anemia, unspecified Status: Acute Assessment and Plan: as noted by admission however, chronic component based on labs in April 2022 suspect some dilutional effects form IVF resuscitation suspect RADHA, acute illness, possible GI loss (see #4), alcoholism, and possible nutritional issues anemia studies with adequate iron stores - consider empiric Epogen PRBC transfusion per protocol follow trend of H/H (6) Severe malnutrition: Code(s): E43 - Unspecified severe protein-calorie malnutrition Status: Acute Assessment and Plan: dietary evaluation noted poor protein intake worsened by increased protein needs secondary to chronic medical issues (fistula and colostomy, poor oral intake, alcoholism...etc) noted significant weight loss as well this has likely led to his failure to thrive supplements added continue supportive therapy Will continue to follow. Subjective Date/time seen: 12/15/22 11:20 Interval history: Follow-up for acute kidney injury/acute renal failure (on possible chronic kidney disease?). Renal function continues to improve but rate improvement seems to be slowing down; no nausea or vomiting and abdominal pain continues to improve; no apparent distress voiced. Exam Narrative: General: WD/WN male in NAD Heart: normal S1 and S2; no rub Lungs: clear to auscultation Abdomen: soft, nondistended, positive bowel sounds; colostomy noted Extremities: no cyanosis or clubbing; no edema Skin: warm and dry Objective Data Vital Signs Vital Signs: Vital Signs Temp Pulse Resp BP Pulse Ox O2 Del Method 12/15/22 08:45 Room Air 12/15/22 04:58 98.7 F 88 20 150/80 H 99 12/14/22 20:00 79 20 100 Room Air 12/14/22 20:00 148/75 H 12/14/22 20:06 98.1 F 79 20 148/75 H 100 12/14/22 14:20 98.2 F 81 16 142/77 H 100 Intake/Output Intake/Output: Intake & Output 12/12/22 12/13/22 12/14/22 12/15/22 23:59 23:59 23:59 23:59 Intake Total 3210 4400 3710 1680 Output Total 1600 2700 2850 800 Balance 1610 1700 860 880 Meds/Results Medications: Active Medica
--- NOTE | 2022-12-15 11:20 | P.PNNP_ITS ---
Progress Note: A&P Assessment and Plan (1) RADHA (acute kidney injury): Code(s): N17.9 - Acute kidney failure, unspecified Status: Acute Assessment and Plan: * slow improvement noted * normal renal function in 2021 * however, in August 2022 -- creatinine was 4.12mg/dl * then in September 2022 (after pushing oral fluids), creatinine was 3.52mg/dl * history would suggest volume depletion/dehydration * unclear if this alone would explain his severe RADHA/ARF * evaluation to date: * renal ultrasound without obstruction * CPK normal * urine electrolytes are pre-renal * urine eosinophils negative * serologies so far negative (some still pending) * continue with IVFs and oral bicarb * follow trend of repeat labs and UOP * consider renal biopsy if creatinine does not normalize(?) (2) Pancreatitis: Code(s): K85.90 - Acute pancreatitis without necrosis or infection, unspecified Status: Acute Assessment and Plan: * as noted by admission lipase * CT abdomen imaging noted -- 5mm pacreatic head cyst with questionable sludge/stones in gallbladder * follow trend of lipase (trending down) * MRCP results noted * Gastroenterology and Surgery recommendations noted * continue IVFs and advance diet as tolerated (3) Hypokalemia: Code(s): E87.6 - Hypokalemia Status: Acute Assessment and Plan: * repeat cautiously given RADHA/ARF * follow trend (4) GI bleed: Code(s): K92.2 - Gastrointestinal hemorrhage, unspecified Status: Acute Assessment and Plan: * reported blood at G-tube site and tubing as well as ostomy * follow trend of H/H * on PPI * Gastroenterology following * S/P EGD: * reflux esophagitis, duodenitis with a few superficial ulcers noted * G-tube subsequently removed (5) Anemia: Code(s): D64.9 - Anemia, unspecified Status: Acute Assessment and Plan: * as noted by admission * however, chronic component based on labs in April 2022 * suspect some dilutional effects form IVF resuscitation * suspect RADHA, acute illness, possible GI loss (see #4), alcoholism, and possible nutritional issues * anemia studies with adequate iron stores - consider empiric Epogen * PRBC transfusion per protocol * follow trend of H/H (6) Severe malnutrition: Code(s): E43 - Unspecified severe protein-calorie malnutrition Status: Acute Assessment and Plan: * dietary evaluation noted * poor protein intake worsened by increased protein needs secondary to chronic medical issues (fistula and colostomy, poor oral intake, alcoholism...etc) * noted significant weight loss as well * this has likely led to his failure to thrive * supplements added * continue supportive therapy Will continue to follow. Subjective Date/time seen: 12/15/22 11:20 Interval history: Follow-up for acute kidney injury/acute renal failure (on possible chronic kidney disease?). Renal function continues to improve but rate improvement seems to be slowing down; no nausea or vomiting and abdominal pain continues to improve; no apparent distress voiced. Exam Narrative: General: WD/WN male in NAD Heart: normal S1 and S2; no rub Lungs: clear to auscultation Abdomen: soft, nondistended, positive bowel sounds; colostomy noted Extremities: no cyanosis or clubbing; no edema Skin: warm and dry Objective Data Vital Signs Vital Signs:
--- NOTE | 2022-12-15 12:20 | PM.IMPN ---
Progress Note: A&P Assessment and Plan (1) Pancreatitis: Code(s): K85.90 - Acute pancreatitis without necrosis or infection, unspecified Status: Acute Assessment and Plan: Patient's lipase was 2015. CT scan showing stable 5mm pancreatic head cyst but no ductal dilatation. He does have possible sludge or stones in GB. GI was consulted. TG 54. MRCP showing 3 small pancreatic cysts and cholelithiasis. Pancreatitis probably related to alcohol use but can not exclude GS pancreatitis. Started on clear liquid diet and diet advanced to low fat. Lipase down to 545. Clinically improving. General surgery consulted for evaluation for possible cholecystectomy and they recommended having a cholecystectomy when he has his ostomy reversal. Appreciate GenSurg and GI input. (2) RADHA (acute kidney injury): Code(s): N17.9 - Acute kidney failure, unspecified Status: Acute Assessment and Plan: BUN 146 creatinine 8.9. GFR 6. Renal ultrasound was unremarkable. He was started on IV fluids. He had poor oral intake and has ostomy so consider severe dehydration. He states his GTube has never been used for nutrition. He sees a hedis review nurse as an outpatient but BUN/Cr normal in April 2022 but Cr higher in August at 4.12 (per nephrology note). UA here showing 1+ protein o/w bland. Urine eos negative. Dipesh 21 with FENa 1.5%. Most likely prerenal azotemia with underlying acute renal process from the pancreatitis. Metabolic acidosis better with oral bicarb. BUN 36 and Cr 3.5 now. UOP not accurate Nephrology consulted and appreciate their input. Discussed. Plan to continue IV fluids for today. Home tomorrow if renal function plateaus. Continue monitoring. Add Fibercon to try to bulk up stools. 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 Patient was having red blood from GTube and from ileostomy. He was guaiac positive. He is followed at [facility] with plans for reversal at some point. GI consulted and appreciate their input. EGD 12/11 showing a few duodenal ulcers, duodenitis and reflux esophagitis; GTube was removed. The patient is not on any NSAIDs. Continue with Protonix (4) Anemia: Code(s): D64.9 - Anemia, unspecified Status: Acute Assessment and Plan: Hgb 8.7 on admission and has dropped related to IV fluids and GI bleed. Serial HH ordered. Was anemic at discharge in April but unclear if he had improvement in the interim. Suspect chronic anemia component related to RADHA, GI blood loss. Iron studies and B12 levels normal. Low plt noted at 108K but stable. Hgb dropped to 6.9 on 12/12 and he received 1U PRBC. Hgb back up to 7-8 range. Follow. (5) Failure to thrive: Status: Acute Assessment and Plan: The patient has poor oral intake. The patient had a G-tube but he stated that he has not had any tube feedings through it. He wanted his G-tube removed which was done by EGD 12/11. He also would like his ostomy reversed and is followed at [facility] with plans to have this down. His oral intake has improved. Continue IVF. Supplements ordered (6) Hypokalemia: Code(s): E87.6 - Hypokalemia Status: Acute Assessment and Plan: Potassium low-normal. Replace as necessary. (7) Alcohol abuse: Code(s): F10.10 - Alcohol abuse, uncomplicated Status: Acute Assessment and Plan: Patient was educated about the benefits of stopping alcohol use. Continue thiamine and folate. (8) Tobacco abuse: Code(s): Z72.0 - Tobacco use Status: Acute Assessment and Plan: The patient was offered a nicotine patch. Smoking cessation was discussed but patient refused to quit (9) Severe malnutrition: Code(s): E43 - Unspecified severe protein-calorie malnutrition
[2022-12-15 12:24] LABS: Glucose Point of Care 96 mg/dl (65-105)
[2022-12-15] MEDS: calcium polycarbophiL 625 MG TABLET PO ×2 (12:37→20:14)
[2022-12-15 14:18] VITALS: BP 144/78; PULSE 83; RESP 16; TEMP 36.6; O2SAT 100
[2022-12-15 17:00] LABS: Glucose Point of Care 101 mg/dl (65-105)
[2022-12-15 19:23] VITALS: BP 162/85; PULSE 81; RESP 18; TEMP 36.7; O2SAT 100
[2022-12-16] MEDS: HYDROcodone/acetaminophen (*CRX) 7.5-325 MG TABLET 1 TAB PO ×4 (04:02→22:55)
--- NOTE | 2022-12-16 04:11 | PC.NURSE ---
PT C/O NOT BEING ABLE TO URINATE BUT HAS GRADUATE WITH 750CC URINE AND STOOL MIX. INFORMED PT TO NOT MIX THE TWO SO WE CAN KEEP TRACK OF URINE OUTPUT. BLADDER SCANNED OF 16CC
[2022-12-16] MEDS: SODIUM CHLORIDE 0.9% IV 1,000 ML 100 ML IV CONT ×2 (05:18→15:30)
[2022-12-16 05:32] VITALS: BP 157/81; PULSE 90; RESP 18; TEMP 36.7; O2SAT 100
[2022-12-16 05:45] LABS: Basophils Percent Auto 0.5 % (0.2-1.2); Eosinophils Absolute Auto 0.2 K/mm3 (0-0.3); Eosinophils Percent Auto 2.2 % (0-4.4); Hemoglobin 7.9 g/dL (14.0-18.0); Immature Granulocyte Absolute 0.03 K/mm3 (0.00-0.031); Immature Granulocyte Percent A 0.4 % (0-0.5); Lymphocytes Absolute Auto 1.28 K/mm3 (0.9-3.2); Lymphocytes Percent Auto 17.6 % (18.3-44.2); Mean Corpuscular HGB Conc 32.9 g/dl (32-36); Mean Corpuscular Hemoglobin 34.5 pg (26-34); Mean Corpuscular Volume 104.8 fl (80-100); Mean Platelet Volume 10.9 fl (7.4-10.4); Monocytes Absolute Auto 1.2 K/mm3 (0.1-0.6); Monocytes Percent Auto 16.9 % (2.6-8.5); Neutrophils Absolute Auto 4.5 K/mm3 (1.3-6.7); Neutrophils Percent Auto 62.4 % (45.5-73.1); Platelet Count Result 122 k/mm3 (150-375); Red Blood Count 2.29 M/mm3 (4.6-6.20); Red Cell Distribution Width 17.4 % (11.5-14.5); White Blood Count 7.3 K/mm3 (4.5-10.0)
[2022-12-16 05:53] LABS: Albumin Level 2.8 g/dL (3.5-5.1); Anion Gap 3 mmol/L (8-16); Blood Urea Nitrogen 28 mg/dL (9-20); Calcium 8.4 mg/dL (8.4-10.2); Carbon Dioxide 25 mmol/L (22-30); Chloride 108 mmol/L (98-107); Estimated CRCL calculation 17 ml/min; Estimated Glomerular Filt Rate 19; Glucose 88 mg/dL (65-110); Magnesium 1.7 mg/dL (1.6-2.3); Phosphorus 2.2 mg/dL (2.5-4.5); Sodium 136 mmol/L (137-145)
--- NOTE | 2022-12-16 07:37 | WPDGIPROGNO ---
Progress Note: A&P Assessment and Plan (1) Pancreatitis: Code(s): K85.90 - Acute pancreatitis without necrosis or infection, unspecified Status: Acute Assessment and Plan: lipase is actually higher today.. I told Him that we could try him on a full liquid diet. MRCP shows cystic lesions in his pancreas. This is likely due to pancreatitis we will follow up with imaging in 6 weeks. imaging studies did show evidence of stones or sludge in the gallbladder. He will need a cholecystectomy in the near future. Is not possible to say whether the alcohol or stones produced his pancreatitis, but if it was gallstone pancreatitis, his lipase would have come down rather quickly. (2) Cyclical vomiting with nausea: Code(s): R11.15 - Cyclical vomiting syndrome unrelated to migraine Status: Acute Assessment and Plan: He will have nausea with vomiting spells ago on for couple of days every so often. He has never had this investigated with endoscopy. CT scan was rather unremarkable. 12/12/2022 today he is hungry. He has had no further vomiting. I do not want to advance him to regular diet in I would like to see the lipase comes down 1st 12/16 he denies any nausea or vomiting or gastrointestinal complaints. (3) Severe malnutrition: Code(s): E43 - Unspecified severe protein-calorie malnutrition Status: Acute Assessment and Plan: he has lost about 30 lb in the past year His appetite has been very good and I will advance him to low-fat diet (4) Anemia: Code(s): D64.9 - Anemia, unspecified Status: Acute Assessment and Plan: hemoglobin today 7.2 with hematocrit 20.6. MCV is elevated suggesting that it is nutritional, and not due to blood loss. He has however seen a small amount of blood in his NG tube today Hemoglobin is stable (5) Megaloblastic anemia due to alcoholism: Code(s): D53.1 - Other megaloblastic anemias, not elsewhere classified Status: Acute Assessment and Plan: he admits to drinking alcohol but not to excess. (6) RADHA (acute kidney injury): Code(s): N17.9 - Acute kidney failure, unspecified Status: Acute Assessment and Plan: initial creatinine was 8.9. Has been coming down. 4.4 today Nephrology is following him. (7) Alcohol abuse: Code(s): F10.10 - Alcohol abuse, uncomplicated Status: Acute Assessment and Plan: again discussed his alcohol abuse. He states that he really had not been drinking that much recently. This raises the possibility that gallstones may have had something to do with his pancreatitis. He says he is definitely finished drinking alcohol. Hopefully he will be able to sustain that. He and I had a long discussion today about pancreatitis. I explained that it can be fatal. I told that is much easier to get a recurrence if 1 continues drinking. Plan continue to rest his that except for full liquid diet until pain has resolved. I discuss pancreatitis with him again and told him he needs to get off alcohol not only because of that but because of other complications including his megaloblastic anemia. New onset of dysuria will probably need to be investigated by Urology. He thinks he might be going home today. I told that I want to see him in the office in 4-6 weeks. I will then repeat imaging to ensure that his pancreatic cysts have resolved, assuming this is all secondary to alcohol-induced pancreatitis. If abnormalities persist he would then need EUS Subjective Date/time seen: 12/16/22 07:37 He is eating well. He denies any gastrointestinal complaints. He added again that he has had no vomiting or nausea since arrival. He is concerned that he still cannot urinate. Exam Const: General: alert and thin Nutritional Appearance: thin Orientation/consciousness: patient oriented x3 Resp: Auscultation: clear to auscultation bilaterally Cardio: Rhythm: reg
[2022-12-16] MEDS: calcium polycarbophiL 625 MG TABLET PO ×2 (08:12→20:38)
[2022-12-16] MEDS: FOLIC ACID 1 MG TABLET PO (08:12)
[2022-12-16] MEDS: LIPASE/AMYLASE/PROTEASE 12,000 UNITS CAP 2 CAP PO ×3 (08:12→17:12)
[2022-12-16] MEDS: NICOTINE (*PBKC) 14 MG PATCH 1 PATCH TRANSDERM (08:12)
[2022-12-16] MEDS: THIAMINE HCL 100 MG TABLET PO (08:12)
[2022-12-16] MEDS: PANTOPRAZOLE 40 MG TABLET PO ×2 (08:12→20:38)
[2022-12-16] MEDS: SODIUM BICARBONATE TAB 650 MG TABLET PO ×2 (08:12→17:12)
[2022-12-16] MEDS: ARTIFICIAL TEARS OPHTH SOLN 15 ML BOTTLE 1 DROP EACH EYE ×2 (09:26→17:12)
--- NOTE | 2022-12-16 11:30 | P.PNNP_ITS ---
Progress Note: A&P Assessment and Plan (1) RADHA (acute kidney injury): Code(s): N17.9 - Acute kidney failure, unspecified Status: Acute Assessment and Plan: * slow improvement noted * normal renal function in 2021 * however, in August 2022 -- creatinine was 4.12mg/dl * then in September 2022 (after pushing oral fluids), creatinine was 3.52mg/dl * history would suggest volume depletion/dehydration * unclear if this alone would explain his severe RADHA/ARF * evaluation to date: * renal ultrasound without obstruction * CPK normal * urine electrolytes are pre-renal * urine eosinophils negative * serologies so far negative (some still pending) * continue with IVFs and oral bicarb * follow trend of repeat labs and UOP * I still have concerns that he may have underlying CKD (but from what is not clear) -- discussed renal biopsy with patient and he is agreeable (2) Pancreatitis: Code(s): K85.90 - Acute pancreatitis without necrosis or infection, unspecified Status: Acute Assessment and Plan: * as noted by admission lipase * CT abdomen imaging noted -- 5mm pacreatic head cyst with questionable sludge/stones in gallbladder * follow trend of lipase (trending down) * MRCP results noted * Gastroenterology and Surgery recommendations noted * continue IVFs and advance diet as tolerated (3) Hypokalemia: Code(s): E87.6 - Hypokalemia Status: Acute Assessment and Plan: * repeat cautiously given RADHA/ARF * follow trend (4) GI bleed: Code(s): K92.2 - Gastrointestinal hemorrhage, unspecified Status: Acute Assessment and Plan: * reported blood at G-tube site and tubing as well as ostomy * follow trend of H/H * on PPI * Gastroenterology following * S/P EGD: * reflux esophagitis, duodenitis with a few superficial ulcers noted * G-tube subsequently removed (5) Anemia: Code(s): D64.9 - Anemia, unspecified Status: Acute Assessment and Plan: * as noted by admission * however, chronic component based on labs in April 2022 * suspect some dilutional effects form IVF resuscitation * suspect RADHA, acute illness, possible GI loss (see #4), alcoholism, and possible nutritional issues * anemia studies with adequate iron stores - consider empiric Epogen * PRBC transfusion per protocol * follow trend of H/H (6) Severe malnutrition: Code(s): E43 - Unspecified severe protein-calorie malnutrition Status: Acute Assessment and Plan: * dietary evaluation noted * poor protein intake worsened by increased protein needs secondary to chronic medical issues (fistula and colostomy, poor oral intake, alcoholism...etc) * noted significant weight loss as well * this has likely led to his failure to thrive * supplements added * continue supportive therapy Long and extensive discussion (greater than 20 minutes) with the patient with regard to his renal dysfunction and significant improvement since admission but with the concern that there may be other etiological factors playing a role with his impaired renal function with the concern of possible underlying chronic kidney disease. I discussed with him the possibility of doing a renal biopsy for definitive diagnosis with regard to his renal dysfunction -- the patient stated that his renal dysfunction has held up his tentatively planned colostomy reversal surgery so he would like to proceed with renal biopsy. I discussed with him risks, benefits, pros, cons and the procedure itself with regard to the renal biopsy an
--- NOTE | 2022-12-16 11:30 | PM.PNNEP ---
Progress Note: A&P Assessment and Plan (1) RADHA (acute kidney injury): Code(s): N17.9 - Acute kidney failure, unspecified Status: Acute Assessment and Plan: slow improvement noted normal renal function in 2021 however, in August 2022 -- creatinine was 4.12mg/dl then in September 2022 (after pushing oral fluids), creatinine was 3.52mg/dl history would suggest volume depletion/dehydration unclear if this alone would explain his severe RADHA/ARF evaluation to date: renal ultrasound without obstruction CPK normal urine electrolytes are pre-renal urine eosinophils negative serologies so far negative (some still pending) continue with IVFs and oral bicarb follow trend of repeat labs and UOP I still have concerns that he may have underlying CKD (but from what is not clear) -- discussed renal biopsy with patient and he is agreeable (2) Pancreatitis: Code(s): K85.90 - Acute pancreatitis without necrosis or infection, unspecified Status: Acute Assessment and Plan: as noted by admission lipase CT abdomen imaging noted -- 5mm pacreatic head cyst with questionable sludge/stones in gallbladder follow trend of lipase (trending down) MRCP results noted Gastroenterology and Surgery recommendations noted continue IVFs and advance diet as tolerated (3) Hypokalemia: Code(s): E87.6 - Hypokalemia Status: Acute Assessment and Plan: repeat cautiously given RADHA/ARF follow trend (4) GI bleed: Code(s): K92.2 - Gastrointestinal hemorrhage, unspecified Status: Acute Assessment and Plan: reported blood at G-tube site and tubing as well as ostomy follow trend of H/H on PPI Gastroenterology following S/P EGD: reflux esophagitis, duodenitis with a few superficial ulcers noted G-tube subsequently removed (5) Anemia: Code(s): D64.9 - Anemia, unspecified Status: Acute Assessment and Plan: as noted by admission however, chronic component based on labs in April 2022 suspect some dilutional effects form IVF resuscitation suspect RADHA, acute illness, possible GI loss (see #4), alcoholism, and possible nutritional issues anemia studies with adequate iron stores - consider empiric Epogen PRBC transfusion per protocol follow trend of H/H (6) Severe malnutrition: Code(s): E43 - Unspecified severe protein-calorie malnutrition Status: Acute Assessment and Plan: dietary evaluation noted poor protein intake worsened by increased protein needs secondary to chronic medical issues (fistula and colostomy, poor oral intake, alcoholism...etc) noted significant weight loss as well this has likely led to his failure to thrive supplements added continue supportive therapy Long and extensive discussion (greater than 20 minutes) with the patient with regard to his renal dysfunction and significant improvement since admission but with the concern that there may be other etiological factors playing a role with his impaired renal function with the concern of possible underlying chronic kidney disease. I discussed with him the possibility of doing a renal biopsy for definitive diagnosis with regard to his renal dysfunction -- the patient stated that his renal dysfunction has held up his tentatively planned colostomy reversal surgery so he would like to proceed with renal biopsy. I discussed with him risks, benefits, pros, cons and the procedure itself with regard to the renal biopsy and he voiced understanding. Will continue to follow. Subjective Date/time seen: 12/16/22 11:30 Interval history: Follow-up for acute kidney injury/acute renal failure (on possible chronic kidney disease?). Continues to feel reasonably well; renal function continues to improve (although rate of improvement in creatinine seems to slowing down -- approaching baseline?); tolerating oral intake without nausea or vomiting; no
--- NOTE | 2022-12-16 11:59 | PCNFU ---
Nutrition Follow-Up Complete: Severe Malnutrition as related to inadequate protein-energy intake with increased protein energy needs in setting of chronic disease or condition(entero-colonic fistula/colostomy) as evidenced by minimal oral intake for > 1-2 months and significant weight loss of 20% (30 ibs) in the past 8 months. goal: Adequate Intake of at least 75% of meals/supplements Patient is progressing towards goal. We will continue current goal. Pt current nutrition is Low fat with Ensure Enlive BID. Last recorded weight is 54.5 kg. Bowel Motility:+Bm reported 12/16 Labs Reviewed:Cr 3.3, Na 136, BUN 28,Hct 24.0,Hgb 7.9 Meds Noted:[place], Fiber con, Thiamine. Skin: WNL Additional Notes: Diet order has advanced to a Low Fat diet. Patient is tolerating diet 50-100% of meals. He is tolerating diet supplements of Ensure providing an additional 350 kcals and 20 gms protein. Agree with diet orders. RD will monitor, weight, labs, oral intake every 5 days.
[2022-12-16] MEDS: EPOETIN ALFA-EPBX 10,000 UNITS/ML VIAL 20000 UNITS SUB-Q (13:03)
[2022-12-16] MEDS: POTASSIUM/PHOSPHORUS/SODIUM 1.5 GM PACKET 1 PACKET PO (13:03)
--- NOTE | 2022-12-16 14:10 | PM.IMPN ---
Progress Note: A&P Assessment and Plan (1) RADHA (acute kidney injury): Code(s): N17.9 - Acute kidney failure, unspecified Status: Acute Assessment and Plan: BUN 146 creatinine 8.9. GFR 6. Renal ultrasound was unremarkable. He was started on IV fluids. He had poor oral intake and has ostomy so consider severe dehydration from high output. He states his GTube has never been used for nutrition. He sees a clinical research scientist as an outpatient but BUN/Cr normal in April 2022 but Cr higher in the Spring at 3.5-4.1 (per nephrology note). UA here showing 1+ protein o/w bland. Urine eos negative. Dipesh 21 with FENa 1.5%. Most likely prerenal azotemia with underlying acute renal process from the pancreatitis. Metabolic acidosis better with oral bicarb. BUN 28 and Cr 3.3 now. UOP not accurate Nephrology consulted and appreciate their input. Discussed. Plan to continue IV fluids for today. Renal biopsy planned. (2) Pancreatitis: Code(s): K85.90 - Acute pancreatitis without necrosis or infection, unspecified Status: Acute Assessment and Plan: Patient's lipase was 2015. CT scan showing stable 5mm pancreatic head cyst but no ductal dilatation. He does have possible sludge or stones in GB. GI was consulted. TG 54. MRCP showing 3 small pancreatic cysts and cholelithiasis. Pancreatitis probably related to alcohol use but can not exclude GS pancreatitis. Started on clear liquid diet and diet advanced to low fat. Lipase down to 545. Clinically improving. General surgery consulted for evaluation for possible cholecystectomy and they recommended having a cholecystectomy when patient has his ostomy reversal. Appreciate GenSurg and GI input. 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 Patient was having red blood from GTube and from ileostomy. He was guaiac positive. He is [facility] at [facility] with plans for reversal at some point. GI consulted and appreciate their input. EGD 12/11 showing a few duodenal ulcers, duodenitis and reflux esophagitis; GTube was removed. The patient is not on any NSAIDs. Continue with Protonix (4) Anemia: Code(s): D64.9 - Anemia, unspecified Status: Acute Assessment and Plan: Hgb 8.7 on admission and has dropped related to IV fluids and GI bleed. Serial HH ordered. Was anemic at discharge in April but unclear if he had improvement in the interim. Suspect chronic anemia component related to RADHA, GI blood loss. Iron studies and B12 levels normal. Low plt noted at 108K but stable. Hgb dropped to 6.9 on 12/12 and he received 1U PRBC. Hgb back up to 7-8 range. Follow. (5) Failure to thrive: Status: Acute Assessment and Plan: The patient has poor oral intake. The patient had a G-tube but he stated that he has not had any tube feedings through it. He wanted his G-tube removed which was done by EGD 12/11. He also would like his ostomy reversed and is followed at [facility] with plans to have this down. His oral intake has improved. Continue IVF. Supplements ordered (6) Hypokalemia: Code(s): E87.6 - Hypokalemia Status: Acute Assessment and Plan: Potassium normal. Replace as necessary. (7) Alcohol abuse: Code(s): F10.10 - Alcohol abuse, uncomplicated Status: Acute Assessment and Plan: Patient was educated about the benefits of stopping alcohol use. Continue thiamine and folate. (8) Tobacco abuse: Code(s): Z72.0 - Tobacco use Status: Acute Assessment and Plan: The patient was offered a nicotine patch. Smoking cessation was discussed but patient refused to quit (9) Severe malnutrition: Code(s): E43 - Unspecified severe protein-calorie malnutrition Status: Acute Assessment and Plan: Alycia
[2022-12-16 14:20] VITALS: BP 136/84; PULSE 84; RESP 16; TEMP 37.1; O2SAT 100
[2022-12-16] MEDS: TAMSULOSIN HCL 0.4 MG CAPSULE PO (16:12)
[2022-12-16 17:25] LABS: Appearance Urine Clear (Clear); Bilirubin Urine Negative (Negative); Blood Urine Negative (Negative); Color Urine Yellow (Yellow); Glucose Urine UA Negative (Negative); Ketones Urine Negative (Negative); Leukocyte Esterase Ur Negative LEU/UL (Negative); Nitrate Urine Negative (Negative); Protein Urine Negative (Negative); Specific Grav Ur 1.011 (1.001-1.035); Urobilinogen Urine 0.2 mg/dL (<2.0); pH Urine 5.5 (5.0-9.0)
[2022-12-16 17:30] LABS: Add Urine Microscopic? NO
[2022-12-16 21:40] VITALS: BP 154/85; PULSE 100; RESP 16; TEMP 37.1; O2SAT 97
[2022-12-17] VITALS (12 sets, daily range): BP systolic 143–183; BP diastolic 82–118; PULSE 98–132; RESP 14–18; TEMP 36.4–37.2; O2SAT 96–100
[2022-12-17] MEDS: SODIUM CHLORIDE 0.9% IV 1,000 ML 100 ML IV CONT ×2 (02:32→18:45)
--- NOTE | 2022-12-17 04:15 | PC.NURSE ---
Went into patient room to speak to him regarding the time that he received his pain medication. Pt was asleep. Will speak to patient when he wakes up.
--- NOTE | 2022-12-17 04:18 | PC.NURSE ---
0400 PT ASKING FOR PAIN MED. INFORMED PT IT IS DUE AT 5 AM, PT STATES NO YOU GAVE ME THE PILL AT 10PM. INFORMED PT I GAVE IT TO HIM AT 2255, PT STATES NO YOU DID NOT I WATCH THE CLOCK AND YOU GAVE IT TO ME AT 2200. PHARMACY RAN REPORT OF MED WITHDRAWAL FROM PYXIS AND CHARGE NURSE WENT TO TALK TO PATIENT
[2022-12-17] MEDS: HYDROcodone/acetaminophen (*CRX) 7.5-325 MG TABLET 1 TAB PO ×3 (05:04→18:46)
[2022-12-17 05:43] LABS: Hematocrit 21.4 % (42.0-52.0); Mean Corpuscular HGB Conc 32.7 g/dl (32-36); Mean Corpuscular Hemoglobin 34.7 pg (26-34); Mean Corpuscular Volume 105.9 fl (80-100); Mean Platelet Volume 10.8 fl (7.4-10.4); Platelet Count Result 119 k/mm3 (150-375); Red Blood Count 2.02 M/mm3 (4.6-6.20); Red Cell Distribution Width 17.2 % (11.5-14.5); White Blood Count 6.4 K/mm3 (4.5-10.0)
[2022-12-17 05:51] LABS: INR 1.1; Prothrombin Time 15.3 Seconds (11.1-14.7)
[2022-12-17 05:52] LABS: Partial Thromboplastin Time 37.2 SECONDS (22.3-36.8)
[2022-12-17 05:54] LABS: Alanine Aminotransferase 15 U/L (6-50); Albumin Level 2.8 g/dL (3.5-5.1); Alkaline Phosphatase 61 U/L (38-126); Anion Gap 5 mmol/L (8-16); Aspartate Amino Transferase 21 U/L (17-59); Bilirubin,Total 0.6 mg/dL (0.2-1.3); Blood Urea Nitrogen 22 mg/dL (9-20); Calcium 8.2 mg/dL (8.4-10.2); Carbon Dioxide 18 mmol/L (22-30); Chloride 112 mmol/L (98-107); Estimated CRCL calculation 18 ml/min; Estimated Glomerular Filt Rate 20; Glucose 87 mg/dL (65-110); Phosphorus 2.6 mg/dL (2.5-4.5); Potassium 4.2 mmol/L (3.4-5.0); Sodium 135 mmol/L (137-145)
[2022-12-17] MEDS: PANTOPRAZOLE 40 MG TABLET PO ×2 (08:40→20:36)
[2022-12-17] MEDS: LIPASE/AMYLASE/PROTEASE 12,000 UNITS CAP 2 CAP PO ×2 (08:40→16:55)
[2022-12-17] MEDS: NICOTINE (*PBKC) 14 MG PATCH 1 PATCH TRANSDERM (08:40)
[2022-12-17] MEDS: THIAMINE HCL 100 MG TABLET PO (08:40)
[2022-12-17] MEDS: SODIUM BICARBONATE TAB 650 MG TABLET PO ×2 (08:40→16:55)
[2022-12-17] MEDS: FOLIC ACID 1 MG TABLET PO (08:40)
[2022-12-17] MEDS: calcium polycarbophiL 625 MG TABLET PO ×2 (08:40→20:36)
--- NOTE | 2022-12-17 12:09 | PM.IMPN ---
Progress Note: A&P Assessment and Plan (1) RADHA (acute kidney injury): Code(s): N17.9 - Acute kidney failure, unspecified Status: Acute Assessment and Plan: cr 3.2 ? plan for bx at some point (2) Pancreatitis: Code(s): K85.90 - Acute pancreatitis without necrosis or infection, unspecified Status: Acute Assessment and Plan: monitor lipase Appreciate GenSurg and GI input. 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 Patient was having red blood from GTube and from ileostomy. He was guaiac positive. He is followed at [facility] with plans for reversal at some point. GI consulted and appreciate their input. EGD 12/11 showing a few duodenal ulcers, duodenitis and reflux esophagitis; GTube was removed. The patient is not on any NSAIDs. Continue with Protonix (4) Anemia: Code(s): D64.9 - Anemia, unspecified Status: Acute Assessment and Plan: transfuse 1uprbc (5) Failure to thrive: Status: Acute Assessment and Plan: The patient has poor oral intake. The patient had a G-tube but he stated that he has not had any tube feedings through it. He wanted his G-tube removed which was done by EGD 12/11. He also would like his ostomy reversed and is followed at [facility] with plans to have this down. His oral intake has improved. (6) Hypokalemia: Code(s): E87.6 - Hypokalemia Status: Acute Assessment and Plan: Replace as necessary. (7) Alcohol abuse: Code(s): F10.10 - Alcohol abuse, uncomplicated Status: Acute Assessment and Plan: Patient was educated about the benefits of stopping alcohol use. (8) Tobacco abuse: Code(s): Z72.0 - Tobacco use Status: Acute Assessment and Plan: The patient was offered a nicotine patch. Smoking cessation was discussed but patient refused to quit (9) Severe malnutrition: Code(s): E43 - Unspecified severe protein-calorie malnutrition Status: Acute Assessment and Plan: Patient has been evaluated by dietary. Patient has severe malnutrition as related to inadequate protein energy intake with increased protein energy needs in the setting of a chronic disease and his underlying medical condition with fistula and colostomy. He has minimal oral intake for the last 1-2 months with significant weight loss of 20% over the past 8 months. Continue supplements. Replace electrolytes as needed. (10) Dysuria: Code(s): R30.0 - Dysuria Status: Acute Assessment and Plan: monitor Subjective Date/time seen: 12/17/22 12:09 Interval history: no complaints Exam Narrative: AF 98.1 157/81 90 18 100% ra Gen - NARD Chest - CTA bilaterally, nml RR CV - RRR S1/S2 Abd - Soft, NT/ND, ostomy in the right of midline with light brown stool in bag Ext - trace pedal edema Psych - Nml mood and affect Skin - Warm and dry Objective Data Vital Signs Vital Signs: Vital Signs - 24 hr 12/16/22 14:20 12/16/22 21:40 12/17/22 06:13 Temperature 98.7 F 98.7 F 98.5 F Pulse Rate 84 100 98 Respiratory Rate 16 16 16 Blood Pressure 136/84 154/85 H 143/82 H Pulse Oximetry 100 97 96 Oxygen Delivery 12/17/22 08:58 12/17/22 08:00 Temperature Pulse Rate 98 Respiratory Rate 16 Blood Pressure Pulse Oximetry 98 98 Oxygen Delivery Room Air Room Air Intake/Output Intake/Output: Intake & Output 12/14/22 12/15/22 12/16/22 12/17/22 23:59 23:59 23:59 23:59 Intake Total 3710 3470 3560 1250 Output Total 2850 1150 1465 850 Balance 860 2320 2095 400 Meds/Results Medications: Active Medications Generic Name Dose Route Start Last Admin Trade Name Freq PRN Reason Stop Dose Admin Acetaminophen 650 mg 11/21
[2022-12-17] MEDS: SODIUM CHLORIDE 0.9% IV 250 ML 30 ML IV CONT (13:17)
[2022-12-17 15:19] LABS: Chloride Rand Ur 25 mmol/L (32-290); Chloride/Creatinine Rand Ur 44 (23-275); Creatinine Random Urine 57 mg/dL (20-320)
--- NOTE | 2022-12-17 16:23 | WPDURCON ---
Assessment and Plan Assessment and plan (1) RADHA (acute kidney injury): Code(s): N17.9 - Acute kidney failure, unspecified Status: Acute Assessment and Plan: Improving, continue to monitor. (2) BPH (benign prostatic hyperplasia): Code(s): N40.0 - Benign prostatic hyperplasia without lower urinary tract symptoms Status: Acute Assessment and Plan: Continue Tamsulosin, add Finasteride. Patient notes improvement on Tamsulosin. PVR <100cc. F/U in the office in 3 months. No further evaluation needed. Urology Consult Note HPI Date Seen: 12/17/22 Time Seen: 13:00 Requesting Physician: Giorgio Gonzalez MD Primary Care Provider: Giorgio Aguirre, Consult Narrative Reason for consult: BPH Narrative: Juan Jose Martinez is a 57 year old male who presented to the ER 8 days ago for failure to thrive. He has been being treated for a GI bleed, however he has been c/o hesitancy, straining, slow urine stream, frequency and urgency to urinate as well as nocturia. He states that has been a problem for many months, but has worsened since his hospital stay began. He had a CT scan initially that showed bladder wall thickening. He had an elevated creatinine which has improved to 3.20, WBC of 6.4 today and he was started on Tamsulosin recently which he states has helped his urine flow, straining and frequency quite a bit. He states he has no family history of prostate cancer and has not had a PSA or ARMIN screening in the past. Review of Systems Cardiovascular: Cardiovascular: Denies chest pain Respiratory: Respiratory: Reports no additional respiratory complaints Gastrointestinal: Gastrointestinal: Denies abdominal pain, Denies nausea and Denies vomiting Genitourinary: Genitourinary: Denies hematuria, Denies dysuria, Denies flank pain, Reports urinary frequency, Reports urinary hesitancy and Reports urinary urgency [facility] Past Medical History Medical History Alcoholism Continuous tobacco abuse COPD (chronic obstructive pulmonary disease) CVA (cerebral vascular accident) Entero-colic fistula Initially noted on CT from 12/2019 Kidney stones LLQ pain Right inguinal hernia Patient refuses surgical correction Stomach ulcer Tobacco abuse Surgical History Surgical History History of left inguinal hernia repair X2 History of pneumonectomy Left lower lobe pneumonectomy 2018 due to pneumothorax History of tonsillectomy and adenoidectomy S/P laparotomy exploratory laparotomy, extensive lysis of adhesions of approximately 45 minutes, takedown of colo-entero fistula, small-bowel resection, creation of loop ileostomy on 05/02/22 Status post open reduction with internal fixation of fracture Status post right foot surgery (~1990) For sequential surgeries for ORIF right foot due to trauma from alcohol use with the last surgical procedure also involving bone harvesting from his right hip Family History Family History Father Acute myocardial infarction Mother Breast cancer Cerebrovascular accident Social History Social History Social History: The patient is . 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 He has smoked up to a pack of cigarettes per day and started smoking around age 14. He is now down to 1/2 pack of cigarettes per day. He drinks at least 1 mixed drink a day.. He denies a history of alcohol withdrawal and is went up to 8 days without drinking without withdrawal symptoms. He denies illicit substance use. Code status full code Smoking packs per day: 0.5 Smoking cigarettes per day: 10.0 Years smoked: 40 Smoking pack-years: 20.00 Smoking status: Current every day smoker Alcohol intake: current Drinks per we
[2022-12-17] MEDS: hydrALAZINE HCL 25 MG TABLET PO (16:55)
--- NOTE | 2022-12-17 17:26 | PC.NURSE ---
Pt states he is having a very hard time urinating, feels like his bladder is full. Bladder scan showed >180ml in bladder. RN palpated and applied slight pressure to bladder, pt was able to void 100ml of urine. Pt also reported feeling like he was going to pass out. Upon assessment BP was 178/118 and HR was 143. Pt appeared to be very anxious, denied feeling that way and declined anything to help relieve anxiety. RN called hospitalist Carlos and was unable to get through. Received orders from Dr. Luo for 25mg PO Hydralazine ONCE. Pt resting comfortably in bed, will continue to monitor.
[2022-12-17 17:45] LABS: Hematocrit 29.8 % (42.0-52.0); Hemoglobin 9.6 g/dL (14.0-18.0)
[2022-12-17 20:22] LABS: Creatinine, Random Urine 92 mg/dL (20-320); Total Protein/Creatinine Ratio 283 mg/g creat (25-148)
[2022-12-17] MEDS: TAMSULOSIN HCL 0.4 MG CAPSULE PO (20:36)
[2022-12-18] MEDS: HYDROcodone/acetaminophen (*CRX) 7.5-325 MG TABLET 1 TAB PO ×4 (01:01→19:34)
[2022-12-18 01:13] VITALS: PULSE 120; RESP 20; O2SAT 98
[2022-12-18] MEDS: LEVALBUTEROL NEB 1.25 MG/3 ML INHALATION ×2 (01:30→19:11)
[2022-12-18] MEDS: SODIUM CHLORIDE 0.9% IV 1,000 ML 100 ML IV CONT ×2 (04:10→14:37)
[2022-12-18 05:22] VITALS: BP 140/80; PULSE 117; RESP 17; TEMP 36.7; O2SAT 98
[2022-12-18 07:13] LABS: Hematocrit 26.3 % (42.0-52.0); Hemoglobin 8.2 g/dL (14.0-18.0); Mean Corpuscular HGB Conc 31.2 g/dl (32-36); Mean Corpuscular Hemoglobin 33.5 pg (26-34); Mean Corpuscular Volume 107.3 fl (80-100); Mean Platelet Volume 10.7 fl (7.4-10.4); Platelet Count Result 122 k/mm3 (150-375); Red Blood Count 2.45 M/mm3 (4.6-6.20); White Blood Count 7.9 K/mm3 (4.5-10.0)
[2022-12-18 07:22] LABS: Alanine Aminotransferase 13 U/L (6-50); Albumin Level 2.8 g/dL (3.5-5.1); Alkaline Phosphatase 57 U/L (38-126); Anion Gap 12 mmol/L (8-16); Aspartate Amino Transferase 19 U/L (17-59); Bilirubin,Total 0.8 mg/dL (0.2-1.3); Blood Urea Nitrogen 20 mg/dL (9-20); Calcium 8.6 mg/dL (8.4-10.2); Carbon Dioxide 13 mmol/L (22-30); Chloride 112 mmol/L (98-107); Estimated CRCL calculation 18 ml/min; Estimated Glomerular Filt Rate 21; Glucose 71 mg/dL (65-110); Potassium 4.6 mmol/L (3.4-5.0); Sodium 137 mmol/L (137-145)
[2022-12-18] MEDS: PANTOPRAZOLE 40 MG TABLET PO ×2 (08:42→19:34)
[2022-12-18] MEDS: FOLIC ACID 1 MG TABLET PO (08:42)
[2022-12-18] MEDS: SODIUM BICARBONATE TAB 650 MG TABLET PO (08:42)
[2022-12-18] MEDS: THIAMINE HCL 100 MG TABLET PO (08:42)
[2022-12-18] MEDS: calcium polycarbophiL 625 MG TABLET PO ×2 (08:42→19:34)
[2022-12-18] MEDS: NICOTINE (*PBKC) 14 MG PATCH 1 PATCH TRANSDERM (08:44)
[2022-12-18] MEDS: LIPASE/AMYLASE/PROTEASE 12,000 UNITS CAP 2 CAP PO ×3 (08:47→16:34)
[2022-12-18 14:09] VITALS: BP 155/94; PULSE 111; RESP 18; TEMP 36.6; O2SAT 98
--- NOTE | 2022-12-18 14:37 | PM.IMPN ---
Progress Note: A&P Assessment and Plan (1) RADHA (acute kidney injury): Code(s): N17.9 - Acute kidney failure, unspecified Status: Acute Assessment and Plan: cr 3.2 ? plan for bx at some point (2) Pancreatitis: Code(s): K85.90 - Acute pancreatitis without necrosis or infection, unspecified Status: Acute Assessment and Plan: monitor lipase Appreciate GenSurg and GI input. 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 Patient was having red blood from GTube and from ileostomy. He was guaiac positive. He is followed at [facility] with plans for reversal at some point. GI consulted and appreciate their input. EGD 12/11 showing a few duodenal ulcers, duodenitis and reflux esophagitis; GTube was removed. The patient is not on any NSAIDs. Continue with Protonix (4) Anemia: Code(s): D64.9 - Anemia, unspecified Status: Acute Assessment and Plan: transfuse 1uprbc (5) Failure to thrive: Status: Acute Assessment and Plan: The patient has poor oral intake. The patient had a G-tube but he stated that he has not had any tube feedings through it. He wanted his G-tube removed which was done by EGD 12/11. He also would like his ostomy reversed and is followed at [facility] with plans to have this down. His oral intake has improved. (6) Hypokalemia: Code(s): E87.6 - Hypokalemia Status: Acute Assessment and Plan: Replace as necessary. (7) Alcohol abuse: Code(s): F10.10 - Alcohol abuse, uncomplicated Status: Acute Assessment and Plan: Patient was educated about the benefits of stopping alcohol use. (8) Tobacco abuse: Code(s): Z72.0 - Tobacco use Status: Acute Assessment and Plan: The patient was offered a nicotine patch. Smoking cessation was discussed but patient refused to quit (9) Severe malnutrition: Code(s): E43 - Unspecified severe protein-calorie malnutrition Status: Acute Assessment and Plan: Patient has been evaluated by dietary. Patient has severe malnutrition as related to inadequate protein energy intake with increased protein energy needs in the setting of a chronic disease and his underlying medical condition with fistula and colostomy. He has minimal oral intake for the last 1-2 months with significant weight loss of 20% over the past 8 months. Continue supplements. Replace electrolytes as needed. (10) Dysuria: Code(s): R30.0 - Dysuria Status: Acute Assessment and Plan: monitor Subjective Date/time seen: 12/18/22 14:37 Interval history: No new complaints Exam Narrative: AF 98.1 157/81 90 18 100% ra Gen - NARD Chest - CTA bilaterally, nml RR CV - RRR S1/S2 Abd - Soft, NT/ND, ostomy in the right of midline with light brown stool in bag Ext - trace pedal edema Psych - Nml mood and affect Skin - Warm and dry Objective Data Vital Signs Vital Signs: Vital Signs - 24 hr 12/17/22 15:32 12/17/22 16:35 12/17/22 16:44 Temperature 97.8 F 98.2 F Pulse Rate 127 H 132 H Respiratory Rate 17 18 Blood Pressure 178/106 H 178/117 H 178/118 H Pulse Oximetry 100 96 12/17/22 20:45 12/18/22 01:13 12/18/22 05:22 Temperature 98.9 F 98.1 F Pulse Rate 120 H 120 H 117 H Respiratory Rate 18 20 17 Blood Pressure 156/87 H 140/80 Pulse Oximetry 98 98 98 12/18/22 14:09 Temperature 97.9 F Pulse Rate 111 H Respiratory Rate 18 Blood Pressure 155/94 H Pulse Oximetry 98 Intake/Output Intake/Output: Intake & Output 12/15/22 12/16/22 12/17/22 12/18/22 23:59 23:59 23:59 23:59 Intake Total 3470 3560 2950 1850 Output Total 1150 1465 1500 350 Balance 2320 2095 1450 1500 Meds/Results Medications:
--- NOTE | 2022-12-18 15:04 | P.PNNP_ITS ---
Progress Note: A&P Assessment and Plan (1) RADHA (acute kidney injury): Code(s): N17.9 - Acute kidney failure, unspecified Status: Acute Assessment and Plan: * slow improvement noted * normal renal function in 2021 * however, in August 2022 -- creatinine was 4.12mg/dl * then in September 2022 (after pushing oral fluids), creatinine was 3.52mg/dl * history would suggest volume depletion/dehydration * unclear if this alone would explain his severe RADHA/ARF * evaluation to date: * renal ultrasound without obstruction * CPK normal * urine electrolytes are pre-renal * urine eosinophils negative * serologies so far negative (some still pending) * continue with IVFs and oral bicarb * follow trend of repeat labs and UOP * s/p renal biopsy (on 12/17/22) for hopefully a more definitive diagnosis * hopefully some preliminary results later today.... (2) Pancreatitis: Code(s): K85.90 - Acute pancreatitis without necrosis or infection, unspecified Status: Acute Assessment and Plan: * as noted by admission lipase * CT abdomen imaging noted -- 5mm pacreatic head cyst with questionable sludge/stones in gallbladder * follow trend of lipase (trending down) * MRCP results noted * Gastroenterology and Surgery recommendations noted * continue IVFs and advance diet as tolerated (3) Hypokalemia: Code(s): E87.6 - Hypokalemia Status: Acute Assessment and Plan: * repeat cautiously given RADHA/ARF * follow trend (4) GI bleed: Code(s): K92.2 - Gastrointestinal hemorrhage, unspecified Status: Acute Assessment and Plan: * reported blood at G-tube site and tubing as well as ostomy * follow trend of H/H * on PPI * Gastroenterology following * S/P EGD: * reflux esophagitis, duodenitis with a few superficial ulcers noted * G-tube subsequently removed (5) Anemia: Code(s): D64.9 - Anemia, unspecified Status: Acute Assessment and Plan: * as noted by admission * however, chronic component based on labs in April 2022 * suspect some dilutional effects form IVF resuscitation * suspect RADHA, acute illness, possible GI loss (see #4), alcoholism, and possible nutritional issues * anemia studies with adequate iron stores - s/p empiric Epogen * PRBC transfusion per protocol * follow trend of H/H (6) Severe malnutrition: Code(s): E43 - Unspecified severe protein-calorie malnutrition Status: Acute Assessment and Plan: * dietary evaluation noted * poor protein intake worsened by increased protein needs secondary to chronic medical issues (fistula and colostomy, poor oral intake, alcoholism...etc) * noted significant weight loss as well * this has likely led to his failure to thrive * supplements added * continue supportive therapy Will continue to follow. Subjective Date/time seen: 12/18/22 15:04 Interval history: Follow-up for acute kidney injury/acute renal failure (on possible chronic kidney disease?). Unable to see yesterday as was out of room for procedure; s/p ultrasound guided renal biopsy yesterday and tolerated this intervention fairly well; renal function remains stable if not better; H/H stable as well; eating and drinking okay; no apparent distress voiced but still feels that he is not peeing right. Exam Narrative: General: WD/WN male in NAD Heart: normal S1 and S2; no rub Lungs: clear to auscultation Abdomen: soft, nondistended, positive nestor
--- NOTE | 2022-12-18 15:04 | PM.PNNEP ---
Progress Note: A&P Assessment and Plan (1) RADHA (acute kidney injury): Code(s): N17.9 - Acute kidney failure, unspecified Status: Acute Assessment and Plan: slow improvement noted normal renal function in 2021 however, in August 2022 -- creatinine was 4.12mg/dl then in September 2022 (after pushing oral fluids), creatinine was 3.52mg/dl history would suggest volume depletion/dehydration unclear if this alone would explain his severe RADHA/ARF evaluation to date: renal ultrasound without obstruction CPK normal urine electrolytes are pre-renal urine eosinophils negative serologies so far negative (some still pending) continue with IVFs and oral bicarb follow trend of repeat labs and UOP s/p renal biopsy (on 12/17/22) for hopefully a more definitive diagnosis hopefully some preliminary results later today.... (2) Pancreatitis: Code(s): K85.90 - Acute pancreatitis without necrosis or infection, unspecified Status: Acute Assessment and Plan: as noted by admission lipase CT abdomen imaging noted -- 5mm pacreatic head cyst with questionable sludge/stones in gallbladder follow trend of lipase (trending down) MRCP results noted Gastroenterology and Surgery recommendations noted continue IVFs and advance diet as tolerated (3) Hypokalemia: Code(s): E87.6 - Hypokalemia Status: Acute Assessment and Plan: repeat cautiously given RADHA/ARF follow trend (4) GI bleed: Code(s): K92.2 - Gastrointestinal hemorrhage, unspecified Status: Acute Assessment and Plan: reported blood at G-tube site and tubing as well as ostomy follow trend of H/H on PPI Gastroenterology following S/P EGD: reflux esophagitis, duodenitis with a few superficial ulcers noted G-tube subsequently removed (5) Anemia: Code(s): D64.9 - Anemia, unspecified Status: Acute Assessment and Plan: as noted by admission however, chronic component based on labs in April 2022 suspect some dilutional effects form IVF resuscitation suspect RADHA, acute illness, possible GI loss (see #4), alcoholism, and possible nutritional issues anemia studies with adequate iron stores - s/p empiric Epogen PRBC transfusion per protocol follow trend of H/H (6) Severe malnutrition: Code(s): E43 - Unspecified severe protein-calorie malnutrition Status: Acute Assessment and Plan: dietary evaluation noted poor protein intake worsened by increased protein needs secondary to chronic medical issues (fistula and colostomy, poor oral intake, alcoholism...etc) noted significant weight loss as well this has likely led to his failure to thrive supplements added continue supportive therapy Will continue to follow. Subjective Date/time seen: 12/18/22 15:04 Interval history: Follow-up for acute kidney injury/acute renal failure (on possible chronic kidney disease?). Unable to see yesterday as was out of room for procedure; s/p ultrasound guided renal biopsy yesterday and tolerated this intervention fairly well; renal function remains stable if not better; H/H stable as well; eating and drinking okay; no apparent distress voiced but still feels that he is not peeing right. Exam Narrative: General: WD/WN male in NAD Heart: normal S1 and S2; no rub Lungs: clear to auscultation Abdomen: soft, nondistended, positive bowel sounds; colostomy noted Extremities: no cyanosis or clubbing; no edema Skin: warm and intact Objective Data Vital Signs Vital Signs: Vital Signs Temp Pulse Resp BP Pulse Ox 12/18/22 14:09 97.9 F 111 H 18 155/94 H 98 12/18/22 05:22 98.1 F 117 H 17 140/80 98 12/18/22 01:13 120 H 20 98 12/17/22 20:45 98.9 F 120 H 18 156/87 H 98 12/17/22 16:44 178/118 H 12/17/22 16:35 98.2 F 132 H 18 178/117 H 96 Intake/Output Intake/Output: Intake & Output
--- NOTE | 2022-12-18 16:15 | P.PNCROSS_ITS ---
Event Note Event Note Event Note: Preliminary renal biopsy report: * severe/significant arterionephrosclerosis * 30 - 40% tubular atropy and interstitial fibrosis * no inflammatory changes or cresents Discussed results with patient.
--- NOTE | 2022-12-18 16:15 | PM.EVENT ---
Event Note Event Note Event Note: Preliminary renal biopsy report: severe/significant arterionephrosclerosis 30 - 40% tubular atropy and interstitial fibrosis no inflammatory changes or cresents Discussed results with patient.
[2022-12-18] MEDS: SODIUM BICARBONATE TAB 650 MG TABLET 1300 MG PO (16:33)
[2022-12-18 19:14] VITALS: PULSE 106; RESP 18
[2022-12-18] MEDS: TAMSULOSIN HCL 0.4 MG CAPSULE PO (19:33)
[2022-12-18] MEDS: HYOSCYAMINE SULFATE 0.125 MG TABLET PO (19:55)
[2022-12-18 20:25] VITALS: BP 154/94; PULSE 135; RESP 18; TEMP 36.7; O2SAT 97
[2022-12-18 22:24] LABS: ANCA Screen Negative (Negative)
[2022-12-18] MEDS: LORazepam INJ (*CRX) 2 MG/ML VIAL 0.5 MG IV PUSH (22:30)
[2022-12-19] VITALS (10 sets, daily range): BP systolic 147–148; BP diastolic 90–95; PULSE 107–133; RESP 18–22; TEMP 36.7–37.6; O2SAT 93–98
[2022-12-19] MEDS: SODIUM CHLORIDE 0.9% IV 1,000 ML 100 ML IV CONT ×2 (03:10→13:50)
[2022-12-19] MEDS: HYDROcodone/acetaminophen (*CRX) 7.5-325 MG TABLET 1 TAB PO ×3 (04:14→20:03)
[2022-12-19] MEDS: HYOSCYAMINE SULFATE 0.125 MG TABLET PO (04:14)
[2022-12-19 07:23] LABS: Hemoglobin 7.7 g/dL (14.0-18.0); Mean Corpuscular HGB Conc 32.1 g/dl (32-36); Mean Corpuscular Hemoglobin 34.4 pg (26-34); Mean Corpuscular Volume 107.1 fl (80-100); Mean Platelet Volume 10.8 fl (7.4-10.4); Platelet Count Result 130 k/mm3 (150-375); Red Blood Count 2.24 M/mm3 (4.6-6.20); Red Cell Distribution Width 18.9 % (11.5-14.5); White Blood Count 7.6 K/mm3 (4.5-10.0)
[2022-12-19 07:35] LABS: Alanine Aminotransferase 13 U/L (6-50); Albumin Level 2.8 g/dL (3.5-5.1); Alkaline Phosphatase 56 U/L (38-126); Anion Gap 12 mmol/L (8-16); Aspartate Amino Transferase 18 U/L (17-59); Bilirubin,Total 0.6 mg/dL (0.2-1.3); Blood Urea Nitrogen 19 mg/dL (9-20); Calcium 8.4 mg/dL (8.4-10.2); Carbon Dioxide 14 mmol/L (22-30); Chloride 112 mmol/L (98-107); Estimated CRCL calculation 19 ml/min; Estimated Glomerular Filt Rate 22; Glucose 85 mg/dL (65-110); Potassium 4.5 mmol/L (3.4-5.0); Sodium 138 mmol/L (137-145)
[2022-12-19] MEDS: FOLIC ACID 1 MG TABLET PO (09:36)
[2022-12-19] MEDS: LIPASE/AMYLASE/PROTEASE 12,000 UNITS CAP 2 CAP PO ×2 (09:36→17:21)
[2022-12-19] MEDS: NICOTINE (*PBKC) 14 MG PATCH 1 PATCH TRANSDERM (09:37)
[2022-12-19] MEDS: PANTOPRAZOLE 40 MG TABLET PO ×2 (09:38→20:03)
[2022-12-19] MEDS: SODIUM BICARBONATE TAB 650 MG TABLET 1300 MG PO ×2 (09:39→17:22)
[2022-12-19] MEDS: THIAMINE HCL 100 MG TABLET PO (09:39)
--- NOTE | 2022-12-19 11:21 | PM.IMPN ---
Progress Note: A&P Assessment and Plan (1) RADHA (acute kidney injury): Code(s): N17.9 - Acute kidney failure, unspecified Status: Acute Assessment and Plan: Monitor creatinine. Biopsy report noted. (2) Pancreatitis: Code(s): K85.90 - Acute pancreatitis without necrosis or infection, unspecified Status: Acute Assessment and Plan: monitor lipase Appreciate GenSurg and GI input. (3) GI bleed: Code(s): K92.2 - Gastrointestinal hemorrhage, unspecified Status: Acute Assessment and Plan: Resolved, monitor. (4) Anemia: Code(s): D64.9 - Anemia, unspecified Status: Acute Assessment and Plan: transfuse 1uprbc (5) Failure to thrive: Status: Acute Assessment and Plan: His oral intake has improved. (6) Hypokalemia: Code(s): E87.6 - Hypokalemia Status: Acute Assessment and Plan: Replace as necessary. (7) Alcohol abuse: Code(s): F10.10 - Alcohol abuse, uncomplicated Status: Acute Assessment and Plan: Patient was educated about the benefits of stopping alcohol use. (8) Tobacco abuse: Code(s): Z72.0 - Tobacco use Status: Acute Assessment and Plan: The patient was offered a nicotine patch. Smoking cessation was discussed but patient refused to quit (9) Severe malnutrition: Code(s): E43 - Unspecified severe protein-calorie malnutrition Status: Acute (10) Dysuria: Code(s): R30.0 - Dysuria Status: Acute Assessment and Plan: monitor (11) Hematuria: Code(s): R31.9 - Hematuria, unspecified Status: Acute Assessment and Plan: Dysuria with hematuria. Will have Urology evaluate the patient. Subjective Date/time seen: 12/19/22 11:21 Interval history: Complaining of lower abdominal pain. Also complaining of sensation to void however he is unable to. Also complaining of some hematuria. Exam Narrative: AF 98.1 157/81 90 18 100% ra Gen - NARD Chest - CTA bilaterally, nml RR CV - RRR S1/S2 Abd - Soft, NT/ND, ostomy in the right of midline with light brown stool in bag Ext - trace pedal edema Psych - Nml mood and affect Skin - Warm and dry Objective Data Vital Signs Vital Signs: Vital Signs - 24 hr 12/18/22 14:09 12/18/22 19:14 12/18/22 20:25 Temperature 97.9 F 98.1 F Pulse Rate 111 H 106 H 135 H Respiratory Rate 18 18 18 Blood Pressure 155/94 H 154/94 H Pulse Oximetry 98 97 12/19/22 05:26 Temperature 98.7 F Pulse Rate 127 H Respiratory Rate 18 Blood Pressure 148/90 H Pulse Oximetry 98 Intake/Output Intake/Output: Intake & Output 12/16/22 12/17/22 12/18/22 12/19/22 23:59 23:59 23:59 23:59 Intake Total 3560 2950 3265 1630 Output Total 1465 1500 800 500 Balance 2095 1450 2465 1130 Meds/Results Medications: Active Medications Generic Name Dose Route Start Last Admin Trade Name Freq PRN Reason Stop Dose Admin Acetaminophen 650 mg 12/13/22 17:29 Acetaminophen 325 Mg Tablet PO Q6H PRN Mild Pain (1-3) or Fever Hydrocodone Bitart/Acetaminophen 1 tab 12/13/22 17:29 12/19/22 04:14 Hydrocodone/Acetaminophen (*Crx) 7.5-325 Mg Tablet PO 1 tab Q6H PRN Administration Pain Rated 7-10 Hydrocodone Bitart/Acetaminophen 1 tab 12/13/22 17:29 Hydrocodone/Acetaminophen (*Crx) 5-325 Mg Tablet PO Q6H PRN Pain Rated 4-6 Lipase/Protease/Amylase 2 cap 12/13/22 08:00 12/19/22 09:36 Lipase/Amylase/Protease 12,000 Units Cap PO 2 cap TIDWM KATI Administration Artificial Tears 1 drop 12/16/22 08:09 12/16/22 17:12 Artificial Tears Ophth Soln 15 Ml Bottle EACH EYE 1 drop QID PRN Administration Dry Eye(s) Calcium Polycarbophil 625 mg 12/15/22 13:00 12/19/22 09:36 Calcium Polycarbophil 625 Mg Tablet PO Not Given Q12HR KATI Folic Acid 1 mg 12/14/22 09:00 12/19/22 09:36 Folic
[2022-12-19] MEDS: LEVALBUTEROL NEB 1.25 MG/3 ML INHALATION ×2 (13:15→20:16)
--- NOTE | 2022-12-19 13:50 | PM.PNNEP ---
Progress Note: A&P Assessment and Plan (1) RADHA (acute kidney injury): Code(s): N17.9 - Acute kidney failure, unspecified Status: Acute Assessment and Plan: slow improvement noted normal renal function in 2021 however, in August 2022 -- creatinine was 4.12mg/dl then in September 2022 (after pushing oral fluids), creatinine was 3.52mg/dl history would suggest volume depletion/dehydration unclear if this alone would explain his severe RADHA/ARF evaluation to date: renal ultrasound without obstruction CPK normal urine electrolytes are pre-renal urine eosinophils negative serologies so far negative (some still pending) continue with IVFs and oral bicarb follow trend of repeat labs and UOP s/p renal biopsy (on 12/17/22): significant arterionephrosclerosis moderate (30 - 40%) interstitial fibrosis and tubular atrophy severe arterial intimal fibrosis unclear if renal function/creatinine will normalize given biopsy findings recheck ultrasound given findings of urinary retention + hematuria (2) Pancreatitis: Code(s): K85.90 - Acute pancreatitis without necrosis or infection, unspecified Status: Acute Assessment and Plan: as noted by admission lipase CT abdomen imaging noted -- 5mm pancreatic head cyst with questionable sludge/stones in gallbladder follow trend of lipase (trending down) MRCP results noted Gastroenterology and Surgery recommendations noted on IVFs and advance diet as tolerated wean off IVFs (3) Hypokalemia: Code(s): E87.6 - Hypokalemia Status: Acute Assessment and Plan: repeat cautiously given RADHA/ARF follow trend (4) GI bleed: Code(s): K92.2 - Gastrointestinal hemorrhage, unspecified Status: Acute Assessment and Plan: reported blood at G-tube site and tubing as well as ostomy follow trend of H/H on PPI Gastroenterology following S/P EGD: reflux esophagitis, duodenitis with a few superficial ulcers noted G-tube subsequently removed (5) Anemia: Code(s): D64.9 - Anemia, unspecified Status: Acute Assessment and Plan: as noted by admission however, chronic component based on labs in April 2022 suspect some dilutional effects form IVF resuscitation suspect RADHA, acute illness, possible GI loss (see #4), alcoholism, and possible nutritional issues anemia studies with adequate iron stores - s/p empiric Epogen PRBC transfusion per protocol follow trend of H/H (6) Severe malnutrition: Code(s): E43 - Unspecified severe protein-calorie malnutrition Status: Acute Assessment and Plan: dietary evaluation noted poor protein intake worsened by increased protein needs secondary to chronic medical issues (fistula and colostomy, poor oral intake, alcoholism...etc) noted significant weight loss as well this has likely led to his failure to thrive supplements added continue supportive therapy Will continue to follow. Subjective Date/time seen: 12/19/22 13:50 Interval history: Follow-up for acute kidney injury/acute renal failure Renal function remains stable if not with some mild improvement in the last 24 hours; now reports lower abdominal pain along with inability to void despite sensation to do so which led to difficulty with sleeping over night; states he has noted some hematuria (secondary to renal biopsy?) as well; tolerating oral intake. Exam Narrative: General: WD/WN male in NAD Heart: normal S1 and S2; no rub Lungs: clear to auscultation Abdomen: soft, nondistended, positive bowel sounds; colostomy noted Extremities: no cyanosis or clubbing; no edema Skin: no rash Objective Data Vital Signs Vital Signs: Vital Signs Temp Pulse Resp BP Pulse Ox O2 Del Method 12/19/22 13:25 130 H 20 12/19/22 13:18 93 Room Air 12/19/22 13:16 123 H 22 H 12/19/22 09:21 Room Air
--- NOTE | 2022-12-19 13:50 | P.PNNP_ITS ---
Progress Note: A&P Assessment and Plan (1) RADHA (acute kidney injury): Code(s): N17.9 - Acute kidney failure, unspecified Status: Acute Assessment and Plan: * slow improvement noted * normal renal function in 2021 * however, in August 2022 -- creatinine was 4.12mg/dl * then in September 2022 (after pushing oral fluids), creatinine was 3.52mg/dl * history would suggest volume depletion/dehydration * unclear if this alone would explain his severe RADHA/ARF * evaluation to date: * renal ultrasound without obstruction * CPK normal * urine electrolytes are pre-renal * urine eosinophils negative * serologies so far negative (some still pending) * continue with IVFs and oral bicarb * follow trend of repeat labs and UOP * s/p renal biopsy (on 12/17/22): * significant arterionephrosclerosis * moderate (30 - 40%) interstitial fibrosis and tubular atrophy * severe arterial intimal fibrosis * unclear if renal function/creatinine will normalize given biopsy findings * recheck ultrasound given findings of urinary retention + hematuria (2) Pancreatitis: Code(s): K85.90 - Acute pancreatitis without necrosis or infection, unspecified Status: Acute Assessment and Plan: * as noted by admission lipase * CT abdomen imaging noted -- 5mm pancreatic head cyst with questionable sludge/stones in gallbladder * follow trend of lipase (trending down) * MRCP results noted * Gastroenterology and Surgery recommendations noted * on IVFs and advance diet as tolerated * wean off IVFs (3) Hypokalemia: Code(s): E87.6 - Hypokalemia Status: Acute Assessment and Plan: * repeat cautiously given RADHA/ARF * follow trend (4) GI bleed: Code(s): K92.2 - Gastrointestinal hemorrhage, unspecified Status: Acute Assessment and Plan: * reported blood at G-tube site and tubing as well as ostomy * follow trend of H/H * on PPI * Gastroenterology following * S/P EGD: * reflux esophagitis, duodenitis with a few superficial ulcers noted * G-tube subsequently removed (5) Anemia: Code(s): D64.9 - Anemia, unspecified Status: Acute Assessment and Plan: * as noted by admission * however, chronic component based on labs in April 2022 * suspect some dilutional effects form IVF resuscitation * suspect RADHA, acute illness, possible GI loss (see #4), alcoholism, and possibl e nutritional issues * anemia studies with adequate iron stores - s/p empiric Epogen * PRBC transfusion per protocol * follow trend of H/H (6) Severe malnutrition: Code(s): E43 - Unspecified severe protein-calorie malnutrition Status: Acute Assessment and Plan: * dietary evaluation noted * poor protein intake worsened by increased protein needs secondary to chronic medical issues (fistula and colostomy, poor oral intake, alcoholism...etc) * noted significant weight loss as well * this has likely led to his failure to thrive * supplements added * continue supportive therapy Will continue to follow. Subjective Date/time seen: 12/19/22 13:50 Interval history: Follow-up for acute kidney injury/acute renal failure Renal function remains stable if not with some mild improvement in the last 24 hours; now reports lower abdominal pain along with inability to void despite sensation to do so which led to difficulty with sleeping over night; states he has noted some hematuria (secondary to renal biopsy?) as well; tolerating oral intake. Luigi
[2022-12-19 14:44] LABS: Appearance Urine Clear (Clear); Bacteria Urine 4+ /hpf; Bilirubin Urine Negative (Negative); Blood Urine 3+ (Negative); Color Urine Yellow (Yellow); Glucose Urine UA Negative (Negative); Ketones Urine 1+ mg/dL (Negative); Leukocyte Esterase Ur Negative LEU/UL (Negative); Nitrate Urine Positive (Negative); Non Pathogenic Casts 0-2; Protein Urine 1+ mg/dL (Negative); RBC Urine 21-50 /hpf (0-2); Specific Grav Ur 1.014 (1.001-1.035); Squamous Epithelial Cell Urine None seen /hpf (Few); Urobilinogen Urine 0.2 mg/dL (<2.0); WBC Urine 0-5 /hpf; pH Urine 5.5 (5.0-9.0)
[2022-12-19 14:48] LABS: Add Urine Microscopic? YES
[2022-12-19] MEDS: calcium polycarbophiL 625 MG TABLET PO (20:04)
[2022-12-19] MEDS: TAMSULOSIN HCL 0.4 MG CAPSULE PO (20:04)
[2022-12-20] MEDS: HYDROcodone/acetaminophen (*CRX) 7.5-325 MG TABLET 1 TAB PO ×4 (01:53→21:24)
[2022-12-20 04:04] VITALS: BP 143/92; PULSE 124; RESP 18; TEMP 37.4; O2SAT 97
[2022-12-20 04:42] LABS: Basophils Absolute Auto 0.1 K/mm3 (0.0-0.1); Basophils Percent Auto 0.6 % (0.2-1.2); Eosinophils Absolute Auto 0.1 K/mm3 (0-0.3); Hemoglobin 7.8 g/dL (14.0-18.0); Immature Granulocyte Absolute 0.06 K/mm3 (0.00-0.031); Immature Granulocyte Percent A 0.7 % (0-0.5); Lymphocytes Absolute Auto 1.29 K/mm3 (0.9-3.2); Lymphocytes Percent Auto 15.5 % (18.3-44.2); Mean Corpuscular HGB Conc 32.5 g/dl (32-36); Mean Corpuscular Hemoglobin 34.5 pg (26-34); Mean Corpuscular Volume 106.2 fl (80-100); Mean Platelet Volume 10.3 fl (7.4-10.4); Monocytes Absolute Auto 1.3 K/mm3 (0.1-0.6); Monocytes Percent Auto 15.2 % (2.6-8.5); Neutrophils Absolute Auto 5.6 K/mm3 (1.3-6.7); Platelet Count Result 134 k/mm3 (150-375); Red Blood Count 2.26 M/mm3 (4.6-6.20); Red Cell Distribution Width 18.7 % (11.5-14.5); White Blood Count 8.3 K/mm3 (4.5-10.0)
[2022-12-20 04:54] LABS: Alanine Aminotransferase 13 U/L (6-50); Alkaline Phosphatase 55 U/L (38-126); Anion Gap 14 mmol/L (8-16); Aspartate Amino Transferase 19 U/L (17-59); Bilirubin,Total 0.5 mg/dL (0.2-1.3); Blood Urea Nitrogen 17 mg/dL (9-20); Calcium 8.7 mg/dL (8.4-10.2); Carbon Dioxide 12 mmol/L (22-30); Chloride 111 mmol/L (98-107); Estimated CRCL calculation 19 ml/min; Estimated Glomerular Filt Rate 22; Glucose 83 mg/dL (65-110); Phosphorus 3.8 mg/dL (2.5-4.5); Potassium 4.2 mmol/L (3.4-5.0); Sodium 137 mmol/L (137-145)
[2022-12-20 05:06] LABS: Platelet Estimate Adequate (Adequate); Poikilocytosis 1+ (NORMAL)
[2022-12-20 05:07] LABS: Anisocytosis 1+ (NORMAL); Crenated RBC 1+ (NORMAL); Schistocytes None Seen (NORMAL)
[2022-12-20 08:11] LABS: Lipase 69 U/L (23-300)
[2022-12-20] MEDS: LIPASE/AMYLASE/PROTEASE 12,000 UNITS CAP 2 CAP PO ×3 (08:51→17:00)
[2022-12-20] MEDS: FINASTERIDE 5 MG TABLET PO (08:51)
[2022-12-20] MEDS: FOLIC ACID 1 MG TABLET PO (08:52)
[2022-12-20] MEDS: SODIUM BICARBONATE TAB 650 MG TABLET 1300 MG PO ×2 (08:52→17:00)
[2022-12-20] MEDS: NICOTINE (*PBKC) 14 MG PATCH 1 PATCH TRANSDERM (08:52)
[2022-12-20] MEDS: PANTOPRAZOLE 40 MG TABLET PO ×2 (08:52→20:06)
[2022-12-20] MEDS: THIAMINE HCL 100 MG TABLET PO (08:52)
--- NOTE | 2022-12-20 09:39 | P.PNIM_ITS ---
Progress Note: A&P Assessment and Plan (1) RADHA (acute kidney injury): Code(s): N17.9 - Acute kidney failure, unspecified Status: Acute Assessment and Plan: Monitor creatinine. Biopsy report noted. (2) Pancreatitis: Code(s): K85.90 - Acute pancreatitis without necrosis or infection, unspecified Status: Acute Assessment and Plan: monitor lipase Appreciate GenSurg and GI input. (3) GI bleed: Code(s): K92.2 - Gastrointestinal hemorrhage, unspecified Status: Acute Assessment and Plan: Resolved, monitor. (4) Anemia: Code(s): D64.9 - Anemia, unspecified Status: Acute Assessment and Plan: transfuse 1uprbc (5) Failure to thrive: Status: Acute Assessment and Plan: His oral intake has improved. (6) Hypokalemia: Code(s): E87.6 - Hypokalemia Status: Acute Assessment and Plan: Replace as necessary. (7) Alcohol abuse: Code(s): F10.10 - Alcohol abuse, uncomplicated Status: Acute Assessment and Plan: Patient was educated about the benefits of stopping alcohol use. (8) Tobacco abuse: Code(s): Z72.0 - Tobacco use Status: Acute Assessment and Plan: The patient was offered a nicotine patch. Smoking cessation was discussed but patient refused to quit (9) Severe malnutrition: Code(s): E43 - Unspecified severe protein-calorie malnutrition Status: Acute (10) Dysuria: Code(s): R30.0 - Dysuria Status: Acute Assessment and Plan: monitor (11) Hematuria: Code(s): R31.9 - Hematuria, unspecified Status: Acute Assessment and Plan: Dysuria with hematuria. Will have Urology evaluate the patient. Subjective Date/time seen: 12/20/22 09:39 Interval history: no issues overnight still complaining of abd pain Exam Narrative: AF 98.1 157/81 90 18 100% ra Gen - NARD Chest - CTA bilaterally, nml RR CV - RRR S1/S2 Abd - Soft, NT/ND, ostomy in the right of midline with light brown stool in bag Ext - trace pedal edema Psych - Nml mood and affect Skin - Warm and dry Const: General: cooperative, comfortable, no acute distress, well developed, alert, awake, Physically active, ill appearing, average body habitus, well nourished and cachectic Nutritional Appearance: average body habitus, well nourished and cachectic Orientation/consciousness: oriented to person, oriented to place, oriented to time and patient oriented x3 Limitations: no limitations HENMT: Head: normal to inspection, No palpable skull fracture present, normocephalic and atraumatic Ears: hearing grossly normal bilaterally and external ears normal Face/Nose/Sinus: Normal external nose present and Normal nares present Eyes: General: appearance normal, both eyes and all related structures Alignment and Position: alignment normal Periorbital: periorbital findings normal Eyelids: eyelids normal Sclera: sclerae normal Pupils: Equal, round and reactive pupils present EOM: EOMs intact bilaterally Neck: Neck: normal visual inspection, full ROM, no lymphadenopathy, trachea midline and supple Chest: Chest palpation & inspection: normal inspection of the chest Resp: Effort & Inspection: normal respiratory effort Auscultation: clear to auscultation bilaterally
[2022-12-20] MEDS: predniSONE 20 MG TABLET 40 MG PO (12:04)
[2022-12-20 13:50] VITALS: BP 141/98; PULSE 127; RESP 18; TEMP 36.6; O2SAT 97
[2022-12-20] MEDS: EPOETIN ALFA-EPBX 10,000 UNITS/ML VIAL 10000 UNITS SUB-Q (13:53)
[2022-12-20] MEDS: FUROSEMIDE INJ 40 MG/4 ML VIAL IV PUSH (13:54)
--- NOTE | 2022-12-20 14:29 | P.PNNP_ITS ---
Progress Note: A&P Assessment and Plan (1) RADHA (acute kidney injury): Code(s): N17.9 - Acute kidney failure, unspecified Status: Acute Assessment and Plan: * Acute kidney injury * normal renal function in 2021 * however, in August 2022 -- creatinine was 4.12mg/dl * then in September 2022 (after pushing oral fluids), creatinine was 3.52mg/dl * history would suggest volume depletion/dehydration * unclear if this alone would explain his severe RADHA/ARF * evaluation to date: * renal ultrasound without obstruction * CPK normal * urine electrolytes are pre-renal * urine eosinophils negative * serologies so far negative (some still pending) * s/p renal biopsy (on 12/17/22): * significant arterionephrosclerosis * moderate (30 - 40%) interstitial fibrosis and tubular atrophy * severe arterial intimal fibrosis * Repeat ultrasound was about the same. * Unclear if renal function/creatinine will normalize given biopsy findings. Certainly the degree of intimal fibrosis would make the damage due to dehydration more pronounced, possibly spleen in the rapid deterioration in his kidney function. * IV fluids were stopped yesterday. * Creatinine continues to very slowly improve. * Will check another creatinine tomorrow. (2) Pancreatitis: Code(s): K85.90 - Acute pancreatitis without necrosis or infection, unspecified Status: Acute Assessment and Plan: * as noted by admission lipase * CT abdomen imaging noted -- 5mm pancreatic head cyst with questionable sludge/stones in gallbladder * follow trend of lipase (trending down) * MRCP results noted * Gastroenterology and Surgery recommendations noted * Off IV fluids. He is on a diet. (3) Hypokalemia: Code(s): E87.6 - Hypokalemia Status: Acute Assessment and Plan: * Potassium normal the last couple of days. (4) GI bleed: Code(s): K92.2 - Gastrointestinal hemorrhage, unspecified Status: Acute Assessment and Plan: * reported blood at G-tube site and tubing as well as ostomy * follow trend of H/H * on PPI * Gastroenterology following * S/P EGD: * reflux esophagitis, duodenitis with a few superficial ulcers noted * G-tube subsequently removed (5) Anemia: Code(s): D64.9 - Anemia, unspecified Status: Acute Assessment and Plan: * as noted by admission * however, chronic component based on labs in April 2022 * suspect some dilutional effects form IVF resuscitation * suspect RADHA, acute illness, possible GI loss (see #4), alcoholism, and possible nutritional issues * Will continue Epogen dose. * Check a CBC tomorrow (6) Severe malnutrition: Code(s): E43 - Unspecified severe protein-calorie malnutrition Status: Acute Assessment and Plan: * dietary evaluation noted * poor protein intake worsened by increased protein needs secondary to chronic medical issues (fistula and colostomy, poor oral intake, alcoholism...etc) * Pancreatitis likely a factor as well. * Albumin level is low at 3 Will continue to follow. Subjective Date/time seen: 12/20/22 14:29 Interval history: Patient is lying in bed. He is on no oxygen but feels short of breath especially when getting up to the bathroom. He is also very tired when walking to the bathroom. He was urinating frequently before with some discomfort, but last night it was better. Exam Narrative: General: WD/WN male in NAD Heart: normal
--- NOTE | 2022-12-20 14:29 | PM.PNNEP ---
Progress Note: A&P Assessment and Plan (1) RADHA (acute kidney injury): Code(s): N17.9 - Acute kidney failure, unspecified Status: Acute Assessment and Plan: Acute kidney injury normal renal function in 2021 however, in August 2022 -- creatinine was 4.12mg/dl then in September 2022 (after pushing oral fluids), creatinine was 3.52mg/dl history would suggest volume depletion/dehydration unclear if this alone would explain his severe RADHA/ARF evaluation to date: renal ultrasound without obstruction CPK normal urine electrolytes are pre-renal urine eosinophils negative serologies so far negative (some still pending) s/p renal biopsy (on 12/17/22): significant arterionephrosclerosis moderate (30 - 40%) interstitial fibrosis and tubular atrophy severe arterial intimal fibrosis Repeat ultrasound was about the same. Unclear if renal function/creatinine will normalize given biopsy findings. Certainly the degree of intimal fibrosis would make the damage due to dehydration more pronounced, possibly spleen in the rapid deterioration in his kidney function. IV fluids were stopped yesterday. Creatinine continues to very slowly improve. Will check another creatinine tomorrow. (2) Pancreatitis: Code(s): K85.90 - Acute pancreatitis without necrosis or infection, unspecified Status: Acute Assessment and Plan: as noted by admission lipase CT abdomen imaging noted -- 5mm pancreatic head cyst with questionable sludge/stones in gallbladder follow trend of lipase (trending down) MRCP results noted Gastroenterology and Surgery recommendations noted Off IV fluids. He is on a diet. (3) Hypokalemia: Code(s): E87.6 - Hypokalemia Status: Acute Assessment and Plan: Potassium normal the last couple of days. (4) GI bleed: Code(s): K92.2 - Gastrointestinal hemorrhage, unspecified Status: Acute Assessment and Plan: reported blood at G-tube site and tubing as well as ostomy follow trend of H/H on PPI Gastroenterology following S/P EGD: reflux esophagitis, duodenitis with a few superficial ulcers noted G-tube subsequently removed (5) Anemia: Code(s): D64.9 - Anemia, unspecified Status: Acute Assessment and Plan: as noted by admission however, chronic component based on labs in April 2022 suspect some dilutional effects form IVF resuscitation suspect RADHA, acute illness, possible GI loss (see #4), alcoholism, and possible nutritional issues Will continue Epogen dose. Check a CBC tomorrow (6) Severe malnutrition: Code(s): E43 - Unspecified severe protein-calorie malnutrition Status: Acute Assessment and Plan: dietary evaluation noted poor protein intake worsened by increased protein needs secondary to chronic medical issues (fistula and colostomy, poor oral intake, alcoholism...etc) Pancreatitis likely a factor as well. Albumin level is low at 3 Will continue to follow. Subjective Date/time seen: 12/20/22 14:29 Interval history: Patient is lying in bed. He is on no oxygen but feels short of breath especially when getting up to the bathroom. He is also very tired when walking to the bathroom. He was urinating frequently before with some discomfort, but last night it was better. Exam Narrative: General: WD/WN male in NAD Heart: normal S1 and S2; no rub or gallop Lungs: clear Abdomen: soft, nondistended, positive bowel sounds; colostomy noted Extremities: no cyanosis or clubbing; no edema Skin: no rash or subQ nodules Objective Data Vital Signs Vital Signs: Vital Signs - 24 hr 12/19/22 19:55 12/19/22 20:17 12/19/22 20:18 Temperature 99.6 F Pulse Rate 129 H 109 H Respiratory Rate 20 20 Blood Pressure 147/95 H Pulse Oximetry 96 94 Oxygen Delivery Room Air 12/19/22 20:28 12/19/22 20:00 12/20/22 04:04 Temperature
[2022-12-20] MEDS: LEVALBUTEROL NEB 1.25 MG/3 ML INHALATION (16:27)
[2022-12-20 16:29] VITALS: PULSE 126; RESP 20; O2SAT 96
[2022-12-20 16:40] VITALS: PULSE 113; RESP 20
[2022-12-20 20:00] VITALS: PULSE 124; RESP 18; O2SAT 98
[2022-12-20] MEDS: TAMSULOSIN HCL 0.4 MG CAPSULE PO (20:06)
[2022-12-20] MEDS: calcium polycarbophiL 625 MG TABLET PO (20:06)
[2022-12-20 20:08] VITALS: BP 139/95; PULSE 124; RESP 18; TEMP 36.8; O2SAT 98
[2022-12-21] VITALS (7 sets, daily range): BP systolic 133–156; BP diastolic 91–93; PULSE 108–116; RESP 16–20; TEMP 36.7–36.8; O2SAT 97–99
[2022-12-21] MEDS: HYDROcodone/acetaminophen (*CRX) 7.5-325 MG TABLET 1 TAB PO ×4 (03:23→23:08)
[2022-12-21 05:19] LABS: Basophils Percent Auto 0.1 % (0.2-1.2); Hematocrit 23.7 % (42.0-52.0); Hemoglobin 7.8 g/dL (14.0-18.0); Immature Granulocyte Absolute 0.07 K/mm3 (0.00-0.031); Lymphocytes Absolute Auto 0.77 K/mm3 (0.9-3.2); Mean Corpuscular HGB Conc 32.9 g/dl (32-36); Mean Corpuscular Hemoglobin 34.5 pg (26-34); Mean Corpuscular Volume 104.9 fl (80-100); Monocytes Absolute Auto 0.8 K/mm3 (0.1-0.6); Neutrophils Absolute Auto 5.3 K/mm3 (1.3-6.7); Neutrophils Percent Auto 75.9 % (45.5-73.1); Nucleated Red Blood Cells Perc 0.6 % (0.0-0.2); Platelet Count Result 158 k/mm3 (150-375); Red Blood Count 2.26 M/mm3 (4.6-6.20); Red Cell Distribution Width 18.4 % (11.5-14.5)
[2022-12-21 05:36] LABS: Alanine Aminotransferase 14 U/L (6-50); Albumin Level 2.8 g/dL (3.5-5.1); Alkaline Phosphatase 49 U/L (38-126); Anion Gap 9 mmol/L (8-16); Aspartate Amino Transferase 21 U/L (17-59); Bilirubin,Total 0.3 mg/dL (0.2-1.3); Blood Urea Nitrogen 22 mg/dL (9-20); Calcium 8.8 mg/dL (8.4-10.2); Carbon Dioxide 18 mmol/L (22-30); Chloride 108 mmol/L (98-107); Estimated CRCL calculation 18 ml/min; Estimated Glomerular Filt Rate 21; Glucose 131 mg/dL (65-110); Phosphorus 4.1 mg/dL (2.5-4.5); Potassium 4.1 mmol/L (3.4-5.0); Sodium 135 mmol/L (137-145)
[2022-12-21] MEDS: LIPASE/AMYLASE/PROTEASE 12,000 UNITS CAP 2 CAP PO ×3 (08:24→17:01)
[2022-12-21] MEDS: FINASTERIDE 5 MG TABLET PO (08:24)
[2022-12-21] MEDS: FOLIC ACID 1 MG TABLET PO (08:25)
[2022-12-21] MEDS: SODIUM BICARBONATE TAB 650 MG TABLET 1300 MG PO ×2 (08:26→17:02)
[2022-12-21] MEDS: PANTOPRAZOLE 40 MG TABLET PO ×2 (08:26→20:07)
[2022-12-21] MEDS: THIAMINE HCL 100 MG TABLET PO (08:26)
[2022-12-21] MEDS: NICOTINE (*PBKC) 14 MG PATCH 1 PATCH TRANSDERM (09:40)
[2022-12-21] MEDS: predniSONE 20 MG TABLET 40 MG PO (09:40)
--- NOTE | 2022-12-21 11:17 | PM.IMPN ---
Progress Note: A&P Assessment and Plan (1) RADHA (acute kidney injury): Code(s): N17.9 - Acute kidney failure, unspecified Status: Acute Assessment and Plan: Monitor creatinine. Biopsy report noted. (2) Pancreatitis: Code(s): K85.90 - Acute pancreatitis without necrosis or infection, unspecified Status: Acute Assessment and Plan: monitor lipase Appreciate GenSurg and GI input. (3) GI bleed: Code(s): K92.2 - Gastrointestinal hemorrhage, unspecified Status: Acute Assessment and Plan: Resolved, monitor. (4) Anemia: Code(s): D64.9 - Anemia, unspecified Status: Acute Assessment and Plan: transfuse 1uprbc (5) Failure to thrive: Status: Acute Assessment and Plan: His oral intake has improved. (6) Hypokalemia: Code(s): E87.6 - Hypokalemia Status: Acute Assessment and Plan: Replace as necessary. (7) Alcohol abuse: Code(s): F10.10 - Alcohol abuse, uncomplicated Status: Acute Assessment and Plan: Patient was educated about the benefits of stopping alcohol use. (8) Tobacco abuse: Code(s): Z72.0 - Tobacco use Status: Acute Assessment and Plan: The patient was offered a nicotine patch. Smoking cessation was discussed but patient refused to quit (9) Severe malnutrition: Code(s): E43 - Unspecified severe protein-calorie malnutrition Status: Acute (10) Dysuria: Code(s): R30.0 - Dysuria Status: Acute Assessment and Plan: monitor (11) Hematuria: Code(s): R31.9 - Hematuria, unspecified Status: Acute Assessment and Plan: Dysuria with hematuria. Will have Urology evaluate the patient. Subjective Date/time seen: 12/21/22 11:17 Interval history: Only complaint is lower abdominal pain. Exam Narrative: AF 98.1 157/81 90 18 100% ra Gen - NARD Chest - CTA bilaterally, nml RR CV - RRR S1/S2 Abd - Soft, NT/ND, ostomy in the right of midline with light brown stool in bag Ext - trace pedal edema Psych - Nml mood and affect Skin - Warm and dry Const: General: cooperative, comfortable, no acute distress, well developed, alert, awake, Physically active, ill appearing, average body habitus, well nourished and cachectic Nutritional Appearance: average body habitus, well nourished and cachectic Orientation/consciousness: oriented to person, oriented to place, oriented to time and patient oriented x3 Limitations: no limitations HENMT: Head: normal to inspection, No palpable skull fracture present, normocephalic and atraumatic Ears: hearing grossly normal bilaterally and external ears normal Face/Nose/Sinus: Normal external nose present and Normal nares present Eyes: General: appearance normal, both eyes and all related structures Alignment and Position: alignment normal Periorbital: periorbital findings normal Eyelids: eyelids normal Sclera: sclerae normal Pupils: Equal, round and reactive pupils present EOM: EOMs intact bilaterally Neck: Neck: normal visual inspection, full ROM, no lymphadenopathy, trachea midline and supple Chest: Chest palpation & inspection: normal inspection of the chest Resp: Effort & Inspection: normal respiratory effort Auscultation: clear to auscultation bilaterally Cardio: Palpation: normal PMI Rate: regular rate Rhythm: regular rhythm Heart sounds: S1 normal heart sound present and S2 normal heart sound present Peripheral pulses: Peripheral pulses 2+ throughout GI: Inspection: normal to inspection Auscultation: normal bowel sounds Rectal Exam: deferred Other: The patient has NG tube intact to left upper quadrant. There was some specks of blood in the G-tube. The patient has a colostomy bag which is draining light brown stool. Back/Spine/Pelvis: Cervical Spine: cervical ROM normal Skin: General skin exam: normal color Lesions: n
--- NOTE | 2022-12-21 11:20 | ECG_ITS ---
Measurements Intervals [place] Rate: 107 P: 67 AR: 131 QRS: 93 QRSD: 71 T: 113 QT: 365 QTc: 487 Interpretive Statements SINUS TACHYCARDIA RIGHT AXIS DEVIATION CANNOT RULE OUT SEPTAL INFARCT, AGE INDETERMINATE CONSIDER HIGH LATERAL INFARCT, AGE INDETERMINATE BASELINE WANDER- V6 ABNORMAL ECG COMPARED TO ECG 12/09/2022 14:15:10 SINUS TACHYCARDIA NOW PRESENT Electronically Signed On 12-21-2022 13:16:24 CDT by Leobardo Fermin D.O.
--- NOTE | 2022-12-21 12:48 | P.PNNP_ITS ---
Progress Note: A&P Assessment and Plan (1) RADHA (acute kidney injury): Code(s): N17.9 - Acute kidney failure, unspecified Status: Acute Assessment and Plan: * Acute kidney injury * normal renal function in 2021 * however, in August 2022 -- creatinine was 4.12mg/dl * then in September 2022 (after pushing oral fluids), creatinine was 3.52mg/dl * history would suggest volume depletion/dehydration * unclear if this alone would explain his severe RADHA/ARF * evaluation to date: * renal ultrasound without obstruction * CPK normal * urine electrolytes are pre-renal * urine eosinophils negative * serologies so far negative (some still pending) * s/p renal biopsy (on 12/17/22): * significant arterionephrosclerosis * moderate (30 - 40%) interstitial fibrosis and tubular atrophy * severe arterial intimal fibrosis * Repeat ultrasound was about the same. * His creatinine seems to have stabilized at around 3. It this is vastly improved over what it was when he came in but is not normal. Judging from the renal biopsy this may be a new baseline for him. It is possible that he may improve over the next few weeks. * He and I discussed things at length. he has got substantial arteriolonephrosis, this mean that his blood vessels are constricted with cholesterol and scar tissue. This comes from years of smoking and also cholesterol issues. He should stop smoking. We discussed how this is bad for the kidneys and also of course bad for his lungs. In spite of this the patient says that he will not quit smoking. He has not had any cigarettes since he was admitted and seems to be tolerating this pretty well. It would be nice if he could continue this trend and not smoke at home. (2) Pancreatitis: Code(s): K85.90 - Acute pancreatitis without necrosis or infection, unspecified Status: Acute Assessment and Plan: * as noted by admission lipase * CT abdomen imaging noted -- 5mm pancreatic head cyst with questionable sludge/stones in gallbladder * follow trend of lipase (trending down) * MRCP results noted * Gastroenterology and Surgery recommendations noted * He is eating. (3) Hypokalemia: Code(s): E87.6 - Hypokalemia Status: Acute Assessment and Plan: * Potassium normal the last couple of days. (4) GI bleed: Code(s): K92.2 - Gastrointestinal hemorrhage, unspecified Status: Acute Assessment and Plan: * reported blood at G-tube site and tubing as well as ostomy * follow trend of H/H * on PPI * Gastroenterology following * S/P EGD: * reflux esophagitis, duodenitis with a few superficial ulcers noted * G-tube subsequently removed (5) Anemia: Code(s): D64.9 - Anemia, unspecified Status: Acute Assessment and Plan: * as noted by admission * however, chronic component based on labs in April 2022 * suspect some dilutional effects form IVF resuscitation * suspect RADHA, acute illness, possible GI loss (see #4), alcoholism, and possible nutritional issues * Iron saturation was 46 * Will continue Epogen dose. * He may need this as an outpatient. * Check a CBC tomorrow (6) Severe malnutrition: Code(s): E43 - Unspecified severe protein-calorie malnutrition Status: Acute Assessment and Plan: * dietary evaluation noted * poor protein intake worsened by increased protein needs secondary to chronic medical issues (fistula and colostomy, poor oral intake, alcoholism...etc) * Pancreatitis likely a factor as well. * Albumin level i
--- NOTE | 2022-12-21 12:48 | PM.PNNEP ---
Progress Note: A&P Assessment and Plan (1) RADHA (acute kidney injury): Code(s): N17.9 - Acute kidney failure, unspecified Status: Acute Assessment and Plan: Acute kidney injury normal renal function in 2021 however, in August 2022 -- creatinine was 4.12mg/dl then in September 2022 (after pushing oral fluids), creatinine was 3.52mg/dl history would suggest volume depletion/dehydration unclear if this alone would explain his severe RADHA/ARF evaluation to date: renal ultrasound without obstruction CPK normal urine electrolytes are pre-renal urine eosinophils negative serologies so far negative (some still pending) s/p renal biopsy (on 12/17/22): significant arterionephrosclerosis moderate (30 - 40%) interstitial fibrosis and tubular atrophy severe arterial intimal fibrosis Repeat ultrasound was about the same. His creatinine seems to have stabilized at around 3. It this is vastly improved over what it was when he came in but is not normal. Judging from the renal biopsy this may be a new baseline for him. It is possible that he may improve over the next few weeks. He and I discussed things at length. he has got substantial arteriolonephrosis, this mean that his blood vessels are constricted with cholesterol and scar tissue. This comes from years of smoking and also cholesterol issues. He should stop smoking. We discussed how this is bad for the kidneys and also of course bad for his lungs. In spite of this the patient says that he will not quit smoking. He has not had any cigarettes since he was admitted and seems to be tolerating this pretty well. It would be nice if he could continue this trend and not smoke at home. (2) Pancreatitis: Code(s): K85.90 - Acute pancreatitis without necrosis or infection, unspecified Status: Acute Assessment and Plan: as noted by admission lipase CT abdomen imaging noted -- 5mm pancreatic head cyst with questionable sludge/stones in gallbladder follow trend of lipase (trending down) MRCP results noted Gastroenterology and Surgery recommendations noted He is eating. (3) Hypokalemia: Code(s): E87.6 - Hypokalemia Status: Acute Assessment and Plan: Potassium normal the last couple of days. (4) GI bleed: Code(s): K92.2 - Gastrointestinal hemorrhage, unspecified Status: Acute Assessment and Plan: reported blood at G-tube site and tubing as well as ostomy follow trend of H/H on PPI Gastroenterology following S/P EGD: reflux esophagitis, duodenitis with a few superficial ulcers noted G-tube subsequently removed (5) Anemia: Code(s): D64.9 - Anemia, unspecified Status: Acute Assessment and Plan: as noted by admission however, chronic component based on labs in April 2022 suspect some dilutional effects form IVF resuscitation suspect RADHA, acute illness, possible GI loss (see #4), alcoholism, and possible nutritional issues Iron saturation was 46 Will continue Epogen dose. He may need this as an outpatient. Check a CBC tomorrow (6) Severe malnutrition: Code(s): E43 - Unspecified severe protein-calorie malnutrition Status: Acute Assessment and Plan: dietary evaluation noted poor protein intake worsened by increased protein needs secondary to chronic medical issues (fistula and colostomy, poor oral intake, alcoholism...etc) Pancreatitis likely a factor as well. Albumin level is low at 3 Subjective Date/time seen: 12/21/22 12:48 Interval history: Patient is lying in bed. He got up into a chair yesterday. He has intermittent shortness of breath. Exam Narrative: General: WD/WN male in NAD Heart: normal S1 and S2; no rub Lungs: clear bilaterally Abdomen: soft, nondistended, positive bowel sounds; colostomy noted Extremities: no cyanosis or clubbing; no edema Skin: no rash or subQ not
[2022-12-21] MEDS: LEVALBUTEROL NEB 1.25 MG/3 ML INHALATION ×2 (14:18→22:45)
[2022-12-21] MEDS: calcium polycarbophiL 625 MG TABLET PO (20:07)
[2022-12-21] MEDS: TAMSULOSIN HCL 0.4 MG CAPSULE PO (20:07)
[2022-12-22] MEDS: HYDROcodone/acetaminophen (*CRX) 7.5-325 MG TABLET 1 TAB PO ×2 (05:08→11:59)
[2022-12-22 05:38] LABS: Basophils Percent Auto 0.2 % (0.2-1.2); Hematocrit 22.9 % (42.0-52.0); Hemoglobin 7.4 g/dL (14.0-18.0); Immature Granulocyte Absolute 0.11 K/mm3 (0.00-0.031); Immature Granulocyte Percent A 1.7 % (0-0.5); Lymphocytes Percent Auto 12.5 % (18.3-44.2); Mean Corpuscular HGB Conc 32.3 g/dl (32-36); Mean Corpuscular Hemoglobin 33.6 pg (26-34); Mean Corpuscular Volume 104.1 fl (80-100); Mean Platelet Volume 11.1 fl (7.4-10.4); Monocytes Absolute Auto 0.8 K/mm3 (0.1-0.6); Monocytes Percent Auto 12.4 % (2.6-8.5); Neutrophils Absolute Auto 4.7 K/mm3 (1.3-6.7); Neutrophils Percent Auto 73.2 % (45.5-73.1); Nucleated Red Blood Cells Absolute Auto 0.1 K/mm3 (0.0-0.012); Nucleated Red Blood Cells Perc 1.1 % (0.0-0.2); Platelet Count Result 173 k/mm3 (150-375); Red Cell Distribution Width 17.8 % (11.5-14.5); White Blood Count 6.4 K/mm3 (4.5-10.0)
[2022-12-22 05:48] LABS: Alanine Aminotransferase 15 U/L (6-50); Albumin Level 2.8 g/dL (3.5-5.1); Alkaline Phosphatase 45 U/L (38-126); Anion Gap 8 mmol/L (8-16); Aspartate Amino Transferase 27 U/L (17-59); Bilirubin,Total 0.3 mg/dL (0.2-1.3); Blood Urea Nitrogen 27 mg/dL (9-20); Calcium 8.8 mg/dL (8.4-10.2); Carbon Dioxide 21 mmol/L (22-30); Chloride 105 mmol/L (98-107); Estimated CRCL calculation 18 ml/min; Estimated Glomerular Filt Rate 20; Glucose 135 mg/dL (65-110); Phosphorus 3.5 mg/dL (2.5-4.5); Potassium 3.9 mmol/L (3.4-5.0); Sodium 134 mmol/L (137-145)
[2022-12-22 06:00] VITALS: BP 148/91; PULSE 100; RESP 18; TEMP 36.8; O2SAT 97
[2022-12-22] MEDS: FINASTERIDE 5 MG TABLET PO (08:30)
[2022-12-22] MEDS: LIPASE/AMYLASE/PROTEASE 12,000 UNITS CAP 2 CAP PO ×2 (08:30→11:54)
[2022-12-22] MEDS: FOLIC ACID 1 MG TABLET PO (08:30)
[2022-12-22] MEDS: calcium polycarbophiL 625 MG TABLET PO (08:30)
[2022-12-22] MEDS: NICOTINE (*PBKC) 14 MG PATCH 1 PATCH TRANSDERM (08:30)
[2022-12-22] MEDS: SODIUM BICARBONATE TAB 650 MG TABLET 1300 MG PO (08:31)
[2022-12-22] MEDS: THIAMINE HCL 100 MG TABLET PO (08:31)
[2022-12-22] MEDS: PANTOPRAZOLE 40 MG TABLET PO (08:31)
[2022-12-22] MEDS: predniSONE 20 MG TABLET 40 MG PO (09:25)
--- NOTE | 2022-12-22 10:47 | PCNFU ---
Nutrition Follow-Up Complete: Severe Malnutrition as related to inadequate protein-energy intake with increased protein energy needs in setting of chronic disease or condition(entero-colonic fistula/colostomy) as evidenced by minimal oral intake for > 1-2 months and significant weight loss of 20% (30 ibs) in the past 8 months. goal: inadequate Intake of at least 75% of meals/supplements Patient is meeting goal. No new goal. Pt current nutrition is Renal Dialysis with Nepro BID. Last recorded weight is 54.5 kg. Bowel Motility:+Bm reported 12/20 Labs Reviewed:Glu 135, Na 134,BUN 27, Cr 3.2 Meds Noted:Fiber Con, Thiamine,Folic Acid. Skin: WNL Additional Notes: Nutrition follow up. Patient states to tolerating renal diet. He is consuming diet supplements of Nepro BID, providing an additional 420 kcals and 19 gms protein. Agree with diet orders. RD will monitor, weight, labs, oral intake every 7 days.
--- NOTE | 2022-12-22 11:33 | PM.PNNEP ---
Progress Note: A&P Assessment and Plan (1) RADHA (acute kidney injury): Code(s): N17.9 - Acute kidney failure, unspecified Status: Acute Assessment and Plan: normal renal function in 2021 however, in August 2022 -- creatinine was 4.12mg/dl then in September 2022 (after pushing oral fluids), creatinine was 3.52mg/dl history would suggest volume depletion/dehydration unclear if this alone would explain his severe RADHA/ARF evaluation to date: renal ultrasound without obstruction CPK normal urine electrolytes are pre-renal urine eosinophils negative serologies so far negative (some still pending) s/p renal biopsy (on 12/17/22): significant arterionephrosclerosis moderate (30 - 40%) interstitial fibrosis and tubular atrophy severe arterial intimal fibrosis current creatinine maybe a new baseline (although I suppose it could improve further in the next few weeks) (2) Pancreatitis: Code(s): K85.90 - Acute pancreatitis without necrosis or infection, unspecified Status: Acute Assessment and Plan: as noted by admission lipase CT abdomen imaging noted -- 5mm pancreatic head cyst with questionable sludge/stones in gallbladder follow trend of lipase (trending down) MRCP results noted Gastroenterology and Surgery recommendations noted tolerating oral intake (3) Urinary tract infection: Code(s): N39.0 - Urinary tract infection, site not specified Status: Acute Assessment and Plan: urine culture with E. coli and Klebsiella on antibiotics (4) GI bleed: Code(s): K92.2 - Gastrointestinal hemorrhage, unspecified Status: Acute Assessment and Plan: reported blood at G-tube site and tubing as well as ostomy follow trend of H/H on PPI Gastroenterology following S/P EGD: reflux esophagitis, duodenitis with a few superficial ulcers noted G-tube subsequently removed (5) Anemia: Code(s): D64.9 - Anemia, unspecified Status: Acute Assessment and Plan: as noted by admission however, chronic component based on labs in April 2022 suspect some dilutional effects form IVF resuscitation suspect RADHA, acute illness, possible GI loss (see #4), alcoholism, and possible nutritional issues Iron saturation was 46 Will continue Epogen while hospitalized (he may need this as an outpatient as well) (6) Severe malnutrition: Code(s): E43 - Unspecified severe protein-calorie malnutrition Status: Acute Assessment and Plan: dietary evaluation noted poor protein intake worsened by increased protein needs secondary to chronic medical issues (fistula and colostomy, poor oral intake, alcoholism...etc) Pancreatitis likely a factor as well. Albumin level is low at 3 Will continue to follow -- I recommend he follow-up with Dr. Artis for further management of his CKD. Subjective Date/time seen: 12/22/22 11:33 Interval history: Follow-up for acute kidney injury/acute renal failure (apparently on chronic kidney disease). Chart reviewed since last seen -- renal function remains relatively stable; no acute distress noted; reasonable urine output noted; overall, seems to be feeling better; no events overnight or earlier this morning. Exam Narrative: General: WD/WN male in NAD Heart: normal S1 and S2; no rub Lungs: clear bilaterally Abdomen: soft, nondistended, positive bowel sounds; colostomy noted Extremities: no cyanosis or clubbing; no edema Skin: warm and dry Objective Data Vital Signs Vital Signs: Vital Signs Temp Pulse Resp BP Pulse Ox O2 Del Method 12/22/22 08:00 Room Air 12/22/22 06:00 98.2 F 100 18 148/91 H 97 12/21/22 22:47 108 H 20 12/21/22 20:00 112 H 18 99 Room Air 12/21/22 20:09 98.0 F 112 H 18 156/93 H 99 12/21/22 14:30 112 H 20 12/21/22 14:19 116 H 20 Intake/Output Intake/Output: Intake & Out
--- NOTE | 2022-12-22 11:33 | P.PNNP_ITS ---
Progress Note: A&P Assessment and Plan (1) RADHA (acute kidney injury): Code(s): N17.9 - Acute kidney failure, unspecified Status: Acute Assessment and Plan: * normal renal function in 2021 * however, in August 2022 -- creatinine was 4.12mg/dl * then in September 2022 (after pushing oral fluids), creatinine was 3.52mg/dl * history would suggest volume depletion/dehydration * unclear if this alone would explain his severe RADHA/ARF * evaluation to date: * renal ultrasound without obstruction * CPK normal * urine electrolytes are pre-renal * urine eosinophils negative * serologies so far negative (some still pending) * s/p renal biopsy (on 12/17/22): * significant arterionephrosclerosis * moderate (30 - 40%) interstitial fibrosis and tubular atrophy * severe arterial intimal fibrosis * current creatinine maybe a new baseline (although I suppose it could improve further in the next few weeks) (2) Pancreatitis: Code(s): K85.90 - Acute pancreatitis without necrosis or infection, unspecified Status: Acute Assessment and Plan: * as noted by admission lipase * CT abdomen imaging noted -- 5mm pancreatic head cyst with questionable sludge/stones in gallbladder * follow trend of lipase (trending down) * MRCP results noted * Gastroenterology and Surgery recommendations noted * tolerating oral intake (3) Urinary tract infection: Code(s): N39.0 - Urinary tract infection, site not specified Status: Acute Assessment and Plan: * urine culture with E. coli and Klebsiella * on antibiotics (4) GI bleed: Code(s): K92.2 - Gastrointestinal hemorrhage, unspecified Status: Acute Assessment and Plan: * reported blood at G-tube site and tubing as well as ostomy * follow trend of H/H * on PPI * Gastroenterology following * S/P EGD: * reflux esophagitis, duodenitis with a few superficial ulcers noted * G-tube subsequently removed (5) Anemia: Code(s): D64.9 - Anemia, unspecified Status: Acute Assessment and Plan: * as noted by admission * however, chronic component based on labs in April 2022 * suspect some dilutional effects form IVF resuscitation * suspect RADHA, acute illness, possible GI loss (see #4), alcoholism, and possible nutritional issues * Iron saturation was 46 * Will continue Epogen while hospitalized (he may need this as an outpatient as well) (6) Severe malnutrition: Code(s): E43 - Unspecified severe protein-calorie malnutrition Status: Acute Assessment and Plan: * dietary evaluation noted * poor protein intake worsened by increased protein needs secondary to chronic medical issues (fistula and colostomy, poor oral intake, alcoholism...etc) * Pancreatitis likely a factor as well. * Albumin level is low at 3 Will continue to follow -- I recommend he follow-up with Dr. Artis for further management of his CKD. Subjective Date/time seen: 12/22/22 11:33 Interval history: Follow-up for acute kidney injury/acute renal failure (apparently on chronic kidney disease). Chart reviewed since last seen -- renal function remains relatively stable; no acute distress noted; reasonable urine output noted; overall, seems to be feeling better; no events overnight or earlier this morning. Exam 2 Narrative: General: WD/WN male in NAD Heart: normal S1 and S2; no rub Lungs: clear bilaterally Abdomen: soft, nondistended, positive bowel sound
--- NOTE | 2022-12-22 11:45 | PM.DS ---
DS: Admitting Diagnosis Discharge Date December 22, 2022 Admitting Diagnosis Acute renal failure, urinary tension, DS: Discharge Diagnosis Discharge Diagnosis (1) RADHA (acute kidney injury): Code(s): N17.9 - Acute kidney failure, unspecified Status: Acute Assessment and Plan: Monitor creatinine. Biopsy report noted. (2) Pancreatitis: Code(s): K85.90 - Acute pancreatitis without necrosis or infection, unspecified Status: Acute Assessment and Plan: monitor lipase Appreciate GenSurg and GI input. (3) GI bleed: Code(s): K92.2 - Gastrointestinal hemorrhage, unspecified Status: Acute Assessment and Plan: Resolved, monitor. (4) Anemia: Code(s): D64.9 - Anemia, unspecified Status: Acute Assessment and Plan: transfuse 1uprbc (5) Failure to thrive: Status: Acute Assessment and Plan: His oral intake has improved. (6) Hypokalemia: Code(s): E87.6 - Hypokalemia Status: Acute Assessment and Plan: Replace as necessary. (7) Alcohol abuse: Code(s): F10.10 - Alcohol abuse, uncomplicated Status: Acute Assessment and Plan: Patient was educated about the benefits of stopping alcohol use. (8) Tobacco abuse: Code(s): Z72.0 - Tobacco use Status: Acute Assessment and Plan: The patient was offered a nicotine patch. Smoking cessation was discussed but patient refused to quit (9) Severe malnutrition: Code(s): E43 - Unspecified severe protein-calorie malnutrition Status: Acute (10) Dysuria: Code(s): R30.0 - Dysuria Status: Acute Assessment and Plan: monitor (11) Hematuria: Code(s): R31.9 - Hematuria, unspecified Status: Acute Assessment and Plan: Dysuria with hematuria. Will have Urology evaluate the patient. DS: Summary Hospital Course Hospital Course: Patient is a 57-year-old male who came in with acute kidney injury. Had a significant elevation of his creatinine. He did undergo renal biopsy which showed arterial nephrosclerosis. Patient's baseline kidney function is likely around 2.9-3.2. He also was underlying lung disease and had some shortness of breath on this hospitalization. Will be sent home on a prednisone taper. Smoking cessation was counseled. Otherwise patient has history of chronic pancreatitis. We will continue pancreatic enzymes on discharge. Otherwise patient is medically stable. He has high risk for readmissions given his lung disease. Will have home O2 eval prior to discharge Time Spent with Patient Time attestation: Total time spent providing and/or coordinating discharge services: Exam Narrative: AF 98.1 157/81 90 18 100% ra Gen - NARD Chest - CTA bilaterally, nml RR CV - RRR S1/S2 Abd - Soft, NT/ND, ostomy in the right of midline with light brown stool in bag Ext - trace pedal edema Psych - Nml mood and affect Skin - Warm and dry DS: Data Data Completed and Pending Completed studies during hospitalization: Pending at discharge 12/11/22 12:07 Surgical [PTH] Routine Labs on day of discharge: Labs from last 24 hours 12/22/22 05:20 WBC 6.4 RBC 2.20 L Hgb 7.4 L Hct 22.9 L MCV 104.1 H MCH 33.6 MCHC 32.3 RDW 17.8 H Plt Count 173 MPV 11.1 H Immature Gran % (Auto) 1.7 H Neut % (Auto) 73.2 H Lymph % (Auto) 12.5 L [place] % (Auto) 12.4 H Eos % (Auto) 0.0 Baso % (Auto) 0.2 Lymph # (Auto) 0.80 L [place] # (Auto) 0.8 H Eos # (Auto) 0.0 Baso # (Auto) 0.0 Abs Immat Gran (auto) 0.11 H Absolute Neuts (auto) 4.7 Absolute Nucleated RBC 0.1 H Nucleated RBC % 1.1 H Sodium 134 L Potassium 3.9 Chloride 105 Carbon Dioxide 21 L Anion Gap 8 BUN 27 H Creatinine 3.20 H Estim Creat Clear Calc 18 Estimated GFR 20 L Glucose 135 H Calcium 8.8 Phosphorus 3.5 Total Bilirubin 0.3 AST 27 ALT 15 Alkaline
[2022-12-22 13:45] VITALS: PULSE 97; O2SAT 97
[2022-12-22 13:50] VITALS: PULSE 137; O2SAT 93
[2022-12-22 14:00] VITALS: PULSE 100; O2SAT 97
--- NOTE | 2022-12-22 14:09 | HOMEO2EVAL ---
Evaluation was performed at [facility] Home Oxygen Evaluation RC: Home Oxygen (O2) Evaluation Start: 12/22/22 11:48 Freq: ONCE Status: Active Protocol: RPE Activity Type Activity Date Activity User E-sign Co-sign Detail Recorded Client Recorded Date Recorded By Document 12/22/22 13:45 SUSANNA [email or web address] 12/22/22 14:09 SUSANNA Document 12/22/22 13:50 SUSANNA [email or web address] 12/22/22 14:09 SUSANNA Document 12/22/22 14:00 SUSANNA [email or web address] 12/22/22 14:09 SUSANNA 12/22/22 12/22/22 12/22/22 13:45 13:50 14:00 Home O2 Evaluation [Oxygen] -Test Phase Resting Exercise Resting -Oxygen Delivery Room Air Room Air Room Air [Pulse Oximetry] -Pulse Oximetry (90-100 %) 97 93 97 [Pulse Rate] -Pulse Rate (60-100 beats/min) 97 137 H 100 [Evaluation] -Activity Tolerance Good [Comments] -Home Oxygen Evaluation Comments PT WALKED IN ROOM, ALSO UP WITH EXERTION APPROX 10 MINUTES GETTING READY FOR D/C IN BATHROOM, CHANGING AND CLEANING. INCREASED HEART RATE UP TO 139 , MILD SOB, NO HOME O2 NEEDED [Charges] -Treatment Charges O2 Evaluation - Inpatient
--- NOTE | 2022-12-22 14:09 | PCRCNOTE ---
HOME O2 EVAL DONE, PT WALKED IN ROOM, ALSO UP WITH EXERTION APPROX 10 MINUTES GETTING READY FOR D/C IN BATHROOM, CHANGING AND CLEANING. INCREASED HEART RATE UP TO 139, MILD SOB, NO HOME O2 NEEDED
== END 2022-12-22 14:50 | disposition home or self-care (01) | DRG 438 ==
LOC: ANHED 14:30 → ANH2MED 18:21
PROVIDERS: Emergency Medicine; Internal Medicine; Internal Medicine Gastroenterology; Internal Medicine Nephrology; Nurse Practitioner; Nurse Practitioner Adult Health; Admitting Provider Chiropractor; Emergency Provider Emergency Medicine; PCP Internal Medicine; Visit Provider Chiropractor
PROC: 0DJ08ZZ Inspection of Upper Intestinal Tract, Via Natural or Artificial Opening Endoscopic (ICD-10-PCS; CPT 43235; principal; 2022-12-11 11:30)
DX: K85.90 Acute pancreatitis without necrosis or infection, unspecified (principal); E43 Unspecified severe protein-calorie malnutrition; E87.20 Acidosis, unspecified; N17.9 Acute kidney failure, unspecified; Z68.1 Body mass index [BMI] 19.9 or less, adult; K63.2 Fistula of intestine; N39.0 Urinary tract infection, site not specified; K92.2 Gastrointestinal hemorrhage, unspecified; I12.9 Hypertensive chronic kidney disease with stage 1 through stage 4 chronic kidney disease, or unspecified chronic kidney disease; N18.9 Chronic kidney disease, unspecified; B96.20 Unspecified Escherichia coli [E. coli] as the cause of diseases classified elsewhere; B96.1 Klebsiella pneumoniae [K. pneumoniae] as the cause of diseases classified elsewhere; D53.1 Other megaloblastic anemias, not elsewhere classified; E87.6 Hypokalemia; F17.210 Nicotine dependence, cigarettes, uncomplicated; F10.10 Alcohol abuse, uncomplicated; J44.9 Chronic obstructive pulmonary disease, unspecified; K21.00 Gastro-esophageal reflux disease with esophagitis, without bleeding; K80.20 Calculus of gallbladder without cholecystitis without obstruction; N40.1 Benign prostatic hyperplasia with lower urinary tract symptoms; R11.15 Cyclical vomiting syndrome unrelated to migraine; R31.9 Hematuria, unspecified; Z93.3 Colostomy status; Z20.822 Contact with and (suspected) exposure to COVID-19; Z93.1 Gastrostomy status; Z86.73 Personal history of transient ischemic attack (TIA), and cerebral infarction without residual deficits; Z87.442 Personal history of urinary calculi; Z90.2 Acquired absence of lung [part of]
CPT/HCPCS: 36415; 36430; 50200; 71045; 74176; 74183; 76376; 76775; 76942; 80048; 80053; 80061; 80069; 81001; 81003; 81050; 82274; 82436; 82550; 82570; 82595; 82607; 82728; 82746; 82948; 83520; 83540; 83550; 83605; 83690; 83735; 83935; 84100; 84133; 84155; 84156; 84165; 84166; 84300; 84443; 84484; 84540; 85014; 85018; 85025; 85027; 85610; 85730; 85999; 86036; 86038; 86039; 86160; 86225; 86850; 86900; 86901; 86923; 87040; 87077; 87081; 87086; 87186; 87636; 88300; 88305; 88313; 88329; 88346; 88348; 88350; 93005; 93970; 94618; 94640; 96361; 96374; 96375; 97165; 99285; A9270; A9577; C9113; J0696; J1170; J1940; J2060; J2405; J2704; J3411; J3475; J3480; J7030; J7050; J7120; J7512; P9016; Q5105

== ENCOUNTER 2023-02-03 12:33 | Outpatient (RCR) | payer MEDICARE, MEDICAID, SELFPAY ==
[2023-02-03 12:30] VITALS: BMI 17.4
== END 2023-03-26 13:53 | disposition home or self-care (01) ==
LOC: ANHWOC 12:33
PROVIDERS: PCP Internal Medicine; Visit Provider Internal Medicine
DX: Z43.3 Encounter for attention to colostomy (principal); K76.0 Fatty (change of) liver, not elsewhere classified
CPT/HCPCS: 99213; G0463

== ENCOUNTER 2024-03-10 09:28 | Outpatient (CLI) | payer MEDICARE, MEDICAID, SELFPAY ==
[2024-03-10 10:25] LABS: Basophils Percent Auto 0.8 % (0.2-1.2); Eosinophils Percent Auto 0.8 % (0-4.4); Hematocrit 32.3 % (42.0-52.0); Hemoglobin 11.3 g/dL (14.0-18.0); Immature Granulocyte Absolute 0.02 K/mm3 (0.00-0.031); Immature Granulocyte Percent A 0.4 % (0-0.5); Immature Platelet Fraction Pct 7.8 % (0.9-11.2); Lymphocytes Absolute Auto 1.84 K/mm3 (0.9-3.2); Lymphocytes Percent Auto 34.7 % (18.3-44.2); Mean Corpuscular Hemoglobin 39.4 pg (26-34); Mean Corpuscular Volume 112.5 fl (80-100); Monocytes Absolute Auto 0.5 K/mm3 (0.1-0.6); Monocytes Percent Auto 8.5 % (2.6-8.5); Neutrophils Absolute Auto 2.9 K/mm3 (1.3-6.7); Neutrophils Percent Auto 54.8 % (45.5-73.1); Platelet Count Result 136 k/mm3 (150-375); Red Blood Count 2.87 M/mm3 (4.6-6.20); Red Cell Distribution Width 13.6 % (11.5-14.5); White Blood Count 5.3 K/mm3 (4.5-10.0)
[2024-03-10 13:28] LABS: Iron 247 ug/dL (49-181)
[2024-03-10 13:37] LABS: Alanine Aminotransferase 54 U/L (6-50); Albumin Level 4.3 g/dL (3.5-5.1); Alkaline Phosphatase 74 U/L (38-126); Anion Gap 10 mmol/L (4-12); Aspartate Amino Transferase 77 U/L (17-59); Bilirubin,Total 1.3 mg/dL (0.2-1.3); Blood Urea Nitrogen 19 mg/dL (9-20); Calcium 9.6 mg/dL (8.4-10.2); Carbon Dioxide 36 mmol/L (22-30); Chloride 89 mmol/L (98-107); Estimated Glomerular Filt Rate 29; Glucose 92 mg/dL (65-110); Potassium 3.4 mmol/L (3.4-5.0); Sodium 135 mmol/L (137-145)
[2024-03-10 13:42] LABS: Percent Iron Saturation 93 % (20-50)
[2024-03-15 23:49] LABS: Platelet Antibody, Direct NEGATIVE (NEGATIVE)
[2024-03-19 17:14] LABS: Methylmalonic Acid 213 nmol/L (69-390)
[2024-03-21 13:09] LABS: Soluble Transferrin Receptor 0.87 mg/L (0.76-1.76)
== END 2024-03-10 09:29 | disposition home or self-care (01) ==
LOC: ANHLAB 09:31
PROVIDERS: PCP Internal Medicine; Visit Provider Internal Medicine Hematology & Oncology
DX: D64.9 Anemia, unspecified (principal); D69.59 Other secondary thrombocytopenia
CPT/HCPCS: 36415; 80053; 82607; 82728; 82746; 83540; 83550; 83921; 84238; 85025; 85055; 86023

== ENCOUNTER 2024-03-21 01:09 | Emergency (ER) | payer MEDICARE, SELFPAY ==
[2024-03-21] VITALS (11 sets, daily range): BP systolic 168–228; BP diastolic 97–114; PULSE 66–116; RESP 12–19; TEMP 36.6–36.9; O2SAT 97–100
--- NOTE | ~2024-03-21 | CT_ITS ---
CT of the Abdomen and Pelvis: Indication: Bowel obstruction Technique: 2.5 mm axial scans were obtained through the abdomen and pelvis following intravenous adm inistration of 100 cc of Omnipaque 350. Dose reduction technique was used on this scan by utilizing a utomated exposure control and iterative reconstruction technique. The dose-length product (DLP) was 2 31.46 mGy-cm. COMPARISON: 12/20/2022 Findings: Scans through the lung bases are unremarkable. The liver, spleen, pancreas, adrenals and kidneys are within normal limits. Small gallstones are pres ent. There are atherosclerotic calcifications of the aorta. There are shotty epigastric/peripancreati c lymph nodes, nonspecific. Questionable mild wall thickening of the distal gastric body/gastric antrum. Multiple bowel anastomos es are present. There are multiple dilated small bowel loops in the lower abdomen/pelvis with inflamm atory haziness throughout the mesentery and minimal fluid. Transition point present in the right lowe r quadrant region (coronal image [id number]), at anastomotic suture line. Images through the pelvis were performed. Questionable wall thickening urinary bladder versus underdi stention. Prostate gland unremarkable. Impression: Small bowel obstruction, strictures right related to anastomotic suture line in the right lower quadr ant, as detailed above. Associated probable inflammatory haziness and minimal fluid in the mesentery. Possible wall thickening gastric body/antrum. Correlate for gastritis. Cholelithiasis. Questionable cystitis versus underdistention of bladder. Correlate with urinalysis. Reviewed, dictated and finalized at [facility]. Impression: Small bowel obstruction, strictures right related to anastomotic suture line in the right lower quadrant, as detailed above. Associated probable inflammatory haziness and minimal fluid in the mesentery. Possible wall thickening gastric body/antrum. Correlate for gastritis. Cholelithiasis. Questionable cystitis versus underdistention of bladder. Correlate with urinaly sis.
--- NOTE | 2024-03-21 01:26 | PC.NURSE ---
attempted blood work in triage area. after two sticks patient requests to wait for an IV.
[2024-03-21 02:27] LABS: Basophils Percent Auto 0.5 % (0.2-1.2); Eosinophils Percent Auto 0.5 % (0-4.4); Hemoglobin 11.5 g/dL (14.0-18.0); Immature Granulocyte Absolute 0.03 K/mm3 (0.00-0.031); Immature Granulocyte Percent A 0.5 % (0-0.5); Immature Platelet Fraction Pct 5.6 % (0.9-11.2); Lymphocytes Absolute Auto 1.43 K/mm3 (0.9-3.2); Lymphocytes Percent Auto 22.7 % (18.3-44.2); Mean Corpuscular HGB Conc 34.8 g/dl (32-36); Mean Corpuscular Hemoglobin 40.1 pg (26-34); Monocytes Absolute Auto 0.5 K/mm3 (0.1-0.6); Monocytes Percent Auto 7.6 % (2.6-8.5); Neutrophils Absolute Auto 4.3 K/mm3 (1.3-6.7); Neutrophils Percent Auto 68.2 % (45.5-73.1); Platelet Count Result 98 k/mm3 (150-375); Red Blood Count 2.87 M/mm3 (4.6-6.20); Red Cell Distribution Width 14.4 % (11.5-14.5); White Blood Count 6.3 K/mm3 (4.5-10.0)
[2024-03-21 02:40] LABS: Alanine Aminotransferase 20 U/L (6-50); Alkaline Phosphatase 76 U/L (38-126); Anion Gap 10 mmol/L (4-12); Aspartate Amino Transferase 40 U/L (17-59); Bilirubin,Total 1.7 mg/dL (0.2-1.3); Blood Urea Nitrogen 16 mg/dL (9-20); Calcium 9.5 mg/dL (8.4-10.2); Carbon Dioxide 28 mmol/L (22-30); Chloride 99 mmol/L (98-107); Estimated CRCL calculation 26 ml/min; Estimated Glomerular Filt Rate 31; Glucose 110 mg/dL (65-110); Lipase 55 U/L (23-300); Potassium 3.4 mmol/L (3.4-5.0); Sodium 137 mmol/L (137-145)
[2024-03-21 02:57] LABS: Anisocytosis 1+; Large Platelets Present; Macrocytosis 1+ (NORMAL); Platelet Estimate Decreased (Adequate)
[2024-03-21 02:58] LABS: Schistocytes None Seen
--- NOTE | 2024-03-21 03:36 | ED.ABDPAIN ---
HPI - Abdominal Pain General Chief Complaint: Abdominal Pain Stated Complaint: abd pain, started yesterday Time Seen by Provider: 03/21/24 03:15 History of Present Illness HPI narrative: 59-year-old male with extensive abdominal surgical history presenting to the emergency department for chief complaint of abdominal pain for the last 2 days. Pain has gotten gradually worse and located in the left lower quadrant but radiates into his right upper quadrant. States that he has not had any bowel movements for 2 days but having persistent nausea and vomiting. Has a history of bowel obstructions, fistula formations, liver issues. Is scheduled for an outpatient MRI in 2 days time for apparent mass or cystic structures. Denies any fever, chills, chest pain, shortness a breath, back pain, headache or vision changes. Was otherwise in his normal state of health without any recent injuries or trauma. 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 Kidney stones LLQ pain Right inguinal hernia Patient refuses surgical correction Stomach ulcer Tobacco abuse Surgical History Surgical History History of left inguinal hernia repair X2 History of pneumonectomy Left lower lobe pneumonectomy 2018 due to pneumothorax History of tonsillectomy and adenoidectomy S/P laparotomy exploratory laparotomy, extensive lysis of adhesions of approximately 45 minutes, takedown of colo-entero fistula, small-bowel resection, creation of loop ileostomy on 05/02/22 Status post open reduction with internal fixation of fracture Status post right foot surgery (~1990) For sequential surgeries for ORIF right foot due to trauma from alcohol use with the last surgical procedure also involving bone harvesting from his right hip Family History Family History Father Acute myocardial infarction Mother Breast cancer Cerebrovascular accident Social History Social History Social History: The patient is . 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 He has smoked up to a pack of cigarettes per day and started smoking around age 14. He is now down to 1/2 pack of cigarettes per day. He drinks at least 1 mixed drink a day.. He denies a history of alcohol withdrawal and is went up to 8 days without drinking without withdrawal symptoms. He denies illicit substance use. Code status full code Smoking packs per day: 0.5 Smoking cigarettes per day: 10.0 Years smoked: 40 Smoking pack-years: 20.00 Smoking status: Current every day smoker Alcohol intake: current Drinks per week: 7 Substance use: never Substance use type: does not use Lack of Transportation: No Lack of Food: Never True Current Housing: I Have Housing Concerned About Future Housing: No Difficulty Paying Gas/Electric Bills: No Difficulty Paying for Meds: No Currently Unemployed: No Education: Don't Know Difficulty w/ Childcare or Family Care: No Gender identity (if verbalized by the patient): Male Spiritual care concerns: No Exam Narrative: GENERAL: Uncomfortable appearing but not in acute distress HEAD: [Normocephalic, atraumatic.] EYES: [PERRLA and EOMI.] ENT: Nares clear, no rhinorrhea o
[2024-03-21] MEDS: HYDROmorphone HCL INJ (*CRX) 1 MG/ML SYR IV PUSH ×2 (03:40→05:32)
[2024-03-21] MEDS: LACTATED RINGERS 1,000 ML 999 ML IV CONT (03:40)
[2024-03-21] MEDS: ONDANSETRON INJ 4 MG/2 ML VIAL IV PUSH ×2 (03:40→07:31)
[2024-03-21] MEDS: cefTRIAXone 2 GM/NS 100 ML 2 GM/100 ML BAG IVPB (05:32)
[2024-03-21 05:33] LABS: Add Urine Microscopic? YES; Appearance Urine Clear (Clear); Bacteria Urine None Seen /hpf; Bilirubin Urine Negative (Negative); Blood Urine Negative (Negative); Color Urine Yellow (Yellow); Glucose Urine UA Negative (Negative); Ketones Urine Trace mg/dL (Negative); Leukocyte Esterase Ur Negative LEU/UL (Negative); Nitrate Urine Negative (Negative); Non Pathogenic Casts 0-2; Protein Urine Trace mg/dL (Negative); RBC Urine 0-2 /hpf (0-2); Specific Grav Ur 1.013 (1.001-1.035); Squamous Epithelial Cell Urine None Seen /hpf (Few); WBC Urine 0-5 /hpf (0-3); pH Urine 7.5 (5.0-9.0)
--- NOTE | 2024-03-21 05:47 | PC.NURSE ---
This RN attempted NG tube x2. Pt unable to tolerate procedure. pt now refusing NG tube.
[2024-03-21] MEDS: LACTATED RINGERS 1,000 ML 100 ML IV CONT (06:21)
[2024-03-21] MEDS: metroNIDAZOLE 500 MG/ISO 100ML 500 MG/100 ML BAG 100 MG IVPB (06:25)
[2024-03-21] MEDS: hydrALAZINE HCL 20 MG/ML VIAL 10 MG IV PUSH (06:28)
[2024-03-21 06:47] LABS: Lactic Acid Reflex 1.2 mmol/L (0.7-2.0)
--- NOTE | 2024-03-21 07:22 | PC.NURSE ---
Assumed care of pt, pt is alert and upright, on tele monitor, lights dimmed. Discussed POC, awaiting bed assignment at [facility]. Pt requesting ordered nausea and pain medication. Pt refuses NG tube (states nose has been broken 9 times), states the previous nurses tried w/out success and he wants to go to [facility] to be put under prior to the placement. Pt requesting water, this RN educated pt and told pt he is to remain NPO.
[2024-03-21] MEDS: HYDROmorphone HCL INJ (*CRX) 1 MG/ML SYR 0.5 MG IV PUSH ×2 (07:31→09:11)
== END 2024-03-21 09:53 | disposition short-term general hospital (02) ==
PROVIDERS: Emergency Provider Student in an Organized Health Care Education/Training Program; PCP Internal Medicine
DX: K56.601 Complete intestinal obstruction, unspecified as to cause (principal); J44.9 Chronic obstructive pulmonary disease, unspecified; F17.210 Nicotine dependence, cigarettes, uncomplicated; Z86.73 Personal history of transient ischemic attack (TIA), and cerebral infarction without residual deficits; Z87.442 Personal history of urinary calculi; Z90.2 Acquired absence of lung [part of]; K80.20 Calculus of gallbladder without cholecystitis without obstruction; Z79.899 Other long term (current) drug therapy
CPT/HCPCS: 36415; 74177; 80053; 81001; 83605; 83690; 85025; 85055; 96361; 96365; 96367; 96375; 96376; 99285; J0360; J0696; J1170; J1836; J2405; J7120; Q9967